=== PATIENT | male | born 1960 | race Caucasian/White ===

== ENCOUNTER 2020-07-20 13:56 | Emergency (ER) | payer OTHER, SELFPAY ==
--- NOTE | 2020-07-20 14:09 | PC.NURSE ---
PT PRESENTS TO THE ED WITH HIS MOTHER WHO IS ALSO HERE FOR CP. HE HAS REQUESTED TO HELP HER SETTLE INTO HER ROOM, PRIOR TO BEING TRIAGED HIMSELF. HE HAS BEEN EDUCATED ON THE CARE PLAN FOR A CC OF CHEST PAIN. HE HAS BEEN ASSIGNED A ROOM IN THE ED BUT PREFERS TO BE WITH HIS MOTHER AND DEFER HIS ASSESSMENT.
--- NOTE | 2020-07-20 14:21 | ED.CHESTPAIN ---
HPI - Chest Pain General Chief Complaint: Chest Pain Stated Complaint: Chest pain Time Seen by Provider: 07/20/20 14:16 Source: patient Mode of arrival: ambulatory Limitations: no limitations History of Present Illness HPI narrative: 59 y/o male with history of Related Data Allergies Allergy/AdvReac Type Severity Reaction Status Date / Time No Known Allergies Allergy Unverified 02/01/20 19:08 [No Known Allergies*]
== END 2020-07-21 23:55 | disposition left against medical advice (07) ==
PROVIDERS: Emergency Provider Emergency Medicine; PCP Internal Medicine
DX: R07.9 Chest pain, unspecified (principal)
CPT/HCPCS: 99281

== ENCOUNTER 2020-08-11 17:25 | Emergency (ER) | payer OTHER, SELFPAY ==
--- NOTE | ~2020-08-11 | XR_ITS ---
EXAMINATION: XR TIBIA AND FIBULA, RIGHT CLINICAL INFORMATION: Right leg wound. Question osteomyelitis COMPARISON: None TECHNIQUE: AP and lateral views of the right tibia and fibula were obtained. FINDINGS: No fracture or dislocation seen. There are vascular calcifications consistent with diabetes. Pretibial soft tissue calcifications are seen, nonspecific. No radiopaque foreign body or soft tissue gas. No cortical destruction or periostitis. XR/XR tibia fibula RT 2V IMPRESSION: No cortical destruction or periostitis to suggest osteomyelitis. There are nonspecific pretibial soft tissue calcifications.
[2020-08-11 17:52] VITALS: BP 165/74; PULSE 58; RESP 18; TEMP 36.9; O2SAT 97; BMI 40.3
--- NOTE | 2020-08-11 20:02 | ED.GENADULT ---
HPI - General Adult General Chief complaint: Wound/Laceration Stated complaint: diabetic wound - leg Time Seen by Provider: 08/11/20 19:45 Source: patient Mode of arrival: ambulatory Limitations: no limitations History of Present Illness HPI narrative: Patient presents to ED for right leg wound that is not erythematous. Patient unaware how long he has had this wound. Patient denies any recent trauma, swelling of the leg, fever, chills, or calf pain. Related Data Previous Rx's Medication Instructions Recorded cephalexin 500 mg PO QID #28 cap 08/11/20 doxycycline hyclate 100 mg PO BID #14 cap 08/11/20 Allergies Allergy/AdvReac Type Severity Reaction Status Date / Time No Known Allergies Allergy Unverified 02/01/20 19:08 [No Known Allergies*] Review of Systems Review of Systems: Yes all other systems are reviewed and are negative Constitutional: Constitutional: Reports as per HPI and Reports no additional constitutional complaints Eyes: Eyes: Reports as per HPI and Reports no additional eye complaints ENT: Reports system reviewed and no additional complaints, except as documented and Reports as per HPI Cardiovascular: Cardiovascular: Reports as per HPI and Reports no additional cardiovascular complaints Respiratory: Respiratory: Reports as per HPI and Reports no additional respiratory complaints Gastrointestinal: Gastrointestinal: Reports as per HPI and Reports no additional gastrointestinal complaints Genitourinary: Genitourinary: Reports no additional male genitourinary complaints and Reports as per HPI Musculoskeletal: Musculoskeletal: Reports no additional musculoskeletal complaints and Reports as per HPI Comments: Right leg wound Neurologic: Reports system reviewed and no additional complaints, except as documented and Reports as per HPI [facility] Past Medical History Medical History (Updated 08/12/20 @ 00:01 by Moe Armstrong) Arthritis Diabetes HTN (hypertension) Sleep apnea Surgical History (Updated 08/11/20 @ 17:55 by Lavonne Castellanos) Gastric bypass status for obesity H/O rotator cuff surgery Social History Social History Advance Directives: No Advance Directives Information Provided: Yes Physical Exam Vital Signs: Vital Signs: Last Vital Signs Temp 98.5 F 08/11/20 17:52 Pulse 58 08/11/20 17:52 Resp 18 08/11/20 17:52 BP 165/74 H 08/11/20 17:52 Pulse Ox 97 08/11/20 17:52 Body Mass Index 40.3 Const: General: cooperative, healthy appearing, comfortable, no acute distress, well developed, alert, awake and Physically active Orientation/consciousness: patient oriented x3 HENMT: Head: Yes normal to inspection, Yes No palpable skull fracture present, Yes normocephalic and Yes atraumatic Eyes: General: appearance normal, both eyes and all related structures Neck: Neck: Yes normal visual inspection, Yes full ROM, Yes no lymphadenopathy, Yes no meningeal signs, Yes trachea midline, Yes supple and No tender Chest: Chest palpation & inspection: normal inspection of the chest and normal palpation of entire chest wall Resp: Effort & Inspection: normal respiratory effort and able to speak in complete sentences Auscultation: clear to auscultation bilaterally Cardio: Jugular venous distension: no JVD Heart sounds: S1 normal heart sound present and S2 normal heart sound present GI: Inspection: Yes normal to inspection and No abdominal wall ecchymosis Palpation (GI): Soft to palpation, not firm, nontender, no guarding and not rigid : General: No CVA tenderness and Yes no CVA tenderness Back/Spine/Pelvis: Back: no CVA tenderness, No CVA tenderness and No back tenderness Skin: General skin exam: no rashes or lesions noted and elasticity normal Neuro: General: patient oriented x3, no meningeal signs and CN's II-XI intact bilaterally Cranial nerves: Yes CN's II-XII intact bilaterally Extrem: Other: Right lower extremityz; anterior tibial positive for area of erythema and wound is warm, negative for any drainage. Negative for any swelling of leg or calf tenderness. Feet negative for any ulcers/wounds or swelling. Palpable pedal pulses. Left lower extremity normal and vascular/motor/neuro exam intact General: Yes normal to inspection and Yes full ROM Psych: Appearance: grossly normal, well kempt and not disheveled Course Course Course Narrative: Mild cellulitis. Will do x-ray to rule osteomyelitis Reevaluation(s) Reevaluation #1: Patient does not want to have any lab work or x-ray of right lower extremity. Patient has to leave. Patient will be discharged AMA with antibiotics and told to return to the ED immediately. Patient explained if osteomyelitis is can lead to difficulty of life, disability, or sepsis. Patient did not want any labs either. Patient still wanted to sign out against medical advice once he was explained of those things.. Medical Decision Making MDM Narrative Medical decision making narrative: Right leg cellulitis infected wound Discharge Plan Discharge Clinical Impression: Cellulitis, Wound infection Patient Disposition: Left Against Medical Advice Instructions: Wound Infection (ED), Cellulitis (ED) Additional Instructions: Return to the ED immediately for swelling, worsening redness, calf pain, fever, chills, weakness, or any other concerning symptoms Prescriptions: New cephalexin 500 mg capsule 500 mg PO QID Qty: 28 RF: 0 doxycycline hyclate 100 mg capsule 100 mg PO BID Qty: 14 RF: 0 Referrals: Jason Albert MD [Primary Care Provider] - 2 days (Right cellulitis/infected wound) Stand Alone Forms: Against Medical Advice Interventions: ED Discharge Assessment Last Done: 08/11/20 20:48 Discharge Date/Time: 08/11/20 20:50 Print Language: Citizen Of [place]
== END 2020-08-11 20:50 | disposition left against medical advice (07) ==
PROVIDERS: Emergency Provider Emergency Medicine Emergency Medical Services; PCP Internal Medicine
DX: L08.9 Local infection of the skin and subcutaneous tissue, unspecified (principal); L03.115 Cellulitis of right lower limb; E11.69 Type 2 diabetes mellitus with other specified complication; I10 Essential (primary) hypertension
CPT/HCPCS: 73590; 99283

== ENCOUNTER 2020-12-15 00:52 | Emergency (ER) | payer OTHER, SELFPAY ==
--- NOTE | ~2020-12-15 | XR_ITS ---
EXAMINATION: XR CHEST CLINICAL INFORMATION: Chest pain COMPARISON: None TECHNIQUE: Frontal view of the chest was obtained. FINDINGS: Normal symmetric lung volumes. No parenchymal consolidation. No pleural effusion. No pneumothorax. Cardiomediastinal silhouette and pulmonary vascularity are within normal limits. No acute osseous abnormalities. XR/XR chest 1V IMPRESSION: Unremarkable examination.
[2020-12-15 00:59] VITALS: BP 148/70; PULSE 59; RESP 16; TEMP 36.8; O2SAT 96; BMI 40.0
--- NOTE | 2020-12-15 01:03 | ECG_ITS ---
Test Reason : CHEST PAIN Blood Pressure : / mmHG Vent. Rate : 054 BPM Atrial Rate : 054 BPM P-R Int : 160 ms QRS Dur : 110 ms QT Int : 426 ms P-R-T Axes : 019 -10 029 degrees QTc Int : 403 ms Sinus bradycardia Otherwise normal ECG No previous ECGs available Referred By: Generic ED Physician Electronically Signed By:NEVA GARCIA
[2020-12-15 01:20] VITALS: BP 139/63; PULSE 53; RESP 15; TEMP 36.8; O2SAT 96
[2020-12-15 01:28] LABS: Basophils Percent Auto 0.3 % (0-2); Eosinophils Absolute Auto 0.1 X10*3/uL (0.0-0.4); Eosinophils Percent Auto 1.8 % (0-4); Hematocrit 40.8 % (42-52); Hemoglobin 14.1 g/dl (14.0-18.0); Imm Gran Abs Auto 0.02 X10*3/uL (0.00-0.03); Imm Gran Pct Auto 0.3 % (0.0-0.4); Lymphocytes Percent Auto 41.9 % (20-40); MANUAL DIFF FLAG NO; Mean Corpuscular HGB Conc 34.6 g/dl (31.0-36.0); Mean Corpuscular Hemoglobin 31.7 pg (27.0-33.0); Mean Corpuscular Volume 91.7 fL (80-98); Mean Platelet Volume 10.5 fL (9.4-12.4); Monocytes Absolute Auto 0.5 X10*3/uL (0.1-1.2); Monocytes Percent Auto 7.1 % (2-11); Neutrophils Absolute Auto 3.4 X10*3/uL (2.0-8.3); Neutrophils Percent Auto 48.6 % (45-73); Platelet Count 182 X10*3/uL (160-400); Red Blood Count 4.45 X10*6/uL (4.60-5.80); Red Cell Distribution Width 12.4 % (11.0-16.0)
--- NOTE | 2020-12-15 01:32 | PC.NURSE ---
IV established, labs obtained. Pt reports being pain free at this time. VSS. Awaiting primary MD servin.
[2020-12-15 01:49] LABS: Anion Gap 12 (12-20); Blood Urea Nitrogen 10 mg/dL (9-16); Calcium 9.1 mg/dL (8.4-10.2); Carbon Dioxide 29 mmol/L (22-29); Chloride 106 mmol/L (96-108); Creatinine Clr Calc Pharmacy 117.1; Estimated Glomerular Filt Rate > 60; Glucose Random 118 mg/dL (60-115); Potassium 3.7 mmol/L (3.3-5.1); Sodium 143 mmol/L (135-145)
[2020-12-15 01:51] LABS: Troponin-I High Sensitivity 3.5 ng/L (<3.5-35.0)
--- NOTE | 2020-12-15 02:40 | PC.NURSE ---
at bedside for primary eval. Pt remains pain free at this time.
--- NOTE | 2020-12-15 02:41 | ED.CHESTPAIN ---
HPI - Chest Pain General Chief Complaint: Chest Pain Stated Complaint: chest pain Time Seen by Provider: 12/15/20 02:29 Source: patient Mode of arrival: ambulatory Limitations: no limitations History of Present Illness HPI narrative: Patient comes emergency room complaining of intermittent chest pain for 2 weeks. Patient states that today he had chest pressure at 11:00, results by 12, (15 hours ago). By the time the patient came to the emergency room, all his symptoms had resolved. At this time, patient has no chest pain, no shortness of breath, no radiation. Earlier today, patient states that the discomfort was radiating towards the left arm. Patient states it is not related to exertion Related Data Previous Rx's Medication Instructions Recorded cephalexin 500 mg capsule 500 mg PO QID #28 cap 08/11/20 doxycycline hyclate 100 mg capsule 100 mg PO BID #14 cap 08/11/20 Allergies Allergy/AdvReac Type Severity Reaction Status Date / Time No Known Allergies Allergy Verified 12/15/20 00:58 [No Known Allergies*] Review of Systems Review of Systems: Constitutional : No Weight loss, No Fever, No Chills, No Night Sweats, No Fatigue, No Malaise ENT/Mouth : No Hearing loss, No Ear Pain, No Nasal Congestion, No Sinus Pain, No Hoarseness, No sore throat, No Rhinorrhea, No Swallowing Difficulty Eyes: No Eye Pain, No Swelling, No Redness, No Foreign Body, No Discharge, No Vision Changes Cardiovascular : Chest pressure which self-resolved 15 hours ago, No SOB, No Dyspnea on Exertion, No Orthopnea, No Edema, No Palpitations Respiratory : No Cough, No Sputum, No Wheezing, No Smoke Exposure, No Dyspnea Gastrointestinal : No Nausea, No Vomiting, No Diarrhea, No Constipation, No abdominal Pain, No Hematochezia, No Melena Genitourinary : no irregular bleeding, No Dysuria, No Urinary Frequency, No Hematuria, No Urinary Incontinence, No Urgency, No Flank Pain, No Urinary Flow Changes, No Hesitancy Musculoskeletal : No joint pain, No Myalgias, No Joint Swelling Skin : No Skin Lesions, No rash Neuro : No Weakness, No Numbness, No Paresthesias, No Loss of Consciousness, No Dizziness, No Headache Psych : No Anxiety/Panic, No Depression, No SI/HI/AH/VH, No Social Issues, Heme/Lymph: No Bruising, No Bleeding,No Lymphadenopathy Endocrine : No Polyuria, No Polydipsia, No Temperature Intolerance [facility] Past Medical History Medical History Arthritis Diabetes HTN (hypertension) Sleep apnea Surgical History Gastric bypass status for obesity H/O rotator cuff surgery Social History Social History Advance Directives: No Advance Directives Information Provided: No Physical Exam Vital Signs: Vital Signs: Last Vital Signs Temp 98.3 F 12/15/20 01:20 Pulse 53 12/15/20 01:20 Resp 15 12/15/20 01:20 BP 139/63 12/15/20 01:20 Pulse Ox 96 12/15/20 01:20 Body Mass Index 40.0 Const: Other: Appearance: Alert. Oriented X3. No acute distress. Eyes: Pupils equal, round and reactive to light. ENT: Pharynx normal. Neck: Normal inspection. Neck supple. No lymph nodes noted. No crepitus CVS: Normal heart rate and rhythm. Pulses normal. Normal S1 and S2 Respiratory: No respiratory distress. Breath sounds normal. No Wheezing. No rales Abdomen: Soft and nontender. No rigidity. No distention. good BS x4 Skin: Skin warm and dry. Normal skin color. Normal skin turgor. Extremities: No lower extremity edema. No Lacerations. No Rash Neuro: Oriented X 3. No motor deficit. No sensory deficit. Moving all extermities. No slurred speech. Course Course Course Narrative: Patient EKG and troponin within normal limits, chest x-ray negative. Patient has been asymptomatic over 15 hours. I discussed with the patient that he will likely benefit from a stress test. Patient will discuss this with his primary care physician. MDM - Chest Pain Lab Data Result diagrams: 12/15/20 01:19 12/15/20 01:19 Labs: Lab Results 12/15/20 12/15/20 12/15/20 Range/Units 01:19 01:19 01:19 WBC 7.0 (4.8-10.8) X10*3/uL RBC 4.45 L (4.60-5.80) X10*6/uL Hgb 14.1 (14.0-18.0) g/dl Hct 40.8 L (42-52) % MCV 91.7 (80-98) fL MCH 31.7 (27.0-33.0) pg MCHC 34.6 (31.0-36.0) g/dl RDW 12.4 (11.0-16.0) % Plt Count 182 (160-400) X10*3/uL MPV 10.5 (9.4-12.4) fL Immature Gran % (Auto) 0.3 (0.0-0.4) % Neut % (Auto) 48.6 (45-73) % Lymph % (Auto) 41.9 H (20-40) % [place] % (Auto) 7.1 (2-11) % Eos % (Auto) 1.8 (0-4) % Baso % (Auto) 0.3 (0-2) % Lymph # (Auto) 3.0 (1.2-4.9) X10*3/uL [place] # (Auto) 0.5 (0.1-1.2) X10*3/uL Eos # (Auto) 0.1 (0.0-0.4) X10*3/uL Baso # (Auto) 0.0 (0.0-0.2) X10*3/uL Abs Immat Gran (auto) 0.02 (0.00-0.03) X10*3/uL Absolute Neuts (auto) 3.4 (2.0-8.3) X10*3/uL Absolute Nucleated RBC 0.000 (0.0-0.012) X10*3/uL Nucleated RBC % (auto) 0.0 (0.0-0.2) /100WBC Sodium 143 (135-145) mmol/L Potassium 3.7 (3.3-5.1) mmol/L Chloride 106 (96-108) mmol/L Carbon Dioxide 29 (22-29) mmol/L Anion Gap 12 (12-20) BUN 10 (9-16) mg/dL Creatinine 0.79 (0.5-1.4) mg/dL Estim Creat Clear Calc 117.1 Estimated GFR > 60 Random Glucose 118 H (60-115) mg/dL Calcium 9.1 (8.4-10.2) mg/dL Troponin I High Sens 3.5 (<3.5-35.0) ng/L Imaging Data Chest x-ray: Radiologist's impression: Normal symmetric lung volumes. No parenchymal consolidation. No pleural effusion. No pneumothorax.? Cardiomediastinal silhouette and pulmonary vascularity are within normal limits. No acute osseous abnormalities. XR/XR chest 1V IMPRESSION: Unremarkable examination. ? ECG Data ECG #1: Attestation: I personally reviewed and interpreted this ECG as follows: (Sinus bradycardia, heart rate 54, no ST segment depression or elevation, no T-wave inversion, QTC 403) Discharge Plan Discharge Clinical Impression: Atypical chest pain Patient Disposition: Home, Self-Care Instructions: Chest Pain (ED) Additional Instructions: Please follow-up with your primary care physician tomorrow. If you have any worsening or new symptoms, please return to the emergency room or call 911 Prescriptions: No Action cephalexin 500 mg capsule 500 mg PO QID Qty: 28 RF: 0 doxycycline hyclate 100 mg capsule 100 mg PO BID Qty: 14 RF: 0
[2020-12-15 02:59] VITALS: BP 124/67; PULSE 58; RESP 14; O2SAT 97
[2020-12-15 04:41] LABS: Glucose, Whole Blood 104 mg/dL (60-115)
== END 2020-12-15 03:03 | disposition home or self-care (01) ==
PROVIDERS: Emergency Provider Emergency Medicine; PCP Internal Medicine
DX: R07.9 Chest pain, unspecified (principal); Z79.899 Other long term (current) drug therapy; Z98.84 Bariatric surgery status
CPT/HCPCS: 36415; 71045; 80048; 82947; 84484; 85025; 93005; 99283; 99284

== ENCOUNTER 2021-03-02 14:28 | Emergency (ER) | payer OTHER, SELFPAY ==
[2021-03-02 14:35] VITALS: BP 155/84; PULSE 64; RESP 18; TEMP 36.7; O2SAT 99; BMI 40.8
--- NOTE | 2021-03-02 15:03 | ED.WOUNDLAC ---
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 Patient denies cough fever chest pain nausea vomiting diarrhea or fever. Related Data Previous Rx's Medication Instructions Recorded cephalexin 500 mg capsule 500 mg PO QID #28 cap 08/11/20 doxycycline hyclate 100 mg capsule 100 mg PO BID #14 cap 08/11/20 doxycycline hyclate 100 mg capsule 100 mg PO BID 10 Days #20 cap 03/02/21 Allergies Allergy/AdvReac Type Severity Reaction Status Date / Time No Known Allergies Allergy Verified 12/15/20 00:58 [No Known Allergies*] Review of Systems Review of Systems: Review of systems: General: Patient denies any fever chills recent illness or falls Musculoskeletal: Denies back pain or body aches or other injuries HEENT: denies headache, runny nose, ear pain Respiratory: denies shortness of breath, cough Cardiovascular: no chest pain or palpitations : denies dysuria, frequency Abdomen: no nausea vomiting denies abdominal pain Extremities: Left leg pain swelling and redness Skin: no diaphoresis Yes all other systems are reviewed and are negative PMFSH Past Medical History Medical History Arthritis Diabetes HTN (hypertension) Sleep apnea Surgical History Gastric bypass status for obesity H/O rotator cuff surgery Social History Social History Advance Directives: No Advance Directives Information Provided: No Physical Exam Vital Signs: Vital Signs: Last Vital Signs Temp 98.1 F 03/02/21 14:35 Pulse 64 03/02/21 14:35 Resp 18 03/02/21 14:35 BP 155/84 H 03/02/21 14:35 Pulse Ox 99 03/02/21 14:35 Body Mass Index 40.8 General: Well-appearing well-nourished in no signs of distress HEENT: Normocephalic atraumatic Neck: No signs of JVD, no masses no tenderness or lymphadenopathy Cardiovascular: Regular rate and rhythm Respiratory: Clear to auscultation bilaterally Abdomen: Soft nontender no masses Extremities: Normal pedal pulses no signs of edema Skin: Left leg approximately 3 L right now redness with narrowing the center nondraining is tender to palpation erythematous mildly indurated otherwise dry Dry and warm Back: No tenderness full ROM MDM - Wound/Laceration MDM Narrative Medical decision making narrative: Concern for cellulitis the left leg I will start the patient on doxycycline and sent home on doxycycline. Discharge Plan Discharge Clinical Impression: Cellulitis of left leg Patient Disposition: Home, Self-Care Instructions: Cellulitis (ED) Additional Instructions: Please watch for worsening infection if you have worsening pain can tolerate antibiotics or have any other concerns please do not hesitate to come back to emergency department. Prescriptions: New doxycycline hyclate 100 mg capsule 100 mg PO BID 10 Days Qty: 20 RF: 0 No Action cephalexin 500 mg capsule 500 mg PO QID Qty: 28 RF: 0 doxycycline hyclate 100 mg capsule 100 mg PO BID Qty: 14 RF: 0
== END 2021-03-02 15:20 | disposition home or self-care (01) ==
PROVIDERS: Emergency Provider Student in an Organized Health Care Education/Training Program; PCP Internal Medicine
DX: L03.116 Cellulitis of left lower limb (principal); E11.9 Type 2 diabetes mellitus without complications; I10 Essential (primary) hypertension
CPT/HCPCS: 99283

== ENCOUNTER 2021-04-30 14:33 | Outpatient (REF) | payer OTHER, SELFPAY ==
--- NOTE | ~2021-04-30 | XR_ITS ---
EXAMINATION: XR FOOT, RIGHT CLINICAL INFORMATION: Pain right foot. COMPARISON: None TECHNIQUE: AP, lateral, and oblique views of the right foot. FINDINGS: There is no visible fracture, dislocation or subluxation. No bony erosive changes. There is mild soft tissue swelling along the fifth MTP joint likely cellulitis. No periosteal elevation. The ankle mortise and subtalar joints are normal. Minimal dorsal intertarsal spurring is seen. Incidentally noted is a radiopaque pin or soft tissue density within the plantar surface XR/XR foot RT min 3V IMPRESSION: Tortuous radiopaque metal pin along the mid plantar foot. Correlate clinically. Mild soft tissue swelling fifth MTP joint likely cellulitis. No underlying bony erosive changes or periosteal thickening to suggest osteomyelitis. Mild hallux valgus deformity first MTP joint.
== END 2021-04-30 14:34 | disposition home or self-care (01) ==
LOC: HO.XRAY 14:33
PROVIDERS: Absent Provider Internal Medicine; PCP Internal Medicine; Visit Provider Student in an Organized Health Care Education/Training Program
DX: M79.671 Pain in right foot (principal)
CPT/HCPCS: 73630

== ENCOUNTER 2021-12-13 09:26 | Emergency (ER) | payer OTHER, SELFPAY ==
--- NOTE | ~2021-12-13 | XR_ITS ---
EXAMINATION: XR FOOT, RIGHT CLINICAL INFORMATION: Open wound, diabetic. COMPARISON: None TECHNIQUE: AP, lateral, and oblique views of the right foot. FINDINGS: There is hallux valgus deformity 1st MTP joint. No visible acute fracture or dislocation seen. The ankle mortise and subtalar joints are normal. There is a small calcaneal heel enthesophyte. There is mild distal dorsal foot soft tissue swelling. No bony erosive changes. XR/XR foot RT 2V IMPRESSION: Mild soft tissue swelling distal dorsal foot. Mild distal dorsal foot soft tissue swelling. No gas or soft tissue swelling seen along the plantar aspect. No acute fracture.
[2021-12-13 09:33] VITALS: BP 151/74; PULSE 79; RESP 18; TEMP 36.6; O2SAT 96; BMI 40.6
[2021-12-13 09:56] LABS: MANUAL DIFF FLAG NO
[2021-12-13 09:58] LABS: Basophils Percent Auto 0.2 % (0-2); Eosinophils Absolute Auto 0.1 X10*3/uL (0.0-0.4); Eosinophils Percent Auto 1.7 % (0-4); Hematocrit 40.1 % (42.0-52.0); Hemoglobin 13.7 g/dl (14.0-18.0); Imm Gran Abs Auto 0.02 X10*3/uL (0.00-0.03); Imm Gran Pct Auto 0.3 % (0.0-0.4); Lymphocytes Absolute Auto 1.5 X10*3/uL (1.2-4.9); Mean Corpuscular HGB Conc 34.2 g/dl (31.0-36.0); Mean Corpuscular Hemoglobin 31.1 pg (27.0-33.0); Mean Corpuscular Volume 90.9 fL (80.0-98.0); Mean Platelet Volume 10.5 fL (9.4-12.4); Monocytes Absolute Auto 0.5 X10*3/uL (0.1-1.2); Monocytes Percent Auto 6.9 % (2-11); Neutrophils Absolute Auto 4.4 x10*3/uL (2.0-8.3); Neutrophils Percent Auto 67.9 % (45-73); Platelet Count 211 X10*3/uL (160-400); Red Blood Count 4.41 X10*6/uL (4.60-5.80); White Blood Count 6.5 X10*3/uL (4.8-10.8)
[2021-12-13 10:07] LABS: Lactic Acid 1.5 mmol/L (0.5-2.0)
[2021-12-13 10:32] LABS: Anion Gap 14 (12-20); Blood Urea Nitrogen 12 mg/dL (9-16); Carbon Dioxide 26 mmol/L (22-29); Chloride 106 mmol/L (96-108); Creatinine Clr Calc Pharmacy 121.2; Estimated Glomerular Filt Rate > 60; Glucose Random 202 mg/dL (60-115); Potassium 3.6 mmol/L (3.3-5.1); Sodium 142 mmol/L (135-145)
--- NOTE | 2021-12-13 12:08 | ED_ITS ---
HPI - General Adult General Chief complaint: Wound/Laceration Stated complaint: wound/Lac on R foot/swollen Time Seen by Provider: 12/13/21 12:06 Source: patient Mode of arrival: ambulatory Limitations: no limitations History of Present Illness HPI narrative: Patient is a 61 year old male with a history of diabetes presenting to the emergency department today with a wound to the bottom of his right foot and right foot swelling. Patient states that over the last 2 weeks he has had swelling to his right foot and believes he has a wound to the bottom of his right foot. Patient states that he has previously followed with the wound center here. Patient denies any dizziness, lightheadedness, abdominal pain, nausea, vomiting, fever, chills, blurry vision, double vision, loss of vision, chest pain, difficulty breathing, shortness of breath, back pain, night sweats, pain with urination, increased urinary frequency, increased urinary urgency, blood in his urine or stool, syncope or a near syncopal episode, recent trauma or falls, bowel incontinence, bladder incontinence, bowel retention, bladder retention, or any other complaints at this time. Onset (ago): week(s) (2) Location: right and lower extremity (bottom of foot) Radiation: non-radiation Severity: mild Severity scale (1-10): 2 Quality: dull Pain Consistency: constant Relieving factors: none Exacerbating factors: none Associated symptoms: denies other symptoms Treatments prior to arrival: none Related Data Previous Rx's Medication Instructions Recorded cephalexin 500 mg capsule 500 mg PO QID #28 caps 08/11/20 doxycycline hyclate 100 mg capsule 100 mg PO BID #14 caps 08/11/20 doxycycline hyclate 100 mg capsule 100 mg PO BID 10 days #20 caps 03/02/21 cephalexin 500 mg capsule 500 mg PO Q6H 7 days #28 caps 12/13/21 Allergies Allergy/AdvReac Type Severity Reaction Status Date / Time No Known Allergies Allergy Verified 12/15/20 00:58 [No Known Allergies*] Review of Systems Constitutional: Constitutional: Reports no additional constitutional compla ints, Denies chills, Denies fever(s) and Denies night sweats Eyes: Eyes: Reports no additional eye complaints, Denies blurry vision, Denies change in vision, Denies diplopia, Denies eye discharge, Denies loss of vision and Denies eye pain ENT: Denies dizziness Cardiovascular: Cardiovascular: Reports no additional cardiovascular complaints, Denies chest pain, Denies lightheadedness, Denies Loss of Consciousness and Denies dyspnea Respiratory: Respiratory: Reports no additional respiratory complaints and Denies dyspnea Gastrointestinal: Gastrointestinal: Reports no additional gastrointestinal complaints, Denies abdominal pain, Denies melena, Denies hematochezia, Denies change in bowel habits and Denies change in stool character Genitourinary: Genitourinary: Reports no additional male genitourinary complaints, Denies hematuria, Denies oliguria, Denies difficulty urinating, Denies dysuria, Denies urinary frequency, Denies urinary hesitancy, Denies urinary incontinence and Denies urinary urgency Musculoskeletal: Musculoskeletal: Reports no additional musculoskeletal complaints, Denies numbness and Denies tingling Comments: right foot swelling and pain Neurologic: Denies dizziness, Denies loss of vision, Denies numbness and Denies tingling Psychiatric: Psychiatric: Reports no additional psychiatric complaints Endocrine: Endocrine: Reports no additional endocrine complaints Hematologic/Lymphatic: Hematologic/Lymphatic: Reports no additional hematologic/lymphatic complaints Allergic/Immunologic: Allergic/Immunologic: Reports no additional allergic/immunologic complaints PMFSH Past Medical History Attestation statement: The following information was validated with the patient. Source: old records reviewed Medical History Arthritis Diabetes HTN (hypertension) Sleep apnea Surgical History Gastric bypass status for obesity H/O rotator cuff surgery Social History Social History Patient Tobacco Use Status: Never used Tobacco Use of substances other than those prescribed or required for medical reasons: No Advance Directives: No Advance Directives Information Provided: No Physical Exam ED Vital Signs: Vital Signs - 24 hr 12/13/21 09:33 12/13/21 12:52 Temperature 98 F 97.8 F Pulse Rate 79 50 Respiratory Rate 18 16 Blood Pressure 151/74 H 122/68 Pulse Oximetry 96 96 Oxygen Delivery Method Room Air Room Air BMI result Body Mass Index 40.6 Const General: cooperative, no acute distress, alert and awake Nutritional Appearance: well nourished Orientation/consciousness: patient oriented x3 Limitations: no limitations HENMT Head: Yes normal to inspection and Yes atraumatic Ears: hearing grossly normal bilaterally and external ears normal General nose exam: Normal external nose present, no nasal discharge noted and no epistaxis Face and sinus: Yes normal facial exam, No abrasion and No laceration Mouth: Normal oral and palatal mucosa present, no drooling and no muffled voice Eyes General: appearance normal, both eyes and all related structures Periorbital: periorbital findings normal Eyelids: Yes eyelids normal Conjunctivae: conjunctivae normal Pupils: Equal, round and reactive pupils present EOM: EOMs intact bilaterally Neck Neck: Yes normal visual inspection, Yes full ROM and Yes no lymphadenopathy Chest Chest palpation & inspection: normal inspection of the chest Resp Effort & Inspection: normal respiratory effort and able to speak in complete sentences Auscultation: clear to auscultation bilaterally Cardio Rate: regular rate Rhythm: regular rhythm GI Inspection: Yes normal to inspection Neuro General: patient oriented x3 and moves all extremities Cranial nerves: Yes Equal, round and reactive pupils present Cognition (Neuro): normal cognition Motor exam (neuro): 5/5 motor strength present throughout Sensory Exam: Normal double simultaneous stimulation for sensation Coordination: [id number] test normal Extrem Other: minimal swelling to the right foot, small break in callus of heel General: Yes full ROM and Yes capillary refill normal Psych Appearance: grossly normal Mental Status: mental status grossly normal Affect: normal affect Attitude: cooperative Thought process: Normal thought process present Thought content: Normal thought content present Insight: Good insight present (Psych) Medical Decision Making MDM Narrative Medical decision making narrative: Patient is a 61 year old male presenting to the emergency department today with right foot pain and swelling. Patient's physical exam showed very minimal swelling to the right foot and a small knick in the callous of the heel of the right foot. Patient's blood work was unremarkable. Patient's right foot x-ray showed no acute process. I explained my physical exam findings as well as all test results to the patient. I answered all questions asked by the patient. Due to the patient's minimal swelling, small break in callus, and his history of diabetes, I am going to cover him for cellulitis. I stressed the importance of t he patient taking his medication as prescribed. I stressed the importance of the patient following up with his primary care provider and wound care. I stressed the importance of the patient returning to the emergency department immediately if his symptoms were to worsen or if he were to develop any dizziness, shortness of breath, difficulty breathing, chest pain, blurry vision, loss of vision, [place], vomiting, abdominal pain, fever, chills, back pain, or any other complaints. Patient verbalized agreement and understanding with this treatment plan and discharge. Differential Diagnosis Differential Diagnosis: Cellulitis Medical Records Medical records reviewed: Yes I reviewed the patient's medical records. Lab Data Lab results reviewed: Yes I reviewed the patient's lab results. Result diagrams: 12/13/21 09:50 12/13/21 09:59 Labs: Lab Results 12/13/21 12/13/21 12/13/21 Range/Units 09:50 09:50 09:59 WBC 6.5 (4.8-10.8) X10*3/uL RBC 4.41 L (4.60-5.80) X10*6/uL Hgb 13.7 L (14.0-18.0) g/dl Hct 40.1 L (42.0-52.0) % MCV 90.9 (80.0-98.0) fL MCH 31.1 (27.0-33.0) pg MCHC 34.2 (31.0-36.0) g/dl RDW 12.0 (11.0-16.0) % Plt Count 211 (160-400) X10*3/uL MPV 10.5 (9.4-12.4) fL Immature Gran % (Auto) 0.3 (0.0-0.4) % Neut % (Auto) 67.9 (45-73) % Lymph % (Auto) 23.0 (20-40) % [place] % (Auto) 6.9 (2-11) % Eos % (Auto) 1.7 (0-4) % Baso % (Auto) 0.2 (0-2) % Lymph # (Auto) 1.5 (1.2-4.9) X10*3/uL [place] # (Auto) 0.5 (0.1-1.2) X10*3/uL Eos # (Auto) 0.1 (0.0-0.4) X10*3/uL Baso # (Auto) 0.0 (0.0-0.2) X10*3/uL Abs Immat Gran (auto) 0.02 (0.00-0.03) X10*3/uL Absolute Neuts (auto) 4.4 (2.0-8.3) x10*3/uL Absolute Nucleated RBC 0.000 (0.0-0.012) X10*3/uL Nucleated RBC % (auto) 0.0 (0.0-0.2) /100WBC Sodium 142 (135-145) mmol/L Potassium 3.6 (3.3-5.1) mmol/L Chloride 106 (96-108) mmol/L Carbon Dioxide 26 (22-29) mmol/L Anion Gap 14 (12-20) BUN 12 (9-16) mg/dL Creatinine 0.76 (0.5-1.4) mg/dL Estim Creat Clear Calc 121.2 Estimated GFR > 60 Random Glucose 202 H D (60-115) mg/dL Lactic Acid 1.5 (0.5-2.0) mmol/L Calcium 9.0 (8.4-10.2) mg/dL Imaging Data Right foot x-ray: Attestation: I personally reviewed and interpreted this imaging study as follows: My impression: No acute nelson process. Radiologist's impression: EXAMINATION: XR FOOT, RIGHT CLINICAL INFORMATION: Open wound, diabetic.? COMPARISON: None? TECHNIQUE: AP, lateral, and oblique views of the right foot. FINDINGS: There is hallux valgus deformity 1st MTP joint. No visible acute fracture or dislocation seen. The ankle mortise and subtalar joints are normal. There is a small calcaneal heel enthesophyte. There is mild distal dorsal foot soft tissue swelling. No bony erosive changes. XR/XR foot RT 2V IMPRESSION: Mild soft tissue swelling distal dorsal foot. Mild distal dorsal foot soft tissue swelling. No gas or soft tissue swelling seen along the plantar aspect. No acute fracture. Dictated By: Miah Rivera MD Signed By: Electronically signed by Miah Rivera MD 12/13/21 2532 Discharge Plan Discharge Clinical Impression: Cellulitis Patient Disposition: Home, Self-Care Instructions: Cellulitis (ED) Additional Instructions: Follow up with your primary care provider. Return to the emergency department immediately if your symptoms worsen or if you develop any dizziness, shortness of breath, difficulty breathing, chest pain, blurry vision, loss of vision, nausea, vomiting, abdominal pain, fever, chills, back pain, or any other complaints. Prescriptions: New cephalexin 500 mg capsule 500 mg PO Q6H 7 Days Qty: 28 0RF No Action cephalexin 500 mg capsule 500 mg PO QID Qty: 28 0RF doxycycline hyclate 100 mg capsule 100 mg PO BID Qty: 14 0RF doxycycline hyclate 100 mg capsule 100 mg PO BID 10 Days Qty: 20 0RF [place] [facility] [place] [facility] [place] (Call to establish and follow up with a primary care provider. If you already have a primary care provider, please follow up with them. ) [facility] [place] [facility] Group] (Call to establish and follow up with a primary care provider. If you already have a primary care provider, please follow up with them. ) [facility] [place] [facility] Group] (Call to establish and follow up with a primary care provider. If you already have a primary care provider, please follow up with them. ) [facility] [place] [facility] [place] Group] Interventions: ED Discharge Assessment Last Done: 12/13/21 15:23 Discharge Date/Time: 12/13/21 15:24 Print Language: Maori
[2021-12-13 12:52] VITALS: BP 122/68; PULSE 50; RESP 16; TEMP 36.6; O2SAT 96
== END 2021-12-13 15:24 | disposition home or self-care (01) ==
PROVIDERS: Emergency Provider Student in an Organized Health Care Education/Training Program
DX: L03.115 Cellulitis of right lower limb (principal); M79.671 Pain in right foot; E11.9 Type 2 diabetes mellitus without complications; I10 Essential (primary) hypertension
CPT/HCPCS: 36415; 73620; 80048; 83605; 85025; 87040; 99283; 99284

== ENCOUNTER 2021-12-17 04:35 | Inpatient (IN) | payer OTHER, SELFPAY ==
[2021-12-17] VITALS (7 sets, daily range): BP systolic 128–160; BP diastolic 59–78; PULSE 55–75; RESP 14–18; TEMP 36.3–37.2; O2SAT 93–96; BMI 36.3
--- NOTE | ~2021-12-17 | US_ITS ---
EXAMINATION: COLOR-FLOW DUPLEX IMAGING OF THE BILATERAL LOWER EXTREMITY ARTERIAL SYSTEM. VELOCITY MEASUREMENTS THROUGHOUT THE FEMORAL ARTERIES Interventional Radiologist: Rohit Allen M.D., F.S.I.R., F.A.C.R. CLINICAL INFORMATION: There is a 61-year-old male with bilateral peripheral arterial disease. Nonhealing ulcers. RIGHT FEMORAL RUNOFF VELOCITIES: The right common femoral artery measures 124 cm/s and triphasic. The right profunda femoral artery is 79 cm/s and is biphasic. Right proximal superficial femoral artery measures 99 cm/s and triphasic. Mid superficial femoral artery is 181 cm/s and triphasic. Distal right superficial femoral artery measures 120 cm/s and is triphasic. Right popliteal velocity measures 154 cm/s and is abnormal. The posterior tibial artery velocity is occluded. The peroneal artery is occluded. LEFT FEMORAL RUNOFF VELOCITIES: The left common femoral artery measures 98 cm/s and triphasic. The left profunda femoral artery is 85 cm/s and is biphasic. Left proximal superficial femoral artery measures 136 cm/s and triphasic. Mid superficial femoral artery is 83 cm/s and triphasic. Distal left superficial femoral artery measures 182 cm/s and is triphasic. Left popliteal velocity measures 99 cm/s and is triphasic. The posterior tibial artery velocity measures 66 cm/s and was biphasic. The mid and distal posterior tibial artery appears to be occluded. US/US arterial duplex LE BI IMPRESSION: 1. Normal bilateral inflow with scattered atherosclerotic disease. 2. However, there is bilateral tibial vessel occlusions and severe atherosclerotic disease.
--- NOTE | ~2021-12-17 | MR_ITS ---
EXAMINATION: MRI OF THE RIGHT FOOT WITHOUT AND WITH CONTRAST CLINICAL INFORMATION: Evaluate for osteomyelitis. COMPARISON: X-rays of the right foot most recent 12/17/2021. TECHNIQUE: MRI of the right forefoot was performed before and after contrast. Contrast dose 10 mL of Gadavist given intravenously. FINDINGS: SECOND DIGIT: In the distal phalanx there is diffuse increased T2 signal with concomitant decreased T1 signal. There is surrounding abnormal decreased T1 increased T2 signal with partial enhancement compatible with a combination of edema and cellulitis. There also may be a small ulceration measuring 6 mm transverse and 4 mm craniocaudal. The proximal and middle phalange appear intact. No effusion of the DIP joint. Additional soft tissue abnormality circumferentially about the more proximal phalanges compatible with extension of the cellulitis more proximal to the distal phalanx. ADDITIONAL FINDINGS: There is osteoarthritis of the 1st metatarsophalangeal joint with subchondral cystic change and some reactive edema along the base of the proximal phalanx. There is a mild effusion. Additional degenerative changes of the hallux sesamoid joints with subchondral cystic change and edema. Overall [id number] osteoarthritis. Osteoarthritis of the 2nd through 4th tarsometatarsal joints manifested by subchondral cystic change. Generalized abnormal signal in the subcutaneous soft tissues dorsally without enhancement compatible with generalized edema. Fatty infiltration of the muscles of the foot compatible with edema overall suggestive of denervation myositis. MR/MR foot RT wo/w con IMPRESSION: Osteomyelitis of the distal phalanx of the 2nd digit with surrounding cellulitis. Osteoarthritis involving multiple joints in the forefoot, distal and midfoot region. Generalized edema in the subcutaneous soft tissues throughout the foot. 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
--- NOTE | ~2021-12-17 | US_ITS ---
EXAMINATION: COLOR-FLOW DUPLEX IMAGING OF THE BILATERAL LOWER EXTREMITY ARTERIAL SYSTEM. VELOCITY MEASUREMENTS THROUGHOUT THE FEMORAL ARTERIES Interventional Radiologist: Rohit Allen M.D., F.S.I.R., F.A.C.R. CLINICAL INFORMATION: There is a 61-year-old male with bilateral peripheral arterial disease. Nonhealing ulcers. RIGHT FEMORAL RUNOFF VELOCITIES: The right common femoral artery measures 124 cm/s and triphasic. The right profunda femoral artery is 79 cm/s and is biphasic. Right proximal superficial femoral artery measures 99 cm/s and triphasic. Mid superficial femoral artery is 181 cm/s and triphasic. Distal right superficial femoral artery measures 120 cm/s and is triphasic. Right popliteal velocity measures 154 cm/s and is abnormal. The posterior tibial artery velocity is occluded. The peroneal artery is occluded. LEFT FEMORAL RUNOFF VELOCITIES: The left common femoral artery measures 98 cm/s and triphasic. The left profunda femoral artery is 85 cm/s and is biphasic. Left proximal superficial femoral artery measures 136 cm/s and triphasic. Mid superficial femoral artery is 83 cm/s and triphasic. Distal left superficial femoral artery measures 182 cm/s and is triphasic. Left popliteal velocity measures 99 cm/s and is triphasic. The posterior tibial artery velocity measures 66 cm/s and was biphasic. The mid and distal posterior tibial artery appears to be occluded. US/US JOSE complete IMPRESSION: 1. Normal bilateral inflow with scattered atherosclerotic disease. 2. However, there is bilateral tibial vessel occlusions and severe atherosclerotic disease.
--- NOTE | ~2021-12-17 | XR_ITS ---
EXAMINATION: XR FOOT, RIGHT CLINICAL INFORMATION: Second toe infection COMPARISON: 12/13/2021 and 04/30/2021 TECHNIQUE: AP, lateral, and oblique views of the right foot. FINDINGS: Progressive resorption of the second distal phalanx/phalangeal tuft medullary lucency within the second phalanx concerning for osteomyelitis. No additional areas of osteomyelitis. Degenerative changes of the first metatarsal joint. Hammertoe deformities. Mild hallux valgus. Diffuse soft tissue swelling. XR/XR foot RT 2V IMPRESSION: Findings suspicious for osteomyelitis involving the second distal phalanx/distal phalangeal tuft.
--- NOTE | 2021-12-17 05:12 | ED.WOUNDLAC ---
HPI - Wound/Laceration General Chief Complaint: Wound/Laceration Stated Complaint: Diabetic/Wound check Time Seen by Provider: 12/17/21 05:09 Source: patient Mode of arrival: ambulatory Limitations: no limitations History of Present Illness HPI narrative: 61-year-old male with history of diabetes presented today for wound check to the bottom of his right foot and right 2nd toe. Patient was seen in the emergency department 2 days ago for right foot cellulitis patient was started and discharged on Keflex, patient think that the swelling and the redness and a right foot and the 2nd toe is worsening. Patient declined any fever chills. Patient took the antibiotic as prescribed. Related Data Previous Rx's Medication Instructions Recorded cephalexin 500 mg capsule 500 mg PO QID #28 caps 08/11/20 doxycycline hyclate 100 mg capsule 100 mg PO BID #14 caps 08/11/20 doxycycline hyclate 100 mg capsule 100 mg PO BID 10 days #20 caps 03/02/21 cephalexin 500 mg capsule 500 mg PO Q6H 7 days #28 caps 12/13/21 Allergies Allergy/AdvReac Type Severity Reaction Status Date / Time No Known Allergies Allergy Verified 12/15/20 00:58 [No Known Allergies*] Review of Systems Review of Systems: All other systems are reviewed and are negative Constitutional: Reports as per HPI and Reports no additional constitutional complaints Eyes: Reports as per HPI and Reports no additional eye complaints Reports system reviewed and no additional complaints, except as documented Cardiovascular: Reports as per HPI and Reports no additional cardiovascular complaints Respiratory: Reports as per HPI and Reports no additional respiratory complaints Gastrointestinal: Reports as per HPI and Reports no additional gastrointestinal complaints Genitourinary: Reports no additional female genitourinary complaints Musculoskeletal: Reports no additional musculoskeletal complaints Skin/Breast: Reports system reviewed and no additional complaints, except as docu Psychiatric: Reports no additional psychiatric complaints Endocrine: Reports no additional endocrine complaints Hematologic/Lymphatic: Reports no additional hematologic/lymphatic complaints Allergic/Immunologic: Reports no additional allergic/immunologic complaints Reports system reviewed and no additional complaints, except as documented and Reports Abnormal speech present [facility] Past Medical History Medical History Arthritis Diabetes HTN (hypertension) Sleep apnea Surgical History Gastric bypass status for obesity H/O rotator cuff surgery Social History Social History Patient Tobacco Use Status: Never used Tobacco Advance Directives: No Physical Exam Vital Signs: Vital Signs: Last Vital Signs Temp 98.0 F 12/17/21 06:00 Pulse 65 12/17/21 06:00 Resp 16 12/17/21 06:00 BP 128/64 12/17/21 06:00 Pulse Ox 96 12/17/21 06:00 O2 Del Method 12/17/21 06:00 BMI result Body Mass Index 36.3 vital signs have been reviewed as appeared to be correct. Blood pressure normal. Heart rate normal. Respiration rate normal. Temperature normal. Oxygen saturation normal. Appearance: Alert. Oriented X3. No acute distress. Head: Normal external exam. Normocephalic. Atraumatic. No Jarquin signs noted. No raccoon eyes noted Eyes: PERRLA. EOMI. Conjunctiva and sclera normal. Eyelids normal. ENT: TM's Normal. Pharynx normal. Uvula midline. Moist mucous membranes. No trismus noted. No drooling noted. No muffled voice noted. Neck: Normal inspection. Neck supple. FROM. No adenopathy. Thyroid Normal. No meningeal signs. No neck mass noted. CVS: Normal heart rate and rhythm. Heart sound normal. No murmurs noted. Pulses normal throughout. Respiratory: No respiratory distress. Painless inspiration. Breath sounds normal. No wheezes/rales/rhonchi noted. Chest nontender. No accessory muscle usage noted or decreased air movement noted. Abdomen: Soft and nontender. Bowel sounds normal in all 4 quadrants. No distention noted. No organomegaly noted. No visible injury noted. Back: No CVA tenderness. Full range of motion noted. Skin: Skin warm and dry. Normal skin color. Normal skin turgor. No rashes/lesions/lacerations noted. Extremities: Right foot overall swollen, palpable PT /DP pulsation, redness and hotness at the base of the great and 2nd toe on the dorsum side, no fluctuation, no discharge. Neuro: Oriented X 3. Cranial nerve exam: II-XII are grossly intact No motor deficit. No sensory deficit. Reflexes normal. Course Course Course Narrative: 61-year-old male with history of diabetes was treated 2 days ago with Keflex for right foot cellulitis x-ray of the foot then did not raise the suspicion of osteomyelitis, patient had repeat x-ray of the right foot today which is suspicious for osteomyelitis involving the 2nd distal Phalanx, do not meet criteria for SIRS, or severe sepsis but patient will require admission for IV Zosyn and vancomycin. MDM - Wound/Laceration Lab Data Attestation: I reviewed the patient's lab results. Result diagrams: 12/17/21 05:33 12/17/21 05:33 Labs: Lab Results 12/17/21 12/17/21 12/17/21 Range/Units 05:32 05:32 05:33 WBC 5.9 (4.8-10.8) X10*3/uL RBC 3.92 L (4.60-5.80) X10*6/uL Hgb 12.2 L (14.0-18.0) g/dl Hct 35.5 L (42.0-52.0) % MCV 90.6 (80.0-98.0) fL MCH 31.1 (27.0-33.0) pg MCHC 34.4 (31.0-36.0) g/dl RDW 12.1 (11.0-16.0) % Plt Count 202 (160-400) X10*3/uL MPV 10.2 (9.4-12.4) fL Immature Gran % (Auto) 0.3 (0.0-0.4) % Neut % (Auto) 54.2 (45-73) % Lymph % (Auto) 34.0 (20-40) % [place] % (Auto) 8.5 (2-11) % Eos % (Auto) 2.7 (0-4) % Baso % (Auto) 0.3 (0-2) % Lymph # (Auto) 2.0 (1.2-4.9) X10*3/uL [place] # (Auto) 0.5 (0.1-1.2) X10*3/uL Eos # (Auto) 0.2 (0.0-0.4) X10*3/uL Baso # (Auto) 0.0 (0.0-0.2) X10*3/uL Abs Immat Gran (auto) 0.02 (0.00-0.03) X10*3/uL Absolute Neuts (auto) 3.2 (2.0-8.3) x10*3/uL Absolute Nucleated RBC 0.000 (0.0-0.012) X10*3/uL Nucleated RBC % (auto) 0.0 (0.0-0.2) /100WBC Sodium (135-145) mmol/L Potassium (3.3-5.1) mmol/L Chloride (96-108) mmol/L Carbon Dioxide (22-29) mmol/L Anion Gap (12-20) BUN (9-16) mg/dL Creatinine (0.5-1.4) mg/dL Estim Creat Clear Calc Estimated GFR Random Glucose (60-115) mg/dL Lactic Acid 0.8 (0.5-2.0) mmol/L Calcium (8.4-10.2) mg/dL Lipase (8-78) U/L Urine Color Urine Appearance Urine pH (5.0-8.0) Ur Specific [place] (1.005-1.025) Urine Protein (NEG-TRACE) MG/DL Urine Glucose (UA) (NEG) MG/DL Urine Ketones (NEG) MG/DL Urine Blood (NEG) Urine Nitrite (NEG) Ur Leukocyte Esterase (NEG) COVID-19 (SHIVANI) Negative (Negative) COVID-19 Clin Com See Note 12/17/21 12/17/21 Range/Units 05:33 05:55 WBC (4.8-10.8) X10*3/uL RBC (4.60-5.80) X10*6/uL Hgb (14.0-18.0) g/dl Hct (42.0-52.0) % MCV (80.0-98.0) fL MCH (27.0-33.0) pg MCHC (31.0-36.0) g/dl RDW (11.0-16.0) % Plt Count (160-400) X10*3/uL MPV (9.4-12.4) fL Immature Gran % (Auto) (0.0-0.4) % Neut % (Auto) (45-73) % Lymph % (Auto) (20-40) % [place] % (Auto) (2-11) % Eos % (Auto) (0-4) % Baso % (Auto) (0-2) % Lymph # (Auto) (1.2-4.9) X10*3/uL [place] # (Auto) (0.1-1.2) X10*3/uL Eos # (Auto) (0.0-0.4) X10*3/uL Baso # (Auto) (0.0-0.2) X10*3/uL Abs Immat Gran (auto) (0.00-0.03) X10*3/uL Absolute Neuts (auto) (2.0-8.3) x10*3/uL Absolute Nucleated RBC (0.0-0.012) X10*3/uL Nucleated RBC % (auto) (0.0-0.2) /100WBC Sodium 142 (135-145) mmol/L Potassium 3.5 (3.3-5.1) mmol/L Chloride 106 (96-108) mmol/L Carbon Dioxide 26 (22-29) mmol/L Anion Gap 14 (12-20) BUN 13 (9-16) mg/dL Creatinine 0.77 (0.5-1.4) mg/dL Estim Creat Clear Calc 112.7 Estimated GFR > 60 Random Glucose 110 D (60-115) mg/dL Lactic Acid (0.5-2.0) mmol/L Calcium 8.7 (8.4-10.2) mg/dL Lipase 10 (8-78) U/L Urine Color DK YELLOW Urine Appearance CLEAR Urine pH 6.0 (5.0-8.0) Ur Specific [place] >= 1.030 H (1.005-1.025) Urine Protein NEG (NEG-TRACE) MG/DL Urine Glucose (UA) NEG (NEG) MG/DL Urine Ketones 5 (NEG) MG/DL Urine Blood NEG (NEG) Urine Nitrite NEG (NEG) Ur Leukocyte Esterase NEG (NEG) COVID-19 (SHIVANI) (Negative) COVID-19 Clin Com Imaging Data right foot x-ray: Attestation: I personally reviewed and interpreted this imaging study as follows: Radiologist's impression: Findings suspicious for osteomyelitis involving the second distal phalanx/distal phalangeal tuft. Discharge Plan Discharge Clinical Impression: Cellulitis of foot, right, Osteomyelitis of second toe of right foot Patient Disposition: Admitted As Inpatient Prescriptions: No Action cephalexin 500 mg capsule 500 mg PO QID Qty: 28 0RF doxycycline hyclate 100 mg capsule 100 mg PO BID Qty: 14 0RF doxycycline hyclate 100 mg capsule 100 mg PO BID 10 Days Qty: 20 0RF cephalexin 500 mg capsule 500 mg PO Q6H 7 Days Qty: 28 0RF
[2021-12-17 05:40] LABS: Basophils Percent Auto 0.3 % (0-2); Eosinophils Absolute Auto 0.2 X10*3/uL (0.0-0.4); Eosinophils Percent Auto 2.7 % (0-4); Hematocrit 35.5 % (42.0-52.0); Hemoglobin 12.2 g/dl (14.0-18.0); Imm Gran Abs Auto 0.02 X10*3/uL (0.00-0.03); Imm Gran Pct Auto 0.3 % (0.0-0.4); MANUAL DIFF FLAG NO; Mean Corpuscular HGB Conc 34.4 g/dl (31.0-36.0); Mean Corpuscular Hemoglobin 31.1 pg (27.0-33.0); Mean Corpuscular Volume 90.6 fL (80.0-98.0); Mean Platelet Volume 10.2 fL (9.4-12.4); Monocytes Absolute Auto 0.5 X10*3/uL (0.1-1.2); Monocytes Percent Auto 8.5 % (2-11); Neutrophils Absolute Auto 3.2 x10*3/uL (2.0-8.3); Neutrophils Percent Auto 54.2 % (45-73); Platelet Count 202 X10*3/uL (160-400); Red Blood Count 3.92 X10*6/uL (4.60-5.80); Red Cell Distribution Width 12.1 % (11.0-16.0); White Blood Count 5.9 X10*3/uL (4.8-10.8)
[2021-12-17 05:49] LABS: Lactic Acid 0.8 mmol/L (0.5-2.0)
[2021-12-17 05:57] LABS: Anion Gap 14 (12-20); Blood Urea Nitrogen 13 mg/dL (9-16); Calcium 8.7 mg/dL (8.4-10.2); Carbon Dioxide 26 mmol/L (22-29); Chloride 106 mmol/L (96-108); Creatinine Clr Calc Pharmacy 112.7; Estimated Glomerular Filt Rate > 60; Glucose Random 110 mg/dL (60-115); Lipase 10 U/L (8-78); Potassium 3.5 mmol/L (3.3-5.1); Sodium 142 mmol/L (135-145)
[2021-12-17 05:57] LABS: COVID-19 Test Negative (Negative)
[2021-12-17 06:01] LABS: Appearance Urine CLEAR; Color Urine DK YELLOW; Glucose Urine UA NEG (NEG); Leukocyte Esterase Urine NEG (NEG); Nitrite Urine NEG (NEG); Specific Gravity - Urine >= 1.030 (1.005-1.025); Urine Blood NEG (NEG); Urine Ketones 5 MG/DL (NEG); Urine Protein NEG (NEG-TRACE)
[2021-12-17 08:14] LABS: Glucose, Whole Blood 110 mg/dL (60-115)
--- NOTE | 2021-12-17 08:53 | PM.IMHP ---
History of Present Illness Date of Service: 12/17/21 Attending physician on admission: Temo Lee Chief Complaint: diabetic food ulcer/osteomyelitis Patient with history of insulin dependent controlled type 2 diabetes, htn, hdl, rony, asthma, and severe obesity being admitted for right diabetic foot infection and probable osteomyelitis of the right 2nd toe. Noticed a wound of the distal right 2nd toe and right heel about 1 week ago with associated pain that had been worsening. Initially had blister of the 2nd toe but reports this ruptured witih bloody drainage. Pain worsened and [place] [facility] [place]. Xray at the time negative for osseous infection and was discharged with keflex which he had been taking. Swelling and pain worsened prompting him to return to ED last night. XRay of the right food showed possible osteomyelitis of the right 2nd toe. Today he reports ongoing pain and swelling of the right foot. He can ambulate but with a limp. Denies any fevers or rigors. Denies any history of prior diabetic foot infection. Does have peripheral neuropathy. Follows with both endocrinology (Dilia) and podiatry (Manjinder). Last A1c per patient was controlled in the 6's. Uses and dual insulin pump and glucose ranges 100-150. Denies hypoglycemic epidoes. Review of Systems Review of Systems: Yes all other systems are reviewed and are negative [facility] Medical History (Updated 12/17/21 @ 09:42 by SANA Baeza) Arthritis Asthma Diabetes HTN (hypertension) Hyperlipidemia Osteoarthritis Sleep apnea Surgical History Gastric bypass status for obesity H/O rotator cuff surgery Social History Patient Tobacco Use Status: Never used Tobacco Advance Directives: No Meds Allergies Allergy/AdvReac Type Severity Reaction Status Date / Time No Known Allergies Allergy Verified 12/15/20 00:58 [No Known Allergies*] Active Medications: Current Medications Vancomycin HCl () 2,000 mg in 520 mls @ 260 mls/hr IV ONCE ONE Stop: 12/17/21 09:59 Pharmacy Consult (Consult Rx Perform Med Rec) 1 each MISCELLANE ONCE PRN PRN Reason: Consult order Pharmacy Consult (Consult Rx Vancomycin Dosing) 1 each MISCELLANE DAILY PRN PRN Reason: Consult order Home Medications Medication Instructions Recorded Confirmed Last Taken Type acetaminophen 650 mg 1 tab PO Q8H PRN Pain (Scale Score 12/17/21 12/17/21 12/16/21 History tablet,extended release 1-3) albuterol sulfate 90 mcg/actuation 2 puff inhalation Q4H 12/17/21 12/17/21 12/16/21 History aerosol inhaler (Ventolin HFA) amlodipine 5 mg tablet 1 tab PO DAILY 12/17/21 12/17/21 12/16/21 History aspirin 81 mg tablet,delayed 1 tab PO DAILY 12/17/21 12/17/21 12/16/21 History release atorvastatin 40 mg tablet 40 mg PO BEDTIME 12/17/21 12/17/21 12/16/21 History calcium carbonate 500 mg-vitamin 1 tab PO Q2D 12/17/21 12/17/21 12/16/21 History D3 10 mcg (400 unit) tablet (Calcium 500 With D) celecoxib 200 mg capsule 1 cap PO BID 12/17/21 12/17/21 12/16/21 History cephalexin 500 mg capsule 1 cap PO Q6H 12/17/21 12/17/21 12/16/21 History cholecalciferol (vitamin D3) 25 1 tab PO DAILY 12/17/21 12/17/21 12/16/21 History mcg (1,000 unit) capsule (Vitamin D3) cyanocobalamin (vitamin B-12) 1 tab PO DAILY 12/17/21 12/17/21 12/16/21 History 1,000 mcg tablet,extended release docusate sodium 100 mg capsule 1 cap PO BID PRN constipation 12/17/21 12/17/21 Unknown History fluticasone propionate 50 1 spray intranasal DAILY PRN 12/17/21 12/17/21 Unknown History mcg/actuation nasal allergies spray,suspension furosemide 20 mg tablet 0.5 tab PO DAILY 12/17/21 12/17/21 12/16/21 History gabapentin 300 mg capsule 1 cap PO BEDTIME 12/17/21 12/17/21 12/16/21 History insulin aspart U-100 100 unit/mL See Rx Instructions .Route .COMPLEX 12/17/21 12/17/21 12/16/21 History subcutaneous solution (Novolog U-100 Insulin aspart) lisinopril 20 mg tablet 1 tab PO DAILY 12/17/21 12/17/21 12/16/21 History loratadine 10 mg tablet 1 tab PO DAILY PRN allergies 12/17/21 12/17/21 Unknown History uhpzezwouljj-doqlvxgm-nhtm 1 tab PO DAILY 12/17/21 12/17/21 12/16/21 History fumarate 7.5 mg-folic acid 400 mcg tablet omeprazole 20 mg capsule,delayed 1 cap PO DAILY@0630 12/17/21 12/17/21 12/16/21 History release simethicone 80 mg chewable tablet 1 tab PO Q8H PRN gas 12/17/21 12/17/21 Unknown History (Gas Relief (simethicone)) subcutaneous insulin pump 12/17/21 12/17/21 12/16/21 History umeclidinium 62.5 mcg/actuation 1 puff inhalation DAILY 12/17/21 12/17/21 12/16/21 History blister powder for inhalation (Incruse Ellipta) Physical Exam Vital Signs and Narrative: Vital Signs: Last Vital Signs Temp 98.0 F 12/17/21 06:00 Pulse 63 12/17/21 08:03 Resp 16 12/17/21 08:03 BP 134/71 12/17/21 08:03 Pulse Ox 95 12/17/21 08:03 O2 Del Method 12/17/21 08:03 BMI result Body Mass Index 36.3 Const: Other: Constitutional - Awake and Alert, No apparent distress Eyes - PERRLA, EOMI Cardiovascular - S1S2, RRR, No edema Respiratory - Normal lung expansion, Normal respiratory effort, No respiratory distress, CTA bilaterally Gastrointestinal - NT / ND; +BS; No rebound or guarding Extremities - no calf tenderness bilaterally, 1+ edema RLE Musculoskeletal - Normal inspection, normal ROM Skin - Warm/Dry. See photo Neurological - Alert & oriented x3, No focal deficit Psychological - Appropriate affect Results Labs CBC and Chem 7: 12/17/21 05:33 12/17/21 05:33 Labs: Laboratory Results - last 24 hr 12/17/21 12/17/21 12/17/21 05:32 05:32 05:33 MCV 90.6 MCH 31.1 MCHC 34.4 RDW 12.1 Plt Count 202 MPV 10.2 Immature Gran % (Auto) 0.3 Neut % (Auto) 54.2 Lymph % (Auto) 34.0 Story % (Auto) 8.5 Eos % (Auto) 2.7 Baso % (Auto) 0.3 Lymph # (Auto) 2.0 Story # (Auto) 0.5 Eos # (Auto) 0.2 Baso # (Auto) 0.0 Abs Immat Gran (auto) 0.02 Absolute Neuts (auto) 3.2 Absolute Nucleated RBC 0.000 Nucleated RBC % (auto) 0.0 Anion Gap Estim Creat Clear Calc Estimated GFR POC Glucose Random Glucose Lactic Acid 0.8 Calcium Lipase Urine Color Urine Appearance Urine pH Ur Specific Isabella Urine Protein Urine Glucose (UA) Urine Ketones Urine Blood Urine Nitrite Ur Leukocyte Esterase COVID-19 ([facility]IVANI) Negative COVID-19 Clin Com See Note 12/17/21 12/17/21 12/17/21 05:33 05:55 08:10 MCV MCH MCHC RDW Plt Count MPV Immature Gran % (Auto) Neut % (Auto) Lymph % (Auto) Story % (Auto) Eos % (Auto) Baso % (Auto) Lymph # (Auto) Story # (Auto) Eos # (Auto) Baso # (Auto) Abs Immat Gran (auto) Absolute Neuts (auto) Absolute Nucleated RBC Nucleated RBC % (auto) Anion Gap 14 Estim Creat Clear Calc 112.7 Estimated GFR > 60 POC Glucose 110 Random Glucose 110 D Lactic Acid Calcium 8.7 Lipase 10 Urine Color DK YELLOW Urine Appearance CLEAR Urine pH 6.0 Ur Specific Isabella >= 1.030 H Urine Protein NEG Urine Glucose (UA) NEG Urine Ketones 5 Urine Blood NEG Urine Nitrite NEG Ur Leukocyte Esterase NEG COVID-19 ([facility]IVANI) COVID-19 Clin Com Imaging Radiologist's Impressions: Impressions Foot X-Ray 12/17/21 05:43 IMPRESSION: Findings suspicious for osteomyelitis involving the second distal phalanx/distal phalangeal tuft. Assessment and Plan (1) Cellulitis of foot, right: Status: Acute (2) Osteomyelitis of second toe of right foot: Status: Acute (3) Type 2 diabetes, controlled, with peripheral neuropathy: Status: Acute Plan Patient is a 61 year old male controlled type 2 diabetes, htn, hyperlipidemia, rony, asthma, and severe obesity with diabetic foot infection and osteomyelitis admitted for IV antibiotics. 1. Right diabetic foot infection with cellulitis and probable acute osteomyelitis of the distal second toe -IV zosyn/vanco for infection. No sepsis suspected -MRI of right foot to confirm suspected osteomyelitis -Acetaminophen as needed for pain -May consider ID consult pending MRI results 2. Type 2 diabetes with peripheral neuropathy- controlled -Continue insulin via pump managed by patient per outside endocrinology -Diabetic diet -Continue gabapentin for neuropathy 3. HTN- stable -Continue amlodipine and lisinopril 4. HLD -Continue atorvastatin 5. Asthma- stable -Continue maintenance inhaler -Albuterol updraft if needed 6. Sleep apnea -CPAP at bedtime DVT prophylaxis- Lovenox Full code Patient requires inpatient stay expected to require at least two midnights for administration of IV antibiotics for suspected osteomyelitis with risk factors for severe disease including diabetes and obesity. Quality Stroke Does the patient have a stroke diagnosis?: No VTE Prior VTE?: No VTE Risk Level:: Medical - moderate - high VTE Device Contraindication: N/A - Device Ordered VTE Drug Contraindication: N/A - Med Ordered
--- NOTE | 2021-12-17 09:36 | PHA.MEDREC ---
Pharmacy Consult ? Medication Reconciliation Pharmacy has completed the medication reconciliation. Spoke with patient in the ED. Patient had a list of meds which matched claim history. Last took meds on 12/16/21
[2021-12-17 10:31] LABS: Erythrocyte Sedimentation Rate 38 MM/HR (0-15)
--- NOTE | 2021-12-17 11:09 | PM.EVENT ---
Event Note Date of Service: 12/17/21 Event Note: Attending Admission Note: Attending Attestation: I have personally seen and examined the patient independently (on the date of service as documented by NPP), reviewed the NPP history, exam and?MDM and agree with the assessment and plan as?written In brief, this is a 61-year-old diabetic who presents to the emergency room for the 2nd time in as many days with complaints of right lower extremity pain and ulceration. Patient was in the ED several days ago and was treated with oral antibiotics for presumed cellulitis. At that time an x-ray did not show any evidence of osteomyelitis. He now returns without any improvement. His x-ray this time shows possibility of osteomyelitis. Given his history of diabetes, he will require IV vancomycin and Zosyn.
--- NOTE | 2021-12-17 11:09 | PHA.PROG ---
Admission Date/Time: December 17, 2021 09:18 Indication: Diabetic Foot Ulcer / Possible Osteo Weight in k.058 kg Adjusted body weight in K.103 [place] body weight in K.8 Obesity Dosing Indication % IBW : 1.60% Serum Creatinine - Last 168 Hours 12/17/21 05:33 Creatinine 0.77 Estimated CrCl and GFR - Last 168 Hours 12/17/21 05:33 Estim Creat Clear Calc 112.7 Estimated GFR > 60 Vancomycin Loading Dose: 2000mg Current Vancomycin Dosing Regimen: 1000mg Q12 Vancomycin Monitoring using AUC goal of 400 - 600 range with trough as surrogate marker: 473 mg/L/hr Date and Time for next Vancomycin Level to be drawn: 12/19 @ 0700 Pharmacist Comments on Vancomycin Plan: Obese model used Patient was loaded appropriately. Given the diagnosis of possible osteo, plan is to target AUC on the higher side. Target AUC is between 400-600 mg/L/hr. 473 mg/L/hr with 1000mg Q12, 1250mg Q12 was an AUC 590. 1250mg was a little too high considering patient is obese and were not sure how levels will be and we do not have much information on kidney function. As of right now, renal function is good therefore Q12 was chosen over Q24h. Trough scheduled for 12/19 @ 0700. Vancomycin dosing will take advantage of [employer] as a clinical decision support tool that uses Bayesian modeling to calculate individual patient's pharmacokinetic parameters and forecast the patient's drug concentration time course with the target goal AUC 24 range of 400 - 600 mg/L/hr.
[2021-12-17] MEDS: amLODIPine Besylate 5 MG TABLET PO (11:34)
[2021-12-17] MEDS: Aspirin Enteric Coated 81 MG TABLET.DR PO (11:34)
[2021-12-17] MEDS: Enoxaparin Sodium 40 MG/0.4 ML SYRINGE SUBCUT (11:35)
--- NOTE | 2021-12-17 11:42 | PC.NURSE ---
MRI Screening form completed.
[2021-12-17] MEDS: Piperacillin Sodium/Tazobactam 3.375 GM in 0.9 % Sodium Chloride 50 ML IV ×3 (13:08→22:46)
[2021-12-17 13:36] LABS: C Reactive Protein 2.31 mg/dL (< or = 0.50)
[2021-12-17 17:23] LABS: Glucose, Whole Blood 121 mg/dL (60-115)
[2021-12-17] MEDS: 0.9 % Sodium Chloride Flush 3 ML SYRINGE IVFLUSH ×2 (18:17→20:16)
[2021-12-17 19:37] LABS: Glucose, Whole Blood 193 mg/dL (60-115)
[2021-12-17] MEDS: Celecoxib 200 MG CAPSULE PO (20:13)
[2021-12-17] MEDS: Atorvastatin Calcium 40 MG TABLET PO (20:13)
[2021-12-17] MEDS: Gabapentin 300 MG CAPSULE PO (20:13)
[2021-12-17] MEDS: Insulin Lispro 100 UNIT/ML 3 ML VIAL SUBCUT (20:13)
[2021-12-17] MEDS: vancomycin HCL 1,000 MG in 0.9 % Sodium Chloride 250 ML 270 MG IV (20:15)
[2021-12-17] MEDS: Acetaminophen 325 MG TABLET PO (21:00)
[2021-12-18 03:22] VITALS: BP 156/74; PULSE 60; RESP 17; TEMP 36.2; O2SAT 95
[2021-12-18] MEDS: Omeprazole 20 MG CAPSULE.DR PO (05:44)
[2021-12-18] MEDS: Piperacillin Sodium/Tazobactam 3.375 GM in 0.9 % Sodium Chloride 50 ML IV ×4 (05:44→22:32)
[2021-12-18 06:15] LABS: Creatinine Clr Calc Pharmacy 123.9; Estimated Glomerular Filt Rate > 60
[2021-12-18 07:12] LABS: Glucose, Whole Blood 108 mg/dL (60-115)
[2021-12-18 07:19] VITALS: BP 133/67; PULSE 62; RESP 18; TEMP 36.1; O2SAT 96
--- NOTE | 2021-12-18 08:04 | HE.PHANOTE ---
Vancomycin Dosing Addendum Patient renal function down at 0.70 from 0.77. Proper load given. Patient to continue at this dose, 1000mg Q12. Will reassess if needed once level on 12/19 @0700 is obtained. Predicted AUC 444 mg/L/hr.
[2021-12-18] MEDS: Enoxaparin Sodium 40 MG/0.4 ML SYRINGE SUBCUT (08:35)
[2021-12-18] MEDS: Aspirin Enteric Coated 81 MG TABLET.DR PO (08:35)
[2021-12-18] MEDS: 0.9 % Sodium Chloride Flush 3 ML SYRINGE IVFLUSH ×2 (08:35→17:04)
[2021-12-18] MEDS: Furosemide 20 MG TABLET 10 MG PO (08:36)
[2021-12-18] MEDS: Celecoxib 200 MG CAPSULE PO ×2 (08:36→21:28)
[2021-12-18] MEDS: lisinopriL 20 MG TABLET PO (08:36)
[2021-12-18] MEDS: vancomycin HCL 1,000 MG in 0.9 % Sodium Chloride 250 ML 270 MG IV ×2 (08:36→21:28)
[2021-12-18] MEDS: amLODIPine Besylate 5 MG TABLET PO (08:36)
--- NOTE | 2021-12-18 09:32 | P.PNIM_ITS ---
Subjective Subjective Date of Service: 12/18/21 <SANA Baeza - Last Filed: 12/18/21 12:57> 12/19/21 <Osmar Aponte MD - Last Filed: 12/19/21 11:39> Interval History: Patient with history of insulin dependent controlled type 2 diabetes, htn, hdl, rony, asthma, and severe obesity being admitted for right diabetic foot infection/cellulitis and osteomyelitis of the right 2nd toe. Tolerating vanco and zosyn well. Awaiting vascular surgery consult as well as arterial duplex/JOSE to determine if amputation is appropriate treatment. Patient is quite anxious about this possibility. He does deny any known history of peripheral vascular disease and diabetes has been well controlled. He otherwise has no complaints. WBC 5.9 yesterday. blood cultures neg x 2. He has remained afebrile. <SANA Baeza - Last Filed: 12/18/21 12:57> Physical Exam Vital Signs: Vital Signs: Last Vital Signs Temp 96.9 F 12/18/21 07:19 Pulse 62 12/18/21 07:19 Resp 18 12/18/21 07:19 BP 133/67 12/18/21 07:19 Pulse Ox 96 12/18/21 07:19 O2 Del Method 12/18/21 07:19 BMI result Body Mass Index 36.3 <SANA Baeza - Last Filed: 12/18/21 12:57> Constitutional - Awake and Alert, No apparent distress Cardiovascular - S1S2, RRR, 1+ edema RLE. 1+ left pedal pulse, unable to palpate right pedal pulse d/t anemia Respiratory - Normal lung expansion, Normal respiratory effort, No respiratory distress, CTA bilaterally Gastrointestinal - NT / ND; +BS; No rebound or guarding Extremities - Warm, no cyanosis. no calf tenderness bilaterally, Skin - Warm/Dry. Venous stasis dermatitis BLE Neurological - Alert & oriented x3, Decreased sensation of the plantar surface b/l Psychological - Appropriate affect <SANA Baeza - Last Filed: 12/18/21 12:57> Objective Data Active Medications Acetaminophen (Acetaminophen Supp 650 Mg Supp.Rect) 650 mg [place] Q6H PRN PRN Reason: Pain, Moderate (Pain Scale 4-6 Acetaminophen (Acetaminophen 325 Mg Tablet) 325 mg PO Q6H PRN PRN Reason: Pain, Mild (Pain Scale 1-3) Last Admin: 12/17/21 21:00 Dose: 325 mg Documented By: JANETH Amlodipine Besylate (Amlodipine Besylate 5 Mg Tablet) 5 mg PO DAILY [facility]; Protocol Last Admin: 12/18/21 08:36 Dose: 5 mg Documented By: UNIQUE Aspirin (Aspirin Enteric Coated 81 Mg Tablet.Dr) 81 mg PO DAILY [facility] Last Admin: 12/18/21 08:35 Dose: 81 mg Documented By: UNIQUE Atorvastatin Calcium (Atorvastatin Calcium 40 Mg Tablet) 40 mg PO BEDTIME [facility] Last Admin: 12/17/21 20:13 Dose: 40 mg Documented By: JANETH Celecoxib (Celecoxib 200 Mg Capsule) 200 mg PO BID [facility] Last Admin: 12/18/21 08:36 Dose: 200 mg Documented By: UNIQUE Docusate Sodium (Docusate Sodium 100 Mg Capsule) 100 mg PO BID PRN PRN Reason: constipation Enoxaparin Sodium (Enoxaparin Sodium 40 Mg/0.4 Ml Syringe) 40 mg SUBCUT Q24H [facility] Last Admin: 12/18/21 08:35 Dose: 40 mg Documented By: UNIQUE Furosemide (Furosemide 20 Mg Tablet) 10 mg PO DAILY [facility]; Protocol Last Admin: 12/18/21 08:36 Dose: 10 mg Documented By: UNIQUE Gabapentin (Gabapentin 300 Mg Capsule) 300 mg PO BEDTIME [facility] Last Admin: 12/17/21 20:13 Dose: 300 mg Documented By: JANETH Piperacillin Sod/Tazobactam (Sod 3.375 gm/ Sodium Chloride) 50 mls @ 100 mls/hr IV Q6H [facility] Last Infusion: 12/18/21 06:28 Dose: 0 mls/hr Documented By: JANETH Vancomycin HCl 1,000 mg/ (Sodium Chloride) 270 mls @ 270 mls/hr IV Q12H [facility] Last Admin: 12/18/21 08:36 Dose: 270 mls/hr Documented By: UNIQUE Insulin Human Lispro (Insulin Lispro 100 Unit/Ml 3 Ml Vial) 0 unit SUBCUT QIDACHS [facility]; Protocol Last Admin: 12/18/21 08:05 Dose: Not Given Documented By: NUIQUE Non-Admin Reason: No Insulin Coverage Lisinopril (Lisinopril 20 Mg Tablet) 20 mg PO DAILY [facility]; Protocol Last Admin: 12/18/21 08:36 Dose: 20 mg Documented By: UNIQUE Loratadine (Loratadine 10 Mg Tablet) 10 mg PO DAILY PRN PRN Reason: allergies Non-Formulary Medication (Umeclidinium [Incruse Ellipta]) 1 puff INHALE DAILY [facility] Omeprazole (Omeprazole 20 Mg Capsule.Dr) 20 mg PO DAILY@0630 [facility] Last Admin: 12/18/21 05:44 Dose: 20 mg Documented By: JANETH Pharmacy Consult (Consult Rx Perform Med Rec) 1 each MISCELLANE ONCE PRN PRN Reason: Consult order Pharmacy Consult (Consult Rx Vancomycin Dosing) 1 each MISCELLANE DAILY PRN PRN Reason: Consult order Simethicone (Simethicone 80 Mg Tab.Chew) 80 mg PO Q8H PRN PRN Reason: gas Sodium Chloride (0.9 % Sodium Chloride Flush 3 Ml Syringe) 3 ml IVFLUSH QSHIFT [facility] Last Admin: 12/18/21 08:35 Dose: 3 ml Documented By: UNIQUE <SANA Baeza - Last Filed: 12/18/21 12:57> Labs CBC & Chem 7: : 12/17/21 05:33 12/19/21 07:01 <SANA Baeza - Last Filed: 12/18/21 12:57> Labs: Laboratory Results - last 24 hr 12/17/21 12/17/21 12/17/21 05:33 05:33 17:18 ESR 38 H Estim Creat Clear Calc Estimated GFR POC Glucose 121 H C-Reactive Protein 2.31 H 12/17/21 12/18/21 12/18/21 19:32 05:15 07:09 ESR Estim Creat Clear Calc 123.9 Estimated GFR > 60 POC Glucose 193 H 108 C-Reactive Protein <SANA Baeza - Last Filed: 12/18/21 12:57> Imaging MRI right foot: Radiologist's impression: Impressions Foot MRI 12/17/21 12:55 IMPRESSION: Osteomyelitis of the distal phalanx of the 2nd digit with surrounding cellulitis. Osteoarthritis involving multiple joints in the forefoot, distal and midfoot region. Generalized edema in the subcutaneous soft tissues throughout the foot. 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 <SANA Baeza - Last Filed: 12/18/21 12:57> Microbiology Microbiology Results: Microbiology 12/17/21 06:11 Blood Culture - Preliminary Blood - Venous No growth after 24 hours. 12/17/21 05:32 Blood Culture - Preliminary Blood - Venous No growth after 24 hours. <SANA Baeza - Last Filed: 12/18/21 12:57> Assessment and Plan (1) Osteomyelitis of second toe of right foot: Status: Acute <SANA Baeza - Last Filed: 12/18/21 12:57> (2) Cellulitis of foot, right: Status: Acute <SANA Baeza - Last Filed: 12/18/21 12:57> (3) Type 2 diabetes, controlled, with peripheral neuropathy: Status: Acute <SANA Baeza - Last Filed: 12/18/21 12:57> (4) Diabetic foot infection: Status: Acute <SANA Baeza - Last Filed: 12/18/21 12:57> Assessment and Plan: Patient is a 61 year old male controlled type 2 diabetes, htn, hyperlipidemia, rony, asthma, and severe obesity with diabetic foot infection and osteomyelitis admitted for IV antibiotics. Patient has no complaints this morning. He is anxious about the osteomyelitis and consult with vascular surgery. 1. Right diabetic foot infection with cellulitis and acute osteomyelitis of the distal second toe without gangrene or necrosis -MRI confirmed osteomyelitis of distal 2nd right toe. -No known PVD. Awaiting arterial duplex and JOSE ordered by vascular as well as vascular surgery consult. Pending consult, patient may undergo amputation versus discharge with PICC line and outpatient antibiotics -Continue IV zosyn/vanco for infection. No sepsis suspected- blood cultures negative x2 -Continues with edema of the RLE likely secondary to infection as well as underlying PVD. Continue lasix -Acetaminophen as needed for pain 2. Type 2 diabetes with peripheral neuropathy- controlled -Continue SSI. Glucose levels stable. -Diabetic diet -Continue gabapentin for neuropathy 3. HTN- stable -Continue amlodipine and lisinopril 4. HLD -Continue atorvastatin 5. Asthma- stable -Continue maintenance inhaler -Albuterol updraft if needed 6. Sleep apnea -CPAP at bedtime DVT prophylaxis- continue lovenox Patient requires continued inpatient stay for administration of IV antibiotics and possible amputation for confirmed osteomyelitis with risk factors for severe disease including diabetes and obesity. <SANA Baeza - Last Filed: 12/18/21 12:57> Patient is a 61 year old male controlled type 2 diabetes, htn, hyperlipidemia, rony, asthma, and severe obesity with diabetic foot infection and osteomyelitis admitted for IV antibiotics. Patient has no complaints this morning. He is anxious about the osteomyelitis and consult with vascular surgery. 1. Right diabetic foot infection with cellulitis and acute osteomyelitis of the distal second toe without gangrene or necrosis -MRI confirmed osteomyelitis of distal 2nd right toe. -No known PVD. Awaiting arterial duplex and JOSE ordered by vascular as well as vascular surgery consult. Pending consult, patient may undergo amputation versus discharge with PICC line and outpatient antibiotics -Continue IV zosyn/vanco for infection. No sepsis suspected- blood cultures negative x2 -Continues with edema of the RLE likely secondary to infection as well as underlying PVD. Continue lasix -Acetaminophen as needed for pain -request PICC line 2. Type 2 diabetes with peripheral neuropathy- controlled -Continue SSI. Glucose levels stable. -Diabetic diet -Continue gabapentin for neuropathy 3. HTN- stable -Continue amlodipine and lisinopril 4. HLD -Continue atorvastatin 5. Asthma- stable -Continue maintenance inhaler -Albuterol updraft if needed 6. Sleep apnea -CPAP at bedtime DVT prophylaxis- continue lovenox Patient requires continued inpatient stay for administration of IV antibiotics and possible amputation for confirmed osteomyelitis with risk factors for severe disease including diabetes and obesity. <Osmar Aponte MD - Last Filed: 12/19/21 11:39> Quality Stroke Does the patient have a stroke diagnosis?: No <SANA Baeza - Last Filed: 12/18/21 12:57> VTE Prior VTE?: No <SANA Baeza - Last Filed: 12/18/21 12:57> VTE Risk Level:: Medical - moderate - high <SANA Baeza - Last Filed: 12/18/21 12:57> VTE Device Contraindication: N/A - Device Ordered <SANA Baeza - Last Filed: 12/18/21 12:57> VTE Drug Contraindication: N/A - Med Ordered <SANA Baeza - Last Filed: 12/18/21 12:57>
[2021-12-18 11:10] VITALS: BP 135/79; PULSE 59; RESP 15; TEMP 36.4; O2SAT 95
[2021-12-18 11:15] LABS: Glucose, Whole Blood 135 mg/dL (60-115)
--- NOTE | 2021-12-18 13:09 | PM.CNGS ---
History of Present Illness Consult details Consult date: 12/18/21 Reason for consult: wound care Narrative: Very pleasant 61-year-old gentleman presents for evaluation regarding nonhealing right 2nd toe. He had presented to the hospital with cellulitis of the foot which had extended up the foot and into the calf. He was subsequently admitted and treated with IV antibiotics. He reports that the cellulitis has significantly improved since admission. He has undergone MRI. He is awaiting noninvasive arterial testing. Of note he is a long-standing diabetic as well. He now presents to us for vascular evaluation. Review of Systems Review of Systems: Yes all other systems are reviewed and are negative Constitutional: Constitutional: Reports no additional constitutional complaints ENT: Reports Normal hearing present Cardiovascular: Cardiovascular: Denies chest pain, Denies chest pain at rest, Denies chest pain with activity and Denies pedal edema Respiratory: Respiratory: Denies cough Gastrointestinal: Gastrointestinal: Denies abdominal pain Musculoskeletal: Musculoskeletal: Denies abnormal gait, Denies muscle cramps and Denies radiating pain into limb Integumentary/Breasts: Skin/Breast: Denies skin ulcer and Denies wounds Neurologic: Reports Normal hearing present and Denies abnormal gait Psychiatric: Psychiatric: Reports no additional psychiatric complaints PMF Past Medical History Medical History (Updated 12/18/21 @ 13:13 by Blas Cardoza MD) Arthritis Asthma Diabetes HTN (hypertension) Hyperlipidemia Osteoarthritis Sleep apnea Surgical History Surgical History Gastric bypass status for obesity H/O rotator cuff surgery Social History Social History Household Members: Family Housing: Apartment Do you presently have visiting nurse or other home services: No Patient Tobacco Use Status: Never used Tobacco Meds Allergies Allergy/AdvReac Type Severity Reaction Status Date / Time No Known Allergies Allergy Verified 12/15/20 00:58 [No Known Allergies*] Active Medications: Current Medications Acetaminophen (Acetaminophen Supp 650 Mg Supp.Rect) 650 mg [place] Q6H PRN PRN Reason: Pain, Moderate (Pain Scale 4-6 Acetaminophen (Acetaminophen 325 Mg Tablet) 325 mg PO Q6H PRN PRN Reason: Pain, Mild (Pain Scale 1-3) Last Admin: 12/17/21 21:00 Dose: 325 mg Amlodipine Besylate (Amlodipine Besylate 5 Mg Tablet) 5 mg PO DAILY [facility]; Protocol Last Admin: 12/18/21 08:36 Dose: 5 mg Aspirin (Aspirin Enteric Coated 81 Mg Tablet.) 81 mg PO DAILY [facility] Last Admin: 12/18/21 08:35 Dose: 81 mg Atorvastatin Calcium (Atorvastatin Calcium 40 Mg Tablet) 40 mg PO BEDTIME [facility] Last Admin: 12/17/21 20:13 Dose: 40 mg Celecoxib (Celecoxib 200 Mg Capsule) 200 mg PO BID [facility] Last Admin: 12/18/21 08:36 Dose: 200 mg Docusate Sodium (Docusate Sodium 100 Mg Capsule) 100 mg PO BID PRN PRN Reason: constipation Enoxaparin Sodium (Enoxaparin Sodium 40 Mg/0.4 Ml Syringe) 40 mg SUBCUT Q24H [facility] Last Admin: 12/18/21 08:35 Dose: 40 mg Furosemide (Furosemide 20 Mg Tablet) 10 mg PO DAILY [facility]; Protocol Last Admin: 12/18/21 08:36 Dose: 10 mg Gabapentin (Gabapentin 300 Mg Capsule) 300 mg PO BEDTIME [facility] Last Admin: 12/17/21 20:13 Dose: 300 mg Piperacillin Sod/Tazobactam (Sod 3.375 gm/ Sodium Chloride) 50 mls @ 100 mls/hr IV Q6H [facility] Last Infusion: 12/18/21 11:35 Dose: Infused Vancomycin HCl 1,000 mg/ (Sodium Chloride) 270 mls @ 270 mls/hr IV Q12H [facility] Last Infusion: 12/18/21 09:42 Dose: Infused Insulin Human Lispro (Insulin Lispro 100 Unit/Ml 3 Ml Vial) 0 unit SUBCUT QIDACHS [facility]; Protocol Last Admin: 12/18/21 11:48 Dose: Not Given Lisinopril (Lisinopril 20 Mg Tablet) 20 mg PO DAILY [facility]; Protocol Last Admin: 12/18/21 08:36 Dose: 20 mg Loratadine (Loratadine 10 Mg Tablet) 10 mg PO DAILY PRN PRN Reason: allergies Non-Formulary Medication (Umeclidinium [Incruse Ellipta]) 1 puff INHALE DAILY [facility] Omeprazole (Omeprazole 20 Mg Capsule.) 20 mg PO DAILY@0630 [facility] Last Admin: 12/18/21 05:44 Dose: 20 mg Pharmacy Consult (Consult Rx Perform Med Rec) 1 each MISCELLANE ONCE PRN PRN Reason: Consult order Pharmacy Consult (Consult Rx Vancomycin Dosing) 1 each MISCELLANE DAILY PRN PRN Reason: Consult order Simethicone (Simethicone 80 Mg Tab.Chew) 80 mg PO Q8H PRN PRN Reason: gas Sodium Chloride (0.9 % Sodium Chloride Flush 3 Ml Syringe) 3 ml IVFLUSH QSHIFT [facility] Last Admin: 12/18/21 08:35 Dose: 3 ml Home Medications Medication Instructions Recorded Confirmed Last Taken Type acetaminophen 650 mg 1 tab PO Q8H PRN Pain (Scale Score 12/17/21 12/17/21 12/16/21 History tablet,extended release 1-3) albuterol sulfate 90 mcg/actuation 2 puff inhalation Q4H 12/17/21 12/17/21 12/16/21 History aerosol inhaler (Ventolin HFA) amlodipine 5 mg tablet 1 tab PO DAILY 12/17/21 12/17/21 12/16/21 History aspirin 81 mg tablet,delayed 1 tab PO DAILY 12/17/21 12/17/21 12/16/21 History release atorvastatin 40 mg tablet 40 mg PO BEDTIME 12/17/21 12/17/21 12/16/21 History calcium carbonate 500 mg-vitamin 1 tab PO Q2D 12/17/21 12/17/21 12/16/21 History D3 10 mcg (400 unit) tablet (Calcium 500 With D) celecoxib 200 mg capsule 1 cap PO BID 12/17/21 12/17/21 12/16/21 History cephalexin 500 mg capsule 1 cap PO Q6H 12/17/21 12/17/21 12/16/21 History cholecalciferol (vitamin D3) 25 1 tab PO DAILY 12/17/21 12/17/21 12/16/21 History mcg (1,000 unit) capsule (Vitamin D3) cyanocobalamin (vitamin B-12) 1 tab PO DAILY 12/17/21 12/17/21 12/16/21 History 1,000 mcg tablet,extended release docusate sodium 100 mg capsule 1 cap PO BID PRN constipation 12/17/21 12/17/21 Unknown History fluticasone propionate 50 1 spray intranasal DAILY PRN 12/17/21 12/17/21 Unknown History mcg/actuation nasal allergies spray,suspension furosemide 20 mg tablet 0.5 tab PO DAILY 12/17/21 12/17/21 12/16/21 History gabapentin 300 mg capsule 1 cap PO BEDTIME 12/17/21 12/17/21 12/16/21 History insulin aspart U-100 100 unit/mL See Rx Instructions .Route .COMPLEX 12/17/21 12/17/21 12/16/21 History subcutaneous solution (Novolog U-100 Insulin aspart) lisinopril 20 mg tablet 1 tab PO DAILY 12/17/21 12/17/21 12/16/21 History loratadine 10 mg tablet 1 tab PO DAILY PRN allergies 12/17/21 12/17/21 Unknown History [id number] 1 tab PO DAILY 12/17/21 12/17/21 12/16/21 History fumarate 7.5 mg-folic acid 400 mcg tablet omeprazole 20 mg capsule,delayed 1 cap PO DAILY@0630 12/17/21 12/17/21 12/16/21 History release simethicone 80 mg chewable tablet 1 tab PO Q8H PRN gas 12/17/21 12/17/21 Unknown History (Gas Relief (simethicone)) subcutaneous insulin pump 12/17/21 12/17/21 12/16/21 History umeclidinium 62.5 mcg/actuation 1 puff inhalation DAILY 12/17/21 12/17/21 12/16/21 History blister powder for inhalation (Incruse Ellipta) Physical Exam Vital Signs: Vital Signs: Last Vital Signs Temp 97.6 F 12/18/21 11:10 Pulse 59 12/18/21 11:10 Resp 15 12/18/21 11:10 BP 135/79 12/18/21 11:10 Pulse Ox 95 12/18/21 11:10 O2 Del Method 12/18/21 11:10 BMI result Body Mass Index 36.3 Const: General: cooperative, healthy appearing and comfortable Orientation/consciousness: oriented to person, oriented to place and oriented to time HEENT: Head: Yes normal to inspection Neck: Neck: Yes normal visual inspection Carotids: no bruits Chest: Chest palpation & inspection: normal inspection of the chest Resp: Effort & Inspection: normal respiratory effort and able to speak in complete sentences Auscultation: clear to auscultation bilaterally, no crackles, no rales, no rhonchi and no wheezes Cardio: Other: Right side DP and PT signals but +2 pitting edema was present unable to appreciate pulses through edema Rate: regular rate Rhythm: regular rhythm Heart sounds: S1 normal heart sound present and S2 normal heart sound present Bruits: no carotid bruits Peripheral pulses: Peripheral pulses 2+ throughout GI: Inspection: Yes normal to inspection Skin: Other: Right 2nd toe tip Wounds: wounds noted Hair: normal Neuro: General: oriented to person, oriented to place and oriented to time Cranial nerves: Yes CN's II-XII intact bilaterally and Yes Normal hearing present Cognition (Neuro): normal cognition Motor exam (neuro): 5/5 motor strength present throughout Extrem: Other: venous exam: No significant superficial varicosities or spider telangiectasias, minimal edema General: No clubbing, No cyanosis and No edema Psych: Appearance: grossly normal Mental Status: mental status grossly normal Speech and movement: Normal speech and movement present Results Labs Result diagrams: 12/17/21 05:33 12/18/21 05:15 Labs: Abnormal lab results 12/17/21 12/17/21 12/17/21 Range/Units 05:33 17:18 19:32 POC Glucose 121 H 193 H (60-115) mg/dL C-Reactive Protein 2.31 H (< or = 0.50) mg/dL 12/18/21 Range/Units 11:11 POC Glucose 135 H (60-115) mg/dL C-Reactive Protein (< or = 0.50) mg/dL BMP 12/18/21 05:15 Creatinine 0.70 Urine 12/17/21 Range/Units 05:55 Urine Color DK YELLOW Urine Appearance CLEAR Urine pH 6.0 (5.0-8.0) Ur Specific [place] >= 1.030 H (1.005-1.025) Urine Protein NEG (NEG-TRACE) MG/DL Urine Glucose (UA) NEG (NEG) MG/DL All other labs normal. Imaging Additional studies: MRI positive for osteomyelitis Assessment and Plan (1) PAD (peripheral artery disease): Status: Acute Plan in short patient has nonhealing right 2nd toe ulcer. He has undergone MRI which is positive for osteomyelitis and will probably need long-term IV antibiotics. In addition I was unable to appreciate palpable pulses on the right lower extremity. He does have a fair amount of edema on that leg as well. I have taken the liberty of ordering noninvasive arterial testing. We will follow-up after testing. Thank you for allowing us to assist in his care. If there are any questions or concerns please do not hesitate to contact us. Procedures Date of Service Date of Service: 12/18/21
[2021-12-18 15:23] VITALS: BP 110/61; PULSE 64; RESP 18; TEMP 36.6; O2SAT 97
[2021-12-18 15:54] LABS: Glucose, Whole Blood 150 mg/dL (60-115)
[2021-12-18 19:33] VITALS: BP 136/73; PULSE 59; RESP 18; TEMP 36.7; O2SAT 96
[2021-12-18 20:45] LABS: Glucose, Whole Blood 141 mg/dL (60-115)
[2021-12-18] MEDS: Acetaminophen 325 MG TABLET PO (21:28)
[2021-12-18] MEDS: Atorvastatin Calcium 40 MG TABLET PO (21:28)
[2021-12-18] MEDS: Gabapentin 300 MG CAPSULE PO (21:28)
[2021-12-18 23:20] VITALS: BP 125/66; PULSE 51; RESP 16; TEMP 36.5; O2SAT 95
[2021-12-19 00:13] VITALS: PULSE 48; RESP 12; O2SAT 94
[2021-12-19] MEDS: 0.9 % Sodium Chloride Flush 3 ML SYRINGE IVFLUSH ×3 (00:23→17:11)
[2021-12-19 03:18] VITALS: BP 152/74; PULSE 50; RESP 16; TEMP 36.2; O2SAT 97
[2021-12-19] MEDS: Piperacillin Sodium/Tazobactam 3.375 GM in 0.9 % Sodium Chloride 50 ML IV ×4 (05:20→22:43)
[2021-12-19] MEDS: Omeprazole 20 MG CAPSULE.DR PO (06:26)
[2021-12-19 07:18] LABS: Glucose, Whole Blood 109 mg/dL (60-115)
[2021-12-19 07:34] LABS: Vancomycin Trough 9.6 mcg/mL (10.0-20.0)
[2021-12-19 07:38] LABS: Creatinine Clr Calc Pharmacy 102.1; Estimated Glomerular Filt Rate > 60
[2021-12-19 08:00] VITALS: BP 131/71; PULSE 64; RESP 16; TEMP 36.1; O2SAT 94
--- NOTE | 2021-12-19 08:02 | HE.PHANOTE ---
vanco addendum Increasing dose to 1250mg Q12H with predicted AUC 476mg/L; next trought to be drawn 12/20/21 @0700
[2021-12-19] MEDS: Celecoxib 200 MG CAPSULE PO ×2 (08:22→19:45)
[2021-12-19] MEDS: Furosemide 20 MG TABLET 10 MG PO (08:22)
[2021-12-19] MEDS: Aspirin Enteric Coated 81 MG TABLET.DR PO (08:23)
[2021-12-19] MEDS: amLODIPine Besylate 5 MG TABLET PO (08:23)
[2021-12-19] MEDS: lisinopriL 20 MG TABLET PO (08:24)
[2021-12-19] MEDS: Enoxaparin Sodium 40 MG/0.4 ML SYRINGE SUBCUT (08:24)
[2021-12-19] MEDS: vancomycin HCL 1,250 MG in 0.9 % Sodium Chloride 250 ML 166.67 MG IV ×2 (09:03→19:46)
--- NOTE | 2021-12-19 09:27 | MHC.CM.PN ---
LATE ENTRY NOTE FOR 12/18/21: IMM 12/18/21, EMR REVIEWED, PT ADMITTED W/OSTEOMYELITIS AND DIABETIC FOOT INFECTION, CM MET W/PT WHO IS A&OX4, REPORTS HE LIVES W/HIS MOTHER, USES A CPAP, DIABETIC SUPPLIES AND HAS INSULIN PUMP, WALKER, HOME MOD'S IN BR AND HAS AN ELECTRIC SCOOTER, PT REPORTS HAVING 20 DAY AND 15 EVENING PLANT TECH HRS AND DOES NOT ANTIC NEEDING ANY ADDITIONAL SERVICES AT HOME, PT VERIFIES MODERNA X3, PCP NEETU LOPEZ AND HAS COMPLETED A HCP W/CM NAMING HIS SISTER LOREN LIN (SSO) [phone] HIS HCA W/NO ALTERNATE, PT PROVIDED W/EDUCATIONAL INFO, ORIGINAL AND 2 COPIES, COPY UPLOADED TO [employer] AND PLACED IN CHART. D/C PLAN: HOME W/RESUMP OF PLANT TECH HRS, FAMILY FOR TRANSPORT
--- NOTE | 2021-12-19 09:46 | HO.VASCPN ---
Subjective Subjective Date of Service: 12/19/21 Patient reports: no new complaints and feels better Interval history: very pleasant 61-year-old gentleman for follow-up regarding nonhealing right 2nd toe ulcer. His leg has done significantly better with IV antibiotics. Cellulitis nearly resolved. Toe ulcer has significantly improved as well. He reports that he is doing fairly well. He is comfortable with no significant pain of note he has had MRI and noninvasive arterial ultrasound. Physical Exam Vital Signs: Vital Signs: Last Vital Signs Temp 97.0 F 12/19/21 08:00 Pulse 64 12/19/21 08:00 Resp 16 12/19/21 08:00 BP 131/71 12/19/21 08:00 Pulse Ox 94 12/19/21 08:00 O2 Del Method 12/19/21 08:00 BMI result Body Mass Index 36.3 Const: General: cooperative, healthy appearing and no acute distress Orientation/consciousness: oriented to person, oriented to place and oriented to time HEENT: Head: Yes normal to inspection Neck: Carotids: no bruits Chest: Chest palpation & inspection: normal inspection of the chest Resp: Effort & Inspection: normal respiratory effort and able to speak in complete sentences Auscultation: clear to auscultation bilaterally Cardio: Rate: regular rate Heart sounds: S1 normal heart sound present and S2 normal heart sound present Peripheral pulses: dorsalis pedis present ( Bilateral DP signals) GI: Inspection: Yes normal to inspection Skin: Other: right 2nd toe ulcer at tip General skin exam: no rashes or lesions noted Wounds: no wounds Neuro: General: oriented to person, oriented to place, oriented to time and CN's II-XI intact bilaterally Extrem: General: Yes normal to inspection, Yes full ROM and Yes no clubbing, cyanosis or edema Psych: Appearance: grossly normal and well kempt Speech and movement: Normal speech and movement present Affect: normal affect Progress Note: A&P Assessment and plan (1) PAD (peripheral artery disease): Status: Acute Assessment and Plan: in short patient has a diabetic foot ulcer right 2nd toe that has underlying osteomyelitis. Patient will need long-term IV antibiotics. Would involve Infectious Disease. In addition there is underlying peripheral vascular disease. At the current time it is stable. Patient can follow up with me as an outpatient and we can set up and elective angiogram. Thank you for allowing us to assist in this patients care. If there are any questions or concerns please do not hesitate to contact us. please note I will be away and Dr. Landa will be covering for me Time Spent With Patient Time: Total time spent is greater than 50% in coordination of care (as documented) at patient's floor/unit and/or counseling patient: Procedures Date of Service Date of Service: 12/19/21 Quality Stroke Does the patient have a stroke diagnosis?: No VTE Prior VTE?: No VTE Risk Level:: Medical - moderate - high VTE Device Contraindication: N/A - Device Ordered VTE Drug Contraindication: N/A - Med Ordered
--- NOTE | 2021-12-19 10:21 | HO.PM.IMPN ---
Subjective Subjective Date of Service: 12/19/21 <SANA Baeza - Last Filed: 12/19/21 16:13> 12/20/21 <Osmar Aponte MD - Last Filed: 12/20/21 08:35> Interval History: Patient seen for follow-up for diabetic foot infection with cellulitis and osteomyelitis of the right 2nd great toe. Continues on IV vancomycin and Zosyn. Feels swelling and pain have greatly improved. Has been seen by Dr. Cardoza and vascular surgery. Had JOSE and arterial duplex performed in the right lower extremity which did not show any occlusion or evidence of significant arterial disease. Patient has been ambulating and has no complaints. Remains afebrile. <SANA Baeza - Last Filed: 12/19/21 16:13> Review of Systems Review of Systems: Yes all other systems are reviewed and are negative <SANA Baeza - Last Filed: 12/19/21 16:13> Physical Exam Vital Signs: Vital Signs: Last Vital Signs Temp 97.0 F 12/19/21 08:00 Pulse 64 12/19/21 08:00 Resp 16 12/19/21 08:00 BP 131/71 12/19/21 08:00 Pulse Ox 94 12/19/21 08:00 O2 Del Method 12/19/21 08:00 BMI result Body Mass Index 36.3 <SANA Baeza - Last Filed: 12/19/21 16:13> Constitutional - Awake and Alert, No apparent distress Cardiovascular - S1S2, RRR Respiratory - Normal lung expansion, Normal respiratory effort, No respiratory distress, CTA bilaterally Gastrointestinal - NT / ND; +BS; No rebound or guarding Extremities - no calf tenderness bilaterally. 1+ edema RLE. See photo Skin - Warm/Dry. Venous stasis dermatitis BLE Neurological - Alert & oriented x3, No focal deficit Psychological - Appropriate affect <SANA Baeza - Last Filed: 12/19/21 16:13> Objective Data Active Medications Acetaminophen (Acetaminophen Supp 650 Mg Supp.Rect) 650 mg AK Q6H PRN PRN Reason: Pain, Moderate (Pain Scale 4-6 Acetaminophen (Acetaminophen 325 Mg Tablet) 325 mg PO Q6H PRN PRN Reason: Pain, Mild (Pain Scale 1-3) Last Admin: 12/18/21 21:28 Dose: 325 mg Documented By: JANETH Amlodipine Besylate (Amlodipine Besylate 5 Mg Tablet) 5 mg PO DAILY [facility]; Protocol Last Admin: 12/19/21 08:23 Dose: 5 mg Documented By: SERGIO Aspirin (Aspirin Enteric Coated 81 Mg Tablet.) 81 mg PO DAILY [facility] Last Admin: 12/19/21 08:23 Dose: 81 mg Documented By: SERGIO Atorvastatin Calcium (Atorvastatin Calcium 40 Mg Tablet) 40 mg PO BEDTIME RASHEED Last Admin: 12/18/21 21:28 Dose: 40 mg Documented By: JANETH Celecoxib (Celecoxib 200 Mg Capsule) 200 mg PO BID [facility] Last Admin: 12/19/21 08:22 Dose: 200 mg Documented By: SERGIO Docusate Sodium (Docusate Sodium 100 Mg Capsule) 100 mg PO BID PRN PRN Reason: constipation Enoxaparin Sodium (Enoxaparin Sodium 40 Mg/0.4 Ml Syringe) 40 mg SUBCUT Q24H [facility] Last Admin: 12/19/21 08:24 Dose: 40 mg Documented By: SERGIO Furosemide (Furosemide 20 Mg Tablet) 10 mg PO DAILY [facility]; Protocol Last Admin: 12/19/21 08:22 Dose: 10 mg Documented By: SERGIO Gabapentin (Gabapentin 300 Mg Capsule) 300 mg PO BEDTIME RASHEED Last Admin: 12/18/21 21:28 Dose: 300 mg Documented By: JANETH Piperacillin Sod/Tazobactam (Sod 3.375 gm/ Sodium Chloride) 50 mls @ 100 mls/hr IV Q6H [facility] Last Infusion: 12/19/21 05:50 Dose: 0 mls/hr Documented By: REMEDIOS Vancomycin HCl 1,250 mg/ (Sodium Chloride) 250 mls @ 166.667 mls/hr IV Q12H RASHEED Last Admin: 12/19/21 09:03 Dose: 166.67 mls/hr Documented By: SERGIO Insulin Human Lispro (Insulin Lispro 100 Unit/Ml 3 Ml Vial) 0 unit SUBCUT QIDACHS [facility]; Protocol Last Admin: 12/19/21 08:03 Dose: Not Given Documented By: SERGIO Non-Admin Reason: No Access Lisinopril (Lisinopril 20 Mg Tablet) 20 mg PO DAILY [facility]; Protocol Last Admin: 12/19/21 08:24 Dose: 20 mg Documented By: SERGIO Loratadine (Loratadine 10 Mg Tablet) 10 mg PO DAILY PRN PRN Reason: allergies Non-Formulary Medication (Umeclidinium [Incruse Ellipta]) 1 puff INHALE DAILY [facility] Omeprazole (Omeprazole 20 Mg Capsule.Dr) 20 mg PO DAILY@0630 [facility] Last Admin: 12/19/21 06:26 Dose: 20 mg Documented By: ANDRES Pharmacy Consult (Consult Rx Perform Med Rec) 1 each MISCELLANE ONCE PRN PRN Reason: Consult order Pharmacy Consult (Consult Rx Vancomycin Dosing) 1 each MISCELLANE DAILY PRN PRN Reason: Consult order Simethicone (Simethicone 80 Mg Tab.Chew) 80 mg PO Q8H PRN PRN Reason: gas Sodium Chloride (0.9 % Sodium Chloride Flush 3 Ml Syringe) 3 ml IVFLUSH QSHIFT [facility] Last Admin: 12/19/21 09:04 Dose: 3 ml Documented By: SERGIO <SANA Baeza - Last Filed: 12/19/21 16:13> Labs CBC & Chem 7: : 12/17/21 05:33 12/20/21 05:53 <SANA Baeza - Last Filed: 12/19/21 16:13> Labs: Laboratory Results - last 24 hr 12/18/21 12/18/21 12/18/21 11:11 15:27 19:37 Estim Creat Clear Calc Estimated GFR POC Glucose 135 H 150 H 141 H Vancomycin Trough 12/19/21 12/19/21 12/19/21 07:01 07:01 07:14 Estim Creat Clear Calc 102.1 Estimated GFR > 60 POC Glucose 109 Vancomycin Trough 9.6 L <SANA Baeza - Last Filed: 12/19/21 16:13> Microbiology Microbiology Results: Microbiology 12/17/21 06:11 Blood Culture - Preliminary Blood - Venous No growth after 48 hours. 12/17/21 05:32 Blood Culture - Preliminary Blood - Venous No growth after 48 hours. <SANA Baeza - Last Filed: 12/19/21 16:13> Assessment and Plan (1) Cellulitis of foot, right: Status: Acute <SANA Baeza - Last Filed: 12/19/21 16:13> (2) Osteomyelitis of second toe of right foot: Status: Acute <SANA Baeza - Last Filed: 12/19/21 16:13> (3) Diabetic foot infection: Status: Acute <SANA Baeza - Last Filed: 12/19/21 16:13> (4) Type 2 diabetes, controlled, with peripheral neuropathy: Status: Acute <SANA Baeza - Last Filed: 12/19/21 16:13> Assessment and Plan: Patient is a 61 year old male controlled type 2 diabetes, htn, hyperlipidemia, rony, asthma, and severe obesity with diabetic foot infection and osteomyelitis admitted for IV antibiotics. Patient has no complaints this morning. Symptoms improving. Vascular studies negative and discussion had with Dr. Cardoza. Will likely proceed with IV abx outpatient pending ID consult. 1. Right diabetic foot infection with cellulitis and acute osteomyelitis of the distal second toe without gangrene or necrosis- improving -JOSE and arterial duplex negative for significant arterial disease. Discussed with Dr. Cardoza. Amputation on needed. Will follow up with vascular surgery in 2 weeks for possible angiogram. -Consult placed to ID for further treatment recommendations -Continue IV zosyn/vanco for infection. No sepsis suspected- blood cultures negative x2 -Continues with edema of the RLE likely secondary to infection as well as underlying venous disease. Continue lasix -Acetaminophen as needed for pain 2. Type 2 diabetes with peripheral neuropathy- controlled -Continue SSI. Glucose levels stable. -Diabetic diet -Continue gabapentin for neuropathy 3. HTN- stable -Continue amlodipine and lisinopril 4. HLD -Continue atorvastatin 5. Asthma- stable -Continue maintenance inhaler -Albuterol updraft if needed 6. Sleep apnea -CPAP at bedtime DVT prophylaxis- continue lovenox Patient requires continued inpatient stay for administration of IV antibiotics and possible amputation for confirmed osteomyelitis with risk factors for severe disease including diabetes and obesity. <SANA Baeza - Last Filed: 12/19/21 16:13> Quality Stroke Does the patient have a stroke diagnosis?: No <SANA Baeza Last Filed: 12/19/21 16:13> VTE Prior VTE?: No <SANA Baeza - Last Filed: 12/19/21 16:13> VTE Risk Level:: Medical - moderate - high <SANA Baeza - Last Filed: 12/19/21 16:13> VTE Device Contraindication: N/A - Device Ordered <SANA Baeza - Last Filed: 12/19/21 16:13> VTE Drug Contraindication: N/A - Med Ordered <SANA Baeza - Last Filed: 12/19/21 16:13>
[2021-12-19 11:02] VITALS: BP 132/78; PULSE 61; RESP 16; TEMP 36.3; O2SAT 94
[2021-12-19 11:08] LABS: Glucose, Whole Blood 188 mg/dL (60-115)
[2021-12-19] MEDS: Insulin Lispro 100 UNIT/ML 3 ML VIAL SUBCUT ×2 (12:07→21:05)
--- NOTE | 2021-12-19 14:09 | MHC.CM.PN ---
Per ROUNDS discussion, Patient is Not yet medically cleared for discharge r/t continued administration of IV antibiotics and pending ID consult. Discharge remains home but may need New VNA. CM will continue to follow for d/c needs.
--- NOTE | 2021-12-19 16:21 | P.PICC_ITS ---
PICC Line Insertion NPICC Diagnosis: Osteomylitis Indication: terminal manager antibiotics Pertinent Labs: reviewed Technique: Following informed consent including risks, benefits and alternatives and using sterile technique including cap and mask, sterile gown, glove and drape, the Right arm was prepped and draped in the usual sterile fashion of full barrier technique with CHG. Following completion of Miranda Protocol the skin and soft tissues were anesthetized with 1% Lidocaine plain. Using ultrasound guidance, Right Cephalic vein access was obtained. Over an 0.018 wire through peel-away sheath, a 4 chadian single lumen PASV PowerPICC Pro PICC line was positioned in a single attempt by this RN. Catheter length is 44 cm internal length, 0 cm external length, for a total trimmed length of 44 cm. The procedure was performed in S272. Tip verification was performed by Yasmin Stephens with [place] 3CG. Tip located in SVC. Ultrasound was used to document vein patency and for needle entry. A formal ultrasound picture and cardiac rhythm strip was recorded. Vascular Special Service Officer has released the line for use and it is currently dressed with a StatLock, Tegaderm, and CHG disc. Verification has been performed for blood return and line patency. Arm Circumference: 36 cm Equipment: PoerPICC Pro single lumen 4 chadian PASV PICC Catheter Type: 4 [place] Single lumen PASV PowerPICC Pro Lot #: [id number]
[2021-12-19 16:54] LABS: Glucose, Whole Blood 129 mg/dL (60-115)
[2021-12-19 19:21] VITALS: BP 129/58; PULSE 74; RESP 17; TEMP 36.3; O2SAT 95
[2021-12-19] MEDS: Atorvastatin Calcium 40 MG TABLET PO (19:45)
[2021-12-19] MEDS: Gabapentin 300 MG CAPSULE PO (19:45)
[2021-12-19 20:07] LABS: Glucose, Whole Blood 169 mg/dL (60-115)
--- NOTE | 2021-12-19 21:50 | W.PM.IDCN ---
History of Present Illness Data of Consult Service Date: 12/19/21 Requesting physician: Shaunna Lobo Primary Care Provider: Radha Weber MD [facility] Reason for consult: osteomyelitis right second DIP He presents with pain right foot with ulcer second toe DIP. He had symptoms for the last week. He has no fever or chills. Review of Systems Review of Systems: Yes all other systems are reviewed and are negative PMFSH Past Medical History Medical History Arthritis Asthma Diabetes HTN (hypertension) Hyperlipidemia Osteoarthritis Sleep apnea Family History Family history: reviewed and not pertinent Surgical History Surgical History Gastric bypass status for obesity H/O rotator cuff surgery Social History Social History Household Members: Family Housing: Apartment Do you presently have visiting nurse or other home services: No Patient Tobacco Use Status: Never used Tobacco service: No Current occupational status: disabled Meds Allergies Allergy/AdvReac Type Severity Reaction Status Date / Time No Known Allergies Allergy Verified 12/15/20 00:58 [No Known Allergies*] Active Medications: Current Medications Acetaminophen (Acetaminophen Supp 650 Mg Supp.Rect) 650 mg ID Q6H PRN PRN Reason: Pain, Moderate (Pain Scale 4-6 Acetaminophen (Acetaminophen 325 Mg Tablet) 325 mg PO Q6H PRN PRN Reason: Pain, Mild (Pain Scale 1-3) Last Admin: 12/18/21 21:28 Dose: 325 mg Amlodipine Besylate (Amlodipine Besylate 5 Mg Tablet) 5 mg PO DAILY [facility]; Protocol Last Admin: 12/19/21 08:23 Dose: 5 mg Aspirin (Aspirin Enteric Coated 81 Mg Tablet.Dr) 81 mg PO DAILY [facility] Last Admin: 12/19/21 08:23 Dose: 81 mg Atorvastatin Calcium (Atorvastatin Calcium 40 Mg Tablet) 40 mg PO BEDTIME [facility] Last Admin: 12/19/21 19:45 Dose: 40 mg Celecoxib (Celecoxib 200 Mg Capsule) 200 mg PO BID [facility] Last Admin: 12/19/21 19:45 Dose: 200 mg Docusate Sodium (Docusate Sodium 100 Mg Capsule) 100 mg PO BID PRN PRN Reason: constipation Enoxaparin Sodium (Enoxaparin Sodium 40 Mg/0.4 Ml Syringe) 40 mg SUBCUT Q24H [facility] Last Admin: 12/19/21 08:24 Dose: 40 mg Furosemide (Furosemide 20 Mg Tablet) 10 mg PO DAILY [facility]; Protocol Last Admin: 12/19/21 08:22 Dose: 10 mg Gabapentin (Gabapentin 300 Mg Capsule) 300 mg PO BEDTIME [facility] Last Admin: 12/19/21 19:45 Dose: 300 mg Piperacillin Sod/Tazobactam (Sod 3.375 gm/ Sodium Chloride) 50 mls @ 100 mls/hr IV Q6H [facility] Last Infusion: 12/19/21 18:46 Dose: Infused Vancomycin HCl 1,250 mg/ (Sodium Chloride) 250 mls @ 166.667 mls/hr IV Q12H [facility] Last Admin: 12/19/21 19:46 Dose: 166.67 mls/hr Insulin Human Lispro (Insulin Lispro 100 Unit/Ml 3 Ml Vial) 0 unit SUBCUT QIDACHS [facility]; Protocol Last Admin: 12/19/21 21:05 Dose: 2 unit Lisinopril (Lisinopril 20 Mg Tablet) 20 mg PO DAILY [facility]; Protocol Last Admin: 12/19/21 08:24 Dose: 20 mg Loratadine (Loratadine 10 Mg Tablet) 10 mg PO DAILY PRN PRN Reason: allergies Non-Formulary Medication (Umeclidinium [Incruse Ellipta]) 1 puff INHALE DAILY [facility] Omeprazole (Omeprazole 20 Mg Capsule.Dr) 20 mg PO DAILY@0630 [facility] Last Admin: 12/19/21 06:26 Dose: 20 mg Pharmacy Consult (Consult Rx Perform Med Rec) 1 each MISCELLANE ONCE PRN PRN Reason: Consult order Pharmacy Consult (Consult Rx Vancomycin Dosing) 1 each MISCELLANE DAILY PRN PRN Reason: Consult order Simethicone (Simethicone 80 Mg Tab.Chew) 80 mg PO Q8H PRN PRN Reason: gas Sodium Chloride (0.9 % Sodium Chloride Flush 3 Ml Syringe) 3 ml IVFLUSH QSHIFT [facility] Last Admin: 12/19/21 17:11 Dose: 3 ml Home Medications Medication Instructions Recorded Confirmed Last Taken Type acetaminophen 650 mg 1 tab PO Q8H PRN Pain (Scale Score 12/17/21 12/17/21 12/16/21 History tablet,extended release 1-3) albuterol sulfate 90 mcg/actuation 2 puff inhalation Q4H 12/17/21 12/17/21 12/16/21 History aerosol inhaler (Ventolin HFA) amlodipine 5 mg tablet 1 tab PO DAILY 12/17/21 12/17/21 12/16/21 History aspirin 81 mg tablet,delayed 1 tab PO DAILY 12/17/21 12/17/21 12/16/21 History release atorvastatin 40 mg tablet 40 mg PO BEDTIME 12/17/21 12/17/21 12/16/21 History calcium carbonate 500 mg-vitamin 1 tab PO Q2D 12/17/21 12/17/21 12/16/21 History D3 10 mcg (400 unit) tablet (Calcium 500 With D) celecoxib 200 mg capsule 1 cap PO BID 12/17/21 12/17/21 12/16/21 History cephalexin 500 mg capsule 1 cap PO Q6H 12/17/21 12/17/21 12/16/21 History cholecalciferol (vitamin D3) 25 1 tab PO DAILY 12/17/21 12/17/21 12/16/21 History mcg (1,000 unit) capsule (Vitamin D3) cyanocobalamin (vitamin B-12) 1 tab PO DAILY 12/17/21 12/17/21 12/16/21 History 1,000 mcg tablet,extended release docusate sodium 100 mg capsule 1 cap PO BID PRN constipation 12/17/21 12/17/21 Unknown History fluticasone propionate 50 1 spray intranasal DAILY PRN 12/17/21 12/17/21 Unknown History mcg/actuation nasal allergies spray,suspension furosemide 20 mg tablet 0.5 tab PO DAILY 12/17/21 12/17/21 12/16/21 History gabapentin 300 mg capsule 1 cap PO BEDTIME 12/17/21 12/17/21 12/16/21 History insulin aspart U-100 100 unit/mL See Rx Instructions .Route .COMPLEX 12/17/21 12/17/21 12/16/21 History subcutaneous solution (Novolog U-100 Insulin aspart) lisinopril 20 mg tablet 1 tab PO DAILY 12/17/21 12/17/21 12/16/21 History loratadine 10 mg tablet 1 tab PO DAILY PRN allergies 12/17/21 12/17/21 Unknown History [id number] 1 tab PO DAILY 12/17/21 12/17/21 12/16/21 History fumarate 7.5 mg-folic acid 400 mcg tablet omeprazole 20 mg capsule,delayed 1 cap PO DAILY@0630 12/17/21 12/17/21 12/16/21 History release simethicone 80 mg chewable tablet 1 tab PO Q8H PRN gas 12/17/21 12/17/21 Unknown History (Gas Relief (simethicone)) subcutaneous insulin pump 12/17/21 12/17/21 12/16/21 History umeclidinium 62.5 mcg/actuation 1 puff inhalation DAILY 12/17/21 12/17/21 12/16/21 History blister powder for inhalation (Incruse Ellipta) Physical Exam Vital Signs: Vital Signs: Last Vital Signs Temp 97.4 F 12/19/21 19:21 Pulse 74 12/19/21 19:21 Resp 17 12/19/21 19:21 BP 129/58 L 12/19/21 19:21 Pulse Ox 95 12/19/21 19:21 O2 Del Method 12/19/21 19:21 BMI result Body Mass Index 36.3 Results Labs CBC & Chem 7: 12/17/21 05:33 12/19/21 07:01 Labs: BMP 12/19/21 07:01 Creatinine 0.85 Microbiology Microbiology Results: Microbiology 12/17/21 06:11 Blood - Venous Blood Culture - Preliminary No growth after 48 hours. 12/17/21 05:32 Blood - Venous Blood Culture - Preliminary No growth after 48 hours. Assessment and Plan (1) Diabetic foot infection: Status: Acute He has possibel gram negative gram positive He has osteomyelitis and is getting vascular workup (2) Osteomyelitis of second toe of right foot: Status: Acute Plan Would give six weeks IV Ertapenem and po Doxycycline for two months Followup Wound and Vascular.
[2021-12-20] VITALS (8 sets, daily range): BP systolic 112–145; BP diastolic 60–76; PULSE 54–78; RESP 16–19; TEMP 35.8–37.1; O2SAT 91–98
[2021-12-20] MEDS: 0.9 % Sodium Chloride Flush 3 ML SYRINGE IVFLUSH ×3 (00:17→21:04)
[2021-12-20] MEDS: Omeprazole 20 MG CAPSULE.DR PO (05:06)
[2021-12-20] MEDS: Piperacillin Sodium/Tazobactam 3.375 GM in 0.9 % Sodium Chloride 50 ML IV (05:06)
[2021-12-20 06:51] LABS: Creatinine Clr Calc Pharmacy 111.2; Estimated Glomerular Filt Rate > 60
[2021-12-20 06:53] LABS: Vancomycin Trough 10.7 mcg/mL (10.0-20.0)
--- NOTE | 2021-12-20 07:05 | HE.PHANOTE ---
RE VANCO TROUGH WAS 10.7 BUT WE ARE TREATING BONE INFECTION. INCREASING DOSE TO 1000MG Q8H. NEXT TROUGH DUE 12/21 @0500. SUSPECTED AUC 547; TROUGH 13.1
[2021-12-20] MEDS: vancomycin HCL 1,000 MG in 0.9 % Sodium Chloride 250 ML 270 MG IV (07:42)
[2021-12-20 07:57] LABS: Glucose, Whole Blood 96 mg/dL (60-115)
--- NOTE | 2021-12-20 08:35 | P.PNIM_ITS ---
Subjective Subjective Date of Service: 12/20/21 Interval History: Patient seen for follow-up for diabetic foot infection with cellulitis and osteomyelitis of the right 2nd great toe. Continues on IV vancomycin and Zosyn. Feels swelling and pain have greatly improved. Has been seen by Dr. Cardoza and vascular surgery. Had JOSE and arterial duplex performed in the right lower extremity which did not show any occlusion or evidence of significant arterial disease. Patient has been ambulating and has no complaints. Remains afebrile. Constitutional Constitutional: Reports no additional constitutional complaints ENT Ears, Nose, Mouth, and Throat: Reports Normal hearing present Cardiovascular Cardiovascular: Denies chest pain, Denies chest pain at rest, Denies chest pain with activity and Denies pedal edema Respiratory Respiratory: Denies cough Gastrointestinal Gastrointestinal: Denies abdominal pain Musculoskeletal Musculoskeletal: Denies abnormal gait, Denies muscle cramps and Denies radiating pain into limb Integumentary/Breasts Skin/Breast: Denies skin ulcer and Denies wounds Neurologic Neurologic: Reports Normal hearing present and Denies abnormal gait Psychiatric Psychiatric: Reports no additional psychiatric complaints Physical Exam Vital Signs: Vital Signs: Last Vital Signs Temp 97.5 F 12/20/21 07:49 Pulse 55 12/20/21 07:49 Resp 18 12/20/21 08:07 BP 145/73 H 12/20/21 07:49 Pulse Ox 96 12/20/21 07:49 O2 Del Method 12/20/21 07:49 BMI result Body Mass Index 36.3 Const: Other: Constitutional - Awake and Alert, No apparent distress Eyes - PERRLA, EOMI Cardiovascular - S1S2, RRR, No edema Respiratory - Normal lung expansion, Normal respiratory effort, No respiratory distress, CTA bilaterally Gastrointestinal - NT / ND; +BS; No rebound or guarding Extremities - no calf tenderness bilaterally, 1+ edema RLE Musculoskeletal - Normal inspection, normal ROM Skin - Warm/Dry. See photo Neurological - Alert & oriented x3, No focal deficit Psychological - Appropriate affect General: cooperative, healthy appearing, comfortable and no acute distress Orientation/consciousness: oriented to person, oriented to place and oriented to time HEENT: Head: Yes normal to inspection Neck: Neck: Yes normal visual inspection Carotids: no bruits Chest: Chest palpation & inspection: normal inspection of the chest Resp: Effort & Inspection: normal respiratory effort and able to speak in complete sentences Auscultation: clear to auscultation bilaterally, no crackles, no rales, no rhonchi and no wheezes Cardio: Other: Right side DP and PT signals but +2 pitting edema was present unable to appreciate pulses through edema Rate: regular rate Rhythm: regular rhythm Heart sounds: S1 normal heart sound present and S2 normal heart sound present Bruits: no carotid bruits Peripheral pulses: Peripheral pulses 2+ throughout and dorsalis pedis present ( Bilateral DP signals) GI: Inspection: Yes normal to inspection Skin: Other: right 2nd toe ulcer at tip General skin exam: no rashes or lesions noted Wounds: no wounds and wounds noted Hair: normal Neuro: General: oriented to person, oriented to place, oriented to time and CN's II-XI intact bilaterally Cranial nerves: Yes CN's II-XII intact bilaterally and Yes Normal hearing present Cognition (Neuro): normal cognition Motor exam (neuro): 5/5 motor strength present throughout Extrem: Other: venous exam: No significant superficial varicosities or spider telangiectasias, minimal edema General: Yes normal to inspection, Yes full ROM, Yes no clubbing, cyanosis or edema, No clubbing, No cyanosis and No edema Psych: Appearance: grossly normal and well kempt Mental Status: mental status grossly normal Speech and movement: Normal speech and movement present Affect: normal affect Objective Data Active Medications Acetaminophen (Acetaminophen Supp 650 Mg Supp.Rect) 650 mg [place] Q6H PRN PRN Reason: Pain, Moderate (Pain Scale 4-6 Acetaminophen (Acetaminophen 325 Mg Tablet) 325 mg PO Q6H PRN PRN Reason: Pain, Mild (Pain Scale 1-3) Last Admin: 12/18/21 21:28 Dose: 325 mg Documented By: JANETH Amlodipine Besylate (Amlodipine Besylate 5 Mg Tablet) 5 mg PO DAILY [facility]; [facility] Last Admin: 12/19/21 08:23 Dose: 5 mg Documented By: SERGIO Aspirin (Aspirin Enteric Coated 81 Mg Tablet.) 81 mg PO DAILY [facility] Last Admin: 12/19/21 08:23 Dose: 81 mg Documented By: SERGIO Atorvastatin Calcium (Atorvastatin Calcium 40 Mg Tablet) 40 mg PO BEDTIME [facility] Last Admin: 12/19/21 19:45 Dose: 40 mg Documented By: MONA Celecoxib (Celecoxib 200 Mg Capsule) 200 mg PO BID [facility] Last Admin: 12/19/21 19:45 Dose: 200 mg Documented By: MONA Docusate Sodium (Docusate Sodium 100 Mg Capsule) 100 mg PO BID PRN PRN Reason: constipation Doxycycline Hyclate (Doxycycline Hyclate 100 Mg Tablet) 100 mg PO Q12H [facility] Enoxaparin Sodium (Enoxaparin Sodium 40 Mg/0.4 Ml Syringe) 40 mg SUBCUT Q24H [facility] Last Admin: 12/19/21 08:24 Dose: 40 mg Documented By: SERGIO Furosemide (Furosemide 20 Mg Tablet) 10 mg PO DAILY [facility]; Protocol Last Admin: 12/19/21 08:22 Dose: 10 mg Documented By: SERGIO Gabapentin (Gabapentin 300 Mg Capsule) 300 mg PO BEDTIME [facility] Last Admin: 12/19/21 19:45 Dose: 300 mg Documented By: MONA Meropenem 1 gm/ Sodium (Chloride) 100 mls @ 200 mls/hr IV Q8H [facility] Insulin Human Lispro (Insulin Lispro 100 Unit/Ml 3 Ml Vial) 0 unit SUBCUT QIDACHS [facility]; Protocol Last Admin: 12/20/21 07:49 Dose: Not Given Documented By: MONICA Non-Admin Reason: No Insulin Coverage Lisinopril (Lisinopril 20 Mg Tablet) 20 mg PO DAILY [facility]; Protocol Last Admin: 12/19/21 08:24 Dose: 20 mg Documented By: SERGIO Loratadine (Loratadine 10 Mg Tablet) 10 mg PO DAILY PRN PRN Reason: allergies Non-Formulary Medication (Umeclidinium [Incruse Ellipta]) 1 puff INHALE DAILY [facility] Omeprazole (Omeprazole 20 Mg Capsule.Dr) 20 mg PO DAILY@0630 [facility] Last Admin: 12/20/21 05:06 Dose: 20 mg Documented By: MONA Pharmacy Consult (Consult Rx Perform Med Rec) 1 each MISCELLANE ONCE PRN PRN Reason: Consult order Pharmacy Consult (Consult Rx Vancomycin Dosing) 1 each MISCELLANE DAILY PRN PRN Reason: Consult order Simethicone (Simethicone 80 Mg Tab.Chew) 80 mg PO Q8H PRN PRN Reason: gas Sodium Chloride (0.9 % Sodium Chloride Flush 3 Ml Syringe) 3 ml IVFLUSH QSHIFT [facility] Last Admin: 12/20/21 07:49 Dose: Not Given Documented By: MONICA Non-Admin Reason: IV Running Labs CBC & Chem 7: 12/17/21 05:33 12/20/21 05:53 Labs: Laboratory Results - last 24 hr 12/19/21 12/19/21 12/19/21 11:04 16:41 19:26 Estim Creat Clear Calc Estimated GFR POC Glucose 188 H 129 H 169 H Vancomycin Trough 12/20/21 12/20/21 12/20/21 05:53 05:53 07:48 Estim Creat Clear Calc 111.2 Estimated GFR > 60 POC Glucose 96 Vancomycin Trough 10.7 Microbiology Microbiology Results: Microbiology 12/17/21 06:11 Blood Culture - Preliminary Blood - Venous No growth after 48 hours. 12/17/21 05:32 Blood Culture - Preliminary Blood - Venous No growth after 48 hours. Assessment and Plan (1) Diabetic foot infection: Status: Acute (2) Osteomyelitis of second toe of right foot: Status: Acute Plan Patient is a 61 year old male controlled type 2 diabetes, htn, hyperlipidemia, rony, asthma, and severe obesity with diabetic foot infection and osteomyelitis admitted for IV antibiotics. Patient has no complaints this morning. Symptoms improving. Vascular studies negative and discussion had with Dr. Cardoza. Will likely proceed with IV abx outpatient pending ID consult. 1. Right diabetic foot infection with cellulitis and acute osteomyelitis of the distal second toe without gangrene or necrosis- improving -JOSE and arterial duplex negative for significant arterial disease. Discussed with Dr. Cardoza. Amputation not needed. Will follow up with vascular surgery in 2 weeks for possible angiogram. -ID recommend Ertapenen and oral Doxy -cultures are negative -Has PICC line as of 12/19 2. Type 2 diabetes with peripheral neuropathy- controlled -Continue SSI. Glucose levels stable. -Diabetic diet -Continue gabapentin for neuropathy 3. HTN- controlled -Continue amlodipine and lisinopril 4. HLD -Continue atorvastatin 5. Asthma- stable -Continue maintenance inhaler -Albuterol updraft if needed 6. Sleep apnea -CPAP at bedtime DVT prophylaxis- continue lovenox Patient requires continued inpatient stay for administration of IV antibiotics and possible amputation for confirmed osteomyelitis with risk factors for severe disease including diabetes and obesity. Quality Stroke Does the patient have a stroke diagnosis?: No VTE Prior VTE?: No VTE Risk Level:: Medical - moderate - high VTE Device Contraindication: N/A - Device Ordered VTE Drug Contraindication: N/A - Med Ordered
[2021-12-20] MEDS: Enoxaparin Sodium 40 MG/0.4 ML SYRINGE SUBCUT (09:22)
[2021-12-20] MEDS: Aspirin Enteric Coated 81 MG TABLET.DR PO (09:22)
[2021-12-20] MEDS: amLODIPine Besylate 5 MG TABLET PO (09:22)
[2021-12-20] MEDS: lisinopriL 20 MG TABLET PO (09:22)
[2021-12-20] MEDS: Celecoxib 200 MG CAPSULE PO ×2 (09:22→20:36)
[2021-12-20] MEDS: Furosemide 20 MG TABLET 10 MG PO (09:22)
[2021-12-20 11:29] LABS: Glucose, Whole Blood 188 mg/dL (60-115)
[2021-12-20] MEDS: Insulin Lispro 100 UNIT/ML 3 ML VIAL SUBCUT ×2 (11:59→21:03)
[2021-12-20 17:15] LABS: Glucose, Whole Blood 116 mg/dL (60-115)
[2021-12-20 20:36] LABS: Glucose, Whole Blood 177 mg/dL (60-115)
[2021-12-20] MEDS: Gabapentin 300 MG CAPSULE PO (20:36)
[2021-12-20] MEDS: Atorvastatin Calcium 40 MG TABLET PO (20:36)
[2021-12-21] VITALS (7 sets, daily range): BP systolic 115–144; BP diastolic 63–76; PULSE 57–84; RESP 16–18; TEMP 35.9–36.9; O2SAT 90–97
[2021-12-21 05:23] LABS: Creatinine Clr Calc Pharmacy 129.5; Estimated Glomerular Filt Rate > 60
[2021-12-21 05:28] LABS: Vancomycin Trough 4.3 mcg/mL (10.0-20.0)
[2021-12-21] MEDS: Omeprazole 20 MG CAPSULE.DR PO (05:33)
--- NOTE | 2021-12-21 07:24 | HO.PM.IMPN ---
Subjective Subjective Date of Service: 12/21/21 Interval History: Patient seen for follow-up for diabetic foot infection with cellulitis and osteomyelitis of the right 2nd great toe. Interval history: no new issues, pain control, awaiting infusion for IV Abx to be set up Review of Systems no fever, no pain in the foot Physical Exam Vital Signs: Vital Signs: Last Vital Signs Temp 97.9 F 12/21/21 03:56 Pulse 63 12/21/21 03:56 Resp 16 12/21/21 03:56 BP 123/76 12/21/21 03:56 Pulse Ox 96 12/21/21 03:56 O2 Del Method 12/20/21 23:15 BMI result Body Mass Index 36.3 Const: Other: Constitutional - Awake and Alert, No apparent distress Eyes - PERRLA, EOMI Cardiovascular - S1S2, RRR, No edema Respiratory - Normal lung expansion, Normal respiratory effort, No respiratory distress, CTA bilaterally Gastrointestinal - NT / ND; +BS; No rebound or guarding Extremities - no calf tenderness bilaterally, 1+ edema RLE Musculoskeletal - Normal inspection, normal ROM Skin - Warm/Dry. See photo Neurological - Alert & oriented x3, No focal deficit Psychological - Appropriate affect Objective Data Active Medications Acetaminophen (Acetaminophen Supp 650 Mg Supp.Rect) 650 mg [place] Q6H PRN PRN Reason: Pain, Moderate (Pain Scale 4-6 Acetaminophen (Acetaminophen 325 Mg Tablet) 325 mg PO Q6H PRN PRN Reason: Pain, Mild (Pain Scale 1-3) Last Admin: 12/18/21 21:28 Dose: 325 mg Documented By: JANETH Amlodipine Besylate (Amlodipine Besylate 5 Mg Tablet) 5 mg PO DAILY [facility]; Protocol Last Admin: 12/20/21 09:22 Dose: 5 mg Documented By: MONICA Aspirin (Aspirin Enteric Coated 81 Mg Tablet.) 81 mg PO DAILY [facility] Last Admin: 12/20/21 09:22 Dose: 81 mg Documented By: MONICA Atorvastatin Calcium (Atorvastatin Calcium 40 Mg Tablet) 40 mg PO BEDTIME [facility] Last Admin: 12/20/21 20:36 Dose: 40 mg Documented By: MONA Celecoxib (Celecoxib 200 Mg Capsule) 200 mg PO BID [facility] Last Admin: 12/20/21 20:36 Dose: 200 mg Documented By: MONA Docusate Sodium (Docusate Sodium 100 Mg Capsule) 100 mg PO BID PRN PRN Reason: constipation Doxycycline Hyclate (Doxycycline Hyclate 100 Mg Tablet) 100 mg PO Q12H [facility] Last Admin: 12/20/21 20:36 Dose: 100 mg Documented By: MONA Enoxaparin Sodium (Enoxaparin Sodium 40 Mg/0.4 Ml Syringe) 40 mg SUBCUT Q24H [facility] Last Admin: 12/20/21 09:22 Dose: 40 mg Documented By: MONICA Furosemide (Furosemide 20 Mg Tablet) 10 mg PO DAILY [facility]; Protocol Last Admin: 12/20/21 09:22 Dose: 10 mg Documented By: MONICA Gabapentin (Gabapentin 300 Mg Capsule) 300 mg PO BEDTIME [facility] Last Admin: 12/20/21 20:36 Dose: 300 mg Documented By: MONA Meropenem 1 gm/ Sodium (Chloride) 100 mls @ 200 mls/hr IV Q8H [facility] Last Infusion: 12/21/21 01:02 Dose: 0 mls/hr Documented By: MONA Insulin Human Lispro (Insulin Lispro 100 Unit/Ml 3 Ml Vial) 0 unit SUBCUT QIDACHS [facility]; Protocol Last Admin: 12/20/21 21:03 Dose: 2 unit Documented By: MONA Lisinopril (Lisinopril 20 Mg Tablet) 20 mg PO DAILY [facility]; Protocol Last Admin: 12/20/21 09:22 Dose: 20 mg Documented By: MONICA Loratadine (Loratadine 10 Mg Tablet) 10 mg PO DAILY PRN PRN Reason: allergies Omeprazole (Omeprazole 20 Mg Capsule.) 20 mg PO DAILY@0630 [facility] Last Admin: 12/21/21 05:33 Dose: 20 mg Documented By: MONA Pharmacy Consult (Consult Rx Perform Med Rec) 1 each MISCELLANE ONCE PRN PRN Reason: Consult order Pharmacy Consult (Consult Rx Vancomycin Dosing) 1 each MISCELLANE DAILY PRN PRN Reason: Consult order Simethicone (Simethicone 80 Mg Tab.Chew) 80 mg PO Q8H PRN PRN Reason: gas Sodium Chloride (0.9 % Sodium Chloride Flush 3 Ml Syringe) 3 ml IVFLUSH QSHIFT [facility] Last Admin: 12/20/21 21:04 Dose: 3 ml Documented By: CARLOSRINSav Tiotropium [place] (Tiotropium [place] 18 Mcg Cap.W.Dev) 1 puff INHALE RDAILY RASHEED Labs CBC & Chem 7: 12/17/21 05:33 12/21/21 04:53 Labs: Laboratory Results - last 24 hr 12/20/21 12/20/21 12/20/21 07:48 11:15 16:58 Estim Creat Clear Calc Estimated GFR POC Glucose 96 188 H 116 H Vancomycin Trough 12/20/21 12/21/21 12/21/21 20:29 04:53 04:53 Estim Creat Clear Calc 129.5 Estimated GFR > 60 POC Glucose 177 H Vancomycin Trough 4.3 L Assessment and Plan (1) Osteomyelitis of second toe of right foot: Status: Acute Plan 61 year old male controlled type 2 diabetes, htn, hyperlipidemia, rony, asthma, and severe obesity with diabetic foot infection and osteomyelitis admitted for IV antibiotics. Patient has no complaints this morning. Symptoms improving. Vascular studies negative and discussion had with Dr. Cardoza. Will likely proceed with IV abx outpatient pending ID consult. 1. Right diabetic foot infection with cellulitis and acute osteomyelitis of the distal second toe without gangrene or necrosis- improving -JOSE and arterial duplex negative for significant arterial disease. Discussed with Dr. Cardoza. Amputation not needed. Will follow up with vascular surgery in 2 weeks for possible angiogram. -ID recommend Ertapenen and oral Doxy--D2 -cultures are negative -Has PICC line as of 12/19 -IV home infusion not able to arrange over the weekend 2. Type 2 diabetes with peripheral neuropathy- controlled -Continue SSI. Glucose levels stable. -Diabetic diet -Continue gabapentin for neuropathy 3. HTN- controlled -Continue amlodipine and lisinopril 4. HLD -Continue atorvastatin 5. Asthma- stable -Continue maintenance inhaler -Albuterol updraft if needed 6. Sleep apnea -CPAP at bedtime DVT prophylaxis- continue lovenox Patient requires continued inpatient stay for administration of IV antibiotics, while awaiting home infusion to be set up Quality Stroke Does the patient have a stroke diagnosis?: No VTE Prior VTE?: No VTE Risk Level:: Medical - moderate - high VTE Device Contraindication: N/A - Device Ordered VTE Drug Contraindication: N/A - Med Ordered
[2021-12-21 07:53] LABS: Glucose, Whole Blood 93 mg/dL (60-115)
[2021-12-21] MEDS: Celecoxib 200 MG CAPSULE PO ×2 (08:50→20:56)
[2021-12-21] MEDS: lisinopriL 20 MG TABLET PO (08:50)
[2021-12-21] MEDS: Aspirin Enteric Coated 81 MG TABLET.DR PO (08:50)
[2021-12-21] MEDS: amLODIPine Besylate 5 MG TABLET PO (08:51)
[2021-12-21] MEDS: 0.9 % Sodium Chloride Flush 3 ML SYRINGE IVFLUSH ×2 (08:51→17:01)
[2021-12-21] MEDS: Enoxaparin Sodium 40 MG/0.4 ML SYRINGE SUBCUT (08:52)
[2021-12-21] MEDS: Furosemide 20 MG TABLET 10 MG PO (08:52)
[2021-12-21 12:11] LABS: Glucose, Whole Blood 164 mg/dL (60-115)
[2021-12-21] MEDS: Insulin Lispro 100 UNIT/ML 3 ML VIAL SUBCUT (12:21)
[2021-12-21 16:31] LABS: Glucose, Whole Blood 119 mg/dL (60-115)
[2021-12-21 20:18] LABS: Glucose, Whole Blood 144 mg/dL (60-115)
[2021-12-21] MEDS: Atorvastatin Calcium 40 MG TABLET PO (20:56)
[2021-12-21] MEDS: Acetaminophen 325 MG TABLET PO (20:56)
[2021-12-21] MEDS: Gabapentin 300 MG CAPSULE PO (20:56)
[2021-12-22] MEDS: 0.9 % Sodium Chloride Flush 3 ML SYRINGE IVFLUSH ×2 (01:28→09:06)
[2021-12-22 03:16] VITALS: BP 143/71; PULSE 52; RESP 16; TEMP 36; O2SAT 93
[2021-12-22] MEDS: Omeprazole 20 MG CAPSULE.DR PO (05:57)
[2021-12-22 06:17] LABS: Creatinine Clr Calc Pharmacy 129.5; Estimated Glomerular Filt Rate > 60
[2021-12-22 07:22] LABS: Glucose, Whole Blood 140 mg/dL (60-115)
[2021-12-22 07:31] VITALS: BP 132/69; PULSE 51; RESP 18; TEMP 35.9; O2SAT 96
[2021-12-22] MEDS: Celecoxib 200 MG CAPSULE PO (09:06)
[2021-12-22] MEDS: amLODIPine Besylate 5 MG TABLET PO (09:06)
[2021-12-22] MEDS: Enoxaparin Sodium 40 MG/0.4 ML SYRINGE SUBCUT (09:06)
[2021-12-22] MEDS: Furosemide 20 MG TABLET 10 MG PO (09:06)
[2021-12-22] MEDS: lisinopriL 20 MG TABLET PO (09:06)
[2021-12-22] MEDS: Aspirin Enteric Coated 81 MG TABLET.DR PO (09:07)
--- NOTE | 2021-12-22 09:08 | MHC.CM.PN ---
PER HOSPITALIST PT TO BE MEDICALLY CLEARED FOR D/C TODAY, PICC LINE IN PLACE AND PT WILL D/C ON 6WKS IV ERTAPENEM, HI TO BE IN LATER THIS MORNING FOR TEACH, CM HAS EXPANDED [facility] REFERAL AND AWAITING RESPONSES, PER [facility] NEEDED D/T DIABETIC ULCER.
[2021-12-22 11:10] LABS: Glucose, Whole Blood 121 mg/dL (60-115)
[2021-12-22 11:38] VITALS: BP 150/78; PULSE 63; RESP 17; TEMP 36.2; O2SAT 97
[2021-12-22] MEDS: Ertapenem Sodium 1 GM in 0.9 % Sodium Chloride 50 ML IV (12:02)
--- NOTE | 2021-12-22 14:15 | PM.DS ---
DS: Providers Provider Date of Service: 12/22/21 Date of admission: 12/17/21 09:18 Primary care physician: Radha Weber MD Consults: 12/17/21 16:14 Consult to Vascular Surgery Routine Consulting Provider: Blas Cardoza Reason for consultation: osteomyelitis right 2nd toe Has provider been notified: No 12/19/21 11:37 Consult to Infectious Diseases Routine Consulting Provider: Susan Figueroa Reason for consultation: osteomyelitis Has provider been notified: No DS: Diagnosis Discharge Diagnosis (1) Osteomyelitis of second toe of right foot: Status: Acute DS: Summary Hospital Course Hospital Course: Attending physician on admission: Temo Lee Chief Complaint: diabetic food ulcer/osteomyelitis Patient with history of insulin dependent controlled type 2 diabetes, htn, hdl, rony, asthma, and severe obesity being admitted for right diabetic foot infection and probable osteomyelitis of the right 2nd toe. Noticed a wound of the distal right 2nd toe and right heel about 1 week ago with associated pain that had been worsening. Initially had blister of the 2nd toe but reports this ruptured witih bloody drainage. Pain worsened and presented to [facility] [place] [facility]. Xray at the time negative for osseous infection and was discharged with keflex which he had been taking. Swelling and pain worsened prompting him to return to ED last night. XRay of the right food showed possible osteomyelitis of the right 2nd toe. Today he reports ongoing pain and swelling of the right foot. He can ambulate but with a limp. Denies any fevers or rigors. Denies any history of prior diabetic foot infection. Does have peripheral neuropathy. Follows with both endocrinology (Dilia) and podiatry (Manjinder). Last A1c per patient was controlled in the 6's. Uses and dual insulin pump and glucose ranges 100-150. Denies hypoglycemic epidoes. Hospital course: 1. Right diabetic foot infection with cellulitis and acute osteomyelitis of the distal second toe without gangrene or necrosis- noted on MRI. Initially was treated with IV Vanco and Zosyn and was evaluated by Dr. Cardoza from vascular surgery and had JOSE and arterial duplex done and were negative for significant arterial disease and thus amputation not needed. He will follow up with Dr. Cardoza in 2 weeks for angiogram. He was seen by Dr. Figueroa ID Doc and recommended Ertapenem IV and Doxy while in the hospital and discharge to change to oral Doxycyline for 2 mothns and Invanz for 6 weeks. He has a PICC by IR since 12/19 and arrangment has been made for home onfusion. For diabetes, HTN, HLD, mild intermittent asthma, Sleep apnea--continue prior meds and CPAP at home. Time Spent with Patient Time attestation: Total time spent providing and/or coordinating discharge services: Discharge coordination time: Greater than 30 minutes Quality: Safe Use of Opioids Does Pt have an Active Cancer Diagnosis on the Problem List?: No Quality: Stroke Does the patient have a stroke diagnosis?: No Physical Exam Vital Signs: Vital Signs: Last Vital Signs Temp 97.2 F 12/22/21 11:38 Pulse 63 12/22/21 11:38 Resp 17 12/22/21 11:38 BP 150/78 H 12/22/21 11:38 Pulse Ox 97 12/22/21 11:38 O2 Del Method 12/22/21 11:38 BMI result Body Mass Index 36.3 Const: Other: Constitutional - Awake and Alert, No apparent distress Eyes - PERRLA, EOMI Cardiovascular - S1S2, RRR, No edema Respiratory - Normal lung expansion, Normal respiratory effort, No respiratory distress, CTA bilaterally Gastrointestinal - NT / ND; +BS; No rebound or guarding Extremities - no calf tenderness bilaterally, 1+ edema RLE Musculoskeletal - Normal inspection, normal ROM Skin - Warm/Dry. See photo Neurological - Alert & oriented x3, No focal deficit Psychological - Appropriate affect DS: Data Data Completed and Pending Labs on day of discharge: Laboratory Results - last 24 hr 12/21/21 12/21/21 12/22/21 15:19 19:23 05:05 Creatinine 0.67 Estim Creat Clear Calc 129.5 Estimated GFR > 60 POC Glucose 119 H 144 H 12/22/21 12/22/21 07:15 11:00 Creatinine Estim Creat Clear Calc Estimated GFR POC Glucose 140 H 121 H Discharge Plan Discharge Anticipated Discharge Date/Time: 12/22/21 14:03 Patient Disposition: Home Health Service Discharge Diagnosis: Osteomylitis of the toe Referrals: [facility] [Other] - 1 Week (DELIVERY OF IV ANTIBIOTICS) [facility] [Outside] - 1 Day (Start of care will be Saturday 12/23, a nurse will contact you to arrange first visit. ) Beauzile,Thevenin C, MD [Primary Care Provider] - 1 Week Discharge Medications: New ertapenem [Invanz] 1 gram recon soln 1 g IV DAILY Qty: 41 0RF doxycycline hyclate 100 mg tablet 100 mg PO BID 60 Days Qty: 120 0RF Continued celecoxib 200 mg capsule 1 cap PO BID atorvastatin 40 mg Tablet 40 mg PO BEDTIME cyanocobalamin (vitamin B-12) 1,000 mcg tablet extended release 1 tab PO DAILY lisinopril 20 mg tablet 1 tab PO DAILY amlodipine 5 mg tablet 1 tab PO DAILY aspirin 81 mg tablet,delayed release (DR/EC) 1 tab PO DAILY acetaminophen 650 mg tablet extended release 1 tab PO Q8H PRN (Reason: Pain (Scale Score 1-3)) insulin aspart U-100 [Novolog U-100 Insulin aspart] 100 unit/mL solution See Rx Instructions .ROUTE .COMPLEX Rx Instructions: use with insulin pump- Minimed 630 G Guardian docusate sodium 100 mg capsule 1 cap PO BID PRN (Reason: constipation) gabapentin 300 mg capsule 1 cap PO BEDTIME omeprazole 20 mg capsule,delayed release(DR/EC) 1 cap PO DAILY@0630 furosemide 20 mg tablet 0.5 tab PO DAILY albuterol sulfate [Ventolin HFA] 90 mcg/actuation HFA aerosol inhaler 2 puff inhalation Q4H fluticasone propionate 50 mcg/actuation spray,suspension 1 spray intranasal DAILY PRN (Reason: allergies) loratadine 10 mg tablet 1 tab PO DAILY PRN (Reason: allergies) simethicone [Gas Relief (simethicone)] 80 mg tablet,chewable 1 tab PO Q8H PRN (Reason: gas) cholecalciferol (vitamin D3) [Vitamin D3] 25 mcg (1,000 unit) capsule 1 tab PO DAILY calcium carbonate-vitamin D3 [Calcium 500 With D] 500 mg-10 mcg (400 unit) tablet 1 tab PO Q2D Incruse Ellipta 62.5 mcg/actuation blister with device 1 puff inhalation DAILY [id number] fum-folic ac 7.5 mg iron-400 mcg tablet 1 tab PO DAILY (DME) subcutaneous insulin pump Rx Instructions: novolog insulin used with pump- Minimed 630G Guardian Start Discontinued cephalexin 500 mg capsule 1 cap PO Q6H Discharge Orders: Discharge Order (Routine); Ordered 12/22/21 Ordered By: Osmar Aponte Diet: Diabetic diet Activity on Discharge: As tolerated Stand Alone Forms: Patient Portal Discharge page Care Plan Goals: Full healing of osteomylitis of the foot Health Concerns: Osteomyltisi of the right second toe Plan of Treatment: Take Invanz 1 gram daily for 6 weeks take Doxycyline 100 mg twice daily for 2 months follow up with Dr. Figueroa Assessment: as above
--- NOTE | 2021-12-22 14:16 | P.CDIC_ITS ---
CDI Concurrent Query Documentation Clarification: PHYSICIAN'S DOCUMENTATION REQUEST Date of Query: 12/22/21 1417 Patient Name: Jose Foster Admit Date: 12/17/21 Dear Doctor, Please review the following and provide your response in the progress notes. Clinical Indicators: The diagnosis of asthma was documented in the record on 12/21/21. Additional clinical indicators from the record include: Risk Factors/Clinical Indicators/Treatments . Asthma- stable -Continue maintenance inhaler -Albuterol updraft if needed Based on the above, please clarify in the Progress Notes further specificity regarding the type and acuity of the asthma: Type: * Mild intermittent - less than 2x/week * Mild persistent - more than 2x/week but not daily * Moderate persistent - daily and may restrict physical activity * Severe persistent - throughout the day with frequent attacks, limiting activities * Exercise induced * Chronic obstructive asthma and indicate if with acute lower respiratory infection * Asthma with underlying COPD and indicate if with acute lower respiratory infection * Other ? please specify * Unable to determine Use of terms such as suspected, likely, concern for, or probable (associated with a specific diagnosis that is being evaluated, monitored, or treated as if it exists) are acceptable and can be coded in the inpatient setting, when documented at the time of discharge. Thank you, Cassandra Ignacio RN Extension: [phone] Please use your independent medical judgment in providing your response. THIS QUERY IS PART OF THE PERMANENT MEDICAL RECORD Provider Response: Other Other Diagnosis: see note
--- NOTE | 2021-12-22 14:29 | W.MHC.F2F ---
Service Date Service Date: 12/22/21 Encounter Date of encounter: 12/22/21 Reasons for Services Signs and symptoms assessed: osteomylitis and cellulitis of the right second toe Reason for fci: medication treatment and teach disease management Homebound: Leaving the home is medically contraindicated at this time without the asist of a device and/or another person due th the listed conditions above and below. Reason homebound: pain with ambulation Homebound supporting statement: Homebopund due to osteomylitis of the foot causing pain with ambulation and therefore needs the assistance of another person Certification: Based on the above findings, I certify that this patient is confined to the home and needs intermittent fci care, physical therapy and/or speech therapy, or continues to need occupational therapy. The patient is under my care, and I have initiated the establishment of the plan of care. The patient will be followed by a physician who will periodically review the plan of care.
[2021-12-22 16:00] VITALS: BP 137/74; PULSE 65; RESP 16; TEMP 36.1; O2SAT 95
== END 2021-12-22 16:46 | disposition home health service (06) | DRG 638 ==
LOC: HO.ED 06:32 → HO.EDOVER 09:33 → HO.S3 15:31
PROVIDERS: Family Medicine; Admitting Provider Physician Assistant; Emergency Provider Emergency Medicine; PCP Internal Medicine; Visit Provider Internal Medicine
DX: E11.69 Type 2 diabetes mellitus with other specified complication (principal); L03.115 Cellulitis of right lower limb; M86.171 Other acute osteomyelitis, right ankle and foot; E11.42 Type 2 diabetes mellitus with diabetic polyneuropathy; E66.01 Morbid (severe) obesity due to excess calories; E11.51 Type 2 diabetes mellitus with diabetic peripheral angiopathy without gangrene; Z68.36 Body mass index [BMI] 36.0-36.9, adult; L97.519 Non-pressure chronic ulcer of other part of right foot with unspecified severity; G47.30 Sleep apnea, unspecified; J45.20 Mild intermittent asthma, uncomplicated; E78.5 Hyperlipidemia, unspecified; E11.621 Type 2 diabetes mellitus with foot ulcer; E11.628 Type 2 diabetes mellitus with other skin complications; I10 Essential (primary) hypertension; Z20.822 Contact with and (suspected) exposure to COVID-19; Z96.41 Presence of insulin pump (external) (internal); Z98.84 Bariatric surgery status; Z79.4 Long term (current) use of insulin; Z79.51 Long term (current) use of inhaled steroids; Z79.82 Long term (current) use of aspirin; Z79.899 Other long term (current) drug therapy
CPT/HCPCS: 36415; 36573; 73620; 73720; 80048; 80202; 81003; 82565; 82947; 83605; 83690; 85025; 85652; 86140; 87040; 87635; 93923; 93925; 94660; 99285; A9585; C1751; J1335; J1650; J2185; J2543; J3370

== ENCOUNTER → 2021-12-26 10:27 | Outpatient (BNVA) | payer OTHER, SELFPAY | PROVIDERS: PCP Internal Medicine; Visit Provider Internal Medicine | DX: E11.628 Type 2 diabetes mellitus with other skin complications (principal); L08.9 Local infection of the skin and subcutaneous tissue, unspecified | CPT/HCPCS: 99212 ==

== ENCOUNTER 2021-12-30 10:01 | Outpatient (REF) | payer OTHER, SELFPAY ==
[2021-12-30 11:03] LABS: Alanine Aminotransferase 29 U/L (0-40); Alkaline Phosphatase 115 U/L (39-117); Aspartate Amino Transferase 22 U/L (5-37); Bilirubin Direct 0.2 mg/dL (0.0-0.5); Bilirubin Total 0.4 mg/dL (0.0-1.0); Blood Urea Nitrogen 17 mg/dL (9-16); Estimated Glomerular Filt Rate > 60; Total Protein 6.8 g/dL (6.5-8.0)
== END 2021-12-30 10:02 | disposition home or self-care (01) ==
LOC: HO.HVNA 10:01
PROVIDERS: Visit Provider Internal Medicine
DX: M86.171 Other acute osteomyelitis, right ankle and foot (principal)
CPT/HCPCS: 80076; 82565; 84520

== ENCOUNTER 2022-01-06 12:37 | Outpatient (REF) | payer OTHER, SELFPAY ==
[2022-01-06 13:30] LABS: Alanine Aminotransferase 22 U/L (0-40); Albumin Level 3.9 g/dL (3.5-5.0); Alkaline Phosphatase 119 U/L (39-117); Aspartate Amino Transferase 17 U/L (5-37); Bilirubin Direct 0.2 mg/dL (0.0-0.5); Bilirubin Total 0.5 mg/dL (0.0-1.0); Blood Urea Nitrogen 15 mg/dL (9-16); Estimated Glomerular Filt Rate > 60; Total Protein 6.5 g/dL (6.5-8.0)
== END 2022-01-06 12:38 | disposition home or self-care (01) ==
LOC: HO.HVNA 12:37
PROVIDERS: Visit Provider Internal Medicine
DX: M86.171 Other acute osteomyelitis, right ankle and foot (principal)
CPT/HCPCS: 36415; 80076; 82565; 84520

== ENCOUNTER → 2022-01-07 13:10 | Outpatient (BNVA) | payer OTHER, SELFPAY | PROVIDERS: PCP Internal Medicine; Visit Provider Internal Medicine | DX: E11.628 Type 2 diabetes mellitus with other skin complications (principal); L08.9 Local infection of the skin and subcutaneous tissue, unspecified | CPT/HCPCS: 99212 ==

== ENCOUNTER 2022-01-13 13:23 | Outpatient (REF) | payer OTHER, SELFPAY ==
[2022-01-13 14:21] LABS: Alanine Aminotransferase 21 U/L (0-40); Alkaline Phosphatase 115 U/L (39-117); Aspartate Amino Transferase 19 U/L (5-37); Bilirubin Direct 0.2 mg/dL (0.0-0.5); Bilirubin Total 0.4 mg/dL (0.0-1.0); Blood Urea Nitrogen 16 mg/dL (9-16); Estimated Glomerular Filt Rate > 60; Total Protein 6.8 g/dL (6.5-8.0)
== END 2022-01-13 13:24 | disposition home or self-care (01) ==
LOC: HO.HVNA 13:23
PROVIDERS: Visit Provider Internal Medicine
DX: M86.171 Other acute osteomyelitis, right ankle and foot (principal); I73.9 Peripheral vascular disease, unspecified
CPT/HCPCS: 36415; 80076; 82565; 84520; 99212

== ENCOUNTER 2022-01-20 11:24 | Outpatient (REF) | payer OTHER, SELFPAY ==
[2022-01-20 12:19] LABS: Alanine Aminotransferase 20 U/L (0-40); Albumin Level 3.8 g/dL (3.5-5.0); Alkaline Phosphatase 120 U/L (39-117); Aspartate Amino Transferase 18 U/L (5-37); Bilirubin Direct 0.2 mg/dL (0.0-0.5); Bilirubin Total 0.4 mg/dL (0.0-1.0); Blood Urea Nitrogen 17 mg/dL (9-16); Estimated Glomerular Filt Rate > 60; Total Protein 6.6 g/dL (6.5-8.0)
== END 2022-01-20 11:25 | disposition home or self-care (01) ==
LOC: HO.HVNA 11:24
PROVIDERS: Visit Provider Internal Medicine
DX: M86.171 Other acute osteomyelitis, right ankle and foot (principal)
CPT/HCPCS: 36415; 80076; 82565; 84520

== ENCOUNTER → 2022-01-21 06:10 | Day surgery (SDC) | payer OTHER, SELFPAY ==
[2022-01-21 06:17] VITALS: BMI 40.0
[2022-01-21 06:34] LABS: MANUAL DIFF FLAG NO
[2022-01-21 06:35] LABS: Glucose, Whole Blood 84 mg/dL (60-115)
[2022-01-21 06:40] LABS: Basophils Percent Auto 0.2 % (0-2); Eosinophils Absolute Auto 0.2 X10*3/uL (0.0-0.4); Eosinophils Percent Auto 3.7 % (0-4); Hematocrit 37.2 % (42.0-52.0); Hemoglobin 12.9 g/dl (14.0-18.0); Imm Gran Abs Auto 0.01 X10*3/uL (0.00-0.03); Imm Gran Pct Auto 0.2 % (0.0-0.4); Lymphocytes Absolute Auto 2.2 X10*3/uL (1.2-4.9); Lymphocytes Percent Auto 40.3 % (20-40); Mean Corpuscular HGB Conc 34.7 g/dl (31.0-36.0); Mean Corpuscular Hemoglobin 31.4 pg (27.0-33.0); Mean Corpuscular Volume 90.5 fL (80.0-98.0); Mean Platelet Volume 10.7 fL (9.4-12.4); Monocytes Absolute Auto 0.5 X10*3/uL (0.1-1.2); Monocytes Percent Auto 8.2 % (2-11); Neutrophils Absolute Auto 2.6 x10*3/uL (2.0-8.3); Neutrophils Percent Auto 47.4 % (45-73); Platelet Count 181 X10*3/uL (160-400); Red Blood Count 4.11 X10*6/uL (4.60-5.80); Red Cell Distribution Width 11.9 % (11.0-16.0); White Blood Count 5.5 X10*3/uL (4.8-10.8)
[2022-01-21 06:58] LABS: Blood Urea Nitrogen 15 mg/dL (9-16); Creatinine Clr Calc Pharmacy 123.4; Estimated Glomerular Filt Rate > 60
== END ==
PROVIDERS: PCP Internal Medicine; Visit Provider Surgery Vascular Surgery
DX: I73.9 Peripheral vascular disease, unspecified (principal); Z53.8 Procedure and treatment not carried out for other reasons; E11.628 Type 2 diabetes mellitus with other skin complications; M86.9 Osteomyelitis, unspecified; I10 Essential (primary) hypertension
CPT/HCPCS: 36415; 82565; 82947; 84520; 85025; J2250; J3010

== ENCOUNTER 2022-01-26 05:56 | Day surgery (SDC) | payer OTHER, SELFPAY ==
[2022-01-26] VITALS (7 sets, daily range): BP systolic 120–138; BP diastolic 68–76; PULSE 48–61; RESP 11–18; TEMP 36.2–36.7; O2SAT 95–99; BMI 40.0
[2022-01-26 06:40] LABS: Glucose, Whole Blood 120 mg/dL (60-115)
--- NOTE | 2022-01-26 09:24 | W.PM.OPN ---
Operative Note Operative Note Date of Service: 01/26/22 Narrative: Angiogram report from [facility] Preoperative diagnosis: Atherosclerosis of right lower extremity with nonhealing ulcer Postoperative diagnosis: Same Procedure: 1. Ultrasound-guided left common femoral access 2. Aortogram with right lower extremity runoff 3. Angioplasty of right anterior tibial artery Surgeon:Blas Cardoza M.D., FACS, RPVI [facility] Supervisor:None Anesthesia: Local with moderate conscious sedation. Total intraservice moderate sedation time was 70 minutes. I monitored the patient's level of consciousness and physiologic status continuously throughout the procedure. Specimens:none Drains:none Estimated blood loss: Less than 10 ml Implant: None Indications: Pleasant 61-year-old diabetic gentleman with nonhealing right great toe ulcer. On noninvasive testing he was discovered to have tibial disease. He now presents for endovascular intervention The patient has signed the informed consent after reviewing risks, complications, benefits, and alternatives previously discussed with the patient. The patient was given the opportunity to ask any additional questions or voice any concerns. All questions were answered to the patient's satisfaction. Procedure in detail: Patient was brought to the angiography suite prior to which a time-out was called for patient identification and site verification. Bilateral groins were prepped and draped in the standard surgical fashion. Under ultrasound guidance left common femoral was punctured with micro puncture needle and wire. Subsequently a precision 4 Bahraini sheath was then placed. Bentson wire was advanced to the level of the aorta. 4 [place]raini Flush catheter was brought up and parked at the level of the renal arteries. Aortogram was then undertaken. Catheter was brought down to the level of the iliac bifurcation. Iliacs were subsequently imaged. Catheter was then brought in up and over to the right side SFA. Runoff study was then undertaken. We then advanced an 035 glidewire Advantage. At this time we administered 8000 units of systemic heparin. Up and over 6 [place]raini sheath was then placed. We used a trail Blazer catheter to go down into the tibial vessels below-knee runoff was then undertaken. We were able to easily cannulate the origin of the anterior tibial artery. We exchanged out for an 014 Nitrex wire. We were able to traverse the lesion on the anterior tibial artery. We confirmed true lumen with trail Blazer catheter instilled with contrast. Once over the Nitrex wire we then plasty D anterior tibial artery with a regular 2.5 x 120 NanoCross balloon. This required multiple insufflations of this. Once this was accomplished we then plasty did with a 3.5 x 150 NanoCross balloon as well. This required 2 insufflations. Completion results demonstrated excellent flow through the anterior tibial artery. Catheter wire sheath was brought back to the ipsilateral side. StarClose closure device was then deployed. Adequate hemostasis was achieved. Patient brought to the recovery area with stable vitals. Interpretation of films: 1. Ultrasound demonstrates appropriate femoral puncture. Image of which was saved. 2. Aortogram demonstrates appropriate caliber aorta. Minimal disease. Appropriate take-off of the renals. 3. Iliac images demonstrate no significant disease but it high degree of tortuosity 4. Right Leg Common femoral artery: No significant disease Profundus Femoris: No significant disease Superficial femoral artery: Patent all the way through mild disease at the distal Hola's canal Popliteal artery (p1,p2,p3): Patent Anterior tibial artery: Patent with multiple stenotic areas towards the origin the anterior tibial Peroneal artery: Occludes at the origin reconstitutes via collaterals Posterior tibial artery: Occluded Dorsalis pedis/plantar arch: Incomplete Conclusion: 1. Successful plasty of right anterior tibial artery 2. Anticoagulation status: Aspirin and Plavix for 6 months This note is constructed using voice recognition software. While every effort has been made to ensure accuracy, yardmaster errors may have been included. Thank you for allowing me to participate in the care of your patient. Yours sincerely, Blas Cardoza MD, FACS, R.P.V.I.
[2022-01-26] MEDS: Clopidogrel Bisulfate 300 MG TABLET PO (09:46)
== END 2022-01-26 12:30 | disposition home or self-care (01) ==
PROVIDERS: PCP Internal Medicine; Visit Provider Surgery Vascular Surgery
DX: I70.235 Atherosclerosis of native arteries of right leg with ulceration of other part of foot (principal); E11.621 Type 2 diabetes mellitus with foot ulcer; L97.519 Non-pressure chronic ulcer of other part of right foot with unspecified severity; E11.42 Type 2 diabetes mellitus with diabetic polyneuropathy
CPT/HCPCS: 37228; 76937; 82947; 99152; 99153; C1725; C1760; C1769; C1887; J2250; J3010; Q9967

== ENCOUNTER 2022-01-26 12:42 | Emergency (ER) | payer OTHER, SELFPAY ==
--- NOTE | ~2022-01-26 | CT_ITS ---
EXAMINATION: CT ABDOMEN AND PELVIS WITHOUT CONTRAST CLINICAL INFORMATION: L leg pain, ?hematoma/ retroperitoneal bleed COMPARISON: None. TECHNIQUE: Multidetector volumetric imaging was performed from the lung bases through the pubic symphysis. Sagittal and coronal reformatted images were obtained on the technologist workstation. This CT examination was performed using dose optimization techniques as appropriate, variously including the following: *Automated exposure control *Adjustment of mA and/or kV according to patient size (this includes techniques or standardized protocols for targeted exams where dose is matched to indication/reason for exam; i.e. extremities or head) *Use of iterative reconstruction technique FINDINGS: The lack of intravenous contrast limits evaluation of the solid visceral organs including the liver, spleen, pancreas, and kidneys. LUNG BASES: The visualized lung bases are unremarkable. LIVER, GALLBLADDER, AND BILIARY TREE: Limited non-contrast evaluation is normal. A few scattered calcified granulomata are present. No gross focal hepatic lesion. Normal liver size and contour. No gross biliary ductal dilation. There are dependent gallstones in an otherwise normal gallbladder. PANCREAS: Limited non-contrast evaluation is normal. No jade-pancreatic fluid. SPLEEN: Limited non-contrast evaluation is normal. ADRENAL GLANDS: Normal; no adrenal mass. KIDNEYS AND URETERS: 4 mm nonobstructing calculus in the right mid kidney. There is contrast in both renal collecting systems and ureters. No hydronephrosis or hydroureter. GASTROINTESTINAL TRACT: Postoperative changes consistent with prior gastric bypass. No dilated small bowel seen. Stool throughout the colon. No evidence of colitis or diverticulitis. ABDOMINAL WALL: There is some gas within the right anterior upper abdominal wall image 26/113 suggesting a subcutaneous injection. There is fat within the inguinal canals bilaterally, left greater than right. There is fluid and fat stranding in the left inguinal region consistent with prior procedure. No discrete fluid collection seen to suggest abscess or hematoma. LYMPH NODES: No pathologically enlarged lymph nodes in the abdomen or pelvis. VASCULAR: Normal caliber abdominal aorta. No retroperitoneal hematoma. BLADDER: There is contrast presumably from earlier vascular procedure in the urinary bladder. PELVIC VISCERA: The enlarged prostate indents the bladder base. OSSEOUS STRUCTURES: Grade 1 anterolisthesis of L5 on S1. Multilevel degenerative changes. No acute or suspicious osseous abnormality. CT/CT abdomen pelvis wo IV con IMPRESSION: There is some fluid and fat stranding in the left inguinal region consistent with prior vascular access. No discrete fluid collection to suggest an abscess or hematoma. There is a punctate focus of gas within the subcutaneous fat of the right anterior upper abdomen presumably from earlier subcutaneous injection.
[2022-01-26 12:57] VITALS: BMI 40.0
[2022-01-26 14:00] VITALS: BP 124/66; PULSE 50; RESP 18; TEMP 36.9; O2SAT 98
--- NOTE | 2022-01-26 14:02 | ED_ITS ---
HPI - Extremity Problem General Chief complaint: Extremity Problem Stated complaint: L Knee Pain No Injury Time Seen by Provider: 01/26/22 13:38 Source: patient Mode of arrival: ambulatory Limitations: no limitations History of Present Illness HPI Narrative: Patient presents emergency department from PACU for evaluation of burning pain from left groin to medial knee. Awoke from his surgical procedure today with this pain. Denies pain similar to the prior to his procedure. States he has a history of chronic knee pain but this is different. Denies numbness or tingling to the extremity. He is able to bear weight, but it exacerbates his pain. Related Data Home Medications Medication Instructions Recorded Confirmed acetaminophen 650 mg 1 tab PO Q8H PRN Pain (Scale Score 12/17/21 12/17/21 tablet,extended release 1-3) albuterol sulfate 90 mcg/actuation 2 puff inhalation Q4H 12/17/21 12/17/21 aerosol inhaler (Ventolin HFA) amlodipine 5 mg tablet 1 tab PO DAILY 12/17/21 12/17/21 aspirin 81 mg tablet,delayed 1 tab PO DAILY 12/17/21 12/17/21 release atorvastatin 40 mg tablet 40 mg PO BEDTIME 12/17/21 12/17/21 calcium carbonate 500 mg-vitamin 1 tab PO Q2D 12/17/21 12/17/21 D3 10 mcg (400 unit) tablet (Calcium 500 With D) celecoxib 200 mg capsule 1 cap PO BID 12/17/21 12/17/21 cholecalciferol (vitamin D3) 25 1 tab PO DAILY 12/17/21 12/17/21 mcg (1,000 unit) capsule (Vitamin D3) cyanocobalamin (vitamin B-12) 1 tab PO DAILY 12/17/21 12/17/21 1,000 mcg tablet,extended release docusate sodium 100 mg capsule 1 cap PO BID PRN constipation 12/17/21 12/17/21 fluticasone propionate 50 1 spray intranasal DAILY PRN 12/17/21 12/17/21 mcg/actuation nasal allergies spray,suspension furosemide 20 mg tablet 0.5 tab PO DAILY 12/17/21 12/17/21 gabapentin 300 mg capsule 1 cap PO BEDTIME 12/17/21 12/17/21 insulin aspart U-100 100 unit/mL See Rx Instructions .Route .COMPLEX 12/17/21 12/17/21 subcutaneous solution (Novolog U-100 Insulin aspart) lisinopril 20 mg tablet 1 tab PO DAILY 12/17/21 12/17/21 loratadine 10 mg tablet 1 tab PO DAILY PRN allergies 12/17/21 12/17/21 yrckpsatnssu-dldqewku-xonh 1 tab PO DAILY 12/17/21 12/17/21 fumarate 7.5 mg-folic acid 400 mcg tablet omeprazole 20 mg capsule,delayed 1 cap PO DAILY@0630 12/17/21 12/17/21 release simethicone 80 mg chewable tablet 1 tab PO Q8H PRN gas 12/17/21 12/17/21 (Gas Relief (simethicone)) subcutaneous insulin pump 12/17/21 12/17/21 umeclidinium 62.5 mcg/actuation 1 puff inhalation DAILY 12/17/21 12/17/21 blister powder for inhalation (Incruse Ellipta) cephalexin 500 mg capsule 500 mg PO QID 01/13/22 Previous Rx's Medication Instructions Recorded doxycycline hyclate 100 mg tablet 100 mg PO BID 60 days #120 tabs 12/22/21 ertapenem 1 gram solution for 1 g IV DAILY #41 ea 01/07/22 injection (Invanz) clopidogrel 75 mg tablet (Plavix) 75 mg PO DAILY #90 tabs 01/26/22 Allergies Allergy/AdvReac Type Severity Reaction Status Date / Time No Known Allergies Allergy Verified 01/13/22 09:12 [No Known Allergies*] Review of Systems Review of Systems: Constitutional: No weight loss, fever, chills, weakness or fatigue. Skin: No rash or itching. Cardiovascular: No chest pain, chest pressure or chest discomfort. No palpitations Respiratory: No shortness of breath, cough or sputum production. Gastrointestinal: No anorexia, nausea, vomiting or diarrhea. No abdominal pain or blood in stool. Genitourinary: No burning micturition. No urinary frequency or incontinence. Musculoskeletal: Positive leg pain Psychiatric: No depression or anxiety. Yes all other systems are reviewed and are negative [facility] Past Medical History Medical History (Updated 01/26/22 @ 15:52 by Aletha Mckeon CNP) Arthritis Asthma Diabetes HTN (hypertension) Hyperlipidemia Osteoarthritis PAD (peripheral artery disease) Sleep apnea Type 2 diabetes, controlled, with peripheral neuropathy Surgical History Gastric bypass status for obesity H/O rotator cuff surgery Social History Social History Household Members: Family Housing: Apartment Do you presently have visiting nurse or other home services: No Patient Tobacco Use Status: Never used Tobacco Advance Directives: No Advance Directives Information Provided: No service: No Current occupational status: disabled Physical Exam Vital Signs: Vital Signs: Last Vital Signs Temp 98.4 F 01/26/22 14:00 Pulse 50 01/26/22 14:00 Resp 18 01/26/22 14:00 BP 124/66 01/26/22 14:00 Pulse Ox 98 01/26/22 14:00 O2 Del Method 01/26/22 14:00 BMI result Body Mass Index 40.0 Appearance: Alert.?Oriented to person, place and time. No acute distress.?Normal affect. Eyes: Pupils equal, round and reactive to light.? ENT: Pharynx normal.?? Neck: Normal inspection.? Neck supple.?? CVS: Heart sounds normal. Normal heart rate and rhythm.? Pulses normal.?? Respiratory: No respiratory distress.? Lung sounds clear to auscultation bilaterally?? Abdomen: Soft and non-tender. Normoactive bowel sounds. No pulsatile mass.?? Skin: Skin warm and dry.? Normal skin color.? Extremities: Nonpitting edema bilateral lower extremities. Positive Doppler signal DP/PT pulse to the left.? No calf ttp.?left groin access site no active bleeding, hematoma, mild localized bruising. Full AROM to left knee, no swelling, no effusion, no erythema, no warmth. Neuro: Moves all extremities spontaneously. Sensation intact bilaterally. No motor deficits Ambulates with normal steady gait. Course Course Course Narrative: Patient is a 61-year-old male with a past medical history of peripheral artery disease, asthma, hyperlipidemia, hypertension, and PHYLICIA. Prior to ED arrival patient underwent right anterior tibial artery edema lab secondary to right great toe nonhealing ulcer with ultrasound-guided left common femoral access. Surgery was successful without complication. Patient awoke from surgery reporting sudden onset of burning pain from the left groin to the left knee particularly medially. Was transferred from PACU, thought to be unrelated to procedure. Discussed this case with ED attending Dr. Byers, will obtain CT of the abdomen and pelvis to exclude hematoma/retroperitoneal bleeding as a cause for the pain. Did discuss with patient that pain may be secondary to nerve injury during procedure. Patient with a history of chronic left knee pain but this feels vastly different than what he is used do, is already receiving cortisone injections every 3 months. Reevaluation(s) Reevaluation #1: Discussed this case with vascular surgeon, Dr. Mcelroy was well, who advises no additional recommendations. CT of the abdomen and pelvis no discrete fluid collection, not consistent with a hematoma. At this time suspect pain to the related to the neuropathy, patient very prescribed gabapentin, advised that this may improve his symptoms. Advised outpatient follow-up with primary care provider within 3 days. Additionally advised to rest, apply topical ice/heat as tolerated. Reviewed worrisome signs and symptoms to return back to emergency department for a little questions were answered, the patient was discharged home in stable condition. Time: 16:14 MDM - Extremity (Nontraumatic) Medical Records Attestation: I reviewed the patient's medical records. Lab Data Attestation: I reviewed the patient's lab results. Labs: Lab Results 01/26/22 Range/Units 15:12 POC Glucose 68 (60-115) mg/dL Imaging Data CT scan - abdomen: Radiologist's impression: CT/CT abdomen pelvis wo IV con IMPRESSION: There is some fluid and fat stranding in the left inguinal region consistent with prior vascular access. No discrete fluid collection to suggest an abscess or hematoma. ? There is a punctate focus of gas within the subcutaneous fat of the right anterior upper abdomen presumably from earlier subcutaneous injection. ? Discharge Plan Discharge Clinical Impression: Acute knee pain Patient Disposition: Home, Self-Care Additional Instructions: As we discussed, your pain may be nerve related given your recent procedure. You may apply ice/heat as tolerated. Be sure to rest over the next couple of days. The gabapentin that you are prescribed may be helpful for this pain. Please contact your primary care provider and arrange for a follow-up visit within 3 days. Prescriptions: No Action celecoxib 200 mg capsule 1 cap PO BID atorvastatin 40 mg Tablet 40 mg PO BEDTIME cyanocobalamin (vitamin B-12) 1,000 mcg tablet extended release 1 tab PO DAILY lisinopril 20 mg tablet 1 tab PO DAILY amlodipine 5 mg tablet 1 tab PO DAILY aspirin 81 mg tablet,delayed release (DR/EC) 1 tab PO DAILY acetaminophen 650 mg tablet extended release 1 tab PO Q8H PRN (Reason: Pain (Scale Score 1-3)) insulin aspart U-100 [Novolog U-100 Insulin aspart] 100 unit/mL solution See Rx Instructions .ROUTE .COMPLEX Rx Instructions: use with insulin pump- Minimed 630 G Guardian docusate sodium 100 mg capsule 1 cap PO BID PRN (Reason: constipation) gabapentin 300 mg capsule 1 cap PO BEDTIME omeprazole 20 mg capsule,delayed release(DR/EC) 1 cap PO DAILY@0630 furosemide 20 mg tablet 0.5 tab PO DAILY albuterol sulfate [Ventolin HFA] 90 mcg/actuation HFA aerosol inhaler 2 puff inhalation Q4H fluticasone propionate 50 mcg/actuation spray,suspension 1 spray intranasal DAILY PRN (Reason: allergies) loratadine 10 mg tablet 1 tab PO DAILY PRN (Reason: allergies) simethicone [Gas Relief (simethicone)] 80 mg tablet,chewable 1 tab PO Q8H PRN (Reason: gas) cholecalciferol (vitamin D3) [Vitamin D3] 25 mcg (1,000 unit) capsule 1 tab PO DAILY calcium carbonate-vitamin D3 [Calcium 500 With D] 500 mg-10 mcg (400 unit) tablet 1 tab PO Q2D Incruse Ellipta 62.5 mcg/actuation blister with device 1 puff inhalation DAILY hequadpb-uhf-uqrd fum-folic ac 7.5 mg iron-400 mcg tablet 1 tab PO DAILY (DME) subcutaneous insulin pump Rx Instructions: novolog insulin used with pump- Minimed 630G Guardian Start doxycycline hyclate 100 mg tablet 100 mg PO BID 60 Days Qty: 120 0RF clopidogrel [Plavix] 75 mg tablet 75 mg PO DAILY Qty: 90 1RF ertapenem [Invanz] 1 gram recon soln 1 g IV DAILY Qty: 41 0RF cephalexin 500 mg capsule 500 mg PO QID
[2022-01-26 15:17] LABS: Glucose, Whole Blood 68 mg/dL (60-115)
[2022-01-26 16:25] LABS: Glucose, Whole Blood 126 mg/dL (60-115)
== END 2022-01-26 17:00 | disposition home or self-care (01) ==
PROVIDERS: Emergency Provider Emergency Medicine; PCP Internal Medicine
DX: M25.562 Pain in left knee (principal); Z98.890 Other specified postprocedural states; E11.9 Type 2 diabetes mellitus without complications; E78.5 Hyperlipidemia, unspecified; I10 Essential (primary) hypertension; Z79.4 Long term (current) use of insulin; Z79.899 Other long term (current) drug therapy; Z79.02 Long term (current) use of antithrombotics/antiplatelets; Z79.82 Long term (current) use of aspirin
CPT/HCPCS: 74176; 82947; 99283; 99284

== ENCOUNTER 2022-01-27 09:47 | Outpatient (REF) | payer OTHER, SELFPAY ==
[2022-01-27 11:40] LABS: Alanine Aminotransferase 24 U/L (0-40); Albumin Level 3.9 g/dL (3.5-5.0); Alkaline Phosphatase 122 U/L (39-117); Aspartate Amino Transferase 18 U/L (5-37); Bilirubin Direct 0.2 mg/dL (0.0-0.5); Bilirubin Total 0.5 mg/dL (0.0-1.0); Blood Urea Nitrogen 14 mg/dL (9-16); Estimated Glomerular Filt Rate > 60; Total Protein 6.6 g/dL (6.5-8.0)
== END 2022-01-27 09:48 | disposition home or self-care (01) ==
LOC: HO.HVNA 09:47
PROVIDERS: Visit Provider Internal Medicine
DX: M86.171 Other acute osteomyelitis, right ankle and foot (principal)
CPT/HCPCS: 36415; 80076; 82565; 84520

== ENCOUNTER 2022-02-03 12:17 | Outpatient (REF) | payer OTHER, SELFPAY ==
[2022-02-03 13:51] LABS: Alanine Aminotransferase 22 U/L (0-40); Albumin Level 3.9 g/dL (3.5-5.0); Alkaline Phosphatase 117 U/L (39-117); Aspartate Amino Transferase 17 U/L (5-37); Bilirubin Direct 0.2 mg/dL (0.0-0.5); Bilirubin Total 0.5 mg/dL (0.0-1.0); Blood Urea Nitrogen 13 mg/dL (9-16); Estimated Glomerular Filt Rate > 60; Total Protein 6.5 g/dL (6.5-8.0)
== END 2022-02-03 12:18 | disposition home or self-care (01) ==
LOC: HO.HVNA 12:17
PROVIDERS: Visit Provider Internal Medicine
DX: M86.171 Other acute osteomyelitis, right ankle and foot (principal)
CPT/HCPCS: 36415; 80076; 82565; 84520

== ENCOUNTER 2022-02-10 12:05 | Outpatient (REF) | payer OTHER, SELFPAY ==
[2022-02-10 12:49] LABS: Blood Urea Nitrogen 14 mg/dL (9-16); Estimated Glomerular Filt Rate > 60
== END 2022-02-10 12:06 | disposition home or self-care (01) ==
LOC: HO.HVNA 12:05
PROVIDERS: Visit Provider Internal Medicine
DX: M86.171 Other acute osteomyelitis, right ankle and foot (principal); I73.9 Peripheral vascular disease, unspecified
CPT/HCPCS: 36415; 82565; 84520; 99212

== ENCOUNTER 2022-05-06 12:18 | Outpatient (REF) | payer OTHER, SELFPAY ==
--- NOTE | ~2022-05-06 | US_ITS ---
EXAMINATION: Noninvasive assessment of the bilateral lower extremities with ARTERIAL DUPLEX and ANKLE BRACHIAL INDICES (ABIs). CLINICAL INFORMATION: Peripheral vascular disease TECHNIQUE: Duplex Doppler techniques with waveform analysis and measurement of velocities in the bilateral common femoral, profunda femoris, superficial femoral, popliteal and tibial arteries were performed. Additionally, ankle pulse volume recordings, ankle pressure measurements and ankle brachial indices were obtained of the lower extremity arterial system bilaterally. The study was performed only at rest. COMPARISON: 12/18/2021 FINDINGS: DIRECT DUPLEX DOPPLER FINDINGS: RIGHT LEG: Common femoral artery: 132 cm/s, phasicity: Triphasic Profunda femoris artery: 94.3 cm/s, phasicity: Triphasic Superficial femoral artery (proximal): 122 cm/s, phasicity: Triphasic Superficial femoral artery (mid): 106 cm/s, phasicity: Triphasic Superficial femoral artery (distal): 142 cm/s, phasicity: Triphasic Popliteal artery: 174 cm/s, phasicity: Triphasic Posterior tibial artery: 26.2 cm/s in the distal segment, phasicity: Monophasic. There is occlusion of the proximal and mid posterior tibial artery Peroneal artery: 31.9 cm/s, phasicity: Monophasic LEFT LEG: Common femoral artery: 65.2 cm/s, phasicity: Triphasic Profunda femoris artery: 79.4 cm/s, phasicity: Triphasic Superficial femoral artery (proximal): 93.8 cm/s, phasicity: Triphasic Superficial femoral artery (mid): 90.9 cm/s, phasicity: Triphasic Superficial femoral artery (distal): 225 cm/s, phasicity: Triphasic Popliteal artery: 179 cm/s, phasicity: Triphasic Posterior tibial artery: 22.6 cm/s in the distal segment, phasicity: Monophasic. The proximal segment is occluded Peroneal artery: 36.4 cm/s, phasicity: Monophasic ANKLE-BRACHIAL INDEX: Right: 1.2? Left: 1.6 ANKLE PRESSURES: Right: PT 111, DP 150 Left: PT?65, DP?200 ANKLE PVR WAVEFORMS: Right: Mildly dampened Left: Mildly dampened US/US arterial duplex LE BI IMPRESSION: Right leg: Scattered atherosclerotic plaque with mild stenoses in the distal superficial femoral artery and popliteal artery. There is chronic occlusion of the proximal mid to posterior tibial artery Left leg: Scattered atherosclerotic plaque with moderate stenoses in the distal superficial femoral artery and popliteal artery. There is chronic occlusion of the posterior tibial artery JOSE Reference: - >1.4 = calcified vessels - 0.9 - 1.4 = normal - no significant arterial disease - 0.7 - 0.89 = mild peripheral arterial disease - 0.51 - 0.69 = moderate peripheral arterial disease - ? 0.50 = severe peripheral arterial disease - < .30 = critical arterial disease
== END 2022-05-06 12:19 | disposition home or self-care (01) ==
LOC: HO.US 12:18
PROVIDERS: Visit Provider Surgery Vascular Surgery
DX: I73.9 Peripheral vascular disease, unspecified (principal)
CPT/HCPCS: 93923; 93925

== ENCOUNTER → 2022-05-12 13:09 | Outpatient (BNVA) | payer OTHER, SELFPAY | PROVIDERS: PCP Internal Medicine; Visit Provider Surgery Vascular Surgery | DX: I73.9 Peripheral vascular disease, unspecified (principal); L97.519 Non-pressure chronic ulcer of other part of right foot with unspecified severity | CPT/HCPCS: 99212 ==

== ENCOUNTER 2022-10-09 02:57 | Emergency (ER) | payer OTHER, SELFPAY ==
--- NOTE | ~2022-10-09 | XR_ITS ---
EXAMINATION: XR FOOT, RIGHT CLINICAL INFORMATION: Low suspicion osteomyelitis third toe. COMPARISON: 12/17/2021 (x-ray and MRI) TECHNIQUE: AP and lateral views of the right foot. FINDINGS: No fractures. Hammertoe deformities. Hallux valgus. Moderate first metatarsophalangeal joint arthrosis. Sclerotic, well marginated erosion along the plantar aspect of the second distal phalanx at the site of previously characterized osteomyelitis. No obvious erosions elsewhere, however radiographic assessment is confounded by flexion deformities. Diffuse soft tissue swelling about the foot. Vascular calcifications. XR/XR foot RT 2V IMPRESSION: * Sclerotic, well marginated erosion along the plantar aspect of the second distal phalanx at the site of previously characterized osteomyelitis. This appears chronic. * No obvious erosions elsewhere, however radiographic assessment is limited by flexion deformities. Please note that radiographic manifestations of osteomyelitis may not be evident until 10-14 days. Consider MRI if there is persistent clinical concern.
[2022-10-09 03:15] VITALS: BP 128/77; PULSE 75; RESP 16; TEMP 37.1; O2SAT 96; BMI 42.3
[2022-10-09 03:24] VITALS: BP 128/77; PULSE 74; RESP 16; TEMP 37.1; O2SAT 98
--- NOTE | 2022-10-09 03:24 | ED.EXTPRO ---
HPI - Extremity Problem General Chief complaint: Extremity Problem Stated complaint: Toe infected Time Seen by Provider: 10/09/22 03:18 Source: patient Mode of arrival: ambulatory Limitations: no limitations History of Present Illness HPI Narrative: Patient comes emergency room complaining of pain in his 3rd toe on the right foot. Patient is known to be diabetic. Patient states that in the past he has been diagnosed with osteomyelitis of the 2nd toe on the right foot. At this time, the 2nd toe is not bothering him. Patient denies fever chills, no drainage. Patient states that he is concerning about the pain and the redness in his toe Related Data Home Medications Medication Instructions Recorded Confirmed acetaminophen 650 mg 1 tab PO Q8H PRN Pain (Scale Score 12/17/21 12/17/21 tablet,extended release 1-3) albuterol sulfate 90 mcg/actuation 2 puff inhalation Q4H 12/17/21 12/17/21 aerosol inhaler (Ventolin HFA) amlodipine 5 mg tablet 1 tab PO DAILY 12/17/21 12/17/21 aspirin 81 mg tablet,delayed 1 tab PO DAILY 12/17/21 12/17/21 release atorvastatin 40 mg tablet 40 mg PO BEDTIME 12/17/21 12/17/21 calcium carbonate 500 mg-vitamin 1 tab PO Q2D 12/17/21 12/17/21 D3 10 mcg (400 unit) tablet (Calcium 500 With D) celecoxib 200 mg capsule 1 cap PO BID 12/17/21 12/17/21 cholecalciferol (vitamin D3) 25 1 tab PO DAILY 12/17/21 12/17/21 mcg (1,000 unit) capsule (Vitamin D3) cyanocobalamin (vitamin B-12) 1 tab PO DAILY 12/17/21 12/17/21 1,000 mcg tablet,extended release docusate sodium 100 mg capsule 1 cap PO BID PRN constipation 12/17/21 12/17/21 fluticasone propionate 50 1 spray intranasal DAILY PRN 12/17/21 12/17/21 mcg/actuation nasal allergies spray,suspension furosemide 20 mg tablet 0.5 tab PO DAILY 12/17/21 12/17/21 gabapentin 300 mg capsule 1 cap PO BEDTIME 12/17/21 12/17/21 insulin aspart U-100 100 unit/mL See Rx Instructions .Route .COMPLEX 12/17/21 12/17/21 subcutaneous solution (Novolog U-100 Insulin aspart) lisinopril 20 mg tablet 1 tab PO DAILY 12/17/21 12/17/21 loratadine 10 mg tablet 1 tab PO DAILY PRN allergies 12/17/21 12/17/21 [id number] 1 tab PO DAILY 12/17/21 12/17/21 fumarate 7.5 mg-folic acid 400 mcg tablet omeprazole 20 mg capsule,delayed 1 cap PO DAILY@0630 12/17/21 12/17/21 release simethicone 80 mg chewable tablet 1 tab PO Q8H PRN gas 12/17/21 12/17/21 (Gas Relief (simethicone)) subcutaneous insulin pump 12/17/21 12/17/21 umeclidinium 62.5 mcg/actuation 1 puff inhalation DAILY 12/17/21 12/17/21 blister powder for inhalation (Incruse Ellipta) cephalexin 500 mg capsule 500 mg PO QID 01/13/22 Previous Rx's Medication Instructions Recorded doxycycline hyclate 100 mg tablet 100 mg PO BID 60 days #120 tabs 12/22/21 ertapenem 1 gram solution for 1 g IV DAILY #41 ea 01/07/22 injection (Invanz) clopidogrel 75 mg tablet (Plavix) 75 mg PO DAILY #90 tabs 01/26/22 cephalexin 500 mg capsule 500 mg PO BID #20 caps 10/09/22 doxycycline hyclate 100 mg capsule 100 mg PO BID #20 caps 10/09/22 Allergies Allergy/AdvReac Type Severity Reaction Status Date / Time No Known Allergies Allergy Verified 05/12/22 13:14 [No Known Allergies*] Review of Systems Review of Systems: Constitutional : No Weight loss, No Fever, No Chills, No Night Sweats, No Fatigue, No Malaise ENT/Mouth : No Hearing loss, No Ear Pain, No Nasal Congestion, No Sinus Pain, No Hoarseness, No sore throat, No Rhinorrhea, No Swallowing Difficulty Eyes: No Eye Pain, No Swelling, No Redness, No Foreign Body, No Discharge, No Vision Changes Cardiovascular : No Chest Pain, No SOB, No Dyspnea on Exertion, No Orthopnea, No Edema, No Palpitations Respiratory : No Cough, No Sputum, No Wheezing, No Smoke Exposure, No Dyspnea Gastrointestinal : No Nausea, No Vomiting, No Diarrhea, No Constipation, No abdominal Pain, No Hematochezia, No Melena Genitourinary : no irregular bleeding, No Dysuria, No Urinary Frequency, No Hematuria, No Urinary Incontinence, No Urgency, No Flank Pain, No Urinary Flow Changes, No Hesitancy Musculoskeletal : No joint pain, No Myalgias, No Joint Swelling Skin : Infection of the 3rd toe of the right foot Neuro : No Weakness, No Numbness, No Paresthesias, No Loss of Consciousness, No Dizziness, No Headache Psych : No Anxiety/Panic, No Depression, No SI/HI/AH/VH, No Social Issues, Heme/Lymph: No Bruising, No Bleeding,No Lymphadenopathy Endocrine : No Polyuria, No Polydipsia, No Temperature Intolerance [facility] Past Medical History Medical History Arthritis Asthma Diabetes HTN (hypertension) Hyperlipidemia Osteoarthritis PAD (peripheral artery disease) Sleep apnea Type 2 diabetes, controlled, with peripheral neuropathy Surgical History Gastric bypass status for obesity H/O rotator cuff surgery Social History Social History Household Members: Family Housing: Apartment Do you presently have visiting nurse or other home services: No Patient Tobacco Use Status: Never used Tobacco Smoked in Last 30 Days: No Use of substances other than those prescribed or required for medical reasons: No Advance Directives: No Advance Directives Information Provided: Yes service: No Current occupational status: disabled Physical Exam Vital Signs: Vital Signs: Last Vital Signs Temp 98.8 F 10/09/22 03:24 Pulse 74 10/09/22 03:24 Resp 16 10/09/22 03:24 BP 128/77 10/09/22 03:24 Pulse Ox 98 10/09/22 03:24 O2 Del Method Room Air 10/09/22 03:24 BMI result Body Mass Index 42.3 Const: Other: Appearance: Alert. Oriented X3. No acute distress. Eyes: Pupils equal, round and reactive to light. ENT: Pharynx normal. Neck: Normal inspection. Neck supple. No lymph nodes noted. No crepitus CVS: Normal heart rate and rhythm. Pulses normal. Normal S1 and S2 Respiratory: No respiratory distress. Breath sounds normal. No Wheezing. No rales Abdomen: Soft and nontender. No rigidity. No distention. Skin: Skin warm and dry. Normal skin color. Normal skin turgor. Third toe looks erythematous, a bit swollen, pain to palpation. There is a closed ulcer at the tip of the toe on the plantar aspect Extremities: No lower extremity edema. No Lacerations. No Rash Neuro: Oriented X 3. No motor deficit. No sensory deficit. Moving all extremities. No slurred speech. CN 2 through 12 grossly intact Psych: calm, cooperative, normal affect Course Course Course Narrative: -patient's labs and x-rays pending -patient states that regardless of the results of the labs, he cannot be admitted. Patient states that he has his elderly mother at home who cannot care of herself, and he needs to return home tonight. Medical Decision Making Medical Decision Making [facility] Narrative: -patient's x-ray shows old changes, does not seem that patient has new osteomyelitis. At this time, I do not suspect the patient has osteomyelitis, -patient given 1 dose of Keflex and doxycycline in the ED, patient will continue p.o. treatment at home Lab Data [facility] Lab Attestation statement: I reviewed the patient's lab results. 10/09/22 04:13 10/09/22 04:12 Labs: Lab Results 10/09/22 10/09/22 10/09/22 Range/Units 04:12 04:12 04:13 WBC 7.8 (4.8-10.8) X10*3/uL RBC 4.03 L (4.60-5.80) X10*6/uL Hgb 12.9 L (14.0-18.0) g/dl Hct 37.7 L (42.0-52.0) % MCV 93.5 (80.0-98.0) fL MCH 32.0 (27.0-33.0) pg MCHC 34.2 (31.0-36.0) g/dl RDW 12.4 (11.0-16.0) % Plt Count 165 (160-400) X10*3/uL MPV 10.4 (9.4-12.4) fL Immature Gran % (Auto) 0.3 (0.0-0.4) % Neut % (Auto) 71.6 (45-73) % Lymph % (Auto) 20.1 (20-40) % [place] % (Auto) 7.2 (2-11) % Eos % (Auto) 0.5 (0-4) % Baso % (Auto) 0.3 (0-2) % Lymph # (Auto) 1.6 (1.2-4.9) X10*3/uL [place] # (Auto) 0.6 (0.1-1.2) X10*3/uL Eos # (Auto) 0.0 (0.0-0.4) X10*3/uL Baso # (Auto) 0.0 (0.0-0.2) X10*3/uL Abs Immat Gran (auto) 0.02 (0.00-0.03) X10*3/uL Absolute Neuts (auto) 5.6 (2.0-8.3) x10*3/uL Absolute Nucleated RBC 0.000 (0.0-0.012) X10*3/uL Nucleated RBC % (auto) 0.0 (0.0-0.2) /100WBC Sodium 144 (135-145) mmol/L Potassium 3.6 (3.3-5.1) mmol/L Chloride 108 (96-108) mmol/L Carbon Dioxide 27 (22-29) mmol/L Anion Gap 13 (12-20) BUN 12 (9-16) mg/dL Creatinine 0.75 (0.5-1.4) mg/dL Estim Creat Clear Calc 125.5 Estimated GFR > 60 Random Glucose 91 (60-115) mg/dL Lactic Acid 0.6 (0.5-2.0) mmol/L Calcium 8.9 (8.4-10.2) mg/dL C-Reactive Protein 4.37 H (< or = 0.50) mg/dL Radiology Impression Discussion of test interpretation with radiology: I have reviewed the radiologist's reading. Radiologist Impression: FINDINGS: No fractures. Hammertoe deformities. Hallux valgus. Moderate first metatarsophalangeal joint arthrosis. Sclerotic, well marginated erosion along the plantar aspect of the second distal phalanx at the site of previously characterized osteomyelitis. No obvious erosions elsewhere, however radiographic assessment is confounded by flexion deformities. Diffuse soft tissue swelling about the foot. Vascular calcifications.? XR/XR foot RT 2V IMPRESSION: *? Sclerotic, well marginated erosion along the plantar aspect of the second distal phalanx at the site of previously characterized osteomyelitis. This appears chronic. *? No obvious erosions elsewhere, however radiographic assessment is limited by flexion deformities.? Please note that radiographic manifestations of osteomyelitis may not be evident until 10-14 days. Consider MRI if there is persistent clinical concern. Discharge Plan Discharge Clinical Impression: Cellulitis of toe Patient Disposition: Home, Self-Care Instructions: Cellulitis (ED) Additional Instructions: Please follow-up with your primary care physician tomorrow. If you have any worsening or new symptoms, please return to the emergency room or call 911 Prescriptions: New cephalexin 500 mg capsule 500 mg PO BID Qty: 20 0RF doxycycline hyclate 100 mg capsule 100 mg PO BID Qty: 20 0RF No Action celecoxib 200 mg capsule 1 cap PO BID atorvastatin 40 mg Tablet 40 mg PO BEDTIME cyanocobalamin (vitamin B-12) 1,000 mcg tablet extended release 1 tab PO DAILY lisinopril 20 mg tablet 1 tab PO DAILY amlodipine 5 mg tablet 1 tab PO DAILY aspirin 81 mg tablet,delayed release (DR/EC) 1 tab PO DAILY acetaminophen 650 mg tablet extended release 1 tab PO Q8H PRN (Reason: Pain (Scale Score 1-3)) insulin aspart U-100 [Novolog U-100 Insulin aspart] 100 unit/mL solution See Rx Instructions .ROUTE .COMPLEX Rx Instructions: use with insulin pump- Minimed 630 G Guardian docusate sodium 100 mg capsule 1 cap PO BID PRN (Reason: constipation) gabapentin 300 mg capsule 1 cap PO BEDTIME omeprazole 20 mg capsule,delayed release(DR/EC) 1 cap PO DAILY@0630 furosemide 20 mg tablet 0.5 tab PO DAILY albuterol sulfate [Ventolin HFA] 90 mcg/actuation HFA aerosol inhaler 2 puff inhalation Q4H fluticasone propionate 50 mcg/actuation spray,suspension 1 spray intranasal DAILY PRN (Reason: allergies) loratadine 10 mg tablet 1 tab PO DAILY PRN (Reason: allergies) simethicone [Gas Relief (simethicone)] 80 mg tablet,chewable 1 tab PO Q8H PRN (Reason: gas) cholecalciferol (vitamin D3) [Vitamin D3] 25 mcg (1,000 unit) capsule 1 tab PO DAILY calcium carbonate-vitamin D3 [Calcium 500 With D] 500 mg-10 mcg (400 unit) tablet 1 tab PO Q2D Incruse Ellipta 62.5 mcg/actuation blister with device 1 puff inhalation DAILY [id number]-iwu-[id number] fum-folic ac 7.5 mg iron-400 mcg tablet 1 tab PO DAILY (DME) subcutaneous insulin pump Rx Instructions: novolog insulin used with pump- Minimed 630G Guardian Start doxycycline hyclate 100 mg tablet 100 mg PO BID 60 Days Qty: 120 0RF clopidogrel [Plavix] 75 mg tablet 75 mg PO DAILY Qty: 90 1RF ertapenem [Invanz] 1 gram recon soln 1 g IV DAILY Qty: 41 0RF cephalexin 500 mg capsule 500 mg PO QID Referrals: Izabella Lopez MD [Physician] - 10/13/22
--- NOTE | 2022-10-09 03:29 | PC.NURSE ---
Pt ca&ox3, no signs of distress. Pt denies chest pain and sob. Pt reports 8/10 right toe pain. Provider in to assess pt. Will continue to monitor.
--- NOTE | 2022-10-09 03:30 | PC.NURSE ---
CT in with pt.
--- NOTE | 2022-10-09 04:14 | PC.NURSE ---
Pt resting comfortably, no signs of distress. Unlabored breathing. Will continue to monitor.
[2022-10-09 04:20] LABS: Basophils Percent Auto 0.3 % (0-2); Eosinophils Percent Auto 0.5 % (0-4); Hematocrit 37.7 % (42.0-52.0); Hemoglobin 12.9 g/dl (14.0-18.0); Imm Gran Abs Auto 0.02 X10*3/uL (0.00-0.03); Imm Gran Pct Auto 0.3 % (0.0-0.4); Lymphocytes Absolute Auto 1.6 X10*3/uL (1.2-4.9); Lymphocytes Percent Auto 20.1 % (20-40); MANUAL DIFF FLAG NO; Mean Corpuscular HGB Conc 34.2 g/dl (31.0-36.0); Mean Corpuscular Volume 93.5 fL (80.0-98.0); Mean Platelet Volume 10.4 fL (9.4-12.4); Monocytes Absolute Auto 0.6 X10*3/uL (0.1-1.2); Monocytes Percent Auto 7.2 % (2-11); Neutrophils Absolute Auto 5.6 x10*3/uL (2.0-8.3); Neutrophils Percent Auto 71.6 % (45-73); Platelet Count 165 X10*3/uL (160-400); Red Blood Count 4.03 X10*6/uL (4.60-5.80); Red Cell Distribution Width 12.4 % (11.0-16.0); White Blood Count 7.8 X10*3/uL (4.8-10.8)
[2022-10-09 04:30] LABS: Lactic Acid 0.6 mmol/L (0.5-2.0)
[2022-10-09 04:33] LABS: Anion Gap 13 (12-20); Blood Urea Nitrogen 12 mg/dL (9-16); C Reactive Protein 4.37 mg/dL (< or = 0.50); Calcium 8.9 mg/dL (8.4-10.2); Carbon Dioxide 27 mmol/L (22-29); Chloride 108 mmol/L (96-108); Creatinine Clr Calc Pharmacy 125.5; Estimated Glomerular Filt Rate > 60; Glucose Random 91 mg/dL (60-115); Potassium 3.6 mmol/L (3.3-5.1); Sodium 144 mmol/L (135-145)
[2022-10-09 04:54] VITALS: BP 121/78; PULSE 58; RESP 16; TEMP 36.8; O2SAT 96
[2022-10-09 04:55] LABS: Erythrocyte Sedimentation Rate 18 MM/HR (0-15)
[2022-10-09] MEDS: Doxycycline Monohydrate 100 MG CAPSULE PO (04:56)
[2022-10-09] MEDS: cephALEXin 500 MG CAPSULE PO (04:56)
== END 2022-10-09 05:23 | disposition home or self-care (01) ==
PROVIDERS: Emergency Provider Emergency Medicine
DX: L03.031 Cellulitis of right toe (principal); M79.674 Pain in right toe(s); E11.9 Type 2 diabetes mellitus without complications; I10 Essential (primary) hypertension; E78.5 Hyperlipidemia, unspecified; Z79.82 Long term (current) use of aspirin; Z79.02 Long term (current) use of antithrombotics/antiplatelets; Z79.4 Long term (current) use of insulin; Z79.899 Other long term (current) drug therapy
CPT/HCPCS: 36415; 73620; 80048; 83605; 85025; 85652; 86140; 87040; 99283; 99284

== ENCOUNTER 2022-10-28 08:31 | Outpatient (REF) | payer OTHER, SELFPAY ==
--- NOTE | ~2022-10-28 | US_ITS ---
EXAMINATION: NONINVASIVE ASSESSMENT OF THE ARTERIES OF BOTH LOWER EXTREMITIES TO INCLUDE A PVR EXAM COMPLETE (3+ LEVELS), BILATERAL INCLUDING SEGMENTAL PRESSURES. ? Alfonso Kaplan MD CLINICAL INFORMATION: Peripheral vascular disease. COMPARISON: Lower extremity arterial exam 05/06/2022. ? TECHNIQUE: The ankle/brachial indices of the distal posterior tibial and the dorsalis pedis arteries were obtained of the lower extremity arterial system bilaterally; along with segmental pressures and pulse volume recordings at the ankle, calf and above the knee levels and duplex Doppler techniques of the common femoral, proximal femoral and proximal profunda arteries. The study was performed at rest. ? FINDINGS: Brachial pressure: 134 mmHg ?? RIGHT LEG 1. THE RIGHT ANKLE-BRACHIAL INDEX IS: 1.54 (higher of the DP/PT) >0.97-1.25 = normal - no significant arterial disease 0.75-0.96 = mild peripheral arterial disease 0.5-0.74 = moderate peripheral arterial disease <0.50 = severe peripheral arterial disease <0.30 = critical arterial disease 2. SEGMENTAL PRESSURES: Ankle: DP: 207 mmHg, PT: 101 mmHg 3. PVR WAVEFORMS: Ankle: Mildly dampened. 4. DIRECT DUPLEX: Scattered plaque is seen. The right common femoral artery measures 145 cm/s and triphasic. The right profunda femoral artery is 94 cm/s and is biphasic. Right proximal superficial femoral artery measures 92 cm/s and triphasic. Mid superficial femoral artery is 144 cm/s and triphasic. Distal right superficial femoral artery measures 129 cm/s and is triphasic. Right popliteal velocity measures 193 cm/s and is triphasic. The posterior tibial artery velocity is occluded in its midportion. The peroneal artery is occluded. LEFT LE. THE LEFT ANKLE-BRACHIAL INDEX IS: 1.60 (higher of the DP/PT) >0.97-1.25 = normal - no significant arterial disease 0.75-0.96 = mild peripheral arterial disease 0.5-0.74 = moderate peripheral arterial disease <0.50 = severe peripheral arterial disease <0.30 = critical arterial disease 2. SEGMENTAL PRESSURES: Ankle: DP: 215 mmHg, PT: 104 mmHg 3. PVR WAVEFORMS: Ankle: Mildly dampened. 4. DIRECT DUPLEX: Scattered plaque is seen. The left common femoral artery measures 105 cm/s and triphasic. The left profunda femoral artery is 85 cm/s and is triphasic. Left proximal superficial femoral artery measures 132 cm/s and triphasic. Mid superficial femoral artery is 95 cm/s and triphasic. Distal left superficial femoral artery measures 242 cm/s and is triphasic. Left popliteal velocity measures 97 cm/s and is triphasic. The posterior tibial artery velocity measures 79 cm/s and was biphasic proximally but the mid and distal posterior tibial artery appear to be occluded. US/US arterial duplex LE BI IMPRESSION: 1. Since the prior study there has been no significant interval change. 2. 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 Inflow is triphasic. 3. 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
== END 2022-10-28 08:32 | disposition home or self-care (01) ==
LOC: HO.US 08:31
PROVIDERS: Visit Provider Surgery Vascular Surgery
DX: I70.213 Atherosclerosis of native arteries of extremities with intermittent claudication, bilateral legs (principal)
CPT/HCPCS: 93923; 93925

== ENCOUNTER 2023-01-22 07:56 | Outpatient (RCR) | payer OTHER, SELFPAY | END 2023-01-22 16:00 | disposition home or self-care (01) | LOC: HO.WCC 07:56 | PROVIDERS: Visit Provider Physician Assistant | DX: Z09 Encounter for follow-up examination after completed treatment for conditions other than malignant neoplasm (principal); L84 Corns and callosities; E11.40 Type 2 diabetes mellitus with diabetic neuropathy, unspecified; I10 Essential (primary) hypertension; Z79.4 Long term (current) use of insulin; Z86.31 Personal history of diabetic foot ulcer; Z87.39 Personal history of other diseases of the musculoskeletal system and connective tissue | CPT/HCPCS: 11055; 99212 ==

== ENCOUNTER 2023-01-28 12:57 | Outpatient (AMB) | payer OTHER, SELFPAY ==
[2023-01-28 13:08] VITALS: BMI 42.3
--- NOTE | 2023-01-28 13:08 | A.OFFVIS_ITS ---
Intake Vital Signs 01/28/23 13:08 Height 5 ft 6 in Weight 262 lb BMI 42.3 Intake Visit Reasons: Follow up 10/28 Ultrasound Intake Note: 6 mo follow up Arterial US 10/28/22 w/ hx of Right Angio 01/26/22. Pt states he has been feeling much better since angiogram but still get Right LE cramping w/ ambulation, does not walk very much due to pain. States he mostly just walks aroud the house Accompanied by: Self / Same As Patient Allergies No Known Allergies [No Known Allergies*] Allergy (Verified 01/28/23 13:37) HPI Follow up 10/28 Ultrasound HPI Details Very pleasant 62-year-old gentleman presents for routine arterial surveillance follow-up. Had a previous right 2nd toe ulcer that had gone on to heal he has developed a right 3rd toe ulcer. He reports that [facility] It appears to be more podiatric in nature. He also has been following a rn orthopaedic. He now presents for routine surveillance follow-up with noninvasive arterial testing. [facility] Medical History PAD (peripheral artery disease) Asthma Osteoarthritis Hyperlipidemia Type 2 diabetes, controlled, with peripheral neuropathy Sleep apnea Arthritis HTN (hypertension) Diabetes Surgical History H/O rotator cuff surgery Gastric bypass status for obesity Social History Household Members: Family Housing: Apartment Do you presently have visiting nurse or other home services: No Patient Tobacco Use Status: Never used Tobacco service: No Current occupational status: disabled Review of Systems Const All systems reviewed & are unremarkable except as noted in HPI and below Reports no additional complaints ENT Reports Normal hearing present Card Denies chest pain, Denies chest pain at rest, Denies chest pain with activity and Denies pedal edema Resp Denies cough GI Denies abdominal pain Musc Denies abnormal gait, Denies muscle cramps and Denies radiating pain into limb Skin/Breast Denies skin ulcer and Denies wounds Neuro Reports Normal hearing present and Denies abnormal gait Psych Reports no additional complaints Physical Exam Vital Signs: BMI result Body Mass Index 42.3 Const General: cooperative, healthy appearing and comfortable Orientation/consciousness: oriented to person, oriented to place and oriented to time HEENT Head: Yes normal to inspection Neck Neck: Yes normal visual inspection Carotids: no bruits Chest Chest palpation & inspection: normal inspection of the chest Resp Effort & Inspection: normal respiratory effort and able to speak in complete sentences Auscultation: clear to auscultation bilaterally, no crackles, no rales, no rhonchi and no wheezes Cardio Other: Bilateral palpable DP pulses Rate: regular rate Rhythm: regular rhythm Heart sounds: S1 normal heart sound present and S2 normal heart sound present Bruits: no carotid bruits Peripheral pulses: Peripheral pulses 2+ throughout GI Inspection: Yes normal to inspection Skin Wounds: no wounds Hair: normal Neuro General: oriented to person, oriented to place and oriented to time Cranial nerves: Yes CN's II-XII intact bilaterally and Yes Normal hearing present Cognition (Neuro): normal cognition Motor exam (neuro): 5/5 motor strength present throughout Extrem Other: venous exam: No significant superficial varicosities or spider telangiectasias, minimal edema General: No clubbing, No cyanosis and No edema Psych Appearance: grossly normal Mental Status: mental status grossly normal Speech and movement: Normal speech and movement present Results Reviewed Results Reviewed: Noninvasive arterial testing dated 10/28/2022 demonstrates JOSE on the right of 1.54 and on the left of 1.6. This is artifactually elevated. On direct ultrasound some below-knee knee disease noted. Written report and images were reviewed. Assessment & Plan Assessment & Plan (1) PAD (peripheral artery disease): Comment: 01/26/2022 - angioplasty right anterior tibial artery Code(s): I73.9 - Peripheral vascular disease, unspecified Plan: In short patient has stable lower extremity. Even though he has a right-sided ulcer on the 3rd toe this appears to be more related to his hammertoe. In addition he does have palpable arterial pulses. I did review the pathophysiology of peripheral vascular disease with the patient. In addition we did discuss routine conservative measures including a healthy diet and the im portance of exercise and ambulation. We did discuss risk factor modification. The patient will continue to to follow-up with surveillance follow-up in approximately 1 year. Thank you for allowing us to participate in this patient's care. If there are any questions or concerns please do not hesitate to contact us. Orders: Orders US arterial duplex LE BI 364 Days I73.9 - Peripheral vascular disease, unspecified Coding Level of Care Code Est Pt Level 4 (94166) Diagnoses PAD (peripheral artery disease) I73.9
== END 2023-01-28 13:53 | disposition home or self-care (01) ==
PROVIDERS: Visit Provider Surgery Vascular Surgery
DX: I73.9 Peripheral vascular disease, unspecified (principal); Z98.62 Peripheral vascular angioplasty status
CPT/HCPCS: 99213

== ENCOUNTER → 2023-01-28 12:57 | Outpatient (BNVA) | payer OTHER, SELFPAY | PROVIDERS: Visit Provider Surgery Vascular Surgery | DX: I73.9 Peripheral vascular disease, unspecified (principal) | CPT/HCPCS: 99212 ==

== ENCOUNTER 2023-03-01 14:24 | Outpatient (RCR) | payer OTHER, SELFPAY ==
--- NOTE | ~2023-03-01 | XR_ITS ---
EXAMINATION: XR FOOT, RIGHT CLINICAL INFORMATION: Nonhealing wound COMPARISON: None available. TECHNIQUE: AP, lateral, and oblique views of the right foot. FINDINGS: There is mild hallux valgus deformity first MTP joint. No visible acute fracture, dislocation or subluxation seen. No bony erosive changes. Mild vascular calcifications are visualized in the foot. The soft tissues are normal. The ankle mortise and subtalar joints are normal. XR/XR foot RT min 3V IMPRESSION: Mild hallux valgus deformity first MTP joint.
== END 2023-04-05 15:00 | disposition home or self-care (01) ==
LOC: HO.WCC 14:24
PROVIDERS: Visit Provider Physician Assistant
DX: E11.621 Type 2 diabetes mellitus with foot ulcer (principal); L97.512 Non-pressure chronic ulcer of other part of right foot with fat layer exposed; L84 Corns and callosities; E11.40 Type 2 diabetes mellitus with diabetic neuropathy, unspecified; I10 Essential (primary) hypertension
CPT/HCPCS: 11042; 73630; 97597; 99212

== ENCOUNTER 2023-03-09 07:52 | Outpatient (AMB) | payer OTHER, SELFPAY ==
--- NOTE | 2023-03-09 07:56 | A.OFFVIS_ITS ---
Intake Vital Signs 03/09/23 08:01 Height 5 ft 6 in Weight 260 lb BMI 42.0 BP 126/72 Blood Pressure Location Lt brachial Position Sitting Pulse 71 Pulse Source Pulse Oximeter Pulse Oximetry (%) 95 Oxygen Delivery Method Room Air Intake Visit Reasons: ENP-PHYLICIA - conf through CW Intake Note: NPV for PHYLICIA, states cpap is broken. Planer Chain Offbearer Required: No Allergies No Known Allergies [No Known Allergies*] Allergy (Verified 03/09/23 07:56) HPI HPI Comments History of Present Illness Details 62 y/o male patient presents for new in- person visit to manage sleep apnea. Pt reports he was diagnosed with PHYLICIA in [id number] and has been using CPAP. He still use the original CPAP, and it is not working well, making loud noise and the power keep turning off. He also can't sleep well with the full face mask. He has not have supplies for a long time, his current home care company is [employer]. Sleep questionnaire: Have you ever been diagnosed with a sleep disorder? Yes, PHYLICIA Have you ever had a sleep study in the past? Yes. Have you ever been treated for a sleep disorder? Yes, CPAP. Do you take medications for a sleep disorder? Yes. Do you snore? Yes. Do you wake up gasping at night? Yes. Do you have episodes of apneas? Yes. If yes, are they witnessed? Yes. Do you have episodes of nocturnal chest pain or dyspnea? Yes. Do you have difficulty initiating sleep? Yes. Do you have difficulty maintaining sleep? No. Do you wake up tired? Yes. Do you have headaches upon awakening? Yes. Do you wake up with dry mouth or throat? Yes. Do you have GERD? No. Do you have nocturia? Yes. Do you have nocturnal leg cramps? Yes. Do you have symptoms of restless legs? Yes. Do you act out your dreams? No. Sleep hygiene questionnaire: What is your usual sleep routine? Usual bedtime is at 12 am; Usual wake up time is at 8-9 am. Do you take naps? Yes, sometimes. Is your sleep environment cool, dark, and quiet? Yes. Do you exercise? No. Do you take caffeine or other stimulants? Drink three cups of coffee a the day. Do you use electronics in bed? No. What is your work schedule? N/A. Hypersomnolence questionnaire: Do you have daytime tiredness or fatigue? Yes. Do you easily fall asleep when inactive? Yes. Have you ever had episodes of sudden weakness? No. Have you ever had episodes of sudden weakness associated with strong emotions? No. PFSH Medical History PAD (peripheral artery disease) Asthma Osteoarthritis Hyperlipidemia Type 2 diabetes, controlled, with peripheral neuropathy Sleep apnea Arthritis HTN (hypertension) Diabetes Surgical History H/O rotator cuff surgery Gastric bypass status for obesity Family History (Updated 03/09/23 @ 08:01 by Lori Pacheco CMA) Mother Diabetes Father Diabetes Social History (Updated 03/09/23 @ 08:01 by Lori Pacheco CMA) Household Members: Family Housing: Apartment Do you presently have visiting nurse or other home services: No Alcohol intake: never Patient Tobacco Use Status: Never used Tobacco service: No Current occupational status: disabled Review of Systems Const All systems reviewed & are unremarkable except as noted in HPI and below Physical Exam Vital Signs: Last Vital Signs Pulse 71 03/09/23 08:01 BP 126/72 03/09/23 08:01 Pulse Ox 95 03/09/23 08:01 Oxygen Delivery Method Room Air 03/09/23 08:01 BMI result Body Mass Index 42.0 Const General: cooperative Nutritional Appearance: obese Orientation/consciousness: patient oriented x3 Limitations: ambulation with cane Neck Neck: Yes full ROM and Yes supple Resp Effort & Inspection: normal respiratory effort and able to speak in complete sentences Neuro General: patient oriented x3 and moves all extremities Cranial nerves: Yes Bilaterally intact EOM present, Yes Normal facial strength present, Yes Midline tongue present, Yes Symmetric palate elevation present and Yes Ability to bilaterally elevate shoulders present Cognition (Neuro): normal cognition Gait exam (Neuro): Normal gait present Motor exam (neuro): 5/5 motor strength present throughout, Pronator motor function not present and no tremor noted Psych Appearance: grossly normal Mental Status: mental status grossly normal Speech and movement: Normal speech and movement present Affect: normal affect Attitude: cooperative Assessment & Plan Assessment & Plan (1) Sleep apnea: Code(s): G47.30 - Sleep apnea, unspecified Plan Pt is advised to undergo home sleep study to assess for sleep apnea. Will f/u with pt after study to discuss results and appropriate treatment options. Sleep hygiene eduction provided, limit caffeine intake in the evening. Wt reduction advised. Advised patient to do daily exercise, walking 30 min a day. Pt to call with any worsening concerns or questions. Orders: Orders RT home sleep study Today G47.30 - Sleep apnea, unspecified, I10 - Essential (primary) hypertension Coding Level of Care Code New Pt Level 3 (81897) Diagnoses Sleep apnea G47.30
[2023-03-09 08:01] VITALS: BP 126/72; PULSE 71; O2SAT 95; BMI 42.0
== END 2023-03-09 08:31 | disposition home or self-care (01) ==
PROVIDERS: Visit Provider Nurse Practitioner Family
DX: G47.30 Sleep apnea, unspecified (principal)
CPT/HCPCS: 99203

== ENCOUNTER → 2023-03-09 07:52 | Outpatient (BNVA) | payer OTHER, SELFPAY | PROVIDERS: Visit Provider Nurse Practitioner Family ==

== ENCOUNTER → 2023-06-08 12:02 | Outpatient (REF) | payer OTHER, SELFPAY | LOC: HO.SL 12:02 | PROVIDERS: Visit Provider Nurse Practitioner Family | DX: G47.30 Sleep apnea, unspecified (principal); I10 Essential (primary) hypertension; R06.83 Snoring; R40.0 Somnolence | CPT/HCPCS: 95806 ==

== ENCOUNTER → 2023-06-08 12:26 | Outpatient (BNV) | payer OTHER, SELFPAY | PROVIDERS: Visit Provider Psychiatry & Neurology Neurology | DX: G47.33 Obstructive sleep apnea (adult) (pediatric) (principal) | CPT/HCPCS: 95806 ==

== ENCOUNTER 2023-08-17 08:12 | Outpatient (AMB) | payer OTHER, SELFPAY ==
--- NOTE | 2023-08-17 08:16 | MHC.OFFVIS ---
Intake Vital Signs 08/17/23 08:17 Height 5 ft 6 in Weight 257 lb BMI 41.5 BP 128/88 Blood Pressure Location Rt brachial Position Sitting Pulse 78 Pulse Source Pulse Oximeter Pulse Oximetry (%) 98 Oxygen Delivery Method Room Air Intake Visit Reasons: 4M f/u - CONF w/[facility]...address Intake Note: Patient presents for 4 month follow up. Allergies No Known Allergies [No Known Allergies*] Allergy (Verified 08/17/23 08:18) HPI HPI Comments History of Present Illness Details 62 y/o male patient presents for follow up of sleep study. The home sleep study result was significant for a moderate degree of sleep apnea. The AHI was 18/hr and oxygen rubén was 84%. Pt started APAP at [id number]. The CPAP compliance and therapy response (05/15/23-08/12/23) reviewed. The usage days 14 days and the average usage hours 4 hrs. The max pressure was 11.9 and the residual AHI was 1.4/hr. Pt reprots he can sleep 7-8 with CPAP, rested, sleep well, wakes up refreshed and has energy during daytime. [facility] Medical History (Updated 08/23/23 @ 08:35 by Elsy Person CNP) PAD (peripheral artery disease) Asthma Osteoarthritis Hyperlipidemia Type 2 diabetes, controlled, with peripheral neuropathy Sleep apnea Arthritis HTN (hypertension) Diabetes Surgical History H/O rotator cuff surgery Gastric bypass status for obesity Family History Mother Diabetes Father Diabetes Social History Household Members: Family Housing: Apartment Do you presently have visiting nurse or other home services: No Alcohol intake: never Patient Tobacco Use Status: Never used Tobacco service: No Current occupational status: disabled Review of Systems Const All systems reviewed & are unremarkable except as noted in HPI and below Physical Exam Vital Signs: Last Vital Signs Pulse 78 08/17/23 08:17 BP 128/88 08/17/23 08:17 Pulse Ox 98 08/17/23 08:17 Oxygen Delivery Method Room Air 08/17/23 08:17 BMI result Body Mass Index 41.5 Const General: cooperative Nutritional Appearance: obese Orientation/consciousness: patient oriented x3 Limitations: ambulation with cane Neck Neck: Yes full ROM and Yes supple Resp Effort & Inspection: normal respiratory effort and able to speak in complete sentences Neuro General: patient oriented x3 and moves all extremities Cranial nerves: Yes Bilaterally intact EOM present, Yes Normal facial strength present, Yes Midline tongue present, Yes Symmetric palate elevation present and Yes Ability to bilaterally elevate shoulders present Cognition (Neuro): normal cognition Gait exam (Neuro): Normal gait present Motor exam (neuro): 5/5 motor strength present throughout, Pronator motor function not present and no tremor noted Psych Appearance: grossly normal Mental Status: mental status grossly normal Speech and movement: Normal speech and movement present Affect: normal affect Attitude: cooperative Assessment & Plan Assessment & Plan (1) Sleep apnea: Comment: PHYLICIA, moderate degree of sleep apnea. The AHI was 18/hr and oxygen rubén was 84%. Code(s): G47.30 - Sleep apnea, unspecified Plan Advised patient to continue to use APAP at [id number] as patient experiences good clinical effects, sleep quality and daytime tiredness has improved. Stressed compliance, use CPAP nightly and more than 4 hrs. Wt reduction advised. Coding Level of Care Code Est Pt Level 3 (61834) Diagnoses Sleep apnea G47.30
[2023-08-17 08:17] VITALS: BP 128/88; PULSE 78; O2SAT 98; BMI 41.5
== END 2023-08-17 08:26 | disposition home or self-care (01) ==
PROVIDERS: Visit Provider Nurse Practitioner Family
DX: G47.30 Sleep apnea, unspecified (principal)
CPT/HCPCS: 99213

== ENCOUNTER → 2023-08-17 08:12 | Outpatient (BNVA) | payer OTHER, SELFPAY | PROVIDERS: Visit Provider Nurse Practitioner Family | DX: G47.30 Sleep apnea, unspecified (principal) | CPT/HCPCS: 99212 ==

== ENCOUNTER 2023-11-26 17:40 | Emergency (ER) | payer OTHER, SELFPAY ==
[2023-11-26 17:46] VITALS: BP 158/70; PULSE 78; RESP 20; TEMP 36.8; O2SAT 97; BMI 39.5
--- NOTE | 2023-11-26 17:49 | ED_ITS ---
HPI - General Adult General Chief complaint: Extremity Injury, Lower Stated complaint: wound on R leg, doesnt know if its infected Time Seen by Provider: 11/26/23 17:49 Source: patient Mode of arrival: ambulatory Limitations: no limitations History of Present Illness HPI narrative: Patient is a 62-year-old male who presents emergency department for evaluation of a wound to his right lower leg. Reports he sustained this accidentally about 1 week ago when the corner of the car door struck against his leg. Patient reports that he is up-to-date with his tetanus vaccine within past 2 years. Expresses concern that the wound though it is now scabbed over is becoming red painful and swollen. Denies any fevers chills numbness or tingling to the lower extremity. Related Data Home Medications ?Medication ?Instructions ?Recorded ?Confirmed acetaminophen 650 mg 1 tab PO Q8H PRN Pain (Scale Score 12/17/21 12/17/21 tablet,extended release 1-3) albuterol sulfate 90 mcg/actuation 2 puff inhalation Q4H 12/17/21 12/17/21 aerosol inhaler (Ventolin HFA) amlodipine 5 mg tablet 1 tab PO DAILY 12/17/21 12/17/21 aspirin 81 mg tablet,delayed 1 tab PO DAILY 12/17/21 12/17/21 release atorvastatin 40 mg tablet 40 mg PO BEDTIME 12/17/21 12/17/21 calcium carbonate 500 mg-vitamin 1 tab PO Q2D 12/17/21 12/17/21 D3 10 mcg (400 unit) tablet (Calcium 500 With D) celecoxib 200 mg capsule 1 cap PO BID 12/17/21 12/17/21 cholecalciferol (vitamin D3) 25 1 tab PO DAILY 12/17/21 12/17/21 mcg (1,000 unit) capsule (Vitamin D3) cyanocobalamin (vitamin B-12) 1 tab PO DAILY 12/17/21 12/17/21 1,000 mcg tablet,extended release docusate sodium 100 mg capsule 1 cap PO BID PRN constipation 12/17/21 12/17/21 fluticasone propionate 50 1 spray intranasal DAILY PRN 12/17/21 12/17/21 mcg/actuation nasal allergies spray,suspension furosemide 20 mg tablet 0.5 tab PO DAILY 12/17/21 12/17/21 gabapentin 300 mg capsule 1 cap PO BEDTIME 12/17/21 12/17/21 insulin aspart U-100 100 unit/mL See Rx Instructions .Route .COMPLEX 12/17/21 12/17/21 subcutaneous solution (Novolog U-100 Insulin aspart) lisinopril 20 mg tablet 1 tab PO DAILY 12/17/21 12/17/21 loratadine 10 mg tablet 1 tab PO DAILY PRN allergies 12/17/21 12/17/21 zswkzxkncrlk-byduvyjj-hius 1 tab PO DAILY 12/17/21 12/17/21 fumarate 7.5 mg-folic acid 400 mcg tablet omeprazole 20 mg capsule,delayed 1 cap PO DAILY@0630 12/17/21 12/17/21 release simethicone 80 mg chewable tablet 1 tab PO Q8H PRN gas 12/17/21 12/17/21 (Gas Relief (simethicone)) subcutaneous insulin pump 12/17/21 12/17/21 umeclidinium 62.5 mcg/actuation 1 puff inhalation DAILY 12/17/21 12/17/21 blister powder for inhalation (Incruse Ellipta) Previous Rx's ?Medication ?Instructions ?Recorded clopidogrel 75 mg tablet (Plavix) 75 mg PO DAILY #90 tabs 01/26/22 cephalexin 500 mg capsule 500 mg PO BID #20 caps 10/09/22 doxycycline hyclate 100 mg capsule 100 mg PO BID #20 caps 10/09/22 cephalexin 500 mg capsule 500 mg PO BID #14 caps 11/26/23 doxycycline hyclate 100 mg capsule 100 mg PO BID #14 caps 11/26/23 Allergies Allergy/AdvReac Type Severity Reaction Status Date / Time No Known Allergies Allergy Verified 11/26/23 17:48 [No Known Allergies*] Review of Systems Review of Systems: Yes all other systems are reviewed and are negative PMFSH Past Medical History Attestation statement: The following information was validated with the patient. Source: old records reviewed Medical History PAD (peripheral artery disease) Asthma Osteoarthritis Hyperlipidemia Type 2 diabetes, controlled, with peripheral neuropathy Sleep apnea Arthritis HTN (hypertension) Diabetes Surgical History H/O rotator cuff surgery Gastric bypass status for obesity Family History Family History Mother Diabetes Father Diabetes Social History Social History Household Members: Family Housing: Apartment Do you presently have visiting nurse or other home services: No Alcohol intake: never Patient Tobacco Use Status: Never used Tobacco Advance Directives: No Advance Directives Information Provided: No Do you have a plan to hurt others: No Plan service: No Current occupational status: disabled Physical Exam ED Vital Signs: Vital Signs - 24 hr 11/26/23 17:46 11/26/23 18:01 Temperature 98.2 F 98.2 F Pulse Rate 78 78 Respiratory Rate 20 20 Blood Pressure 158/70 H 158/70 H Pulse Oximetry 97 97 Oxygen Delivery Method Room Air Room Air BMI result Body Mass Index 39.5 Appearance: Alert.?Oriented to person, place and time. No acute distress.?N ormal affect. Neck: Normal inspection.? Neck supple.?? CVS: Heart sounds normal. Normal heart rate and rhythm.? Pulses normal.?? Respiratory: No respiratory distress.? Lung sounds clear to auscultation bilaterally?? Abdomen: Soft and non-tender. Normoactive bowel sounds. Skin: Skin warm and dry.? Normal skin color.? 0.5cm scabbed wound to the right distal anterior tibia, with mild surrounding edema. Extremities: No lower extremity edema.? No calf ttp. 2+ DP/PT pulse bilaterally Neuro: Moves all extremities spontaneously. Sensation intact bilaterally. Ambulates with normal steady gait. Medical Decision Making Medical Decision Making MDM Narrative: Patient is a 62-year-old male with past medical history of hypertension, PID, diabetes who presents to the emergency department for evaluation for right lower extremity wound as per HPI. Small area of Cellulitis around the wound, no areas of bony tenderness, no calf tenderness. At this time have lower suspicion for osteomyelitis , not consistent is necrotizing infection. Will treat with a course of doxycycline and Keflex, marked with a skin marker, discussed strict return precautions and outpatient follow-up with primary care provider all questions answered. Differential Diagnosis Differential Diagnoses: The differential diagnosis associated with the presentation includes (See narrative above) External Record Review External record reviewed: Outpatient record Tests considered The following testing was considered but not selected: See narrative above, XR imaging deferred Prescription Management I considered prescription management with: Antibiotic Chronic Conditions Patient?s care impacted by: Diabetes Discharge Plan Discharge Clinical Impression: Cellulitis of right lower extremity Patient Disposition: Home, Self-Care Instructions: Cellulitis (ED) Additional Instructions: Complete the entire course of antibiotics as prescribed. On doxycycline, do not take pills immediately before going to bed and swallow pills with plenty of water. Avoid direct sunlight, iron, antacids, and Pepto Bismol. Call your provider if you develop new ringing in your ears, new problems hearing, dizziness, difficulty swallowing, rash, abdominal discomfort, nausea, or diarrhea.? Do not skipped any doses or stopped taking early even if you begin to notice improvement. Monitor the area of redness, if this begins to exceed passed the area marked then you should have this re-evaluated. If you have difficulty getting the wound to completely heal, please follow-up with your primary care provider, they may consider referring you to a wound clinic as needed. Prescriptions: New cephalexin 500 mg capsule 500 mg PO BID Qty: 14 0RF doxycycline hyclate 100 mg capsule 100 mg PO BID Qty: 14 0RF No Action celecoxib 200 mg capsule 1 cap PO BID atorvastatin 40 mg Tablet 40 mg PO BEDTIME cyanocobalamin (vitamin B-12) 1,000 mcg tablet extended release 1 tab PO DAILY lisinopril 20 mg tablet 1 tab PO DAILY amlodipine 5 mg tablet 1 tab PO DAILY aspirin 81 mg tablet,delayed release (DR/EC) 1 tab PO DAILY acetaminophen 650 mg tablet extended release 1 tab PO Q8H PRN (Reason: Pain (Scale Score 1-3)) insulin aspart U-100 [Novolog U-100 Insulin aspart] 100 unit/mL solution See Rx Instructions .ROUTE .COMPLEX Rx Instructions: use with insulin pump- Minimed 630 G Guardian docusate sodium 100 mg capsule 1 cap PO BID PRN (Reason: constipation) gabapentin 300 mg capsule 1 cap PO BEDTIME omeprazole 20 mg capsule,delayed release(DR/EC) 1 cap PO DAILY@0630 furosemide 20 mg tablet 0.5 tab PO DAILY albuterol sulfate [Ventolin HFA] 90 mcg/actuation HFA aerosol inhaler 2 puff inhalation Q4H fluticasone propionate 50 mcg/actuation spray,suspension 1 spray intranasal DAILY PRN (Reason: allergies) loratadine 10 mg tablet 1 tab PO DAILY PRN (Reason: allergies) simethicone [Gas Relief (simethicone)] 80 mg tablet,chewable 1 tab PO Q8H PRN (Reason: gas) cholecalciferol (vitamin D3) [Vitamin D3] 25 mcg (1,000 unit) capsule 1 tab PO DAILY calcium carbonate-vitamin D3 [Calcium 500 With D] 500 mg-10 mcg (400 unit) tablet 1 tab PO Q2D Incruse Ellipta 62.5 mcg/actuation blister with device 1 puff inhalation DAILY ppfeomhp-ryj-zhme fum-folic ac 7.5 mg iron-400 mcg tablet 1 tab PO DAILY (DME) subcutaneous insulin pump Rx Instructions: novolog insulin used with pump- Minimed 630G Guardian Start clopidogrel [Plavix] 75 mg tablet 75 mg PO DAILY Qty: 90 1RF cephalexin 500 mg capsule 500 mg PO BID Qty: 20 0RF doxycycline hyclate 100 mg capsule 100 mg PO BID Qty: 20 0RF Referrals: Physician,Unknown J [Primary Care Provider] - Interventions: ED Discharge Assessment Last Done: 11/26/23 18:01 Discharge Date/Time: 11/26/23 18:02 Print Language: Malagasy
[2023-11-26 18:01] VITALS: BP 158/70; PULSE 78; RESP 20; TEMP 36.8; O2SAT 97
== END 2023-11-26 18:02 | disposition home or self-care (01) ==
PROVIDERS: Emergency Provider Emergency Medicine Emergency Medical Services
DX: L03.115 Cellulitis of right lower limb (principal); E11.9 Type 2 diabetes mellitus without complications
CPT/HCPCS: 99282; 99283

== ENCOUNTER 2024-01-20 08:15 | Outpatient (REF) | payer OTHER, SELFPAY ==
--- NOTE | ~2024-01-20 | US_ITS ---
EXAMINATION: Noninvasive assessment of the bilateral lower extremities with ARTERIAL DUPLEX and ANKLE BRACHIAL INDICES (ABIs). CLINICAL INFORMATION: Peripheral vascular disease TECHNIQUE: Duplex Doppler techniques with waveform analysis and measurement of velocities in the bilateral common femoral, profunda femoris, superficial femoral, popliteal and tibial arteries were performed. Additionally, ankle pulse volume recordings, ankle pressure measurements and ankle brachial indices were obtained of the lower extremity arterial system bilaterally. The study was performed only at rest. COMPARISON: 10/28/2022 and 05/06/2022 FINDINGS: DIRECT DUPLEX DOPPLER FINDINGS: RIGHT LEG: Common femoral artery: 65.9 cm/s, phasicity: Triphasic Profunda femoris artery: 20.1 cm/s, phasicity: Biphasic Superficial femoral artery (proximal): 88.5 cm/s, phasicity: Triphasic Superficial femoral artery (mid): 142 cm/s, phasicity: Triphasic Superficial femoral artery (distal): 141 cm/s, phasicity: Triphasic Popliteal artery: 156 cm/s, phasicity: Triphasic. Scattered calcified plaque Posterior tibial artery: 81.1 cm/s, phasicity: Triphasic proximally. Mid and distal segments are occluded Peroneal artery: 85 cm/s, phasicity: Triphasic proximally. Mid and distal segments are occluded Anterior tibial artery: 194 cm/s, phasicity: Triphasic Dorsalis pedis artery: 97.9 cm/s, phasicity:Triphasic LEFT LEG: Common femoral artery: 84.6 cm/s, phasicity: Triphasic Profunda femoris artery: 25 cm/s, phasicity: Biphasic Superficial femoral artery (proximal): 85.7 cm/s, phasicity: Triphasic Superficial femoral artery (mid): 82.8 cm/s, phasicity: Triphasic Superficial femoral artery (distal): 54.4 cm/s, phasicity: Triphasic Popliteal artery: 89.3 cm/s, phasicity: Triphasic Posterior tibial artery: 35.9 cm/s, phasicity: Biphasic proximally. Mid and distal segments are occluded Peroneal artery: 60.5 cm/s, phasicity: Biphasic proximally. Mid and distal segments are occluded Anterior tibial artery: 59.6 cm/s, phasicity: Triphasic Dorsalis pedis artery: 48.4 cm/s, phasicity: Monophasic ANKLE-BRACHIAL INDEX: Right: 1.3, previously 1.2 Left: 1.07, previously 1.6 ANKLE PRESSURES: Right: PT nondetectable, DP 186 Left: PT nondetectable, DP 145 ANKLE PVR WAVEFORMS: Right: Normal Left: Normal US/US arterial duplex LE BI IMPRESSION: RIGHT LEG: Stable ankle-brachial index. Patent arterial flow in the femoral and popliteal arteries. There is occlusion of the mid and distal segments of the posterior tibial and peroneal arteries with patent flow of the anterior tibial artery. LEFT LEG: Stable ankle-brachial index. Patent arterial flow in the femoral and popliteal arteries. There is occlusion of the mid and distal segments of the posterior tibial and peroneal arteries with patent flow of the anterior tibial artery. - >1.4 = calcified vessels - 0.9 - 1.4 = normal - no significant arterial disease - 0.7 - 0.89 = mild peripheral arterial disease - 0.51 - 0.69 = moderate peripheral arterial disease - d 0.50 = severe peripheral arterial disease - < .30 = critical arterial disease Electronically signed by: Slava Mccoy MD 01/21/2024 01:48 PM EDT
== END 2024-01-20 08:16 | disposition home or self-care (01) ==
LOC: HO.US 08:15
PROVIDERS: Visit Provider Surgery Vascular Surgery
DX: I73.9 Peripheral vascular disease, unspecified (principal)
CPT/HCPCS: 93925

== ENCOUNTER 2024-02-01 15:05 | Outpatient (AMB) | payer OTHER, SELFPAY ==
[2024-02-01 15:07] VITALS: BMI 39.4
--- NOTE | 2024-02-01 15:07 | MHC.OFFVIS ---
Vital Signs 02/01/24 15:07 Height 5 ft 6 in Weight 244 lb BMI 39.4 Intake Visit Reasons: Follow up Art 01/20/24 Intake Note: 1 yr follow up Arterial US 01/20/24 w/ Hx of Right Angio 01/26/22. Pt states his leg is doing better and he is walking better. No complaints other than some burning over his VV on the Left LE Accompanied by: Self / Same As Patient Allergies No Known Allergies [No Known Allergies*] Allergy (Verified 02/01/24 15:12) HPI HPI Follow up Art 01/20/24: Details: Very pleasant 63-year-old gentleman presents for routine surveillance follow-up regarding peripheral vascular disease. He had actually had a right 2nd and 3rd toe ulcer which had gone on to heal. He actually is seeing a wallpaper remover steam tomorrow for routine nail maintenance. Ambulating well with no issues. He is being maintained on aspirin and a statin. He now presents for routine surveillance follow-up with noninvasive testing. FOR[facility]LY [facility] Medical History PAD (peripheral artery disease) Asthma Osteoarthritis Hyperlipidemia Type 2 diabetes, controlled, with peripheral neuropathy Sleep apnea Arthritis HTN (hypertension) Diabetes Surgical History H/O rotator cuff surgery Gastric bypass status for obesity Family History Mother Diabetes Father Diabetes Social History Household Members: Family Housing: Apartment Do you presently have visiting nurse or other home services: No Alcohol intake: never Patient Tobacco Use Status: Never used Tobacco service: No Current occupational status: disabled Review of Systems Const All systems reviewed & are unremarkable except as noted in HPI and below Reports no additional complaints ENT Reports Normal hearing present Card Denies chest pain, Denies chest pain at rest, Denies chest pain with activity and Denies pedal edema Resp Denies cough GI Denies abdominal pain Musc Denies abnormal gait, Denies muscle cramps and Denies radiating pain into limb Skin/Breast Denies skin ulcer and Denies wounds Neuro Reports Normal hearing present and Denies abnormal gait Psych Reports no additional complaints Physical Exam Vital Signs: BMI result Body Mass Index 39.4 Const General: cooperative, healthy appearing and comfortable Orientation/consciousness: oriented to person, oriented to place and oriented to time HEENT Head: Yes normal to inspection Neck Neck: Yes normal visual inspection Carotids: no bruits Chest Chest palpation & inspection: normal inspection of the chest Resp Effort & Inspection: normal respiratory effort and able to speak in complete sentences Auscultation: clear to auscultation bilaterally, no crackles, no rales, no rhonchi and no wheezes Cardio Rate: regular rate Rhythm: regular rhythm Heart sounds: S1 normal heart sound present and S2 normal heart sound present Bruits: no carotid bruits Peripheral pulses: Peripheral pulses 2+ throughout GI Inspection: Yes normal to inspection Skin Wounds: no wounds Hair: normal Neuro General: oriented to person, oriented to place and oriented to time Cranial nerves: Yes CN's II-XII intact bilaterally and Yes Normal hearing present Cognition (Neuro): normal cognition Motor exam (neuro): 5/5 motor strength present throughout Extrem Other: venous exam: No significant superficial varicosities or spider telangiectasias, minimal edema General: No clubbing, No cyanosis and No edema Psych Appearance: grossly normal Mental Status: mental status grossly normal Speech and movement: Normal speech and movement present Results Reviewed Results Reviewed: Noninvasive arterial testing dated 01/20/2024 demonstrates JOSE on the right of 1.3 and on the left of 1.07 Assessment & Plan Assessment & Plan (1) PAD (peripheral artery disease): Comment: 01/26/2022 - angioplasty right anterior tibial artery Code(s): I73.9 - Peripheral vascular disease, unspecified Category: Medical Plan: In short patient has stable claudication. I did review the pathophysiology of peripheral vascular disease with the patient. In addition we did discuss routine conservative measures including a healthy diet and the importance of exercise and ambulation. We did discuss risk factor modification. The patient will continue to to follow-up with surveillance follow-up in approximately 1 year. Thank you for allowing us to participate in this patient's care. If there are any questions or concerns please do not hesitate to contact us. Please note a longitudinal relationship has been created with the patient and we have been following and surveillance this chronic condition. Orders: Orders US arterial duplex LE BI 1 Year I73.9 - Peripheral vascular disease, unspecified Coding Level of Care Code Est Pt Level 4 (42048) Complex EM visit Add On G2731 Diagnoses PAD (peripheral artery disease) I73.9
== END 2024-02-01 15:20 | disposition home or self-care (01) ==
PROVIDERS: Visit Provider Surgery Vascular Surgery
DX: I73.9 Peripheral vascular disease, unspecified (principal)
CPT/HCPCS: 99214; G2211

== ENCOUNTER → 2024-02-01 15:05 | Outpatient (BNVA) | payer OTHER, SELFPAY | PROVIDERS: Visit Provider Surgery Vascular Surgery | DX: I73.9 Peripheral vascular disease, unspecified (principal) | CPT/HCPCS: 99212 ==

== ENCOUNTER 2024-04-04 01:02 | Emergency (ER) | payer OTHER, SELFPAY ==
--- NOTE | ~2024-04-04 | XR_ITS ---
EXAMINATION: XR FOOT, LEFT CLINICAL INFORMATION: pain g toe COMPARISON: Left foot radiographs 03/01/2023. TECHNIQUE: AP, lateral, and oblique views of the left foot. FINDINGS: Hallux valgus deformity is present. A cerclage wire is noted in association with the base of the first proximal phalanx. No soft tissue emphysematous changes identified. No erosive osseous lesions noted. Diffuse osteopenia. Soft tissue prominence adjacent to the medial aspect of the first metatarsal phalangeal joint. Scattered vascular calcifications. No fracture is identified. No Lisfranc malalignment visualized. A mild plantar calcaneal enthesophyte is present. XR/XR foot LT 2V IMPRESSION: *Hallux valgus deformity with soft tissue prominence along the medial aspect of the first metatarsophalangeal joint which may represent soft tissue inflammatory changes. No additional possible acute abnormalities identified. No soft tissue emphysematous changes. No evidence of osteomyelitis. *Cerclage wire within the base of the first proximal phalanx. Electronically signed by: Charles Zimmer MD 04/04/2024 05:21 AM [facility]
[2024-04-04 01:08] VITALS: BP 130/84; PULSE 90; RESP 18; TEMP 37.1; O2SAT 95; BMI 39.2
--- NOTE | 2024-04-04 03:04 | ED_ITS ---
HPI - Extremity Problem General Chief complaint: Extremity Problem Stated complaint: L foot infection Time Seen by Provider: 04/04/24 03:02 Source: patient Mode of arrival: ambulatory Limitations: no limitations History of Present Illness ED Provider: neal TOUSSAINT Narrative: Patient with callus on the left foot complaining of increased pain with surrounding redness since today no open wound no recent injury your history of got Related Data Home Medications ?Medication ?Instructions ?Recorded ?Confirmed acetaminophen 650 mg 1 tab PO Q8H PRN Pain (Scale Score 12/17/21 12/17/21 tablet,extended release 1-3) albuterol sulfate 90 mcg/actuation 2 puff inhalation Q4H 12/17/21 12/17/21 aerosol inhaler (Ventolin HFA) amlodipine 5 mg tablet 1 tab PO DAILY 12/17/21 12/17/21 aspirin 81 mg tablet,delayed 1 tab PO DAILY 12/17/21 12/17/21 release atorvastatin 40 mg tablet 40 mg PO BEDTIME 12/17/21 12/17/21 calcium carbonate 500 mg-vitamin 1 tab PO Q2D 12/17/21 12/17/21 D3 10 mcg (400 unit) tablet (Calcium 500 With D) celecoxib 200 mg capsule 1 cap PO BID 12/17/21 12/17/21 cholecalciferol (vitamin D3) 25 1 tab PO DAILY 12/17/21 12/17/21 mcg (1,000 unit) capsule (Vitamin D3) cyanocobalamin (vitamin B-12) 1 tab PO DAILY 12/17/21 12/17/21 1,000 mcg tablet,extended release docusate sodium 100 mg capsule 1 cap PO BID PRN constipation 12/17/21 12/17/21 fluticasone propionate 50 1 spray intranasal DAILY PRN 12/17/21 12/17/21 mcg/actuation nasal allergies spray,suspension furosemide 20 mg tablet 0.5 tab PO DAILY 12/17/21 12/17/21 gabapentin 300 mg capsule 1 cap PO BEDTIME 12/17/21 12/17/21 insulin aspart U-100 100 unit/mL See Rx Instructions .Route .COMPLEX 12/17/21 12/17/21 subcutaneous solution (Novolog U-100 Insulin aspart) lisinopril 20 mg tablet 1 tab PO DAILY 12/17/21 12/17/21 loratadine 10 mg tablet 1 tab PO DAILY PRN allergies 12/17/21 12/17/21 gviogcynhpop-giuutvzp-yhoa 1 tab PO DAILY 12/17/21 12/17/21 fumarate 7.5 mg-folic acid 400 mcg tablet omeprazole 20 mg capsule,delayed 1 cap PO DAILY@0630 12/17/21 12/17/21 release simethicone 80 mg chewable tablet 1 tab PO Q8H PRN gas 12/17/21 12/17/21 (Gas Relief (simethicone)) subcutaneous insulin pump 12/17/21 12/17/21 umeclidinium 62.5 mcg/actuation 1 puff inhalation DAILY 12/17/21 12/17/21 blister powder for inhalation (Incruse Ellipta) Previous Rx's ?Medication ?Instructions ?Recorded clopidogrel 75 mg tablet (Plavix) 75 mg PO DAILY #90 tabs 01/26/22 cephalexin 500 mg capsule 500 mg PO BID #20 caps 10/09/22 doxycycline hyclate 100 mg capsule 100 mg PO BID #20 caps 10/09/22 cephalexin 500 mg capsule 500 mg PO BID #14 caps 11/26/23 doxycycline hyclate 100 mg capsule 100 mg PO BID #14 caps 11/26/23 cephalexin 500 mg capsule 500 mg PO QID 10 days #40 caps 04/04/24 doxycycline hyclate 100 mg tablet 100 mg PO BID #20 tabs 04/04/24 Allergies Allergy/AdvReac Type Severity Reaction Status Date / Time No Known Allergies Allergy Verified 04/04/24 01:14 [No Known Allergies*] Review of Systems 2 Review of Systems: Yes all other systems are reviewed and are negative [facility] Past Medical History Medical History PAD (peripheral artery disease) Asthma Osteoarthritis Hyperlipidemia Type 2 diabetes, controlled, with peripheral neuropathy Sleep apnea Arthritis HTN (hypertension) Diabetes Surgical History H/O rotator cuff surgery Gastric bypass status for obesity Family History Family History Mother Diabetes Father Diabetes Social History Social History Household Members: Family Housing: Apartment Do you presently have visiting nurse or other home services: No Alcohol intake: never Patient Tobacco Use Status: Never used Tobacco Smoked in Last 30 Days: No Use of substances other than those prescribed or required for medical reasons: No Advance Directives: No Advance Directives Information Provided: No service: No Current occupational status: disabled Physical Exam 2 Vital Signs: Vital Signs: Last Vital Signs Temp 97.8 F 04/04/24 05:06 Pulse 82 04/04/24 05:06 Resp 17 04/04/24 05:06 BP 114/69 04/04/24 05:06 Pulse Ox 94 04/04/24 05:06 O2 Del Method Room Air 04/04/24 05:06 BMI result Body Mass Index 39.2 Appearance: Alert. Oriented X3. No acute distress. ENT: Pharynx normal. Oral Mucosa moist Neck: Normal inspection. Neck supple. CVS: Normal heart rate and rhythm. Pulses normal. Respiratory: No respiratory distress. Equal air entry bilateral, no wheezing/rales/rhonchi Abdomen: Soft and nontender. Bowel sounds are present, no mass palpable, no CVA tenderness Skin: Skin warm and dry. Normal skin color. Normal skin turgor. Extremities: No lower extremity edema. No calf tenderness tenderness left base of bleed toe with erythema slight swelling Neuro: Oriented X 3. No motor deficit. No sensory deficit.No cerebellar signs , cranial nerves II-XII intact Medications Administered Discontinued Medications Generic Name Dose Route Start Last Admin Trade Name Freq PRN Reason Stop Dose Admin Cephalexin HCl 500 mg 04/04/24 03:22 04/04/24 04:03 Cephalexin 500 Mg Capsule PO 04/04/24 03:23 500 mg ONCE ONE Administration Doxycycline Monohydrate 100 mg 04/04/24 04:42 04/04/24 05:03 Doxycycline Monohydrate 100 Mg Capsule PO 04/04/24 04:43 100 mg ONCE ONE Administration Medical Decision Making Medical Decision Making [facility] Narrative: Patient with cellulitis/gouty arthritis of left great toe x-ray negative for any bony erosion/osteomyelitis labs are stable will discharge patient home on cephalexin and doxycycline Differential Diagnosis Differential Diagnoses: The differential diagnosis associated with the presentation includes Lab Data [facility] Lab Attestation statement: I reviewed the patient's lab results. 04/04/24 03:23 04/04/24 03:23 Labs: Lab Results 04/04/24 Range/Units 03:23 WBC 6.9 (4.8-10.8) X10*3/uL RBC 4.26 L (4.60-5.80) X10*6/uL Hgb 13.4 L (14.0-18.0) g/dl Hct 36.9 L (42.0-52.0) % MCV 86.6 (80.0-98.0) fL MCH 31.5 (27.0-33.0) pg MCHC 36.3 H (31.0-36.0) g/dl RDW 11.9 (11.0-16.0) % Plt Count 165 (160-400) X10*3/uL MPV 10.7 (9.4-12.4) fL Immature Gran % (Auto) 0.3 (0.0-0.4) % Neut % (Auto) 63.5 (45-73) % Lymph % (Auto) 29.1 (20-40) % Crisp % (Auto) 5.2 (2-11) % Eos % (Auto) 1.6 (0-4) % Baso % (Auto) 0.3 (0-2) % Lymph # (Auto) 2.0 (1.2-4.9) X10*3/uL Crisp # (Auto) 0.4 (0.1-1.2) X10*3/uL Eos # (Auto) 0.1 (0.0-0.4) X10*3/uL Baso # (Auto) 0.0 (0.0-0.2) X10*3/uL Abs Immat Gran (auto) 0.02 (0.00-0.03) X10*3/uL Absolute Neuts (auto) 4.4 (2.0-8.3) x10*3/uL Absolute Nucleated RBC 0.000 (0.0-0.012) X10*3/uL Nucleated RBC % (auto) 0.0 (0.0-0.2) /100WBC Sodium 136 (135-145) mmol/L Potassium 3.6 (3.3-5.1) mmol/L Chloride 100 (96-108) mmol/L Carbon Dioxide 25 (22-29) mmol/L Anion Gap 15 (12-20) BUN 13 (9-16) mg/dL Creatinine 0.96 (0.5-1.4) mg/dL Estim Creat Clear Calc 91.7 Estimated GFR > 60 Random Glucose 344 H (60-115) mg/dL Lactic Acid 1.2 (0.5-2.0) mmol/L Uric Acid 3.0 L (3.4-7.0) mg/dL Calcium 9.3 (8.4-10.2) mg/dL Total Bilirubin 0.4 (0.0-1.0) mg/dL AST 16 (5-37) U/L ALT 16 (0-40) U/L Alkaline Phosphatase 146 H (39-117) U/L Total Protein 6.6 (6.5-8.0) g/dL Albumin 3.8 (3.5-5.0) g/dL Independent Interpretation I performed an independent interpretation of an: Plain X-Ray Radiology Impression Discussion of test interpretation with radiology: I have reviewed the radiologist's reading. Radiologist Impression: [place] [id number] XRay Report Signed Patient: Jose Foster MR#: [id number] : 1960 Acct:[id number] Age/Sex: 63 / M ADM Date: 04/04/24 Loc: .ED Attending Dr: Ordering Physician: Colton Lundberg MD Date of Service: 04/04/24 Procedure(s): XR foot LT 2V Accession Number(s): [id number] cc: Lewis CarterP; Colton Lundberg MD~ EXAMINATION: XR FOOT, LEFT CLINICAL INFORMATION: pain g toe COMPARISON: Left foot radiographs 03/01/2023. TECHNIQUE: AP, lateral, and oblique views of the left foot. FINDINGS: Hallux valgus deformity is present. A cerclage wire is noted in association with the base of the first proximal phalanx. No soft tissue emphysematous changes identified. No erosive osseous lesions noted. Diffuse osteopenia. Soft tissue prominence adjacent to the medial aspect of the first metatarsal phalangeal joint. Scattered vascular calcifications. No fracture is identified. No Lisfranc malalignment visualized. A mild plantar calcaneal enthesophyte is present. XR/XR foot LT 2V IMPRESSION: *Hallux valgus deformity with soft tissue prominence along the medial aspect of the first metatarsophalangeal joint which may represent soft tissue inflammatory changes. No additional possible acute abnormalities identified. No soft tissue emphysematous changes. No evidence of osteomyelitis. *Cerclage wire within the base of the first proximal phalanx. Electronically signed by: Charles Zimmer MD 04/04/2024 05:21 AM [facility] Discharge Plan Discharge Clinical Impression: Cellulitis Patient Disposition: Home, Self-Care Instructions: Cellulitis (ED) Additional Instructions: Take antibiotic as prescribed Report to ER/PCP redness gets worse or increased pain Prescriptions: New cephalexin 500 mg capsule 500 mg PO QID 10 Days Qty: 40 0RF doxycycline hyclate 100 mg tablet 100 mg PO BID Qty: 20 0RF No Action celecoxib 200 mg capsule 1 cap PO BID atorvastatin 40 mg Tablet 40 mg PO BEDTIME cyanocobalamin (vitamin B-12) 1,000 mcg tablet extended release 1 tab PO DAILY lisinopril 20 mg tablet 1 tab PO DAILY amlodipine 5 mg tablet 1 tab PO DAILY aspirin 81 mg tablet,delayed release (DR/EC) 1 tab PO DAILY acetaminophen 650 mg tablet extended release 1 tab PO Q8H PRN (Reason: Pain (Scale Score 1-3)) insulin aspart U-100 [Novolog U-100 Insulin aspart] 100 unit/mL solution See Rx Instructions .ROUTE .COMPLEX Rx Instructions: use with insulin pump- Minimed 630 G Guardian docusate sodium 100 mg capsule 1 cap PO BID PRN (Reason: constipation) gabapentin 300 mg capsule 1 cap PO BEDTIME omeprazole 20 mg capsule,delayed release(DR/EC) 1 cap PO DAILY@0630 furosemide 20 mg tablet 0.5 tab PO DAILY albuterol sulfate [Ventolin HFA] 90 mcg/actuation HFA aerosol inhaler 2 puff inhalation Q4H fluticasone propionate 50 mcg/actuation spray,suspension 1 spray intranasal DAILY PRN (Reason: allergies) loratadine 10 mg tablet 1 tab PO DAILY PRN (Reason: allergies) simethicone [Gas Relief (simethicone)] 80 mg tablet,chewable 1 tab PO Q8H PRN (Reason: gas) cholecalciferol (vitamin D3) [Vitamin D3] 25 mcg (1,000 unit) capsule 1 tab PO DAILY calcium carbonate-vitamin D3 [Calcium 500 With D] 500 mg-10 mcg (400 unit) tablet 1 tab PO Q2D Incruse Ellipta 62.5 mcg/actuation blister with device 1 puff inhalation DAILY hjiehxln-djh-jytx fum-folic ac 7.5 mg iron-400 mcg tablet 1 tab PO DAILY (DME) subcutaneous insulin pump Rx Instructions: novolog insulin used with pump- Minimed 630G Guardian Start clopidogrel [Plavix] 75 mg tablet 75 mg PO DAILY Qty: 90 1RF cephalexin 500 mg capsule 500 mg PO BID Qty: 20 0RF doxycycline hyclate 100 mg capsule 100 mg PO BID Qty: 20 0RF cephalexin 500 mg capsule 500 mg PO BID Qty: 14 0RF doxycycline hyclate 100 mg capsule 100 mg PO BID Qty: 14 0RF Interventions: ED Discharge Assessment Last Done: 04/04/24 05:06 Discharge Date/Time: 04/04/24 05:07 Print Language: Thai
[2024-04-04 03:29] LABS: Basophils Percent Auto 0.3 % (0-2); Eosinophils Absolute Auto 0.1 X10*3/uL (0.0-0.4); Eosinophils Percent Auto 1.6 % (0-4); Hematocrit 36.9 % (42.0-52.0); Hemoglobin 13.4 g/dl (14.0-18.0); Imm Gran Abs Auto 0.02 X10*3/uL (0.00-0.03); Imm Gran Pct Auto 0.3 % (0.0-0.4); Lymphocytes Percent Auto 29.1 % (20-40); MANUAL DIFF FLAG NO; Mean Corpuscular HGB Conc 36.3 g/dl (31.0-36.0); Mean Corpuscular Hemoglobin 31.5 pg (27.0-33.0); Mean Corpuscular Volume 86.6 fL (80.0-98.0); Mean Platelet Volume 10.7 fL (9.4-12.4); Monocytes Absolute Auto 0.4 X10*3/uL (0.1-1.2); Monocytes Percent Auto 5.2 % (2-11); Neutrophils Absolute Auto 4.4 x10*3/uL (2.0-8.3); Neutrophils Percent Auto 63.5 % (45-73); Platelet Count 165 X10*3/uL (160-400); Red Blood Count 4.26 X10*6/uL (4.60-5.80); Red Cell Distribution Width 11.9 % (11.0-16.0); White Blood Count 6.9 X10*3/uL (4.8-10.8)
[2024-04-04 03:44] LABS: Lactic Acid 1.2 mmol/L (0.5-2.0)
[2024-04-04 03:45] LABS: Alanine Aminotransferase 16 U/L (0-40); Albumin Level 3.8 g/dL (3.5-5.0); Alkaline Phosphatase 146 U/L (39-117); Anion Gap 15 (12-20); Aspartate Amino Transferase 16 U/L (5-37); Bilirubin Total 0.4 mg/dL (0.0-1.0); Blood Urea Nitrogen 13 mg/dL (9-16); Calcium 9.3 mg/dL (8.4-10.2); Carbon Dioxide 25 mmol/L (22-29); Chloride 100 mmol/L (96-108); Creatinine Clr Calc Pharmacy 91.7; Estimated Glomerular Filt Rate > 60; Glucose Random 344 mg/dL (60-115); Potassium 3.6 mmol/L (3.3-5.1); Sodium 136 mmol/L (135-145); Total Protein 6.6 g/dL (6.5-8.0)
[2024-04-04] MEDS: cephALEXin 500 MG CAPSULE PO (04:03)
--- NOTE | 2024-04-04 04:03 | PC.NURSE ---
pt ambulatory to bathroom with steady gait, reports 5/10 pain.
[2024-04-04] MEDS: Doxycycline Monohydrate 100 MG CAPSULE PO (05:03)
[2024-04-04 05:05] VITALS: BP 114/69; PULSE 82; RESP 17; TEMP 36.6; O2SAT 94
[2024-04-04 05:06] VITALS: BP 114/69; PULSE 82; RESP 17; TEMP 36.6; O2SAT 94
== END 2024-04-04 05:07 | disposition home or self-care (01) ==
PROVIDERS: Emergency Provider Internal Medicine; PCP Registered Nurse
DX: L03.116 Cellulitis of left lower limb (principal)
CPT/HCPCS: 36415; 73620; 80053; 83605; 84550; 85025; 99283; 99284

== ENCOUNTER 2024-06-27 14:30 | Outpatient (RCR) | payer OTHER, SELFPAY | END 2024-07-10 13:46 | disposition home or self-care (01) | LOC: HO.WCC 14:30 | PROVIDERS: Visit Provider Surgery | DX: E11.621 Type 2 diabetes mellitus with foot ulcer (principal); L97.522 Non-pressure chronic ulcer of other part of left foot with fat layer exposed; E11.40 Type 2 diabetes mellitus with diabetic neuropathy, unspecified; Z79.899 Other long term (current) drug therapy | CPT/HCPCS: 11042; 99212; 99213 ==

== ENCOUNTER 2024-07-05 14:51 | Inpatient (IN) | payer OTHER, SELFPAY ==
--- NOTE | ~2024-07-05 | MR_ITS ---
EXAMINATION: MR FOOT WITHOUT AND WITH CONTRAST, LEFT CLINICAL INFORMATION: Rule out osteomyelitis. Abnormal x-ray. COMPARISON: No prior MRI. X-ray dated 08/02/2024. TECHNIQUE: MRI of the left forefoot foot was performed before and after the intravenous administration of 10 mL Gadavist on a 1.5 Eliana Siemens high-field scanner. FINDINGS: Soft tissue ulceration with subcutaneous foci of gas and enhancement plantar aspect hallux subjacent to the distal first phalanx. Foci of gas extend into the medial web space between the first and second digits. No discrete formed abscess identified. No definitive bony signal changes or enhancement of the hallux or first MTP joint to suggest osteomyelitis. Mild increased T2 signal with a enhancement involving the plantar first metatarsal head, without T1 hypointensity, felt to represent reactive change. No additional signal alterations in the hallux, or sesamoids. A cerclage wire in the dorsomedial first phalanx of the hallux creates susceptibility artifact limiting visualization of immediately adjacent bone and soft tissue. Moderate hallux valgus present post bunionectomy changes. There is a tiny peripherally enhancing effusion with enhancing synovium at the first MTP joint. Enhancing synovium also surrounding the interphalangeal joint of the hallux. Septic arthropathy without definite bony involvement is a possibility. There is abnormal T1 hypointense, T2 hyperintense, and enhancing signal alterations in the proximal phalanx, fourth digit, without surrounding soft tissue changes. This likely represents a fracture of the distal metaphysis, proximal phalanx fourth digit. Subtle cortical buckling seen. No additional bone marrow signal alterations. There is diffuse subcutaneous edema dorsum of the forefoot. MR/MR foot LT wo/w con IMPRESSION: 1. There is no MR evidence of osteomyelitis. There is no discrete soft tissue drainable abscess. 2. There is an acute fracture of the proximal phalanx, distal metaphysis, fourth digit. Subtle cortical buckling noted with signal alterations and enhancement. 3. Soft tissue ulceration and gas involving the plantar and medial hallux soft tissues, with gas and enhancement extending into the medial web space. No formed abscess or drainable collection. 4. There is a tiny peripherally enhancing effusion with enhancing synovium at the first MTP joint. Enhancing synovium also surrounding the interphalangeal joint of the hallux. Septic arthropathy without definite bony involvement is a possibility. Electronically signed by: Jean Worley MD 07/06/2024 01:42 PM [facility]
--- NOTE | ~2024-07-05 | XR_ITS ---
EXAMINATION: XR FOOT, LEFT CLINICAL INFORMATION: ?osteo COMPARISON: 04/04/2024. TECHNIQUE: AP, lateral, and oblique views of the left foot. FINDINGS: Soft tissue swelling with subcutaneous gas seen involving the dorsal and plantar hallux. No focal osteopenia, permeative bony change, or erosive abnormality to suggest radiographic changes of osteomyelitis. There has been prior bunionectomy. A cerclage wire is noted in association with the base of the first proximal phalanx There is moderate hallux valgus. There is a pes planus normally. There is flattening of the talar dome, chronic. There is a small to moderate plantar calcaneal spur. There are diffuse vascular calcifications. XR/XR foot LT min 3V IMPRESSION: 1. Foci of soft tissue gas with soft tissue swelling surrounding the hallux. No radiographic evidence of osteomyelitis. 2. Prior bunionectomy with moderate hallux valgus. 3. Mild pes planus. Electronically signed by: Jean Worley MD 07/05/2024 04:16 PM JHO[facility] DOBSON
--- NOTE | ~2024-07-05 | US_ITS ---
EXAMINATION: US NONINVASIVE ASSESSMENT OF THE LEFT LOWER EXTREMITY WITH ARTERIAL DUPLEX AND ANKLE BRACHIAL INDICES (ABIS) CLINICAL INFORMATION: Nonhealing ulcer of left foot. COMPARISON: None available. TECHNIQUE: Duplex Doppler techniques with waveform analysis and measurement of velocities in the left common femoral, profunda femoris, superficial femoral, popliteal and calf arteries were performed. FINDINGS: NONINVASIVE ASSESSMENT OF THE ARTERIES OF LEFT LOWER EXTREMITY WITHOUT ABIs: Atheromatous Plaque: Moderate scattered plaque. There are occluded sections of the left mid and distal superficial femoral artery with collaterals present. Collaterals are also visualized involving the mid and distal left [employer]. LEFT FEMORAL RUNOFF VELOCITIES: The left common femoral artery measures 79.1 cm/s and triphasic. The left profunda femoral artery is 51.8 cm/s and is biphasic. The left proximal superficial femoral artery measures 90.5 cm/s and triphasic. The left mid superficial femoral artery is 86 cm/s and triphasic. There are short segment occlusions more distally with collaterals. The left distal right superficial femoral artery measures 120 cm/s and is monophasic. The left popliteal velocity measures 111 cm/s and is monophasic. The left posterior tibial artery velocity measures 37 cm/s and is monophasic. Mid and distal segments are occluded with collaterals. The left anterior tibial artery velocity measures 31.5 cm per sec, and is biphasic. The left peroneal artery velocity measures 28.4 cm/s, and is monophasic. The left dorsalis pedis artery was not visualized due to overlying bandages. There is a Vizcaino cyst with internal loose body measuring 2.5 x 0.3 x 1.7 cm. There are mildly prominent left groin lymph nodes, with large fatty maurizio, presumably reactive. US/US arterial duplex LE LT IMPRESSION: 1. There is occlusion of the distal segments of the left superficial femoral artery, as well as posterior tibial artery mid and distally, with collaterals present. 2. Patent arterial flow in the left common femoral artery, proximal and mid left superficial femoral artery, and left anterior tibial artery. Monophasic waveforms in the left peroneal artery. 3. The left dorsalis pedis artery could not be visualized due to overlying bandages. 4. Incidental note made of a Vizcaino's cyst measuring 2.5 x 0.6 x 1.7 cm, with calcified loose body internally. Electronically signed by: Jean Worley MD 07/06/2024 03:56 PM [facility] DOBS[facility]
[2024-07-05 15:13] VITALS: BP 135/65; PULSE 89; RESP 18; TEMP 36.7; O2SAT 96; BMI 38.7
--- NOTE | 2024-07-05 15:20 | ED.GENADULT ---
HPI - General Adult General Chief complaint: Wound/Laceration Stated complaint: Diabetic: L Foot Infection, Open Wound Time Seen by Provider: 07/05/24 20:30 Source: patient Mode of arrival: ambulatory Limitations: no limitations History of Present Illness ED Provider: Aletha Mckeon NP HPI narrative: Patient is a 63-year-old male with past medical history of PID, asthma, osteoarthritis, hyperlipidemia, diabetes, hypertension who presents emergency department for evaluation. He endorses having a wound to the plantar aspect of his left foot at the base of the great toe with onset 2 days ago. He admits to a history of a wound in similar location in March of 2024 states that he was treated with the antibiotics and followed at the wound center with complete resolution. He denies there being any presence of wound prior to 2 days ago. He admits that the area is quite painful. He has pain when walking, he has been using an orthopedic boot which was provided to him in the past with his wound. Related Data Home Medications ?Medication ?Instructions ?Recorded ?Confirmed acetaminophen 650 mg 1 tab PO Q8H PRN Pain (Scale Score 12/17/21 12/17/21 tablet,extended release 1-3) albuterol sulfate 90 mcg/actuation 2 puff inhalation Q4H 12/17/21 12/17/21 aerosol inhaler (Ventolin HFA) amlodipine 5 mg tablet 1 tab PO DAILY 12/17/21 12/17/21 aspirin 81 mg tablet,delayed 1 tab PO DAILY 12/17/21 12/17/21 release atorvastatin 40 mg tablet 40 mg PO BEDTIME 12/17/21 12/17/21 calcium 500 mg (as 1 tab PO Q2D 12/17/21 12/17/21 carbonate)-vitamin D3 10 mcg (400 unit) tablet (Calcium 500 With D) celecoxib 200 mg capsule 1 cap PO BID 12/17/21 12/17/21 cholecalciferol (vitamin D3) 25 1 tab PO DAILY 12/17/21 12/17/21 mcg (1,000 unit) capsule (Vitamin D3) cyanocobalamin (vitamin B-12) 1 tab PO DAILY 12/17/21 12/17/21 1,000 mcg tablet,extended release docusate sodium 100 mg capsule 1 cap PO BID PRN constipation 12/17/21 12/17/21 fluticasone propionate 50 1 spray intranasal DAILY PRN 12/17/21 12/17/21 mcg/actuation nasal allergies spray,suspension furosemide 20 mg tablet 0.5 tab PO DAILY 12/17/21 12/17/21 gabapentin 300 mg capsule 1 cap PO BEDTIME 12/17/21 12/17/21 insulin aspart U-100 100 unit/mL See Rx Instructions .Route .COMPLEX 12/17/21 12/17/21 subcutaneous solution (Novolog U-100 Insulin aspart) lisinopril 20 mg tablet 1 tab PO DAILY 12/17/21 12/17/21 loratadine 10 mg tablet 1 tab PO DAILY PRN allergies 12/17/21 12/17/21 dxgqxyevluxe-trniyynx-vdhr 1 tab PO DAILY 12/17/21 12/17/21 fumarate 7.5 mg-folic acid 400 mcg tablet omeprazole 20 mg capsule,delayed 1 cap PO DAILY@0630 12/17/21 12/17/21 release simethicone 80 mg chewable tablet 1 tab PO Q8H PRN gas 12/17/21 12/17/21 (Gas Relief (simethicone)) subcutaneous insulin pump 12/17/21 12/17/21 umeclidinium 62.5 mcg/actuation 1 puff inhalation DAILY 12/17/21 12/17/21 blister powder for inhalation (Incruse Ellipta) Previous Rx's ?Medication ?Instructions ?Recorded clopidogrel 75 mg tablet (Plavix) 75 mg PO DAILY #90 tabs 01/26/22 cephalexin 500 mg capsule 500 mg PO BID #20 caps 10/09/22 doxycycline hyclate 100 mg capsule 100 mg PO BID #20 caps 10/09/22 cephalexin 500 mg capsule 500 mg PO BID #14 caps 11/26/23 doxycycline hyclate 100 mg capsule 100 mg PO BID #14 caps 11/26/23 cephalexin 500 mg capsule 500 mg PO QID 10 days #40 caps 04/04/24 doxycycline hyclate 100 mg tablet 100 mg PO BID #20 tabs 04/04/24 Allergies Allergy/AdvReac Type Severity Reaction Status Date / Time No Known Allergies Allergy Verified 07/05/24 15:17 [No Known Allergies*] Review of Systems Review of Systems: Yes all other systems are reviewed and are negative PMFSH Past Medical History Attestation statement: The following information was validated with the patient. Source: old records reviewed Medical History PAD (peripheral artery disease) Asthma Osteoarthritis Hyperlipidemia Type 2 diabetes, controlled, with peripheral neuropathy Sleep apnea Arthritis HTN (hypertension) Diabetes Surgical History H/O rotator cuff surgery Gastric bypass status for obesity Family History Family History Mother Diabetes Father Diabetes Social History Social History Household Members: Family Housing: Apartment Do you presently have visiting nurse or other home services: No Alcohol intake: never Patient Tobacco Use Status: Never used Tobacco Advance Directives: No Advance Directives Information Provided: Yes Do you have a plan to hurt others: No Plan service: No Current occupational status: disabled Physical Exam ED Vital Signs: Vital Signs - 24 hr 07/05/24 15:13 Temperature 98.0 F Pulse Rate 89 Respiratory Rate 18 Blood Pressure 135/65 Pulse Oximetry 96 Oxygen Delivery Method Room Air BMI result Body Mass Index 38.7 Appearance: Alert.?Oriented to person, place and time. No acute distress.?Normal affect. Neck: Normal inspection.? Neck supple.?? CVS: Heart sounds normal. Normal heart rate and rhythm.? Pulses normal.?? Respiratory: No respiratory distress.? Lung sounds clear to auscultation bilaterally?? Abdomen: Soft and non-tender. Normoactive bowel sounds. Skin: Skin warm and dry.? Normal skin color.? Extremities: Plantar foot wound on the left foot at the base of the 1st MCP, diffuse fluctuance, erythema and warmth Neuro: Moves all extremities spontaneously. Sensation intact bilaterally. Ambulates with antalgic gait and use of an orthopedic boot Course Course Course Narrative: RME, this is a rapid medical exam performed by Negrito Calles please refer to primary provider for complete H&P- 63-year-old male with past medical history significant for peripheral artery disease, diabetes, asthma, hyperlipidemia, hypertension presents for evaluation a wound to his left foot. He does have a history of osteomyelitis. Plan for labs, blood cultures, x-ray of the left foot Medications Administered Generic Name Dose Route Start Last Admin Trade Name Jaylanq PRN Reason Stop Dose Admin Enoxaparin Sodium 40 mg 07/05/24 22:00 07/05/24 22:39 Enoxaparin Sodium 40 Mg/0.4 Ml Syringe SUBCUT 40 mg Q24H RASHEED Administration Piperacillin Sod/Tazobactam 100 mls @ 200 mls/hr 07/05/24 22:00 07/05/24 23:59 Sod 4.5 gm/ Sodium Chloride IV Infused Q6H RASHEED Infusion Sodium Chloride 3 ml 07/06/24 00:00 07/05/24 23:59 0.9 % Sodium Chloride Flush 3 Ml Syringe IVFLUSH 3 ml QSHIFT RASHEED Administration Discontinued Medications Generic Name Dose Route Start Last Admin Trade Name Freq PRN Reason Stop Dose Admin Cefepime HCl 2 gm in 50 mls @ 100 mls/hr 07/05/24 21:06 07/05/24 23:09 Maxipime IV 07/05/24 21:35 Infused ONCE ONE Infusion Vancomycin HCl 2,000 mg in 500 mls @ 250 mls/hr 07/05/24 21:06 07/05/24 23:58 Vancomycin/Ns IV 07/05/24 23:05 250 mls/hr ONCE ONE Administration Sodium Chloride 500 mls @ 999 mls/hr 07/05/24 21:15 07/05/24 23:09 Ns IV 07/05/24 21:45 Infused .Q31M RASHEED Infusion Medical Decision Making Medical Decision Making [facility] Narrative: Patient is a 63-year-old male with past medical history of PID, asthma, osteoarthritis, hyperlipidemia, diabetes, hypertension presents for evaluation of left plantar foot wound. Review of obtained prior to my assumption of care reveals leukocytosis of 14,100 with left shift, mild normocytic anemia not meeting transfusion criteria, no thrombocytopenia. No electrolyte derangement. No JOSHUA. Non-anion gap hyperglycemia; 213. Notably elevated inflammatory markers with ESR of 64 and CRP 18.16. XR of the foot shows foci of soft tissue gas and swelling surrounding the hallux but no evidence of osteomyelitis. Blood cultures have been obtained, no lactic acidosis, wound culture to be sent, will cover with cefepime and vancomycin, anticipating admission to medicine service for further evaluation Differential Diagnosis Differential Diagnoses: The differential diagnosis associated with the presentation includes (Cellulitis, diabetic foot wound, osteomyelitis) Admission/Observation Consideration of admission/observation: Escalation of care including admission/observation considered Lab Data MDM Lab Attestation statement: I reviewed the patient's lab results. (See narrative above) 07/05/24 15:28 07/05/24 15:28 Labs: Lab Results 07/05/24 Range/Units 15:28 WBC 14.1 H (4.8-10.8) X10*3/uL RBC 4.24 L (4.60-5.80) X10*6/uL Hgb 13.1 L (14.0-18.0) g/dl Hct 37.4 L (42.0-52.0) % MCV 88.2 (80.0-98.0) fL MCH 30.9 (27.0-33.0) pg MCHC 35.0 (31.0-36.0) g/dl RDW 12.9 (11.0-16.0) % Plt Count 214 D (160-400) X10*3/uL MPV 10.3 (9.4-12.4) fL Immature Gran % (Auto) 0.4 (0.0-0.4) % Neut % (Auto) 83.4 H (45-73) % Lymph % (Auto) 9.1 L (20-40) % Mccone % (Auto) 6.9 (2-11) % Eos % (Auto) 0.1 (0-4) % Baso % (Auto) 0.1 (0-2) % Lymph # (Auto) 1.3 (1.2-4.9) X10*3/uL Mccone # (Auto) 1.0 (0.1-1.2) X10*3/uL Eos # (Auto) 0.0 (0.0-0.4) X10*3/uL Baso # (Auto) 0.0 (0.0-0.2) X10*3/uL Abs Immat Gran (auto) 0.06 H (0.00-0.03) X10*3/uL Absolute Neuts (auto) 11.8 H (2.0-8.3) x10*3/uL Absolute Nucleated RBC 0.000 (0.0-0.012) X10*3/uL Nucleated RBC % (auto) 0.0 (0.0-0.2) /100WBC ESR 64 H (0-15) MM/HR Sodium 137 (135-145) mmol/L Potassium 3.9 (3.3-5.1) mmol/L Chloride 104 (96-108) mmol/L Carbon Dioxide 25 (22-29) mmol/L Anion Gap 12 (12-20) BUN 16 (9-16) mg/dL Creatinine 0.63 (0.5-1.4) mg/dL Estim Creat Clear Calc 138.9 Estimated GFR > 60 Random Glucose 213 H (60-115) mg/dL Lactic Acid 0.7 (0.5-2.0) mmol/L Calcium 9.1 (8.4-10.2) mg/dL Total Bilirubin 1.1 H (0.0-1.0) mg/dL AST 19 (5-37) U/L ALT 17 (0-40) U/L Alkaline Phosphatase 103 (39-117) U/L C-Reactive Protein 18.16 H (< or = 0.50) mg/dL Total Protein 7.9 (6.5-8.0) g/dL Albumin 4.0 (3.5-5.0) g/dL Lipase 14 (8-78) U/L Independent Interpretation I performed an independent interpretation of an: Plain X-Ray (See narrative above) Radiology Impression Discussion of test interpretation with radiology: I have reviewed the radiologist's reading. Radiologist Impression: XR/XR foot LT min 3V IMPRESSION: 1. Foci of soft tissue gas with soft tissue swelling surrounding the hallux. No radiographic evidence of osteomyelitis. 2. Prior bunionectomy with moderate hallux valgus. 3. Mild pes planus. External Record Review External record reviewed: Outpatient record Discharge Plan Discharge Clinical Impression: Diabetic infection of left foot, Cellulitis of foot, left Patient Disposition: Admitted As Inpatient
--- OUTSIDE RECORDS SUMMARY | 2024-07-05 15:30 | XMS_ITS | Encounter Summary ---
Author Organization [facility] Address [address] [place] [address] Care Team Providers Care Poultry Hanger Name Role Phone Lewis CarterP-Samira Primary Care Provider [phone] Encounter Details Date Type Department Care Team (Late Contact Info) Description 01/23/2015 Interim Notes [facility] [address] [place] [id number] Corina Arango NP [address] [place], [place] [id number] Social History Tobacco Use Types Packs/Day Years Used Date Smoking Tobacco: Former Cigarettes Q uit: 03/05/2012 Smokeless Tobacco: Never Alcohol Use Standard Drinks/Week Comments Yes 0 (1 standard drink = 0.6 oz pur e alcohol) pt drinks occassionally Sex and Gender Information Value Date Recorded Sex Assigned at Male 03/05/2017 1:12 PM PDT Legal Sex Male 6:28 AM PDT Gender Identity Male 03/05/2017 1:12 PM PDT Sexual Orientation Choose not to disclose 2016 1:12 PM PDT documented as of this encounter Plan of Treatment Upcoming Encounters Date Type Department Care Team (Late Contact Info) Description 07/12/2024 3:00 PM EST Office Visit [address] [phone] Lewis Carter FNP-C [facility] [place], [place] [id number] 08/08/2024 3:00 PM EDT Office Visit [address] [phone] Juwan العلي PharmD [address] [place] [address] documented as of this encounter Visit Diagnoses Not on filedocumented in this encounter Care Teams Poultry Hanger Relationship Specialty Start Date End Date Lewis Carter FNP-C [address] [place] [address] PCP - General Internal Medicine 04/30/23 documented as of this encounter
--- OUTSIDE RECORDS SUMMARY | 2024-07-05 15:30 | XMS_ITS | Encounter Summary ---
Author Organization [employer] Address [address] [place] [address] [address] [place] [address] Care Team Providers Care Kier Pleater Name Role Phone Radha Weber MD Primary Care Provider [phone] Reason for Visit * Reason Comments Med Refill Encounter Details Date Type Department Care Team (Late st Contact Info) Description 08/10/2022 Refill [facility] MED[facility] [address] [place], [place] [phone] Radha Weber MD [address] [place] [address] Social History Tobacco Use Types Packs/Day Years Used Date Smoking Tobacco: Never Assessed Sex and Gender Information Value Date Recorded Sex Assigned at Male 03/16/2022 10:24 AM EDT Legal Sex Male 10:24 AM EDT Gender Identity Male 03/16/2022 10:24 AM EDT Sexual Orientation Lesbian or [facility] 03/16/2022 10 :24 AM EDT documented as of this encounter Plan of Treatment Not on file documented as of this encounter Visit Diagnoses Not on filedocumented in this encounter Care Teams Kier Pleater Relationship Specialty Start Date End Date Radha Weber MD [address] [place] [address] PCP - General Internal Medicine 02/27/21 05/19/23 documented as of this encounter
--- OUTSIDE RECORDS SUMMARY | 2024-07-05 15:30 | XMS_ITS | Encounter Summary ---
Author Organization [employer] Address [address] [place] [address] [address] [place] [address] Care Team Providers Care Refrigeration Engineering Teacher Name Role Phone Unavailable Primary Care Provider Unavailabl e Reason for Visit * Reason Comments Med Refill Encounter Details Date Type Department Care Team ([facility] st Contact Info) Description 07/14/2023 Refill [facility] PEDS [address] [place] [address] Radha Weber MD [address] [place] [address] Social History Tobacco Use Types Packs/Day Years Used Date Smoking Tobacco: Never Smokeless Tobacco: Never Sex and Gender Information Value Date Recorded [...]
--- OUTSIDE RECORDS SUMMARY | 2024-07-05 15:30 | XMS_ITS | Encounter Summary ---
Author Organization [employer] Address [address] [place] [address] [address] [place] [address] Care Team Providers Care Filling Machine Operator Name Role Phone Unavailable Primary Care Provider Unavailabl e Reason for Visit * Reason Comments Med Refill Encounter Details Date Type Department Care Team (Late st Contact Info) Description 11/04/2023 Refill [facility] MEDICINE [address] [place] [address] Radha Weber MD [address] [place] [address] Vitamin deficiency; Osteoarthritis involving multiple joints on both sides of body Social History Tobacco Use Types Packs/Day Years [...] documented as of this encounter Visit Diagnoses Diagnosis Vitamin deficiency Unspecified vitamin deficiency Osteoarthritis involving multiple joints on both sides of body documented in this encounter
--- OUTSIDE RECORDS SUMMARY | 2024-07-05 15:30 | XMS_ITS | Encounter Summary ---
Author Organization [employer] Address [address] [place] [address] [address] [place] [address] Care Team Providers Care Correctional Treatment Specialist Name Role Phone Radha Weber MD Primary Care Provider [phone]- [phone] Reason for Visit * Reason Comments Med Refill Encounter Details Date Type Department Care Team ([facility] st Contact Info) Description 03/24/2023 Refill [facility] MED [facility] PEDS [address] [place] [address] Radha Weber MD [address] [place] [address] Social History Tobacco Use Types Packs/Day Years [...] on filedocumented in this encounter Care Teams Correctional Treatment Specialist Relationship Specialty Start Date End Date Radha Weber MD [address] [place] [address] PCP - General Internal Medicine 02/27/21 05/19/23 documented as of this encounter
--- OUTSIDE RECORDS SUMMARY | 2024-07-05 15:30 | XMS_ITS | Encounter Summary ---
Author Organization [employer] Address [address] [facility] [address] [place] [address] Care Team Providers Care Ventilating Engineer Name Role Phone Radha Weber MD Primary Care Provider [phone] Encounter Details Date Type Department Care Team (Late st Contact Info) Description 03/17/2023 Abstract [facility] MEDICINE [address] [place] [address] Radha Weber MD [address] [place] [address] Social History Tobacco Use Types Packs/Day Years [...] on file documented as of this encounter Procedures Procedure Name Priority Date/Time Associated Diagnosis Comments COLONOSCOPY Routine 12/31/2016 documented in this encounter Results * Colonoscopy (12/31/2016) Colonoscopy Normal Normal Narrative Radha Mejia - 12/31/2016 Recommended 10 year follow up us Historical Provider HEALTH MAINTENANCE Final Result documented in this encounter Visit Diagnoses Not on filedocumented in this encounter Care Teams Ventilating Engineer Relationship Specialty Start Date End Date Radha Weber MD [address] [place] [address] PCP - General Internal Medicine 02/27/21 05/19/23 documented as of this encounter
--- OUTSIDE RECORDS SUMMARY | 2024-07-05 15:30 | XMS_ITS | Encounter Summary ---
Author Organization [employer] Address [address] [place] [address] [address] [place] [address] Care Team Providers Care Supervisor Game Farm Name Role Phone Unavailable Primary Care Provider Unavailabl e Reason for Visit * Reason Comments Med Refill Encounter Details Date Type Department Care Team ([facility] st Contact Info) Description 06/13/2023 Refill [facility] CH[facility] MED & PEDS [address] [place] [address] Radha Weber MD [address] [place] [address] Social History Tobacco Use Types Packs/Day Years [...]
--- OUTSIDE RECORDS SUMMARY | 2024-07-05 15:30 | XMS_ITS | Encounter Summary ---
Author Organization [employer] Address [address] [place] [address] [address] [place] [address] Care Team Providers Care Hat Steamer Name Role Phone Unavailable Primary Care Provider Unavailabl e Reason for Visit * Reason Comments Med Refill Encounter Details Date Type Department Care Team ([facility] st Contact Info) Description 10/11/2023 Refill [facility] MED & PEDS [address] [place] [address] Radha Weber MD [address] [place] [address] Osteoarthritis involving multiple joints on both sides [...] as of this encounter Visit Diagnoses Diagnosis Osteoarthritis involving multiple joints on both sides of body documented in this encounter
--- OUTSIDE RECORDS SUMMARY | 2024-07-05 15:30 | XMS_ITS | Encounter Summary ---
Author Organization [employer] Address [address] [place] [address] [address] [place] [address] Care Team Providers Care Medical Consultant Name Role Phone Unavailable Primary Care Provider Unavailabl e Reason for Visit * Reason Comments Med Refill Encounter Details Date Type Department Care Team (Late st Contact Info) Description 08/23/2023 Refill [facility] MEDICINE [address] [place] [address] Radha Weber MD [address] [place] [address] Social History Tobacco Use Types Packs/Day Years [...]
--- OUTSIDE RECORDS SUMMARY | 2024-07-05 15:30 | XMS_ITS | Clinical Summary ---
Author Organization [facility] [employer] Address [address] [place] [address] [address] [place] [address] Care Team Providers Care Cage Maker Machine Name Role Phone Unavailable Primary Care Provider Unavailabl e Allergies No known active allergies Medications Calcium Carb-Cholecalcifer ol (Oyster Shell Calcium w/D) 500-5 MG-MCG tabletIndications: Primary osteoarthritis of other site TAKE 1 TABLET BY MOUTH EVERY 2 DAYS 180 tablet 2 3 Active Ventolin HFA 108 (90 Base) MCG/ACT inhaler INHALE 2 BY PUFFS ROUTE EVERY 4 HOURS 18 g 11 3 Active loratadine (Claritin) 10 MG tablet TAKE 1 TABLET BY MOUTH EVERY DAY NEEDED FOR ALLERGIES 90 tablet 3 3 Active Incruse Ellipta 62.5 MCG/ACT aerosol powder INHALE 1 PUFF BY INHALATION ROUTE EVERY DAY AT THE SAME TIME EACH DAY 30 each 11 3 Active [facility] Vitamin B12 1000 MCG tablet controlled-release Indications:Vitami n deficiency TAKE 1 TABLET BY MOUTH EVERY DAY 90 tablet 5 3 Active Cyanocobalamin (B-12) 1000 MCG tablet controlled-release Indications:Vitami n deficiency Take 1 tablet by mouth in the morning. 30 tablet 5 3 Active gabapentin (Neurontin) 400 MG capsule Take 1 capsule (400 mg) by mouth 3 times daily. 90 capsule 11 3 Active Blood Pressure kitIndications:Ess ential hypertension, benign To check the BP daily 1 kit 3 Active fluticasone (Flonase) 50 MCG/ACT nasal spray USE 1 SPRAY EACH NOSTRIL EVERY DAY NEEDED FOR ALLERGIES 48 mL 1 3 Active fluticasone (Flonase) 50 MCG/ACT nasal spray USE 1 SPRAY EACH NOSTRIL EVERY DAY NEEDED FOR ALLERGIES 3 Active acetaminophen (Tylenol 8 Hour) 650 MG ER tabletIndications: Osteoarthritis involving multiple joints on both sides of body TAKE 1 TABLET BY MOUTH EVERY 8 HOURS NEEDED 60 tablet 3 3 Active omeprazole (PriLOSEC) [address] capsule TAKE 1 CAPSULE BY MOUTH EVERY DAY BEFORE A MEAL 90 capsule 4 3 Active furosemide (Lasix) 20 MG tablet Take 0.5 tablets (10 mg) by mouth in the morning. 30 tablet 3 3 Active Alcohol Swabs (B-D SINGLE USE SWABS REGULAR) pads USE 1 PAD TO CLEAN SKIN DAILY 100 each 11 3 Active Active Problems Problem Noted Date Diagnosed Date Chronic back pain 01/28/2018 Osteoarthritis involving mul tiple joints on both sides of body 01/28/2018 Vitamin deficiency 01/28/2018 Obstructive sleep apnea syndrome 01/28/2018 Seasonal allergies 01/28/2018 Uncontrolled type 2 diabetes mellitus with hyper glycemia 01/28/2018 Hyperlipidemia 01/28/2018 Difficulty swallowing 03/11/2015 Overview (06/18/2022): CR UGI with Air done on 02/25/2015 at [facility]- Impression: Spontaneous severe GERD. Tiny hiatal hernia. Normal Esophageal motility. Migraine headache 10/16/2013 Overview (05/20/2022): topamax 200 1 po bid Rhinitis, chronic 10/16/2013 Carpal tunnel syndrome, bilateral 02/07/2013 Anxiety 01/08/2013 Mood disorder 01/08/2013 Hyperlipidemia with target LDL less than 100 07/2012 Overview (05/20/2022): No results found for: LDL Lab Results Component Value Date PROTEIN 7.1 01/18/2015 AST 20 01/18/2015 ALT 24 01/18/2015 ALKPHOS 133* 01/18/2015 BILI 0.2 01/18/2015 lipitor 40 no lipid in chart Insulin dependent type 2 diabetes mellitus, unco ntrolled 11/16/2012 Overview (05/20/2022): Lab Results Component Value Date HGBA1C 9.0* 10/25/2015 HGBA1C 8.1* 01/18/2015 HGBA1C 7.9* 09/06/2014 Mala aparicio- appt 01/[address] 11/16/2012 Essential hypertension, benign 11/11/2012 Overview (05/20/2022): Last 3 BP Readings: Date: BP: 12/20/2015 118/82 12/06/2015 126/60 11/22/2015 132/76 Lisinopril 20 Goal < or = to 130/80 mmHg GERD (gastroesophageal reflux disease) 3 Overview (05/20/2022): ugi 02/25/15 see difficulty swallowing below No on PPI Asthma, mild 11/11/2012 Overview (06/18/2022): Pro air and spiriva- former smoker Encounters Date Type Department Care Team Description 04/04/2024 Refill [facility] [address] [place] [address] Radha Weber MD from Last 3 Months Immunizations Name Administration Dates Next Due Influenza injectable quadrivalent preservative f ree 01/28/2023 Social History Tobacco Use Types Packs/Day Years Used Date Smoking Tobacco: Never Smokeless Tobacco: Never Tobacco Cessation:Counseling Given: No Sex and Gender Information Value Date Recorded Sex Assigned at Male 03/16/2022 10:24 AM EDT Legal Sex Male 10:24 AM EDT Gender Identity Male 03/16/2022 10:24 AM EDT Sexual Orientation Lesbian or [facility] 03/16/2022 10 :24 AM EDT Last Filed Vital Signs Vital Sign Reading Time Taken Comments Blood Pressure 131/80 05/20/2023 9:54 AM EST Pulse 58 05/20/2023 9:54 AM EST Temperature 36.3 ??C (97.3 ??F) 05/20/2023 9:54 AM ES T Respiratory Rate 19 05/20/2023 9:54 AM EST Oxygen Saturation 96% 05/20/2023 9:54 AM EST Inhaled Oxygen Concentration - - Weight 116 kg (256 lb) 05/20/2023 9:54 AM EST Height 166.5 cm (5' 5.55 ) 05/20/2023 9:54 AM ES T Body Mass Index 41.89 05/20/2023 9:54 AM EST Plan of Treatment Health Maintenance Due Date Last Done Comments CT Colonography 1960 Depression Screening 1960 FIT 1960 FOBT 1960 SDOH Screening 1960 Sigmoidoscopy 1960 Diabetes: Foot Exam 1970 Eye Exam 1970 Alcohol/Substance Use Screening 1972 Hepatitis C Screening 1978 RSV Patients and Patients Aged 60 years or older (1 - Risk 60-74 years 1-dose series) 2020 Diabetes: Urine Protein Screening 12/02/2021 12/02/2020 Lipid Panel 12/02/2021 12/02/2020 Diabetes: Hemoglobin A1C 05/19/2023 023, 11/16/2022, 12/02/2020 COVID-19 Vaccine ( season) 2024 04/30/2023, 05/06/2021, 08/14/2020, Additional history exists Tobacco Screening 02/17/2024 02/16/2023 FIT DNA/Cologuard 05/05/2026 05/05/2023 Colonoscopy 12/31/2026 12/31/2016 Colorectal Cancer Screening 12/31/2026 DTaP/Tdap/Td Vaccines (2 - Td or Tdap) 03/01/2027 03/01/2017 Zoster Vaccines Completed 06/22/2019, 02/21/2019 HIV Screening Completed 04/30/2023 Pneumococcal Vaccine: 50+ Years Completed 04/30/2023, 09/01/2018, 02/20/2016 Pneumococcal Vaccine: Pediatrics (0 to 5 Years) and At-Risk Patients (6 to 49) Years) Completed 04/30/2023, 09/01/2018, 02/20/2016 Influenza Vaccine Completed 02/15/2024, , 02/13/2022, Additional history exists HIB Vaccines Aged Out No longer eligi ble based on patient's age to complete this topic HPV Vaccines Aged Out No longer eligi ble based on patient's age to complete this topic Hepatitis A Vaccines Aged Out No long er eligible based on patient's age to complete this topic Hepatitis B Vaccines Aged Out No long er eligible based on patient's age to complete this topic IPV Vaccines Aged Out No longer eligi ble based on patient's age to complete this topic Meningococcal Vaccine Aged Out No ulises sulma eligible based on patient's age to complete this topic RSV under 20 months Aged Out No longe r eligible based on patient's age to complete this topic Rotavirus Vaccines Aged Out No longer eligible based on patient's age to complete this topic Procedures Procedure Name Priority Date/Time Associated Diagnosis Comments LAB COLOGUARD?? COLON CANCER SCREEN Routine 05/05/2023 3:30 PM EST Screening for colon cancer POCT GLYCATED HEMOGLOBIN, TOTAL Routine 02/16/2023 4:33 PM EDT Uncontrolled type 2 diabetes mellitus with hyperglycemia (CMS/HCC) ALBUMIN, RANDOM URINE W/CREATININE Routine 12/02/2020 3:53 PM EDT LIPID PANEL, STANDARD Routine 12/02/2020 3:53 PM EDT HM COLONOSCOPY Routine 12/31/2016 from Last 3 Months or Most Recently Relevant to Health Maintenance Results * Cologuard?? colon cancer screening (05/05/2023 3:30 PM EST) Cologuard Result Negative Negative 05/14/20 10:44 AM EST [facility] (CLIA #:[id number]) Comment: NEGATIVE TEST RESULT. A negative Cologuard result indicates a low likelihood that a colorectal cancer (CRC) or advanced adenoma (adenomatous polyps with more advanced pre-malignant features) ??is present. The chance that a person with a negative Cologuard test has a colorectal cancer is less than 1 in 1500 (negative predictive value >99.9%) or has an ??advanced adenoma is less than ??5.3% (negative predictive value 94.7%). These data are based on a prospective cross-sectional study of 10,000 individuals at average risk for colorectal cancer who were screened with both Cologuard and colonoscopy. (Lindsay Spence al, N Engl J Med 2014;370(14):1286- 1297) The normal value (reference range) for this assay is negative. COLOGUARD RE-SCREENING RECOMMENDATION: Periodic colorectal cancer screening is an important part of preventive healthcare for asymptomatic individuals at average risk for colorectal cancer. ??Following a negative Cologuard result, the [place] Cancer Society and U.S. Multi-Society Task Force screening guidelines recommend a Cologuard re-screening interval of 3 years. References: [place] [employer] Guideline for Colorectal Cancer Screening: https://www.cancer.org/cancer/wlhwu-pphsly-fyrdmc/fnbpthrqr-ozpqcdohp-fyzcksi/ac s-rec ommendations.html.; Myke DK, Kiley CR, Devin RachelK, Colorectal Cancer Screening: Recommendations for Physicians and Patients from the U.S. Multi-Society Task Force on Colorectal Cancer Screening , Am J Gastroenterology 2017; 112:1153-5100. TEST DESCRIPTION: Composite algorithmic analysis of stool DNA-biomarkers with hemoglobin immunoassay. ?? Quantitative values of individual biomarkers are not reportable and are not associated with individual biomarker result reference ranges. Cologuard is intended for colorectal cancer screening of adults of either sex, 45 years or older, who are at average-risk for colorectal cancer (CRC). Cologuard has been approved for use by the U.S. FDA. The performance of Cologuard was established in a cross sectional study of average-risk adults aged 50-84. Cologuard performance in patients ages 45 to 49 years was estimated by sub-group analysis of near-age groups. Colonoscopies performed for a positive result may find as the most clinically significant lesion: colorectal cancer [4.0%], advanced adenoma (including sessile serrated polyps greater than or equal to 1cm diameter) [20%] or non- advanced adenoma [31%]; or no colorectal neoplasia [45%]. These estimates are derived from a prospective cross-sectional screening study of 10,000 individuals at average risk for colorectal cancer who were screened with both Cologuard and colonoscopy. (Lindsay Spence al, N Engl J Med 2014;370(14):8470-5864.) Cologuard may produce a false negative or false positive result (no colorectal cancer or precancerous polyp present at colonoscopy follow up). A negative Cologuard test result does not guarantee the absence of CRC or advanced adenoma (pre-cancer). The current Cologuard screening interval is every 3 years. ([place] Cancer Society and U.S. Multi-Society Task Force). Cologuard performance data in a 10,000 patient pivotal study using colonoscopy as the reference method can be accessed at the following location: www.Plyfe/results. Additional description of the Cologuard test process, warnings and precautions can be found at www.cologuard.com. Stool specimen (specimen) 05/05/2023 3:30 PM EST 05/08/2023 12:38 PM EST Radha Weber MD LAB MOLECULAR DIAGNOSTICS O RDERABLES Final Result [facility] (CLIA #:[id number]) [address] [place] [address], * (ABNORMAL) POCT A1C (02/16/2023 4:33 PM EDT) Hemoglobin A1C 8.0(A) 4.0 - 6.0 % QC Media Lot # [id number] Lot# Expiration Date Blood 02/16/2023 4:33 PM EDT Radha Weber MD POINT OF CARE TEST ENTER/ED IT ORDERABLES Final Result * ALBUMIN, RANDOM URINE W/CREATININE (12/02/2020 3:53 PM EDT) Microalbumin Urine 1.7 See Note: mg/dL [facility] Comment: Reference Range: ?? Reference Range Not established Microalb/Creat Ratio 11 <30 mcg/mg creat [facility] Comment: ?? The ADA defines abnormalities in albumin excretion as follows: ?? Category ? Result (mcg/mg creatinine) ?? Normal ?<30 Microalbuminuria ? 30-299 ?? Clinical albuminuria ?? > OR = 300 ?? The ADA recommends that at least two of three specimens collected within a 3-6 month period be abnormal before considering a patient to be within a diagnostic category. Creatinine, Urine 157 20 - 320 mg/dL [facility] 12/02/2020 3:53 PM EDT Jason Zendejas MD LAB URINE ORDERABL ES Final Result [facility] [address] * (ABNORMAL) LIPID PANEL, STANDARD (12/02/2020 3:53 PM EDT) Pathologist [facility] Chol/HDLC Ratio 3.7 <5.0 (calc) [facility] Cholesterol, Total 176 <200 mg/dL [facility] HDL Cholesterol 48 > OR = 40 mg/dL [facility] LDL Cholesterol 105(H) mg/dL (calc) [facility] Comment: Reference range: <100 ?? Desirable range <100 mg/dL for primary prevention; ?? <70 mg/dL for patients with CHD or diabetic patients ?? with > or = 2 CHD risk factors. ?? LDL-C is now calculated using the Sebas ?? calculation, which is a validated novel method providing ?? better accuracy than the Friedewald equation in the ?? estimation of LDL-C. ?? Isael INMAN et al. ADOLPH. 2013;310(19): 5365-8586 ?? (http://education.Thinkful/faq/EWA330) Non-HDL Cholesterol 128 <130 mg/dL (calc) [facility] Comment: For patients with diabetes plus 1 major ASCVD risk ?? factor, treating to a non-HDL-C goal of <100 mg/dL ?? (LDL-C of <70 mg/dL) is considered a therapeutic ?? option. Triglycerides 136 <150 mg/dL [facility] 12/02/2020 3:53 PM EDT Jason Zendejas MD LAB BLOOD ORDERABL ES Final Result [facility] [address] [place] [address], * Colonoscopy (12/31/2016) Colonoscopy Normal Normal Narrative Radha Mejia - 12/31/2016 Recommended 10 year follow up Historical Provider HEALTH MAINTENANCE Final Result from Last 3 Months or Most Recently Relevant to Health Maintenance Insurance [facility]
--- OUTSIDE RECORDS SUMMARY | 2024-07-05 15:30 | XMS_ITS | Encounter Summary ---
Author Organization [employer] Address [address] [place] [address] [address] [place] [address] Care Team Providers Care Artificial Breeding Technician Name Role Phone Unavailable Primary Care Provider Unavailabl e Reason for Visit * Reason Comments Med Refill Encounter Details Date Type Department Care Team ([facility] st Contact Info) Description 06/08/2023 Refill [facility]S [address] [place] [address] Radha Weber MD [address] [place] [address] Social History Tobacco Use Types Packs/Day Years [...]
--- OUTSIDE RECORDS SUMMARY | 2024-07-05 15:30 | XMS_ITS | Encounter Summary ---
Author Organization [employer] Address [address] [place] [address] 7 [place] [address] Care Team Providers Care Casing Operator Name Role Phone Unavailable Primary Care Provider Unavailabl e Reason for Visit * Reason Comments Med Refill Encounter Details Date Type Department Care Team (Late st Contact Info) Description 07/10/2023 Refill [facility] [address] [place] [address] Radha Weber MD [address] [place] [address] Social History Tobacco Use Types Packs/Day Years [...]
--- OUTSIDE RECORDS SUMMARY | 2024-07-05 15:30 | XMS_ITS | Encounter Summary ---
Author Organization [employer] Address [address] [place] [address] [address] [place] [address] Care Team Providers Care Computer Systems Architect Name Role Phone Unavailable Primary Care Provider Unavailabl e Reason for Visit * Reason Comments Med Refill Encounter Details Date Type Department Care Team ([facility] st Contact Info) Description 10/14/2023 Refill [facility] PEDS [address] [place] [address] Radha Weber MD [address] [place] [address] Vitamin deficiency Social History Tobacco Use Types Packs/Day Years [...] Diagnoses Diagnosis Vitamin deficiency Unspecified vitamin deficiency documented in this encounter
--- OUTSIDE RECORDS SUMMARY | 2024-07-05 15:30 | XMS_ITS | Encounter Summary ---
Author Organization [facility] Address [address] [place] [address] Care Team Providers Care Orthotic And Prosthetic Technician Name Role Phone Lewis CarterP-Samira Primary Care Provider [phone] Encounter Details Date Type Department Care Team (Late Contact Info) Description 01/23/2015 Interim Notes [facility] [address] [place] [phone] Corina Arango NP [address] [place], [place] [id number] Social History Tobacco Use Types Packs/Day Years [...] Description 07/12/2024 3:00 PM EST Office Visit [address] [phone] Lewis Carter FNP-C [facility] [place], [place] [phone] 08/08/2024 3:00 PM EDT Office Visit [address] [phone] Juwan العلي PharmD [address] [place] [address] documented as of this encounter Visit Diagnoses Not on filedocumented in this encounter Care Teams Orthotic And Prosthetic Technician Relationship Specialty Start Date End Date Lewsi Carter FNP-C [address] [place] [address] PCP - General Internal Medicine 04/30/23 documented as of this encounter
--- OUTSIDE RECORDS SUMMARY | 2024-07-05 15:30 | XMS_ITS | Encounter Summary ---
Author Organization [facility] Address [address] [place] [address] Care Team Providers Care Salesperson Surgical Appliances Name Role Phone Lewis Carter PLASTICS AND COMPOSITES INSPECTOR-C Primary Care Provider [phone] Encounter Details Date Type Department Care Team ([facility] st Contact Info) Description 02/11/2024 Interim Notes [facility] [address] [place] [phone] Lewis Carter FNP-C [address] [place] [address] Social History Tobacco Use Types Packs/Day Years Used Date Smoking Tobacco: Never Smokeless Tobacco: Never Alcohol Use Standard Drinks/Week Comments Yes 0 (1 standard drink = 0.6 oz pur e alcohol) pt drinks occassionally Social Connections Answer Date Recorded Connectedness 0 01/27/2024 Financial Resource Strain Answer Date R ecorded Financial Resource Strain 0 2018 Stress Answer Date Recorded Stress 0 01/03/2019 Physical Activity Answer Date Recorded Physical Activity 0 01/03/2019 Food Insecurity Answer Date Recorded Food 0 02/10/2024 Transportation Needs Answer Date Record ed Transportation 0 01/03/2019 Housing Stability Answer Date Recorded Housing 0 01/03/2019 Safety and Environment Answer Date Adarsh rded Safety 0 01/03/2019 Utilities Answer Date Recorded Utilities 0 01/03/2019 Employment Answer Date Recorded Stress 0 01/27/2024 Sex and Gender Information Value Date Recorded Sex Assigned at Male 03/05/2017 1:12 PM PDT Legal Sex Male 6:28 AM PDT Gender Identity Male 03/05/2017 1:12 PM PDT Sexual Orientation Choose not to disclose 2016 1:12 PM PDT Occupation Industry Job Start Date Job End Date disabled Not on file Not on file Not on file documented as of this encounter Plan of Treatment Upcoming Encounters Date Type Department Care Team (Late st Contact Info) Description 07/12/2024 3:00 PM EST Office Visit [address] [phone] Lewis Carter FNP-C [address] [place] [address] 08/08/2024 3:00 PM EDT Office Visit [address] [phone] Juwan العلي, PharmD [address] [place] [address] documented as of this encounter Visit Diagnoses Not on filedocumented in this encounter Additional Health Concerns Assessment Noted Time PHQ-9 Depression Total Score: 18 023 10:09 AM PST documented as of this encounter Care Teams Salesperson Surgical Appliances Relationship Specialty Start Date End Date Lewis Carter FNP-C [address] [place] [address] PCP - General Internal Medicine 04/30/23 documented as of this encounter
--- OUTSIDE RECORDS SUMMARY | 2024-07-05 15:30 | XMS_ITS | Encounter Summary ---
Author Organization [facility] Address [address] [place] [address] Care Team Providers Care Diesel Technician Mechanic Name Role Phone Lewis Carter HIGH LEAD YARDER-C Primary Care Provider [phone] Reason for Visit * Reason Comments Diabetes Mellitus Encounter Details Date Type Department Care Team (Latest Contact Info) Description 06/22/2024 3:00 PM EST Telemedicine Visit [facility] [address] [place] [phone] Juwan العلي, PharmD [address] [place] [address] Type 2 diabetes mellitus with 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, with long-term current use of insulin ([facility]) (Primary Dx); Essential hypertension, benign; Class 2 severe obesity due to excess calories with serious comorbidity and body mass index (BMI) of 38.0 to 38.9 in adult ([facility]); Medication management Social History Tobacco Use Types Packs/Day Years [...] on file documented as of this encounter Progress Notes * Juwan العلي PharmD - 06/22/2024 3:00 PM EST Images from the original note were not included. The following visit was conducted via Telephone. I educated the patient on the terms of telehealth and the patient verbally consented to this telemedicine visit. The patient was identified using their Name, and [facility] ID. I identified myself as Juwan العلي PharmD from [facility]. It was conducted in a private space to protect HIPPA sensitive information. Precautions were taken to provide confidentiality and security and patient was made aware of privacy considerations. The patients location was obtained and is [facility] home The patient was notified that the services were beingprovided from [place], [place]. The patient was notified how they can see a clinician in-person in theevent of an emergency or if otherwise needed. Visit START TIME 2:46 PM EST END TIME 3:03 PM JHOANA Foster is a 63 year old, [place]raltarian-speaking male who presents today for a follow-up visit inDiabetes/HTN Clinic with Juwan العلي PharmD. Referred by ANIKET Felder. No interpreter translator needed for today's visit as patient speaks [place]. Accompanied by: None Subjective: Patient reports: Patient reports doing well, endorses proper use of medications, and denies any issues today. Patient bolusing once per day, states they are under a lot of stress helping their mother, has trouble with doing more bolueses. Patient has been setting reminders on Charla to keep up with medications. Denies changes to exercise and diet as they are busy taking care of their mother. Patient interested in following with hide inspector yanick got appt. Patient reports they are feeling under the weather for the last few days but is doing ok. Agreeable to come to come in to complete lab work. New concerns: None Tobacco Use: Never Smoker Tobacco Intervention:provided tobacco cessation counseling Alcohol Use: No alcohol use Additional OTC medications or supplements: None Specialists managing DM/HTN: None Diabetes Current Diabetes RX: Novolog with Omnipod pump Last foot exam: 04/30/23, follows with manager strategy & account. Last eye exam: 01/21/24 at [facility] stating mild nonprolifertaive diabetic retinopathy in the right eye. Exercise/Physical activity: minimal exercise: walking and active taking care of their mother. Diet: Patient denies eating rice and limits other carbs. Eats some meats, vegetables, and fruits. Patient has been trying to be more mindful of diet but requests further help with hide inspector. Stopped soda drinks occasional juice, and drinks a lot of water. CGM Metrics: SMBG (CGM: Omnipod 5 w/ Dexcom G6) Hypoglycemic events in the last 2 weeks: No, patient able to convey proper hypoglycemic treatment. HTN Current HTN RX: Amlodipine 5mg once daily Furosemide 20mg 1/2 tab once daily Lisinopril 20mg once daily Patient reports possession of blood pressure monitor at home, although denies current use due to forgetting BP Readings: BP during visit 154/81mmHg and 141/72mmHg. First reading elevated as patient states they had cuff on incorrectly. Objective: Allergies reviewed: No Known Allergies Smoking Status Never Last 3 BP Readings: Date: BP: 05/11/2024 134/74 04/27/2024 139/86 02/23/2024 150/82 Wt Readings from Last 3 Encounters: 05/11/24 240 lb 3.2 oz (109 kg) 04/27/24 237 lb (107.5 kg) 02/23/24 242 lb 8.1 oz (110 kg) Lab Results Component Value Date HGBA1C 11.6 (H) 02/15/2024 HGBA1C 11.3 (H) 09/28/2023 HGBA1C 7.8 (H) 04/30/2023 Lab Results Component Value Date GLUCOSE 190 (A) 05/11/2024 GLUCFAST 73 12/03/2020 EAG 146 08/01/2020 Lab Results Component Value Date MICRALBCREAT 9.0 02/14/2020 URALBCREAT 3 04/30/2023 No results found for: VITB12 , FOLATE Lab Results Component Value Date NA 136 04/27/2024 K 3.6 04/27/2024 BUN 13 04/27/2024 BUNCREAT 19 04/27/2024 CREATININE 0.68 (L) 04/27/2024 EGFR 104 04/27/2024 Estimated Creatinine Clearance: 129.6 mL/min (A) (by C-G formula based on SCr of 0.68 mg/dL (L)). Lab Results Component Value Date TSH 1.47 04/30/2023 Lab Results Component Value Date TRIGLYC 133 04/30/2023 CHOL 187 04/30/2023 HDL 54 04/30/2023 LDL 108 (H) 04/30/2023 CHOLHDL 3.5 04/30/2023 NONHDL 133 (H) 04/30/2023 The 10-year ASCVD risk score (Ronny BURNETT, et al., 2019) is: 22.6% Assessment: Diabetes: Poorly controlled and Need updated A1c, Slightly uncontrolled SMBG HTN: controlled ASCVD: Age 40-75 yo, DM, high ASCVD = high intensity statin recommended to reduce LDL by at least 50% (goal LDL <70 mg/dL) Plan: E11.9,Z79.4 Type 2 diabetes mellitus without complication, with long-term current use of insulin ([facility]) (primary encounter diagnosis) No changes to insulin pump today as BG drastically improving from last visit, patient to work on increasing to at least 2 boluses per day as well as continue to work on diet and excercise. Patient to complete lab work at their convenience and will assess for any needed medication adjustments. Discussed lifestyle modifications to help manage DM (Increase physical activity, weight loss, and healthy low carb diet) Discussed proper SMBG and goals and patient agreed to SMBG daily and bring readings to future appointments. PHARMACOTHERAPY for diabetes Novolog with Omnipod pump I10 Essential hypertension, benign Patient's BP at goal recommend to continue current therapy. PHARMACOTHERAPY for HTN Amlodipine 5mg once daily Furosemide 20mg 1/2 tab once daily Lisinopril 20mg once daily ASCVD: Per 2023 ADA guidelines for lipid management, continue high-intensity statin: Atorvastatin 40mg. E66.812,E66.01,Z68.38 Class 2 severe obesity due to excess calories with serious comorbidity and body mass index (BMI) of 38.0 to 38.9 in adult ([facility]) Lifestyle measures:BMI follow up plan: The patient was counseled regarding nutrition and physical activity. Counseled patient on importance of diet and lifestyle (weight loss, low-sodium (MACHADO) diet,decrease carbohydrates such as rice, bread, pasta and corn meal, and increase physical activity with at least 150 minutes of moderate physical activity per week). Z79.899 Medication management Medications reviewed and medlist updated. Referral: None [facility] Diabetes Clinic: 08/08/24 @3PM. Patient agrees with plan of care and verbalizes understanding. Questions were answered. Education: Labs due A1c and microalbumin - will review results and determine best therapy Medication Regimen: (indication, dosage, administration, storage, ADR, missing dose) BG testing and target Proper Injection Technique Healthy Eating Benefits and importance of physical activity Sign / Symptoms of Hyperglycemia / Hypoglycemia Hypoglycemia Treatment (Rule 15) Night Clerk Auditor Complications Uncontrolled Diabetes Juwan العلي PharmD, [facility] documented in this encounter Miscellaneous Notes * Patient Instructions - Juwan العلي PharmD - 06/22/2024 2:46 PM EST If you are not able to keep your appointment please call 24-48 hours before your appointment to cancel or reschedule. documented in this encounter Plan of Treatment Upcoming Encounters Date Type Department Care Team (Late st Contact Info) Description 07/12/2024 3:00 PM EST Office Visit [address] [phone] Lewis Carter FNP-C [address] [place] [id number] 08/08/2024 3:00 PM EDT Office Visit [address] [phone] Juwan العلي PharmD [address] [place] [id number] Scheduled Orders Name Type Priority Associated Diagnoses Orde r Schedule HEMOGLOBIN GLYCOSYLATED A1C Lab Routine Type 2 diabetes mellitus with 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, with long-term current use of insulin ([facility]) 1 Occurrences starting 06/22/2024 until 12/19/2024 MICROALBUMIN/CREATININE RATIO, URINE, RANDOM Lab Routine Type 2 diabetes mellitus with 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, with long-term current use of insulin ([facility]) 1 Occurrences starting 06/22/2024 until 12/19/2024 documented as of this encounter Visit Diagnoses Diagnosis Type 2 diabetes mellitus with 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, with long-term current use of insulin ([facility])- Primary Essential hypertension, benign Class 2 severe obesity due to excess calories with serious comorbidity and body mass index (BMI) of 38.0 to 38.9 in adult ([facility]) Medication management Encounter for long-term (current) use of other medications documented in this encounter Additional Health Concerns Assessment Noted Time PHQ-9 Depression Total Score: 18 023 10:09 AM PST documented as of this encounter Care Teams Diesel Technician Mechanic Relationship Specialty Start Date End Date Lewis Carter FNP-C [address] [place] [phone] PCP - General Internal Medicine 04/30/23 documented as of this encounter
--- OUTSIDE RECORDS SUMMARY | 2024-07-05 15:30 | XMS_ITS | Encounter Summary ---
Author Organization [employer] Address [address] [place] [address] [address] [place] [address] Care Team Providers Care [employer] Name Role Phone Unavailable Primary Care Provider Unavailabl e Reason for Visit * Reason Comments Med Refill Encounter Details Date Type Department Care Team ([facility] st Contact Info) Description 04/04/2024 Refill [facility] MED & PEDS [address] [place] [address] Radha Weber MD [address] [place] [address] Social History Tobacco Use Types Packs/Day Years [...]
--- OUTSIDE RECORDS SUMMARY | 2024-07-05 15:30 | XMS_ITS | Encounter Summary ---
Author Organization [employer] Address [address] [place] [address] [address] [place] [address] Care Team Providers Care Railroad Carman Name Role Phone Unavailable Primary Care Provider Unavailabl e Reason for Visit * Reason Comments Med Refill Encounter Details Date Type Department Care Team ([facility] st Contact Info) Description 09/26/2023 Refill [facility] MED & PEDS [address] [place] [address] Radha Weber MD [address] [place] [address] Vitamin deficiency Social History Tobacco Use Types [...]
--- OUTSIDE RECORDS SUMMARY | 2024-07-05 15:30 | XMS_ITS | Clinical Summary ---
Author Organization [address] [facility] Address [address] [place] [address] Phone Care Team Providers Care Engineering Technology Instructor Name Role Phone Physician, Pcp Unknown Primary Care Provider Bernie vailable Allergies No known active allergies Medications miconazole nitrate 2 % aerosol,spray Apply 1 applicator topically 1 (one) time each day. 3 Active ciclopirox (PENLAC) 8 % solution Apply daily to nails clean medication residue off of nail plate every 3 days with rubbing alcohol 2 Active ammonium lactate (LAC-HYDRIN) 12 % lotion Apply to soles of feet daily. At night wear socks to bed 2 Active amLODIPine-atorva statin (CADUET) 5-10 mg per tablet Take 1 tablet by mouth 1 (one) time each day. Active aspirin (Vazalore) 81 mg capsule Take by mouth. Activ e calcium carbonate-vitamin D3 500 mg-3.125 mcg (125 unit) tablet per tabelt Take 1 tablet by mouth 2 (two) times a day. Active cholecalciferol (VITAMIN D-3) 25 mcg (1,000 unit) capsule Take by mouth. Activ e docusate sodium (COLACE) 100 mg capsule Take 1 capsule (100 mg total) by mouth 2 (two) times a day. Active gabapentin (NEURONTIN) 300 mg capsule Take 1 capsule (300 mg total) by mouth 2 (two) times a day. Active simethicone (MYLICON) 80 mg chewable tablet Take 80 mg by mouth every 6 hours as needed. Active insulin aspart (NovoLOG FlexPen) 100 unit/mL injection pen CARTRIDGE Inject into the skin. Active lisinopriL (PRINIVIL,ZESTRIL ) 20 mg tablet Take 1 tablet (20 mg total) by mouth 1 (one) time each day. Active loratadine (CLARITIN) 10 mg tablet Take 1 tablet (10 mg total) by mouth 1 (one) time each day. Active nystatin (MYCOSTATIN) cream Apply topically 2 (two) times a day. Active omeprazole (PriLOSEC) [address] capsule Take 1 capsule (20 mg total) by mouth 1 (one) time each day. Active cyanocobalamin (VITAMIN B-12) 1,000 mcg tablet Take by mouth. Active multivit-min/iron /folic acid/K (ADULTS MULTIVITAMIN ORAL) Take by mouth. Activ e furosemide (LASIX) 20 mg tablet Take 1 tablet (20 mg total) by mouth 1 (one) time each day. Active acetaminophen (TYLENOL 8 HOUR) 650 mg 8 hr tablet Take 1 tablet (650 mg total) by mouth every 8 (eight) hours if needed. Active celecoxib (CeleBREX) 200 mg capsule Take 1 capsule (200 mg total) by mouth 1 (one) time each day. Active Encounters Date Type Department Care Team Description 05/03/2024 2:30 PM EST Office Visit Orthopedic Surgery - [address] [phone] Avtar Emanuel, DPM Ulcer of toe of left foot, limited to breakdown of skin (CMS/HCC) (Primary Dx); Dermatophytosis of nail; Pain in toe of right foot; Pain in toe of left foot; Type II diabetes mellitus with peripheral circulatory disorder (CMS/HCC); Diabetic mononeuropathy simplex (CMS/HCC); Arthritis of left ankle from Last 3 Months Social History Tobacco Use Types Packs/Day Years Used Date Smoking Tobacco: Never Smokeless Tobacco: Never Alcohol Use Standard Drinks/Week Comments Never 0 (1 standard drink = 0.6 oz pur e alcohol) Sex and Gender Information Value Date Recorded Sex Assigned at Not on file Legal Sex Male 5:44 AM EST Gender Identity Not on file Sexual Orientation Not on file Obstetrics History Last Filed Vital Signs Vital Sign Reading Time Taken Comments Blood Pressure - - Pulse - - Temperature - - Respiratory Rate - - Oxygen Saturation - - Inhaled Oxygen Concentration - - Weight 112 kg (248 lb) 05/03/2024 2:36 PM EST Height 167.6 cm (5' 5.98 ) 05/03/2024 2:36 PM ES T Body Mass Index 40.05 05/03/2024 2:36 PM EST Plan of Treatment Upcoming Encounters Date Type Department Care Team (Late st Contact Info) Description 08/01/2024 2:30 PM EDT Office Visit Orthopedic Surgery - [place] [address] [phone] Avtar Emanuel, DPM [address] [address] Health Maintenance Due Date Last Done Comments Diabetes: Annual Foot Exam 1970 Diabetes: Annual Retina Eye Exam 1970 RSV Immunization Patients 60+ Years Old (1 - Risk 60-74 years 1-dose series) 2020 HIV Screening 04/26/2022 Medicare Annual Wellness Visit 04/26/2022 Social Influencers of Health Screening 04/26/2022 COVID-19 Vaccine ( season) 2024 04/30/2023, 05/06/2021, 08/14/2020, Additional history exists Depression Screening 04/30/2024 04/30/2023 Diabetes: Annual Urine Albumin-Creatinine Ratio (uACR) 05/03/2024 04/30/2023, 01/29/2021, 02/14/2020, Additional history exists Diabetes: Blood Sugar Control Test (HGBA1C) 08/15/2024 02/15/2024, 02/16/2023 Diabetes: Annual GFR (Glomerular Filtration Rate) 04/27/2025 04/27/2024 Hypertension/CHF/CAD Annual BMP Blood Test 04/27/2025 04/27/2024 Colorectal Cancer Screening: FIT-DNA (Cologuard) 05/05/2026 05/05/2023 DTaP,Tdap,and Td Vaccines (2 - Td or Tdap) 03/01/2027 03/01/2017 Cholesterol Screening (Lipid Panel) 04/30/2028 04/30/2023, 04/30/2023, 01/29/2021, Additional history exists Zoster Vaccines Completed 06/22/2019, 02/21/2019 Hepatitis C Screening Completed 04/30/2023 Pneumococcal Vaccine: 50+ Years Completed 04/30/2023, 09/01/2018, 02/20/2016 Pneumococcal Vaccine: Pediatrics (0 to 5 Years) and At-Risk Patients (6 to 64 Years) Completed 04/30/2023, 09/01/2018, 02/20/2016 Influenza Vaccine [...] on patient's age to complete this topic MMR Vaccines Aged Out No longer eligi ble based on patient's age to complete this topic Meningococcal ACWY Vaccine Aged Out N o longer eligible based on patient's age to complete this topic Meningococcal B Vacine Aged Out No lo nger eligible based on patient's age to complete this topic RSV Immunization Patients Under 20 months Aged Out No longer eligible based on patient's age to complete this topic Varicella Vaccines Aged Out No longer eligible based on patient's age to complete this topic Insurance [id number] [place] [address] [facility] MEDIC[facility] Member Subscriber Plan / Payer (Ef fective 2014-Present) Name:Jose Foster Relation to Subscriber:Self Name:Jose Foster Payer ID:[id number] Group ID:[id number] Type:Not on file Address: [place] [address] [address] [id number] Care Teams Engineering Technology Instructor Relationship Specialty Start Date End Date Physician, Pcp Unknown PCP - General 04/20/24
--- OUTSIDE RECORDS SUMMARY | 2024-07-05 15:30 | XMS_ITS | Clinical Summary ---
Author Organization [facility] Address [address] [place] [address] Care Team Providers Care Magnetic Prospector Name Role Phone Lewis Carter CHILDREN'S CHOIR DIRECTOR-C Primary Care Provider [phone] Source Comments PLEASE NOTE, if this patient is a minor, it may be UNLAWFUL to discuss sensitive information that is contained in these records (such as FAMILY PLANNING, MENTAL HEALTH or SUBSTANCE ABUSE) with the minor patient's parent or other person without the patient's specific authorization.[facility] Allergies No known active allergies Medications aspirin [address] tablet Take 81 mg by mouth once daily 020 Active lljzlawd-ftq-us rrous fumarate 15 mg iron tab Take 1 Tablet by mouth once daily Per MOON JORDAN 021 Active lancets (MICROLET LANCET)Indicati ons:Insulin dependent type 2 diabetes mellitus, uncontrolled,In sulin pump in place TEST BLOOD SUGARS 7 TIMES DAILY ON INSULIN INFUSION PUMP AND SENSOR E11.65 MICROLET LANCETS 300 Each 11 021 Active CALCIUM 500 WITH D 500 mg(1,250mg) -400 unit tablet TAKE 1 TABLET BY MOUTH EVERY 2 DAYS Authorized by: MOON JORDAN 021 Active celecoxib (CELEBREX) 200 mg capsule 04/18/2021 CELECOXIB?CAP 200MG 60.00 Each 2 30 Unit Strength: 200 Authorized by: TAMIKA ESCALANTE 021 Active cyanocobalamin, vitamin B-12, 1,000 mcg TbER 02/27/2021 [facility] VIT B-12 TR 1,000 MCG TAB 90.00 Each 5 90 Authorized by: JAMIL LOPEZ 021 Active fluticasone propionate (FLONASE) 50 mcg/actuation nasal spray 03/18/2021 FLUTICASONE PROP 50 MCG SPRAY 48.00 g 11 90 Authorized by: JAMIL LOPEZ Active blood-glucose meter,continuou s (DEXCOM G6 CARPENTER REFRIGERATOR) miscIndications :Type 2 diabetes mellitus with hyperglycemia, with long-term current use of insulin ([facility]) 1 Each by miscellaneous route continuously 1 Each 023 Active blood sugar diagnostic (CONTOUR NEXT TEST STRIPS) stripsIndicatio ns:Type 2 diabetes mellitus with hyperglycemia, with long-term current use of insulin ([facility]) Check blood sugar 7 times daily on insulin infusion pump and sensor 300 Each 023 Active MISCELLANEOUS MEDICAL SUPPLY MISCIndications :Impairment of balance,History of falling by miscellaneous route daily. Dispense 1 electronic lift chair. Need lifetime. 1 Each 024 Active OMNIPOD 5 G6 PODS, GEN 5, crtgIndications :Type 2 diabetes mellitus with hyperglycemia, with long-term current use of insulin ([facility]) Inject 1 Each into the skin every 3 (three) days 15 Each 024 Active methocarbamoL (ROBAXIN) 500 mg tabletIndicatio ns:Rib pain on right side TAKE 1 TABLET BY MOUTH THREE TIMES A DAY NEEDED FOR PAIN 30 Tablet 1 024 Active MISCELLANEOUS MEDICAL SUPPLY MISCIndications :Type 2 diabetes mellitus with hyperglycemia, with long-term current use of insulin ([facility]),Impai rment of balance,History of falling by miscellaneous route daily Please dispense 1 cane for lifetime use for hx of type 2 diabetes and gait instability 1 Each 024 Active PETROLATUM ointmentIndicat ions:Type 2 diabetes mellitus with hyperglycemia, with long-term current use of insulin ([facility]),Dry skin APPLY TOPICALLY TWICE A DAY 454 g 2 024 Active blood-glucose sensor (DEXCOM G6 SENSOR) deviIndications :Type 2 diabetes mellitus with hyperglycemia, with long-term current use of insulin ([facility]) 1 Each by miscellaneous route every 10 (ten) days 9 Each 3 Active blood-glucose transmitter (DEXCOM G6 TRANSMITTER) deviIndications :Type 2 diabetes mellitus with hyperglycemia, with long-term current use of insulin ([facility]) 1 Each by miscellaneous route every 3 (three) months 1 Each 3 Active atropine 1 % ophthalmic solution Authorized by: STACY RODRIGUEZ Active moxifloxacin (VIGAMOX) 0.5 % ophthalmic solution Authorized by: STACY RODRIGUEZ Active prednisoLONE acetate (PRED-FORTE) 1 % ophthalmic suspension Authorized by: STACY RODRIGUEZ Active MISCELLANEOUS MEDICAL SUPPLY MISCIndications :Type 2 diabetes mellitus with hyperglycemia, with long-term current use of insulin ([facility]),Mixed urge and stress incontinence by miscellaneous route daily Please dispense 1 pair of diabetic shoes with customized foot inserts for lifetime use, hx of diabetic feet and Type II diabetes mellitus 2 Each 1 Active MISCELLANEOUS MEDICAL SUPPLY MISCIndications :Type 2 diabetes mellitus with hyperglycemia, with long-term current use of insulin ([facility]),Mixed urge and stress incontinence by miscellaneous route once daily as needed (mixed incontinence) L adult pull ups for hx of mixed incontinence, 8 per day for 30 days per month, use 99 years 240 Each 11 Active zinc oxide 40 % ointIndications :Type 2 diabetes mellitus with hyperglycemia, with long-term current use of insulin ([facility]),Mixed urge and stress incontinence Apply 1 Application topically once daily as needed (apply with each diaper change) 397 g 2 Active INCRUSE ELLIPTA 62.5 mcg/actuation dsdv Inhale 1 Puff into the lungs daily. 30 Each 2 Active albuterol HFA 90 mcg/actuation inhaler Inhale 2 Puffs into the lungs every 4 (four) hours as needed for shortness of breath 18 g 2 Active amLODIPine (NORVASC) 5 mg tablet Take 1 Tablet by mouth once daily 90 Tablet 1 Active loratadine (CLARITIN) 10 mg tablet Take 1 Tablet by mouth once daily as needed for allergies for up to 90 days 90 Tablet 1 024 Active furosemide (LASIX) 20 mg tablet Take 0.5 Tablets by mouth once daily 45 Tablet 1 024 Active atorvastatin (LIPITOR) 40 mg tablet Take 1 Tablet by mouth nightly at bedtime 90 Tablet 1 024 Active ALCOHOL PREP PADS Apply topically USE 1 PAD TO CLEAN SKIN DAILY 100 Each 2 024 Active MISCELLANEOUS MEDICAL SUPPLY MISCIndications :Type 2 diabetes mellitus without complication, without long-term current use of insulin ([facility]),Mixed urge and stress incontinence Please dispense ALOE wipes without alcohol, 8 wipes per day for lifetime use, for hx of type II diabetes and incontinence 200 Each 11 024 Active MISCELLANEOUS MEDICAL SUPPLY MISCIndications :Gout of left foot, unspecified cause, unspecified chronicity Knee scooter placed on [facility] 1 Each 024 Active omeprazole (PRILOSEC) [address] capsule TAKE 1 CAPSULE BY MOUTH EVERY DAY BEFORE A MEAL 90 Capsule 4 024 Active indomethacin (INDOCIN) 50 mg capsule TAKE 1 CAPSULE (50 MG TOTAL) BY MOUTH 2 (TWO) TIMES A DAY WITH MEALS FOR 15 DAYS Authorized by: SIERRA CAMACHO 024 Active OMNIPOD 5 G6-G7 PODS, GEN 5, crtg INJECT 1 EACH INTO THE SKIN EVERY 3 (THREE) DAYS Authorized by: CLAUDINE GRAVES 024 Active lisinopriL 20 mg tablet Take 1 Tablet by mouth once daily 90 Tablet 1 024 Active NOVOLOG U-100 INSULIN ASPART 100 unit/mL injectionIndica tions:Insulin pump in place USE IN CONTINUOUS INSULIN INFUSION PUMP UP TO 60 UNITS DAILY (DISCARD VIAL 28 DAYS AFTER FIRST USE) NEEDS APPT FOR FURTHER REFILLS 50 mL 3 025 Active acetaminophen (TYLENOL 8 HOUR) 650 mg CR tablet TAKE 1 TABLET BY MOUTH EVERY 8 HOURS NEEDED FOR PAIN 90 Tablet 1 025 Active ketorolac (ACULAR) 0.5 % ophthalmic solution See Admin Instructions PLEASE SEE ATTACHED FOR DETAILED DIRECTIONS Authorized by: MEL SCHROEDER 025 Active gabapentin (NEURONTIN) 400 mg capsule TAKE 1 CAPSULE BY MOUTH 3 TIMES DAILY. 90 Capsule 11 025 Active acetaminophen (TYLENOL 8 HOUR) 650 mg CR tablet TAKE 1 TABLET BY MOUTH EVERY 8 HOURS NEEDED FOR PAIN 90 Tablet 1 024 2024 Discontinued Active Problems Problem Noted Date Diagnosed Date Mixed urge and stress incontinence 03/29/2024 Class 2 severe obesity due t o excess calories with serious comorbidity and body mass index (BMI) of 38.0 to 38.9 in adult ([facility]) 02/15/2024 History of gastric bypass 04/30/2023 Chronic back pain 01/28/2018 Obstructive sleep apnea syndrome 01/28/2018 Osteoarthritis involving mul tiple joints on both sides of body 01/28/2018 Difficulty swallowing 03/11/2015 Overview (03/11/2015): CR UGI with Air done on 02/25/2015 at [facility]- Impression: Spontaneous severe GERD. Tiny hiatal hernia. Normal Esophageal motility. 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, with long-term current use of insulin ([facility]) 11/16/2012 Overview (04/30/2023): Lab Results Component Value Date HGBA1C 9.0* 10/25/2015 HGBA1C 8.1* 01/18/2015 HGBA1C 7.9* 09/06/2014 Mala aparicio- appt 01/02 Hyperlipidemia 11/16/2012 Overview (04/30/2023): No results found for: LDL Lab Results Component Value Date PROTEIN 7.1 01/18/2015 AST 20 01/18/2015 ALT 24 01/18/2015 ALKPHOS 133* 01/18/2015 BILI 0.2 01/18/2015 lipitor 40 no lipid in chart Insulin pump in place 11/16/2012 Essential hypertension, benign 11/11/2012 Overview (12/27/2015): Last 3 BP Readings: Date: BP: 12/20/2015 118/82 12/06/2015 126/60 11/22/2015 132/76 Lisinopril 20 Goal < or = to 130/80 mmHg Asthma 11/11/2012 Overview (04/30/2023): Pro air and spiriva- former smoker Gastroesophageal reflux disease 11/11/2012 Overview (04/30/2023): ugi 02/25/15 see difficulty swallowing below No on PPI H/O carpal tunnel repair 11/11/2012 S/P rotator cuff repair 11/11/2012 Resolved Problems Problem Noted Date Diagnosed Date Resolved Date Rhinitis, chronic 10/16/2013 04/30/2023 Encounters Date Type Department Care Team Description 06/22/2024 3:00 PM EST Telemedicine Visit [address] [phone] Juwan العلي, PharmD Type 2 diabetes mellitus with 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) (Primary Dx); Essential hypertension, benign; Class 2 severe obesity due to excess calories with serious comorbidity and body mass index (BMI) of 38.0 to 38.9 in adult ([facility]); Medication management 05/11/2024 3:20 PM EST Office Visit [address] [address] Juwan العلي, PharmD Controlled type 2 diabetes mellitus without complication, unspecified whether senior living insulin use ([facility]) (Primary Dx); Essential hypertension, benign; Class 2 severe obesity due to excess calories with serious comorbidity and body mass index (BMI) of 38.0 to 38.9 in adult ([facility]); Medication management 05/11/2024 Travel 04/27/2024 9:20 AM EST Office Visit [address] [phone] Child, SHARON Bee Foot ulceration, left, limited to breakdown of skin ([facility]) (Primary Dx) 04/27/2024 Interim Notes [facility] [address] [place] [address] Rosemarie Virk RN 04/27/2024 Travel from Last 3 Months Immunizations Name Administration Dates Next Due Flu, Multi Dose 0.5 ML 02/20/2016 Flu, Preservative Free 01/28/2023,2019,02/17/2019,09/01,02/16/2017,06/11/2015 Influenza (FLUBLOK),recombinant,injectable,prese rvative Free 02/15/2024 Moderna COVID-19 (Spikevax), Mrna, Lnp-s, Pf, 50 Mcg/0.5 Ml, 12yr+ 04/30/2023 Moderna COVID-19 Vaccine, re d cap blue label, 12+ Primary Series 05/06/2021,08/14/2020,07/17/2020 PNEUMOCOCCAL CONJUGATE PCV 2 0 (Prevnar) 04/30/2023 PNEUMOCOCCAL POLYSACCHARIDE PPV23 09/01/2018,10/2015 TDAP 03/01/2017 ZOSTER VACCINE, RECOMBINANT (SHINGRIX) 0,02/21/2019 Family History Medical History Relation Name Comments Diabetes Brother pills Diabetes Father insulin - coma- age 72 Arthritis Mother Diabetes Mother pills Heart Problems Mother cardiac cath Diabetes Sister 1 pills Diabetes Sister 2 insulin Diabetes Sister 3 pill Relation Name Status Comments Brother Alive Father Mother Alive Sister 1 Alive Sister 2 Alive Sister 3 Alive Sister 4 Alive Social History Tobacco Use Types Packs/Day Years [...] file Not on file Not on file Last Filed Vital Signs Vital Sign Reading Time Taken Comments Blood Pressure 134/74 05/11/2024 3:33 PM EST Pulse 54 05/11/2024 3:33 PM EST Temperature 36.7 ??C (98.1 ??F) 05/11/2024 3:33 PM ES T Respiratory Rate 16 05/11/2024 3:33 PM EST Oxygen Saturation 98% 05/11/2024 3:33 PM EST Inhaled Oxygen Concentration - - Weight 109 kg (240 lb 3.2 oz) 05/11/2024 3:33 PM EST Height 167.6 cm (5' 6 ) 04/27/2024 8:53 AM EST Body Mass Index 38.77 04/27/2024 8:53 AM EST Plan of Treatment Upcoming Encounters Date Type Department Care Team (Late st Contact Info) Description 07/12/2024 3:00 PM EST Office Visit [address] [phone] Lewis Carter FNP-C [address] [place] [address] 08/08/2024 3:00 PM EDT Office Visit [address] [phone] Antil, Juwan, PharmD [address] [place] [address] Health Maintenance Due Date Last Done Comments Dental Examination 1960 Hepatitis B Screening 1960 Imm-Hepatitis A (1 of 2 - Ri sk 2-dose series) 11/30/1979 CT Colonography 2005 Colonoscopy 2005 Flexible Sigmoidoscopy 2005 Imm-Hepatitis B (1 of 3 - Ri sk 3-dose series) 2020 [id number] ( season) 2024 04/30/2023, 05/06/2021, 08/14/2020, Additional history exists Diabetes Foot Exam 04/30/2024 04/30/2023, 04/30/2023 Diabetes Microalbumin (w/Creatinine) 04/30/2024 04/30/2023, 01/29/2021, 02/14/2020, Additional history exists HIV Screening 04/30/2024 04/30/2023 Lipid Screening 04/30/2024 04/30/2023, 01/15, 12/02/2020, Additional history exists Medicare Annual Wellness Visit 04/30/2024 04/30/2023 Syphilis Screening 04/30/2024 04/30/2023 FIT/gFOBT 05/05/2024 05/05/2023 Depression Annual Screen 05/17/2024 04/30/2023 Diabetes HbA1c 05/17/2024 02/15/2024, 09/14, 04/30/2023, Additional history exists Retinopathy Screening 01/20/2025 01/21/2024 , 12/08/2023, 12/08/2023 Tobacco Screening 02/14/2025 02/15/2024, 04/30/2023 Serum Creatinine 04/27/2025 04/27/2024, , 05/25/2022, Additional history exists Colorectal Cancer Screening 05/05/2026 Fecal DNA 05/05/2026 05/05/2023, 05/05/2023 Imm-DTaP/Tdap/Td (2 - Td or Tdap) 03/01/2027 017 Imm-Zoster, Recombinant Completed 06/22/2019, 02/21 Hepatitis C Screening Completed 04/30/2023 Imm-Pneumococcal Completed 04/30/2023, , 02/20/2016 Imm-Influenza Completed 02/15/2024, 01/15, 03/12/2020, Additional history exists Alcohol and Drug Screen Completed 06/22/19, 04/30/2023, 07/23/2020 Procedures Procedure Name Priority Date/Time Associated Diagnosis Comments REFERRAL SCANNED DOCUMENT 06/01/2024 3:00 AM EST OTHER ORDERS SCANNED DOCUMENT 05/12/2024 3:00 AM EST GLUCOSE, BLOOD BY GLUCOSE MONITORING DEVICE (CLIA WAIVED)POCT Routine 05/11/2024 3:40 PM EST Controlled type 2 diabetes mellitus without complication, unspecified whether senior living insulin use ([facility]) XR FOOT LEFT Urgent 04/27/2024 1:34 PM EST Foot ulceration, left, limited to breakdown of skin ([facility]) BLOOD COUNT COMPLETE AUTOMATED Routine 04/27/2024 9:12 AM EST Foot ulceration, left, limited to breakdown of skin ([facility]) COMPREHENSIVE METABOLIC PANEL Routine 04/27/2024 9:12 AM EST Foot ulceration, left, limited to breakdown of skin ([facility]) IMAGING SCANNED DOCUMENT 04/27/2024 3:00 AM EST OTHER ORDERS SCANNED DOCUMENT 04/11/2024 3:00 AM EST PROCEDURE SCANNED DOCUMENT 04/11/2024 3:00 AM EST HEMOGLOBIN GLYCOSYLATED A1C Routine 02/15/2024 4:16 PM EDT Type 2 diabetes mellitus with hyperglycemia, with long-term current use of insulin ([facility]) EYE EXAM 01/21/2024 3:00 AM EDT HIV 1/2 AG & AB W/RFLX (4TH GEN) Routine 04/30/2023 10:31 AM EST Routine general medical examination at a health care facility RPR (MONITOR) W/REFL TITER Routine 04/30/2023 10:31 AM EST Routine general medical examination at a health care facility HEPATITIS C AB W/RFLX HCV RNA, QT, RT PCR Routine 04/30/2023 10:31 AM EST Routine general medical examination at a health care facility LIPID PANEL Routine 04/30/2023 10:31 AM EST Routine general medical examination at a health care facility MICROALBUMIN/CREATININ E RATIO, URINE, RANDOM Routine 04/30/2023 10:31 AM EST Routine general medical examination at a health care facility from Last 3 Months or Most Recently Relevant to Health Maintenance Results * REFERRAL SCANNED DOCUMENT (06/01/2024 3:00 AM EST) 06/01/2024 3:00 AM EST [facility] CHILDREN'S CHOIR DIRECTOR-C SCAN REFERRAL Final Res ult * OTHER ORDERS SCANNED DOCUMENT (05/12/2024 3:00 AM EST) Only the most recent of2 resultswithin the time period is included. 05/12/2024 3:00 AM EST [facility] CHILDREN'S CHOIR DIRECTOR-C SCAN OTHER ORDERS Final R esult * (ABNORMAL) GLUCOSE, BLOOD BY GLUCOSE MONITORING DEVICE (CLIA WAIVED)POCT (05/11/2024 3:40 PM EST) GLUCOSE 190(A) 70 - 100 mg/dL [facility]- BACK OFFICE POCT Capillary Blood Blood / Unknown 3:40 PM EST Juwan العلي PharmD LAB - BLOOD DRAW Final Resu lt [facility] POCT * XR FOOT LEFT (04/27/2024 1:34 PM EST) 04/27/2024 1:34 PM EST Impressions [facility] - 04/27/2024 4:27 PM EST IMPRESSION: 1.No overt plain radiographic signs seen to suggest osteomyelitis. 2.First MTP joint degenerative arthritis with hallux valgus. 3.Calcaneal spurs. Pranay Maddox MD Signed by Pranay Maddox MD Read by: Pranay Maddox MD Reviewed and Electronically Signed by: Pranay Maddox MD [facility] - 04/27/2024 4:27 PM EST Original Report PROCEDURE: ??XR LEFT FOOT 3 or more views INDICATION: ??Ulceration of plantar aspect of the left foot in the region of the first metatarsal. TECHNIQUE: ??Three views of the left foot. COMPARISON: ??None Available. FINDINGS: ?? There is narrowing of the first MTP joint with hallux valgus. ??There is valgus angulation of the second and third MTP joints. ??There are postsurgical changes at the base of the first proximal phalanx. ??There is evidence of a osteotomy at the head of the first metatarsal. There are no marginal erosions or periostitis. No periarticular calcifications are found. There is no chondrocalcinosis. ??There is no acute displaced fracture. There are calcaneal spurs at the insertion of the Achilles tendon and attachment of the plantar aponeurosis. There is diffuse soft tissue swelling. ??There is calcified peripheral vascular disease. Procedure Note Amelia, [facility] Provider - 04/27/2024 Original Report PROCEDURE: XR LEFT FOOT 3 or more views INDICATION: Ulceration of plantar aspect of the left foot in the region of the first metatarsal. TECHNIQUE: Three views of the left foot. COMPARISON: None Available. FINDINGS: There is narrowing of the first MTP joint with hallux valgus. There is valgus angulation of the second and third MTP joints. There are postsurgical changes at the base of the first proximal phalanx. There is evidence of a osteotomy at the head of the first metatarsal. There are no marginal erosions or periostitis. No periarticular calcifications are found. There is no chondrocalcinosis. There is no acute displaced fracture. There are calcaneal spurs at the insertion of the Achilles tendon and attachment of the plantar aponeurosis. There is diffuse soft tissue swelling. There is calcified peripheral vascular disease. IMPRESSION IMPRESSION: 1.No overt plain radiographic signs seen to suggest osteomyelitis. 2.First MTP joint degenerative arthritis with hallux valgus. 3.Calcaneal spurs. Pranay Maddox MD Signed by Pranay Maddox MD Read by: Pranay Maddox MD Reviewed and Electronically Signed by: Pranay Maddox MD Rohit Florez PA-C IMG XRAY Final Result [facility] Corporate Office [address], [address] [place] [address], [place] [phone] * BLOOD COUNT COMPLETE AUTOMATED (04/27/2024 9:12 AM EST) WHITE BLOOD CELL COUNT 7.3 3.8 - 10.8 Thousand/ uL [facility] RED BLOOD CELL COUNT 4.83 4.20 - 5.80 Million/u L [facility] HEMOGLOBIN 14.9 13.2 - 17.1 g/dL [facility] HEMATOCRIT 44.8 38.5 - 50.0 % [facility] MCV 92.8 80.0 - 100.0 fL [facility] MCH 30.8 27.0 - 33.0 pg [facility] MCHC 33.3 32.0 - 36.0 g/dL [facility] Comment: For adults, a slight decrease in the calculated MCHC value (in the range of 30 to 32 g/dL) is most likely not clinically significant; however, it should be interpreted with caution in correlation with other red cell parameters and the patient's clinical condition. RDW 12.1 11.0 - 15.0 % [facility] PLATELET COUNT 195 140 - 400 Thousand/ uL [facility] MPV 11.5 7.5 - 12.5 fL [facility] Blood Blood / Unknown 04/27/2024 9 :12 AM EST 04/27/2024 9:13 AM EST Narrative [facility] [facility] - 04/28/2024 5:59 AM EST FASTING:NO Rohit Child PA-C LAB - BLOOD DRAW Edited Resul t - Final Performing Organization Address City/[facility]/ZIP Co de Phone Number [facility] [address] [address], [place] [address] [address] * (ABNORMAL) COMPREHENSIVE METABOLIC PANEL (04/27/2024 9:12 AM EST) GLUCOSE 249(H) 65 - 139 mg/dL [facility] Comment: ?Non-fasting reference interval UREA NITROGEN (BUN) 13 7 - 25 mg/dL [facility] CREATININE (blood) 0.68(L) 0.70 - 1.35 mg/dL [facility] EGFR 104 > OR = 60 mL/min/1. 73m2 [facility] BUN/CREATININE RATIO 19 6 - 22 (calc) [facility] SODIUM 136 135 - 146 mmol/L [facility] POTASSIUM 3.6 3.5 - 5.3 mmol/L [facility] CHLORIDE 99 98 - 110 mmol/L [facility] CARBON DIOXIDE 29 20 - 32 mmol/L [facility] CALCIUM 9.1 8.6 - 10.3 mg/dL [facility] PROTEIN, TOTAL 7.0 6.1 - 8.1 g/dL [facility] ALBUMIN 4.2 3.6 - 5.1 g/dL [facility] GLOBULIN 2.8 1.9 - 3.7 g/dL (calc) [facility] ALBUMIN/GLOBULI N RATIO 1.5 1.0 - 2.5 (calc) [facility] BILIRUBIN, TOTAL 0.7 0.2 - 1.2 mg/dL [facility] ALKALINE PHOSPHATASE 129 35 - 144 U/L [facility] AST 11 10 - 35 U/L [facility] ALT 13 9 - 46 U/L [facility] Blood Blood / Unknown 04/27/2024 9 :12 AM EST 04/27/2024 9:13 AM EST Narrative [employer] [facility] - 04/28/2024 5:59 AM EST FASTING:NO Rohit HOOD-C LAB - BLOOD DRAW Final Result Performing Organization Address City/[facility]/ZIP Co de Phone Number [employer] [facility] [address] [address], [facility] [address] [place] [address] * IMAGING SCANNED DOCUMENT (04/27/2024 3:00 AM EST) 04/27/2024 3:00 AM EST Rohit Child PA-C SCAN IMAGING Final Result * PROCEDURE SCANNED DOCUMENT (04/11/2024 3:00 AM EST) 04/11/2024 3:00 AM EST Lewis Carter CHILDREN'S CHOIR DIRECTOR-C SCAN PROCEDURES Final Res ult * (ABNORMAL) HEMOGLOBIN GLYCOSYLATED A1C (02/15/2024 4:16 PM EDT) HEMOGLOBIN A1C 11.6(H) <5.7 % of total Hgb [facility] Comment: For someone without known diabetes, a hemoglobin A1c value of 6.5% or greater indicates that they may have diabetes and this should be confirmed with a follow-up test. For someone with known diabetes, a value <7% indicates that their diabetes is well controlled and a value greater than or equal to 7% indicates suboptimal control. A1c targets should be individualized based on duration of diabetes, age, comorbid conditions, and other considerations. Currently, no consensus exists regarding use of hemoglobin A1c for diagnosis of diabetes for children. ?? Blood Blood / Unknown 02/15/2024 4 :16 PM EDT 02/15/2024 4:16 PM EDT Narrative [facility] - 02/16/2024 6:01 AM EDT FASTING:NO Mathieu Malone PharmD LAB - BLOOD DRAW Final Re sult [facility] [address] [address], [facility] [address] [place] [address] * EYE EXAM (01/21/2024 3:00 AM EDT) 01/21/2024 3:0 0 AM EDT us Lewis Carter CHILDREN'S CHOIR DIRECTOR-C OTHER Edited Re sult - Final * HEPATITIS C AB W/RFLX HCV RNA, QT, RT PCR (04/30/2023 10:31 AM EST) HEPATITIS C ANTIBODY NON-REACT CARLITO NON-REACT CARLITO [facility] Comment: HCV antibody was non-reactive. There is no laboratory evidence of HCV infection. In most cases, no further action is required. However, if recent HCV exposure is suspected, a test for HCV RNA (test code 17446) is suggested. For additional information please refer to http://education.CustomMade/faq/TEH31y7 (This link is being provided for informational/ educational purposes only.) Blood Blood / Unknown 04/30/2023 1 0:31 AM EST 04/30/2023 10:31 AM EST us Lewis Carter [facility] - BLOOD DRAW Edited R esult - Final [facility] [address] [address], [place] [address] [address] * HIV 1/2 AG & AB W/RFLX (4TH GEN) (04/30/2023 10:31 AM EST) HIV AG/AB, 4TH GEN NON-REAC TIVE NON-REAC TIVE [employer] [facility] Comment: HIV-1 antigen and HIV-1/HIV-2 antibodies were not detected. There is no laboratory evidence of HIV infection. PLEASE NOTE: This information has been disclosed to you from records whose confidentiality may be protected by state law. ??If your state requires such protection, then the state law prohibits you from making any further disclosure of the information without the specific written consent of the person to whom it pertains, or as otherwise permitted by law. A general authorization for the release of medical or other information is NOT sufficient for this purpose. ?? For additional information please refer to http://education.CustomMade/faq/KZQ880 (This link is being provided for informational/ educational purposes only.) The performance of this assay has not been clinically validated in patients less than 2 years old. Blood Blood / Unknown 04/30/2023 1 0:31 AM EST 04/30/2023 10:31 AM EST [facility] - BLOOD DRAW Final Re sult Performing Organization Address [facility]/ZIP Co de Phone Number [facility] [address] [address], [place] [address] [address] * RPR (MONITOR) W/REFL TITER (04/30/2023 10:31 AM EST) RPR (MONITOR) W/REFL TITER NON-REACT CARLITO NON-REACT CARLITO [facility] Blood Blood / Unknown 04/30/2023 1 0:31 AM EST 04/30/2023 10:31 AM EST [employer] [facility] - BLOOD DRAW Final Re sult Performing Organization Address [facility] de Phone Number [facility] [address] [address], [place] [address] [address] * MICROALBUMIN/CREATININE RATIO, URINE, RANDOM (04/30/2023 10:31 AM EST) CREATININE, RANDOM URINE 140 20 - 320 mg/dL [facility] MICROALBUMIN 0.4 mg/dL [employer] [facility] Comment: Reference Range Not established MICROALBUMIN/CREA TININE RATIO, RANDOM URINE 3 <30 mcg/mg creat [facility] Comment: The ADA defines abnormalities in albumin excretion as follows: Albuminuria Category ?Result (mcg/mg creatinine) Normal to Mildly increased ?? <30 Moderately increased ? 30-299 Severely increased ? > OR = 300 The ADA recommends that at least two of three specimens collected within a 3-6 month period be abnormal before considering a patient to be within a diagnostic category. Urine Urine specimen / Unknown 04/30/2023 10:31 AM EST 04/30/2023 10:31 AM EST Lewis Carter [facility] - NO BLOOD DRAW Final Result [facility] [address] [place] [id number], [place] [address] [address] * (ABNORMAL) LIPID PANEL (04/30/2023 10:31 AM EST) CHOLESTEROL, TOTAL 187 <200 mg/dL [facility] HDL CHOLESTEROL 54 > OR = 40 mg/dL [facility] TRIGLYCERIDES 133 <150 mg/dL [facility] LDL-CHOLESTEROL 108(H) 99 mg/dL (calc) [facility] Comment: Reference range: <100 Desirable range <100 mg/dL for primary prevention; ?? <70 mg/dL for patients with CHD or diabetic patients with > or = 2 CHD risk factors. LDL-C is now calculated using the Isael-Blackman calculation, which is a validated novel method providing better accuracy than the Friedewald equation in the estimation of LDL-C. Isael SS et al. ADOLPH. 2013;310(19): 3491-0930 (http://education.[employer] Box/faq/STA725) CHOL/HDLC RATIO 3.5 <5.0 (calc) [facility] NON-HDL CHOLESTEROL 133(H) <130 mg/dL (calc) [facility] Comment: For patients with diabetes plus 1 major ASCVD risk factor, treating to a non-HDL-C goal of <100 mg/dL (LDL-C of <70 mg/dL) is considered a therapeutic option. Blood Blood / Unknown 04/30/2023 1 0:31 AM EST 04/30/2023 10:31 AM EST Lewis [facility] LAB - BLOOD DRAW Final Re sult [facility] [address] [address], [facility] [address] [place] [address] from Last 3 Months or Most Recently Relevant to Health Maintenance Insurance [facility] Member Subscriber Plan / Payer (Ef fective 2014-Present) Name:Jose Foster Relation to Subscriber:Self Name:Jose Foster Payer ID:[id number] Group ID:Not on file Type:Indemnity Address: [place] [address] [place] [address] Care Teams Magnetic Prospector Relationship Specialty Start Date End Date Lewis Carter FNP-C [address] [place] [address] PCP - General Internal Medicine 04/30/23
--- OUTSIDE RECORDS SUMMARY | 2024-07-05 15:30 | XMS_ITS | Encounter Summary ---
Author Organization [employer] Address [address] [place] [address] 7 [place] [address] Care Team Providers Care Corporate Strategist Name Role Phone Unavailable Primary Care Provider Unavailabl e Reason for Visit * Reason Comments Med Refill Encounter Details Date Type Department Care Team ([facility] st Contact Info) Description 07/30/2023 Refill [facility] MED & PEDS [address] [place] [address] Radha Weber MD [address] [place] [address] Osteoarthritis involving multiple joints on both sides [...]
--- OUTSIDE RECORDS SUMMARY | 2024-07-05 15:30 | XMS_ITS | Encounter Summary ---
Author Organization [employer] Address [address] [place] [address] 7 [place] [address] Care Team Providers Care Blood Coordinator Name Role Phone Radha Weber MD Primary Care Provider [phone]- [phone] Reason for Visit * Reason Comments Med Refill Encounter Details Date Type Department Care Team ([facility] st Contact Info) Description 06/17/2022 Refill [facility]S [address] [place] [address] Radha Weber MD [address] [place] [address] Primary osteoarthritis of other site (Primary Dx) Social History Tobacco Use Types Packs/Day Years [...] as of this encounter Visit Diagnoses Diagnosis Primary osteoarthritis of other site- Primary documented in this encounter Care Teams Blood Coordinator Relationship Specialty Start Date End Date Radha Weber MD [address] [place] [address] PCP - General Internal Medicine 02/27/21 05/19/23 documented as of this encounter
--- OUTSIDE RECORDS SUMMARY | 2024-07-05 15:30 | XMS_ITS | Encounter Summary ---
Author Organization [employer] Address [address] [place] [address] 7 [place] [address] Care Team Providers Care Check Weigher Name Role Phone Radha Weber MD Primary Care Provider [phone] Encounter Details Date Type Department Care Team ([facility] st Contact Info) Description 04/23/2023 Orders Only [facility] MED & PEDS [address] [place], [place] [phone] Radha Weber MD [address] [place] [address] Screening for colon cancer (Primary Dx) Social History Tobacco Use Types [...] 3:30 PM EST Screening for colon cancer documented in this encounter Results * Cologuard?? colon cancer screening (05/05/2023 3:30 PM EST) Cologuard Result Negative Negative 05/14/20 10:44 AM EST [facility] (CLIA #:[id number]) Comment: NEGATIVE TEST RESULT. A negative Cologuard [...] screened with both Cologuard and colonoscopy. (Lindsay Tenorio. et al, N Engl J Med 2014;370(14):1286- 1297) The normal value (reference range) for this assay is negative. COLOGUARD RE-SCREENING RECOMMENDATION: Periodic colorectal cancer screening is an important part of preventive healthcare for asymptomatic individuals at average risk for colorectal cancer. ??Following a negative Cologuard result, the [place] Cancer Society and U.S. Multi-Society Task Force screening guidelines recommend a Cologuard re-screening interval of 3 years. References: [place] [employer] Society Guideline for Colorectal Cancer Screening: https://www.cancer.org/cancer/nfitm-ikoumo-hrmfle/zrlkjkijs-vqgirnkgu-vgteddu/ac s-rec ommendations.html.; Myke BURNETT, Kiley WAITE, Devin RachelK, Colorectal Cancer Screening: Recommendations for Physicians and Patients from the U.S. Multi-Society Task Force on Colorectal Cancer Screening , Am J Gastroenterology 2017; 112:3630-5193. TEST DESCRIPTION: Composite algorithmic analysis of stool [...] screened with both Cologuard and colonoscopy. (Lindsay Lynch et al, N Engl J Med 2014;370(14):5779-6872.) Cologuard may produce a false negative or false positive result (no colorectal cancer or precancerous polyp present at colonoscopy follow up). A negative Cologuard test result does not guarantee the absence of CRC or advanced adenoma (pre-cancer). The current Cologuard screening interval is every 3 years. ([place] Cancer Society and U.S. Multi-Society Task Force). Cologuard performance data in a 10,000 patient pivotal study using colonoscopy as the reference method can be accessed at the following location: www.QVPN/results. Additional description of the Cologuard test process, warnings and precautions can be found at www.[facility] [facility] [employer].com. Stool specimen (specimen) 05/05/2023 3:30 PM EST 05/08/2023 12:38 PM EST us Radha Weber MD LAB MOLECULAR DIAGNOSTICS O RDERABLES Final Result [facility] (CLIA #:[id number]) [address] [place] [address], documented in this encounter Visit Diagnoses Diagnosis Screening for colon cancer- Primary Special screening for malignant neoplasms, colon documented in this encounter Care Teams Check Weigher Relationship Specialty Start Date End Date Radha Weber MD [address] [place] [address] PCP - General Internal Medicine 02/27/21 05/19/23 documented as of this encounter
--- OUTSIDE RECORDS SUMMARY | 2024-07-05 15:30 | XMS_ITS | Encounter Summary ---
Author Organization [employer] Address [address] [place] [address] 7 [place] [address] Care Team Providers Care Motor Home Electrical Foreman Name Role Phone Radha Weber MD Primary Care Provider [phone]- [phone] Encounter Details Date Type Department Care Team ([facility] st Contact Info) Description 01/26/2023 Orders Only [facility]C MED & PEDS [address] [place] [address] Antoinette Shrestha LPN Social History Tobacco Use Types Packs/Day Years [...] on filedocumented in this encounter Care Teams Motor Home Electrical Foreman Relationship Specialty Start Date End Date Radha Weber MD [address] [place] [address] PCP - General Internal Medicine 02/27/21 05/19/23 documented as of this encounter
--- OUTSIDE RECORDS SUMMARY | 2024-07-05 15:30 | XMS_ITS | Encounter Summary ---
Author Organization [employer] Address [address] [place] [address] 7 [place] [address] Care Team Providers Care Physical Anthropologist Name Role Phone Unavailable Primary Care Provider Unavailabl e Reason for Visit * Reason Comments Med Refill Encounter Details Date Type Department Care Team ([facility] st Contact Info) Description 09/01/2023 Refill [facility] MED & PEDS [address] [place] [address] Radha Weber MD [address] [place] [address] Primary osteoarthritis of other site Social History Tobacco Use Types Packs/Day Years [...] Visit Diagnoses Diagnosis Primary osteoarthritis of other site documented in this encounter
--- OUTSIDE RECORDS SUMMARY | 2024-07-05 15:30 | XMS_ITS | Encounter Summary ---
Author Organization [employer] Address [address] [place] [address] 7 [place] [address] Care Team Providers Care Heel Nail Rasper Name Role Phone Unavailable Primary Care Provider Unavailabl e Reason for Visit * Reason Comments Med Refill Encounter Details Date Type Department Care Team (Late st Contact Info) Description 01/07/[address] [facility] MEDICINE [address] [place] [address] Radha Weber MD [address] [place] [address] Social History Tobacco Use Types Packs/Day Years [...]
[2024-07-05 15:48] LABS: MANUAL DIFF FLAG NO
[2024-07-05 15:51] LABS: Basophils Percent Auto 0.1 % (0-2); Eosinophils Percent Auto 0.1 % (0-4); Hematocrit 37.4 % (42.0-52.0); Hemoglobin 13.1 g/dl (14.0-18.0); Imm Gran Abs Auto 0.06 X10*3/uL (0.00-0.03); Imm Gran Pct Auto 0.4 % (0.0-0.4); Lymphocytes Absolute Auto 1.3 X10*3/uL (1.2-4.9); Lymphocytes Percent Auto 9.1 % (20-40); Mean Corpuscular Hemoglobin 30.9 pg (27.0-33.0); Mean Corpuscular Volume 88.2 fL (80.0-98.0); Mean Platelet Volume 10.3 fL (9.4-12.4); Monocytes Percent Auto 6.9 % (2-11); Neutrophils Absolute Auto 11.8 x10*3/uL (2.0-8.3); Neutrophils Percent Auto 83.4 % (45-73); Platelet Count 214 X10*3/uL (160-400); Red Blood Count 4.24 X10*6/uL (4.60-5.80); Red Cell Distribution Width 12.9 % (11.0-16.0); White Blood Count 14.1 X10*3/uL (4.8-10.8)
[2024-07-05 16:02] LABS: Lactic Acid 0.7 mmol/L (0.5-2.0)
[2024-07-05 16:04] LABS: Alanine Aminotransferase 17 U/L (0-40); Alkaline Phosphatase 103 U/L (39-117); Anion Gap 12 (12-20); Aspartate Amino Transferase 19 U/L (5-37); Bilirubin Total 1.1 mg/dL (0.0-1.0); Blood Urea Nitrogen 16 mg/dL (9-16); C Reactive Protein 18.16 mg/dL (< or = 0.50); Calcium 9.1 mg/dL (8.4-10.2); Carbon Dioxide 25 mmol/L (22-29); Chloride 104 mmol/L (96-108); Creatinine Clr Calc Pharmacy 138.9; Estimated Glomerular Filt Rate > 60; Glucose Random 213 mg/dL (60-115); Lipase 14 U/L (8-78); Potassium 3.9 mmol/L (3.3-5.1); Sodium 137 mmol/L (135-145); Total Protein 7.9 g/dL (6.5-8.0)
[2024-07-05 16:29] LABS: Erythrocyte Sedimentation Rate 64 MM/HR (0-15)
--- NOTE | 2024-07-05 21:46 | P.HPHOSP_ITS ---
History of Present Illness Date of Service: 07/05/24 Chief Complaint: foot infection This is a 63-year-old male with pertinent history of insulin-dependent diabetes mellitus, PHYLICIA on CPAP, hypertension, mixed hyperlipidemia, peripheral arterial disease, history of osteomyelitis of right foot who presents to the emergency department for concerns of left foot infection. Patient states he 1st noticed his symptoms 2 days ago. His foot became warm, swollen, red and was associated with pain when walking. He has a wound at the base of his left foot which is with foul-smelling purulent drainage. He does have a history of right foot osteomyelitis and was admitted in 2021. No fever, chills, chest pain, palpitations, shortness of breath, abdominal pain, changes in urinary or bowel habits. In the emergency department, x-ray with soft tissue swelling. Patient was given empiric IV antibiotics in the ER Review of Systems 2 Constitutional: Constitutional: Reports no additional constitutional complaints Cardiovascular: Cardiovascular: Reports no additional cardiovascular complaints Respiratory: Respiratory: Reports no additional respiratory complaints Gastrointestinal: Gastrointestinal: Reports no additional gastrointestinal complaints Genitourinary: Genitourinary: Reports no additional male genitourinary complaints [facility] Medical History PAD (peripheral artery disease) Asthma Osteoarthritis Hyperlipidemia Type 2 diabetes, controlled, with peripheral neuropathy Sleep apnea Arthritis HTN (hypertension) Diabetes Family History Mother Diabetes Father Diabetes Surgical History H/O rotator cuff surgery Gastric bypass status for obesity Social History Household Members: Family Housing: Apartment Do you presently have visiting nurse or other home services: No Alcohol intake: never Patient Tobacco Use Status: Never used Tobacco Advance Directives: No Advance Directives Information Provided: Yes Do you have a plan to hurt others: No Plan service: No Current occupational status: disabled Meds Allergies Allergy/AdvReac Type Severity Reaction Status Date / Time No Known Allergies Allergy Verified 07/05/24 15:17 [No Known Allergies*] Active Medications: Current Medications Vancomycin HCl (Vancomycin/Ns) 2,000 mg in 500 mls @ 250 mls/hr IV ONCE ONE Stop: 07/05/24 23:05 Home Medications ?Medication ?Instructions ?Recorded ?Confirmed ?Last Taken ?Type acetaminophen 650 mg 1 tab PO Q8H PRN Pain (Scale Score 12/17/21 12/17/21 12/16/21 History tablet,extended release 1-3) albuterol sulfate 90 mcg/actuation 2 puff inhalation Q4H 12/17/21 12/17/21 12/16/21 History aerosol inhaler (Ventolin HFA) amlodipine 5 mg tablet 1 tab PO DAILY 12/17/21 12/17/21 12/16/21 History aspirin 81 mg tablet,delayed 1 tab PO DAILY 12/17/21 12/17/21 12/16/21 History release atorvastatin 40 mg tablet 40 mg PO BEDTIME 12/17/21 12/17/21 12/16/21 History calcium 500 mg (as 1 tab PO Q2D 12/17/21 12/17/21 12/16/21 History carbonate)-vitamin D3 10 mcg (400 unit) tablet (Calcium 500 With D) celecoxib 200 mg capsule 1 cap PO BID 12/17/21 12/17/21 12/16/21 History cholecalciferol (vitamin D3) 25 1 tab PO DAILY 12/17/21 12/17/21 12/16/21 History mcg (1,000 unit) capsule (Vitamin D3) cyanocobalamin (vitamin B-12) 1 tab PO DAILY 12/17/21 12/17/21 12/16/21 History 1,000 mcg tablet,extended release docusate sodium 100 mg capsule 1 cap PO BID PRN constipation 12/17/21 12/17/21 Unknown History fluticasone propionate 50 1 spray intranasal DAILY PRN 12/17/21 12/17/21 Unknown History mcg/actuation nasal allergies spray,suspension furosemide 20 mg tablet 0.5 tab PO DAILY 12/17/21 12/17/21 12/16/21 History gabapentin 300 mg capsule 1 cap PO BEDTIME 12/17/21 12/17/21 12/16/21 History insulin aspart U-100 100 unit/mL See Rx Instructions .Route .COMPLEX 12/17/21 12/17/21 12/16/21 History subcutaneous solution (Novolog U-100 Insulin aspart) lisinopril 20 mg tablet 1 tab PO DAILY 12/17/21 12/17/21 12/16/21 History loratadine 10 mg tablet 1 tab PO DAILY PRN allergies 12/17/21 12/17/21 Unknown History hzkmqfwwompa-ygbmhtke-pxff 1 tab PO DAILY 12/17/21 12/17/21 12/16/21 History fumarate 7.5 mg-folic acid 400 mcg tablet omeprazole 20 mg capsule,delayed 1 cap PO DAILY@0630 12/17/21 12/17/21 12/16/21 History release simethicone 80 mg chewable tablet 1 tab PO Q8H PRN gas 12/17/21 12/17/21 Unknown History (Gas Relief (simethicone)) subcutaneous insulin pump 12/17/21 12/17/21 12/16/21 History umeclidinium 62.5 mcg/actuation 1 puff inhalation DAILY 12/17/21 12/17/21 12/16/21 History blister powder for inhalation (Incruse Ellipta) Physical Exam 2 Vital Signs and Narrative: Vital Signs: Last Vital Signs Temp 98.0 F 07/05/24 15:13 Pulse 89 07/05/24 15:13 Resp 18 07/05/24 15:13 BP 135/65 07/05/24 15:13 Pulse Ox 96 07/05/24 15:13 O2 Del Method Room Air 07/05/24 15:13 BMI result Body Mass Index 38.7 Middle-aged male lying in bed in no distress Neck supple, no JVD Regular rate and rhythm, S1-S2 heard Regular breath sounds bilaterally, no wheezing or crackles appreciated Abdomen soft nontender, no guarding, no rigidity Patient is awake, alert and oriented to self, place, time and person ; no focal motor deficit Psych: Normal mood Left foot with warmth, erythema and wound present on the plantar surface with purulent drainage Skin: Other: Results Labs 07/05/24 15:28 07/05/24 15:28 Labs: Laboratory Results - last 24 hr 07/05/24 15:28 MCV 88.2 MCH 30.9 MCHC 35.0 RDW 12.9 Plt Count 214 D MPV 10.3 Immature Gran % (Auto) 0.4 Neut % (Auto) 83.4 H Lymph % (Auto) 9.1 L Terrell % (Auto) 6.9 Eos % (Auto) 0.1 Baso % (Auto) 0.1 Lymph # (Auto) 1.3 Terrell # (Auto) 1.0 Eos # (Auto) 0.0 Baso # (Auto) 0.0 Abs Immat Gran (auto) 0.06 H Absolute Neuts (auto) 11.8 H Absolute Nucleated RBC 0.000 Nucleated RBC % (auto) 0.0 ESR 64 H Anion Gap 12 Estim Creat Clear Calc 138.9 Estimated GFR > 60 Random Glucose 213 H Lactic Acid 0.7 Calcium 9.1 Total Bilirubin 1.1 H AST 19 ALT 17 Alkaline Phosphatase 103 C-Reactive Protein 18.16 H Total Protein 7.9 Albumin 4.0 Lipase 14 Imaging Radiologist's Impressions: Impressions Foot X-Ray 07/05/24 16:03 IMPRESSION: 1. Foci of soft tissue gas with soft tissue swelling surrounding the hallux. No radiographic evidence of osteomyelitis. 2. Prior bunionectomy with moderate hallux valgus. 3. Mild pes planus. Electronically signed by: Jean Worley MD 07/05/2024 04:16 PM [facility] Assessment and Plan (1) Diabetic infection of left foot: Status: Acute (2) Cellulitis of foot, left: Status: Acute Plan This is a 63-year-old male with pertinent history of insulin-dependent diabetes mellitus, PHYLICIA on CPAP, hypertension, mixed hyperlipidemia, peripheral arterial disease, history of osteomyelitis of right foot who presents to the emergency department for concerns of left foot infection. #. Left diabetic foot infection with purulent cellulitis: Will admit patient with IV vancomycin and Zosyn. No sepsis. X-ray without concerns for osteomyelitis. Obtaining MRI to delineate underlying anatomy. Wound care #. Insulin-dependent diabetes mellitus with hyperglycemia: Continue Accu-Cheks with sliding scale insulin before meals and at bedtime. #. Diabetic neuropathy: On gabapentin #. Hypertension: Continue home antihypertensives #. Mixed hyperlipidemia: On statin #. PHYLICIA: Continue CPAP at bedtime Med rec pending DVT prophylaxis: Lovenox Full code Admit as inpatient and will require two night minimum hospital stay for IV antibiotics (as above), which is not possible in a lesser acute setting. Quality Stroke Does the patient have a stroke diagnosis?: No VTE Prior VTE?: No VTE Risk Level:: Medical - moderate - high VTE Device Contraindication: Treatment Not Indicated VTE Drug Contraindication: N/A - Med Ordered
[2024-07-05] MEDS: 0.9 % Sodium Chloride 500 ML 999 ML IV (22:38)
[2024-07-05] MEDS: cefEPime HCl/D5W 2 GM/50 ML PIGGYBACK IV (22:39)
[2024-07-05] MEDS: Enoxaparin Sodium 40 MG/0.4 ML SYRINGE SUBCUT (22:39)
[2024-07-05 23:28] VITALS: BP 154/73; PULSE 73; RESP 20; TEMP 37.4; O2SAT 96
[2024-07-05] MEDS: Piperacillin Sodium/Tazobactam 4.5 GM in 0.9 % Sodium Chloride 100 ML IV (23:29)
--- NOTE | 2024-07-05 23:34 | PC.NURSE ---
20g IV access established in left AC by Tyesha Nguyen RN around 22:30 on 07/05/2024. This RN was attempting to locate the patient to obtain IV access, but patient was not in room (ED 6 [address]). The first time this RN attempted, the patient was taken to radiology for imaging. Then, while this RN was in another patient's room, I was unable to locate the patient in his bed to start IV access/treatment. This RN checked bathrooms and other common areas with no sightings of the patient. While this RN was in another room providing care, this RN witnessed the patient attempting to move an empty hospital bed himself stating if I can't get a nice bed in front of my Mom's room (ED 10), then I'm just going to do it myself . Patient insisted on moving the bed himself, but this RN discouraged it. Patient given hospital bed that was placed in front of ED 10. Provider (Sandip Mckeon NP) agreed to have the patient be near his Mom. Patient refusing to be in a regular room and continues to ambulate on his foot with an open wound to the sole of his left foot. Patient repeatedly encouraged to remain in the bed to receive treatment and promote healing. Provider requested dressing to be applied to left foot for protection. Medications infusing as ordered. Patient is being admitted, awaiting a bed assignment.
[2024-07-05] MEDS: vancomycin/NS 2,000 MG/500 ML PLAST..BAG 250 MG IV (23:58)
[2024-07-05] MEDS: 0.9 % Sodium Chloride Flush 3 ML SYRINGE IVFLUSH (23:59)
[2024-07-06] MEDS: Piperacillin Sodium/Tazobactam 4.5 GM in 0.9 % Sodium Chloride 100 ML IV ×4 (04:01→21:47)
[2024-07-06 05:05] LABS: MANUAL DIFF FLAG NO
[2024-07-06 05:06] LABS: Basophils Percent Auto 0.1 % (0-2); Eosinophils Absolute Auto 0.1 X10*3/uL (0.0-0.4); Eosinophils Percent Auto 0.7 % (0-4); Hematocrit 33.3 % (42.0-52.0); Hemoglobin 11.3 g/dl (14.0-18.0); Imm Gran Abs Auto 0.03 X10*3/uL (0.00-0.03); Imm Gran Pct Auto 0.3 % (0.0-0.4); Lymphocytes Absolute Auto 1.6 X10*3/uL (1.2-4.9); Lymphocytes Percent Auto 17.7 % (20-40); Mean Corpuscular HGB Conc 33.9 g/dl (31.0-36.0); Mean Corpuscular Hemoglobin 30.6 pg (27.0-33.0); Mean Corpuscular Volume 90.2 fL (80.0-98.0); Mean Platelet Volume 10.8 fL (9.4-12.4); Monocytes Absolute Auto 0.7 X10*3/uL (0.1-1.2); Monocytes Percent Auto 7.7 % (2-11); Neutrophils Absolute Auto 6.5 x10*3/uL (2.0-8.3); Neutrophils Percent Auto 73.5 % (45-73); Platelet Count 172 X10*3/uL (160-400); Red Blood Count 3.69 X10*6/uL (4.60-5.80); Red Cell Distribution Width 12.9 % (11.0-16.0); White Blood Count 8.9 X10*3/uL (4.8-10.8)
[2024-07-06 05:22] LABS: Anion Gap 11 (12-20); Blood Urea Nitrogen 15 mg/dL (9-16); Calcium 8.5 mg/dL (8.4-10.2); Carbon Dioxide 23 mmol/L (22-29); Chloride 107 mmol/L (96-108); Creatinine Clr Calc Pharmacy 126.8; Estimated Glomerular Filt Rate > 60; Glucose Random 280 mg/dL (60-115); Potassium 3.6 mmol/L (3.3-5.1); Sodium 137 mmol/L (135-145)
[2024-07-06] MEDS: Morphine Sulfate 4 MG/ML CARTRIDGE IVPUSH ×2 (06:09→20:30)
--- NOTE | 2024-07-06 10:13 | PHA.MEDREC ---
Pharmacy Consult ? Medication Reconciliation Pharmacy has completed the medication reconciliation. Spoke with pt at bedside to confirm medications. Pt was able to confirm medication while going through the list of medications. Pt states he is no longer on Plavix, Lasix, and smiethicone. Pt utilizes the The Omnipod 5 insulin pump and Dexcom G6 continuous glucose monitor, up to 60 units daily.
[2024-07-06] MEDS: 0.9 % Sodium Chloride Flush 3 ML SYRINGE IVFLUSH ×3 (10:54→20:30)
[2024-07-06 11:03] LABS: Glucose, Whole Blood 163 mg/dL (60-115)
[2024-07-06 11:08] VITALS: BP 127/73; PULSE 66; RESP 17; TEMP 36.7; O2SAT 94
--- NOTE | 2024-07-06 12:31 | PM.CNGS ---
History of Present Illness Consult details Consult date: 07/06/24 <Geeta Post PA-C - Last Filed: 07/06/24 14:00> Requesting physician: Cris Ellington <Geeta Post PA-C - Last Filed: 07/06/24 14:00> Narrative: Mr. Foster is a 63-year-old male with PMH of insulin-dependent diabetes mellitus, PHYLICIA on CPAP, hypertension, mixed hyperlipidemia, peripheral vascular disease who presented to the ED for concerns of left foot infection. He has a known left foot plantar ulcer that he developed in March. He has been followed by the wound care center. He was last seen a week ago. He reports he subsequently developed left foot pain with walking a few days prior to presentation followed by left foot swelling, warmth and redness. He has noticed some thin drainage from the area. Denies fever, chills, nausea, vomiting. Work up in the ED included, CBC, BMP, LFTs which was significant for a leukocytosis of 14.1, now normal. Elevated POCs. Left foot xray showed Foci of soft tissue gas with soft tissue swelling surrounding the hallux. MRI left foot pending. He was admitted to the hospitalist service for further treatment of the left foot cellulitis. He is on IV zosyn and vanco. He has history of nonhealing ulcer of right 2nd toe and treated for right foot osteomyelitis in 12/2021 and underwent angioplasty right anterior tibial artery 01/2022. He is being followed by Dr. Cardoza for his PVD. <Geeta Post PA-C - Last Filed: 07/06/24 14:00> Review of Systems Review of Systems: Yes all other systems are reviewed and are negative <Geeta Post PA-C - Last Filed: 07/06/24 14:00> [facility] Past Medical History Medical History: Medical History (Updated 07/06/24 @ 01:46 by Aletha Mckeon CNP) PAD (peripheral artery disease) Asthma Osteoarthritis Hyperlipidemia Type 2 diabetes, controlled, with peripheral neuropathy Sleep apnea Arthritis HTN (hypertension) Diabetes <SHARON Richmond Last Filed: 07/06/24 14:00> Family History Family History: Family History Mother Diabetes Father Diabetes <Geeta Post PA-C - Last Filed: 07/06/24 14:00> Surgical History Surgical History: Surgical History (Updated 07/06/24 @ 13:53 by Geeta Post PA-C) Status post left foot surgery H/O rotator cuff surgery Gastric bypass status for obesity <Geeta Post PA-C - Last Filed: 07/06/24 14:00> Social History Social History: Social History Household Members: Family Housing: Apartment Do you presently have visiting nurse or other home services: No Alcohol intake: never Patient Tobacco Use Status: Never used Tobacco Advance Directives: No Advance Directives Information Provided: Yes Do you have a plan to hurt others: No Plan service: No Current occupational status: disabled <Geeta Post PA-C - Last Filed: 07/06/24 14:00> Meds Allergies/Adverse reactions: Allergies Allergy/AdvReac Type Severity Reaction Status Date / Time No Known Allergies Allergy Verified 07/05/24 15:17 [No Known Allergies*] <Geeta Post PA-C - Last Filed: 07/06/24 14:00> Active Medications: Current Medications Acetaminophen (Acetaminophen 325 Mg Tablet) 650 mg PO Q6H PRN PRN Reason: Pain, Mild 1-3,fever,headache Albuterol Sulfate (Albuterol Sulfate 90 Mcg 8 Gm Inhaler) 2 puff INHALE Q4H PRN PRN Reason: sob Amlodipine Besylate (Amlodipine Besylate 5 Mg Tablet) 5 mg PO DAILY [facility]; Protocol Atorvastatin Calcium (Atorvastatin Calcium 40 Mg Tablet) 40 mg PO BEDTIME [facility] Calcium Carbonate (Calcium Carbonate 750 Mg Tab.Chew) 750 mg PO Q4H PRN PRN Reason: Heartburn Calcium Carbonate/Cholecalciferol (Calcium + Vitamin D 250 Mg Tablet) 250 mg PO Q48H [facility] Cyanocobalamin (Cyanocobalamin (Vitamin B-12) 1,000 Mcg Tablet) 1,000 mcg PO DAILY [facility] Dextrose (Dextrose 50 % 25 Gm/50 Ml Syringe) 25 gm IVPUSH Q15M PRN; Protocol PRN Reason: per Hypoglycemia Standing Ord. Docusate Sodium (Docusate Sodium 100 Mg Capsule) 100 mg PO BID PRN PRN Reason: constipation Enoxaparin Sodium (Enoxaparin Sodium 40 Mg/0.4 Ml Syringe) 40 mg SUBCUT Q24H [facility] Last Admin: 07/05/24 22:39 Dose: 40 mg Gabapentin (Gabapentin 400 Mg Capsule) 400 mg PO TID [facility] Glucose (Glucose Gel 15 Gm Gel..Gram.) 15 gm PO Q15M PRN; Protocol PRN Reason: per Hypoglycemia Standing Ord. Piperacillin Sod/Tazobactam (Sod 4.5 gm/ Sodium Chloride) 100 mls @ 200 mls/hr IV Q6H [facility] Last Admin: 07/06/24 10:55 Dose: 200 mls/hr Vancomycin HCl 1,250 mg/ (Sodium Chloride) 250 mls @ 166.667 mls/hr IV Q12H [facility] Lisinopril (Lisinopril 20 Mg Tablet) 20 mg PO DAILY [facility]; Protocol Magnesium Hydroxide (Milk Of Magnesia 30 Ml Oral.Susp) 30 ml PO DAILY PRN PRN Reason: Constipation Melatonin (Melatonin 3 Mg Tablet) 6 mg PO BEDTIME PRN PRN Reason: Insomnia Morphine Sulfate (Morphine Sulfate 4 Mg/Ml Cartridge) 4 mg IVPUSH Q4H PRN; Protocol PRN Reason: Pain, Severe (Pain Scale 7-10) Last Admin: 07/06/24 06:09 Dose: 4 mg Multivitamins/Vitamin C (Multivitamin Tablet) 1 tab PO DAILY [facility] Omeprazole (Omeprazole 20 Mg Capsule.Dr) 20 mg PO DAILY@0630 [facility] Ondansetron HCl (Ondansetron Hcl 4 Mg/2 Ml Vial) 4 mg IVPUSH Q8H PRN PRN Reason: Nausea and Vomiting Pharmacy Consult (Consult Rx Vancomycin Dosing) 1 each MISCELLANE DAILY PRN PRN Reason: Consult order Sodium Chloride (0.9 % Sodium Chloride Flush 3 Ml Syringe) 3 ml IVFLUSH QSHIFT [facility] Last Admin: 07/06/24 10:54 Dose: 3 ml Tiotropium [place] (Tiotropium [place] 2.5 Mcg 1 Puff/2.5 Mcg Mist.Inhal) 2 puff INHALE RDAILY [facility] Vitamin D (Cholecalciferol (Vitamin D3) 25 Mcg Tablet) 25 mcg PO DAILY [facility] <Geeta Post PA-C - Last Filed: 07/06/24 14:00> Home medications: Home Medications ?Medication ?Instructions ?Recorded ?Confirmed ?Last Taken ?Type acetaminophen 650 mg 1 tab PO Q8H PRN Pain (Scale Score 12/17/21 07/06/24 07/05/24 History tablet,extended release 1-3) albuterol sulfate 90 mcg/actuation 2 puff inhalation Q4H PRN sob 12/17/21 07/06/24 07/05/24 History aerosol inhaler (Ventolin HFA) amlodipine 5 mg tablet 1 tab PO DAILY 12/17/21 07/06/24 07/05/24 History aspirin 81 mg tablet,delayed 1 tab PO DAILY 12/17/21 07/06/24 07/05/24 History release atorvastatin 40 mg tablet 40 mg PO BEDTIME 12/17/21 07/06/24 07/05/24 History calcium 500 mg (as 1 tab PO Q48H 12/17/21 07/06/24 07/05/24 History carbonate)-vitamin D3 10 mcg (400 unit) tablet (Calcium 500 With D) celecoxib 200 mg capsule 1 cap PO BID 12/17/21 07/06/24 07/05/24 History cholecalciferol (vitamin D3) 25 1 tab PO DAILY 12/17/21 07/06/24 07/05/24 History mcg (1,000 unit) capsule (Vitamin D3) cyanocobalamin (vitamin B-12) 1 tab PO DAILY 12/17/21 07/06/24 07/05/24 History 1,000 mcg tablet,extended release docusate sodium 100 mg capsule 1 cap PO BID PRN constipation 12/17/21 07/06/24 07/05/24 History fluticasone propionate 50 1 spray intranasal DAILY PRN 12/17/21 07/06/24 07/05/24 History mcg/actuation nasal allergies spray,suspension insulin aspart U-100 100 unit/mL See Rx Instructions .Route .COMPLEX 12/17/21 07/06/24 07/05/24 History subcutaneous solution (Novolog U-100 Insulin aspart) lisinopril 20 mg tablet 1 tab PO DAILY 12/17/21 07/06/24 07/05/24 History loratadine 10 mg tablet 1 tab PO DAILY PRN allergies 12/17/21 07/06/24 07/05/24 History dithuregcscd-bwjypney-mfur 1 tab PO DAILY 12/17/21 07/06/24 07/05/24 History fumarate 7.5 mg-folic acid 400 mcg tablet omeprazole 20 mg capsule,delayed 1 cap PO DAILY@0630 12/17/21 07/06/24 07/05/24 History release subcutaneous insulin pump 12/17/21 12/17/21 07/05/24 History umeclidinium 62.5 mcg/actuation 1 puff inhalation DAILY 12/17/21 07/06/24 07/05/24 History blister powder for inhalation (Incruse Ellipta) gabapentin 400 mg capsule 400 mg PO TID 07/06/24 07/06/24 07/05/24 History <Geeta Post PA-C - Last Filed: 07/06/24 14:00> Physical Exam Vital Signs: Vital Signs: Last Vital Signs Temp 98.1 F 07/06/24 11:08 Pulse 66 07/06/24 11:08 Resp 17 07/06/24 11:08 BP 127/73 07/06/24 11:08 Pulse Ox 94 07/06/24 11:08 O2 Del Method Room Air 07/06/24 11:08 BMI result Body Mass Index 38.7 <SHARON Richmond Last Filed: 07/06/24 14:00> Const: General: comfortable, no acute distress and alert <SHARON Richmond Last Filed: 07/06/24 14:00> Orientation/consciousness: patient oriented x3 <SHARON Richmond Last Filed: 07/06/24 14:00> Resp: Effort & Inspection: normal respiratory effort <SHARON Richmond Last Filed: 07/06/24 14:00> Neuro: General: patient oriented x3 and moves all extremities <SHARON Richmond Last Filed: 07/06/24 14:00> Extrem: Other: left foot with hematoma of plantar aspect at base of big toe that tunnels down to small ulcer overlying first metatarsal with surrounding bogginess and edema, significant erythema of dorsal aspect no palpable left dorsalis pedis pulse but obtained with doppler by RN in the room <Geeta Psot PA-C - Last Filed: 07/06/24 14:00> Results Labs Result diagrams: 07/06/24 03:59 07/06/24 03:59 <Geeta Post PA-C - Last Filed: 07/06/24 14:00> Labs: Abnormal lab results 07/05/24 07/06/24 07/06/24 Range/Units 15:28 03:59 10:59 WBC 14.1 H (4.8-10.8) X10*3/uL RBC 4.24 L 3.69 L (4.60-5.80) X10*6/uL Hgb 13.1 L 11.3 L (14.0-18.0) g/dl Hct 37.4 L 33.3 L (42.0-52.0) % Neut % (Auto) 83.4 H 73.5 H (45-73) % Lymph % (Auto) 9.1 L 17.7 L (20-40) % Abs Immat Gran (auto) 0.06 H (0.00-0.03) X10*3/uL Absolute Neuts (auto) 11.8 H (2.0-8.3) x10*3/uL ESR 64 H (0-15) MM/HR Anion Gap 11 L (12-20) POC Glucose 163 H (60-115) mg/dL Random Glucose 213 H 280 H (60-115) mg/dL Total Bilirubin 1.1 H (0.0-1.0) mg/dL C-Reactive Protein 18.16 H (< or = 0.50) mg/dL Short CBC 07/05/24 07/06/24 Range/Units 15:28 03:59 WBC 14.1 H 8.9 (4.8-10.8) X10*3/uL Hgb 13.1 L 11.3 L (14.0-18.0) g/dl Hct 37.4 L 33.3 L (42.0-52.0) % Plt Count 214 D 172 (160-400) X10*3/uL BMP 07/05/24 07/06/24 15:28 03:59 Sodium 137 137 Potassium 3.9 3.6 Chloride 104 107 Carbon Dioxide 25 23 BUN 16 15 Creatinine 0.63 0.69 Calcium 9.1 8.5 D Liver Function 07/05/24 Range/Units 15:28 Total Bilirubin 1.1 H (0.0-1.0) mg/dL AST 19 (5-37) U/L ALT 17 (0-40) U/L Alkaline Phosphatase 103 (39-117) U/L Albumin 4.0 (3.5-5.0) g/dL All other labs normal. <Geeta Post PA-C - Last Filed: 07/06/24 14:00> Assessment and Plan (1) Cellulitis of foot, left: Status: Acute <Geeta Post PA-C - Last Filed: 07/06/24 14:00> (2) PAD (peripheral artery disease): Status: Acute <Geeta Post PA-C - Last Filed: 07/06/24 14:00> (3) Diabetic infection of left foot: Status: Acute <Geeta Post PA-C - Last Filed: 07/06/24 14:00> 63-year-old male with PMH of insulin-dependent diabetes mellitus, PHYLICIA on CPAP, hypertension, mixed hyperlipidemia, peripheral vascular disease admitted with left foot cellulitis with small open wound of plantar aspect extending to a hematoma distally at base of big toe. The wound is overall clean appearing and draining. No palpable fluctuance or collection to drain. Dry dressing with silver alginate packing and on open would followed by dry dressing and kerlix. Cont IV abx, f/u MRI results. Recommend vascular consult for evaluation. Cont elevation of left leg while at rest. <Geeta Post PA-C - Last Filed: 07/06/24 14:00> Procedures Date of Service Date of Service: 07/06/24 <Geeta Post PA-C - Last Filed: 07/06/24 14:00> 07/06/24 <Amilcar Lopez MD - Last Filed: 07/06/24 13:53>
[2024-07-06] MEDS: gadobutroL 10 ML VIAL IVPUSH (13:13)
--- NOTE | 2024-07-06 13:56 | HO.PM.IMPN ---
Subjective Subjective Date of Service: 07/06/24 Interval History: seen and examined this morning follow up for foot wound no fever chills, reporting pain, swelling in the left foot Review of Systems Review of Systems: Yes all other systems are reviewed and are negative Constitutional Constitutional: Denies chills and Denies fever(s) Cardiovascular Cardiovascular: Denies chest pain, Denies palpitations and Denies dyspnea Respiratory Respiratory: Denies cough and Denies dyspnea Endocrine Endocrine: Denies palpitations Physical Exam Vital Signs: Vital Signs: Last Vital Signs Temp 98.1 F 07/06/24 11:08 Pulse 66 07/06/24 11:08 Resp 17 07/06/24 11:08 BP 127/73 07/06/24 11:08 Pulse Ox 94 07/06/24 11:08 O2 Del Method Room Air 07/06/24 11:08 BMI result Body Mass Index 38.7 Const: General: cooperative, alert, awake and Physically active Nutritional Appearance: obese Orientation/consciousness: patient oriented x3 Resp: Effort & Inspection: normal respiratory effort, able to speak in complete sentences, no respiratory distress and no use of accessory muscles Cardio: Rate: regular rate GI: Inspection: No distended Palpation (GI): Soft to palpation Neuro: General: patient oriented x3, moves all extremities and CN's II-XI intact bilaterally Extrem: Other: left foot Objective Data Active Medications Acetaminophen (Acetaminophen 325 Mg Tablet) 650 mg PO Q6H PRN PRN Reason: Pain, Mild 1-3,fever,headache Albuterol Sulfate (Albuterol Sulfate 90 Mcg 8 Gm Inhaler) 2 puff INHALE Q4H PRN PRN Reason: sob Amlodipine Besylate (Amlodipine Besylate 5 Mg Tablet) 5 mg PO DAILY [facility]; Protocol Atorvastatin Calcium (Atorvastatin Calcium 40 Mg Tablet) 40 mg PO BEDTIME [facility] Calcium Carbonate (Calcium Carbonate 750 Mg Tab.Chew) 750 mg PO Q4H PRN PRN Reason: Heartburn Calcium Carbonate/Cholecalciferol (Calcium + Vitamin D 250 Mg Tablet) 250 mg PO Q48H [facility] Cyanocobalamin (Cyanocobalamin (Vitamin B-12) 1,000 Mcg Tablet) 1,000 mcg PO DAILY [facility] Dextrose (Dextrose 50 % 25 Gm/50 Ml Syringe) 25 gm IVPUSH Q15M PRN; Protocol PRN Reason: per Hypoglycemia Standing Ord. Docusate Sodium (Docusate Sodium 100 Mg Capsule) 100 mg PO BID PRN PRN Reason: constipation Enoxaparin Sodium (Enoxaparin Sodium 40 Mg/0.4 Ml Syringe) 40 mg SUBCUT Q24H [facility] Last Admin: 07/05/24 22:39 Dose: 40 mg Documented By: JULIA Gabapentin (Gabapentin 400 Mg Capsule) 400 mg PO TID [facility] Glucose (Glucose Gel 15 Gm Gel..Gram.) 15 gm PO Q15M PRN; Protocol PRN Reason: per Hypoglycemia Standing Ord. Piperacillin Sod/Tazobactam (Sod 4.5 gm/ Sodium Chloride) 100 mls @ 200 mls/hr IV Q6H [facility] Last Admin: 07/06/24 10:55 Dose: 200 mls/hr Documented By: PABLO Vancomycin HCl 1,250 mg/ (Sodium Chloride) 250 mls @ 166.667 mls/hr IV Q12H [facility] Insulin Human Lispro (Insulin Lispro 100 Unit/Ml 3 Ml Vial) 0 unit SUBCUT QIDACHS [facility]; Protocol Lisinopril (Lisinopril 20 Mg Tablet) 20 mg PO DAILY [facility]; Protocol Magnesium Hydroxide (Milk Of Magnesia 30 Ml Oral.Susp) 30 ml PO DAILY PRN PRN Reason: Constipation Melatonin (Melatonin 3 Mg Tablet) 6 mg PO BEDTIME PRN PRN Reason: Insomnia Morphine Sulfate (Morphine Sulfate 4 Mg/Ml Cartridge) 4 mg IVPUSH Q4H PRN; Protocol PRN Reason: Pain, Severe (Pain Scale 7-10) Last Admin: 07/06/24 06:09 Dose: 4 mg Documented By: NIA Multivitamins/Vitamin C (Multivitamin Tablet) 1 tab PO DAILY [facility] Omeprazole (Omeprazole 20 Mg Capsule.Dr) 20 mg PO DAILY@0630 [facility] Ondansetron HCl (Ondansetron Hcl 4 Mg/2 Ml Vial) 4 mg IVPUSH Q8H PRN PRN Reason: Nausea and Vomiting Pharmacy Consult (Consult Rx Vancomycin Dosing) 1 each MISCELLANE DAILY PRN PRN Reason: Consult order Sodium Chloride (0.9 % Sodium Chloride Flush 3 Ml Syringe) 3 ml IVFLUSH QSHIFT [facility] Last Admin: 07/06/24 10:54 Dose: 3 ml Documented By: PABLO Tiotropium [place] (Tiotropium [place] 2.5 Mcg 1 Puff/2.5 Mcg Mist.Inhal) 2 puff INHALE RDAILY [facility] Vitamin D (Cholecalciferol (Vitamin D3) 25 Mcg Tablet) 25 mcg PO DAILY [facility] Labs 07/06/24 03:59 07/06/24 03:59 Labs: Laboratory Results - last 24 hr 07/05/24 07/06/24 07/06/24 15:28 03:59 10:59 MCV 88.2 90.2 MCH 30.9 30.6 MCHC 35.0 33.9 RDW 12.9 12.9 Plt Count 214 D 172 MPV 10.3 10.8 Immature Gran % (Auto) 0.4 0.3 Neut % (Auto) 83.4 H 73.5 H Lymph % (Auto) 9.1 L 17.7 L [place] % (Auto) 6.9 7.7 Eos % (Auto) 0.1 0.7 Baso % (Auto) 0.1 0.1 Lymph # (Auto) 1.3 1.6 [place] # (Auto) 1.0 0.7 Eos # (Auto) 0.0 0.1 Baso # (Auto) 0.0 0.0 Abs Immat Gran (auto) 0.06 H 0.03 Absolute Neuts (auto) 11.8 H 6.5 Absolute Nucleated RBC 0.000 0.000 Nucleated RBC % (auto) 0.0 0.0 ESR 64 H Anion Gap 12 11 L Estim Creat Clear Calc 138.9 126.8 Estimated GFR > 60 > 60 POC Glucose 163 H Random Glucose 213 H 280 H Lactic Acid 0.7 Calcium 9.1 8.5 D Total Bilirubin 1.1 H AST 19 ALT 17 Alkaline Phosphatase 103 C-Reactive Protein 18.16 H Total Protein 7.9 Albumin 4.0 Lipase 14 Microbiology Microbiology Results: Microbiology 07/05/24 21:28 Gram Stain - Final Foot - Wound Routine Culture - Preliminary Culture in progress. Assessment and Plan (1) Cellulitis of foot, left: Status: Acute (2) Diabetic infection of left foot: Status: Acute Plan This is a 63-year-old male with pertinent history of insulin-dependent diabetes mellitus, PHYLICIA on CPAP, hypertension, mixed hyperlipidemia, peripheral arterial disease, history of osteomyelitis of right foot who presents to the emergency department for concerns of left foot infection. Left diabetic foot infection with purulent cellulitis: continue IV vancomycin and Zosyn. No sepsis. X-ray without concerns for osteomyelitis, MRI to delineate underlying anatomy seen by general surgery, rec vascular evaluation Insulin-dependent diabetes mellitus with hyperglycemia: has insulin pump, but did not bring cartridges. will turn off pump and cover with SSI follow POCs Diabetic neuropathy: Continue gabapentin Hypertension: Continue Norvasc, lisinopril Mixed hyperlipidemia: Continue statin PHYLICIA: Continue CPAP at bedtime PVD hold asa to assess need for surgery continue statin Morbid obesity BMI 38.8 Weight loss encouraged DVT prophylaxis: Lovenox Full code Requires ongoing inpatient stay for IV antibiotics and specialist evaluation and possible surgical intervention Quality Stroke Does the patient have a stroke diagnosis?: No VTE Prior VTE?: No VTE Risk Level:: Medical - moderate - high VTE Device Contraindication: Treatment Not Indicated VTE Drug Contraindication: N/A - Med Ordered
[2024-07-06 13:58] LABS: Glucose, Whole Blood 196 mg/dL (60-115)
[2024-07-06 13:58] LABS: Glucose, Whole Blood 179 mg/dL (60-115)
[2024-07-06] MEDS: vancomycin HCL 1,250 MG in 0.9 % Sodium Chloride 250 ML 166.67 MG IV (15:14)
[2024-07-06] MEDS: Gabapentin 400 MG CAPSULE PO ×2 (15:16→20:29)
[2024-07-06] MEDS: Calcium + Vitamin D 250 MG TABLET PO (15:16)
--- NOTE | 2024-07-06 15:22 | MHC.CM.PN ---
Addendum entered by Naomi House 07/06/24 16:01: Patient's preference for home care is [facility]. A referral has been sent to the agency. Original Note: IMM 07/06/24 DX L foot infection. A Surgical intervention scheduled tomorrow, 07/07/24. He lives with his Mother. CLINICAL PSYCHIATRIST 28 hrs [employer] DME: CPAP, Shower bench, grab bars, cane and walker. DP If he qualifies, he is interested in STR/BLS transport vs Home with services. He will arrange for his sister to provide transport home.
[2024-07-06 15:29] VITALS: BP 144/76; PULSE 73; RESP 18; TEMP 36.6; O2SAT 93
--- NOTE | 2024-07-06 15:35 | P.CONGS_ITS ---
<Statement entered by Blas Cardoza MD - 07/07/24 10:04> I have seen and evaluated the patient and agree with history, findings, assessment and plan documented by Brenna Bolden PA-c. History of Present Illness Consult details Consult date: 07/06/24 Narrative: We are consulted for Jose, a pleasant 63-year-old male patient for concerns of a left foot infection. He states he has been followed by the wound care clinic for this foot infection and it has been clearing up but states approximately 2-3 days ago the infection came back with increased pain and swelling. He denies any fevers or chills. He does continue on an aspirin and statin and was recently seen by this office in January after a duplex ultrasound which revealed a stable claudication. He is also status post right angiogram in 2021. He denies any injuries to the site. Review of Systems 2 Constitutional: Constitutional: Reports as per HPI and Denies weakness ENT: Reports Normal hearing present and Denies dizziness Cardiovascular: Cardiovascular: Reports as per HPI, Denies chest pain, Denies chest pain at rest, Denies chest pain with activity, Denies dyspnea and Denies dyspnea on exertion Respiratory: Respiratory: Reports as per HPI, Denies cough, Denies dyspnea and Denies dyspnea on exertion Gastrointestinal: Gastrointestinal: Reports as per HPI, Denies abdominal pain, Denies nausea and Denies vomiting Musculoskeletal: Musculoskeletal: Denies numbness Integumentary/Breasts: Skin/Breast: Reports as per HPI, Denies erythema and Denies wounds Neurologic: Reports Normal hearing present, Denies dizziness, Denies numbness, Denies Sensory deficit (Neuro) and Denies weakness Psychiatric: Psychiatric: Reports no additional psychiatric complaints Endocrine: Endocrine: Reports no additional endocrine complaints [facility] Past Medical History Medical History (Updated 07/06/24 @ 01:46 by Aletha Mckeon CNP) PAD (peripheral artery disease) Asthma Osteoarthritis Hyperlipidemia Type 2 diabetes, controlled, with peripheral neuropathy Sleep apnea Arthritis HTN (hypertension) Diabetes Family History Family History Mother Diabetes Father Diabetes Surgical History Surgical History (Updated 07/06/24 @ 13:53 by Geeta Post PA-C) Status post left foot surgery H/O rotator cuff surgery Gastric bypass status for obesity Social History Social History Household Members: Family Housing: Apartment Do you presently have visiting nurse or other home services: No Alcohol intake: never Patient Tobacco Use Status: Never used Tobacco Advance Directives: No Advance Directives Information Provided: Yes Do you have a plan to hurt others: No Plan service: No Current occupational status: disabled Meds Allergies Allergy/AdvReac Type Severity Reaction Status Date / Time No Known Allergies Allergy Verified 07/05/24 15:17 [No Known Allergies*] Active Medications: Current Medications Acetaminophen (Acetaminophen 325 Mg Tablet) 650 mg PO Q6H PRN PRN Reason: Pain, Mild 1-3,fever,headache Albuterol Sulfate (Albuterol Sulfate 90 Mcg 8 Gm Inhaler) 2 puff INHALE Q4H PRN PRN Reason: sob Amlodipine Besylate (Amlodipine Besylate 5 Mg Tablet) 5 mg PO DAILY [facility]; Protocol Atorvastatin Calcium (Atorvastatin Calcium 40 Mg Tablet) 40 mg PO BEDTIME RASHEED Calcium Carbonate (Calcium Carbonate 750 Mg Tab.Chew) 750 mg PO Q4H PRN PRN Reason: Heartburn Calcium Carbonate/Cholecalciferol (Calcium + Vitamin D 250 Mg Tablet) 250 mg PO Q48H [facility] Last Admin: 07/06/24 15:16 Dose: 250 mg Cyanocobalamin (Cyanocobalamin (Vitamin B-12) 1,000 Mcg Tablet) 1,000 mcg PO DAILY [facility] Dextrose (Dextrose 50 % 25 Gm/50 Ml Syringe) 25 gm IVPUSH Q15M PRN; Protocol PRN Reason: per Hypoglycemia Standing Ord. Docusate Sodium (Docusate Sodium 100 Mg Capsule) 100 mg PO BID PRN PRN Reason: constipation Enoxaparin Sodium (Enoxaparin Sodium 40 Mg/0.4 Ml Syringe) 40 mg SUBCUT Q24H [facility] Last Admin: 07/05/24 22:39 Dose: 40 mg Gabapentin (Gabapentin 400 Mg Capsule) 400 mg PO TID [facility] Last Admin: 07/06/24 15:16 Dose: 400 mg Glucose (Glucose Gel 15 Gm Gel..Gram.) 15 gm PO Q15M PRN; Protocol PRN Reason: per Hypoglycemia Standing Ord. Piperacillin Sod/Tazobactam (Sod 4.5 gm/ Sodium Chloride) 100 mls @ 200 mls/hr IV Q6H [facility] Last Infusion: 07/06/24 14:05 Dose: Infused Vancomycin HCl 1,250 mg/ (Sodium Chloride) 250 mls @ 166.667 mls/hr IV Q12H [facility] Last Admin: 07/06/24 15:14 Dose: 166.67 mls/hr Insulin Human Lispro (Insulin Lispro 100 Unit/Ml 3 Ml Vial) 0 unit SUBCUT QIDACHS [facility]; Protocol Lisinopril (Lisinopril 20 Mg Tablet) 20 mg PO DAILY [facility]; Protocol Magnesium Hydroxide (Milk Of Magnesia 30 Ml Oral.Susp) 30 ml PO DAILY PRN PRN Reason: Constipation Melatonin (Melatonin 3 Mg Tablet) 6 mg PO BEDTIME PRN PRN Reason: Insomnia Morphine Sulfate (Morphine Sulfate 4 Mg/Ml Cartridge) 4 mg IVPUSH Q4H PRN; Protocol PRN Reason: Pain, Severe (Pain Scale 7-10) Last Admin: 07/06/24 06:09 Dose: 4 mg Multivitamins/Vitamin C (Multivitamin Tablet) 1 tab PO DAILY [facility] Omeprazole (Omeprazole 20 Mg Capsule.Dr) 20 mg PO DAILY@0630 [facility] Ondansetron HCl (Ondansetron Hcl 4 Mg/2 Ml Vial) 4 mg IVPUSH Q8H PRN PRN Reason: Nausea and Vomiting Pharmacy Consult (Consult Rx Vancomycin Dosing) 1 each MISCELLANE DAILY PRN PRN Reason: Consult order Sodium Chloride (0.9 % Sodium Chloride Flush 3 Ml Syringe) 3 ml IVFLUSH QSHIFT [facility] Last Admin: 07/06/24 10:54 Dose: 3 ml Tiotropium [place] (Tiotropium [place] 2.5 Mcg 1 Puff/2.5 Mcg Mist.Inhal) 2 puff INHALE RDAILY [facility] Vitamin D (Cholecalciferol (Vitamin D3) 25 Mcg Tablet) 25 mcg PO DAILY [facility] Home Medications ?Medication ?Instructions ?Recorded ?Confirmed ?Last Taken ?Type acetaminophen 650 mg 1 tab PO Q8H PRN Pain (Scale Score 12/17/21 07/06/24 07/05/24 History tablet,extended release 1-3) albuterol sulfate 90 mcg/actuation 2 puff inhalation Q4H PRN sob 12/17/21 07/06/24 07/05/24 History aerosol inhaler (Ventolin HFA) amlodipine 5 mg tablet 1 tab PO DAILY 12/17/21 07/06/24 07/05/24 History aspirin 81 mg tablet,delayed 1 tab PO DAILY 12/17/21 07/06/24 07/05/24 History release atorvastatin 40 mg tablet 40 mg PO BEDTIME 12/17/21 07/06/24 07/05/24 History calcium 500 mg (as 1 tab PO Q48H 12/17/21 07/06/24 07/05/24 History carbonate)-vitamin D3 10 mcg (400 unit) tablet (Calcium 500 With D) celecoxib 200 mg capsule 1 cap PO BID 12/17/21 07/06/24 07/05/24 History cholecalciferol (vitamin D3) 25 1 tab PO DAILY 12/17/21 07/06/24 07/05/24 History mcg (1,000 unit) capsule (Vitamin D3) cyanocobalamin (vitamin B-12) 1 tab PO DAILY 12/17/21 07/06/24 07/05/24 History 1,000 mcg tablet,extended release docusate sodium 100 mg capsule 1 cap PO BID PRN constipation 12/17/21 07/06/24 07/05/24 History fluticasone propionate 50 1 spray intranasal DAILY PRN 12/17/21 07/06/24 07/05/24 History mcg/actuation nasal allergies spray,suspension insulin aspart U-100 100 unit/mL See Rx Instructions .Route .COMPLEX 12/17/21 07/06/24 07/05/24 History subcutaneous solution (Novolog U-100 Insulin aspart) lisinopril 20 mg tablet 1 tab PO DAILY 12/17/21 07/06/24 07/05/24 History loratadine 10 mg tablet 1 tab PO DAILY PRN allergies 12/17/21 07/06/24 07/05/24 History [id number]-[id number]-hmbi 1 tab PO DAILY 12/17/21 07/06/24 07/05/24 History fumarate 7.5 mg-folic acid 400 mcg tablet omeprazole 20 mg capsule,delayed 1 cap PO DAILY@0630 12/17/21 07/06/24 07/05/24 History release subcutaneous insulin pump 12/17/21 12/17/21 07/05/24 History umeclidinium 62.5 mcg/actuation 1 puff inhalation DAILY 12/17/21 07/06/24 07/05/24 History blister powder for inhalation (Incruse Ellipta) gabapentin 400 mg capsule 400 mg PO TID 07/06/24 07/06/24 07/05/24 History Physical Exam 2 Vital Signs: Vital Signs: Last Vital Signs Temp 97.9 F 07/06/24 15:29 Pulse 73 07/06/24 15:29 Resp 18 07/06/24 15:29 BP 144/76 H 07/06/24 15:29 Pulse Ox 93 07/06/24 15:29 O2 Del Method Room Air 07/06/24 15:29 BMI result Body Mass Index 38.7 Const: General: comfortable and no acute distress O rientation/consciousness: patient oriented x3 HEENT: Ears: hearing grossly normal bilaterally Resp: Effort & Inspection: normal respiratory effort and able to speak in complete sentences Auscultation: clear to auscultation bilaterally Cardio: Rate: regular rate Rhythm: regular rhythm Heart sounds: S1 normal heart sound present and S2 normal heart sound present Bruits: no abdominal aortic bruits, no carotid bruits, no femoral bruits and no renal bruits GI: Palpation (GI): No Abdominal aortic bruit present Neuro: General: patient oriented x3 Cranial nerves: Yes Normal hearing present Sensory Exam: No Sensory deficit (Neuro) Extrem: Other: Left foot: Pictures in the ER chart. Open area with pale wound bed in the ball of the foot at the base of the left great toe. Bruising/violaceous discoloration noted above the wound to the base of the great toe and in between the 1st, 2nd, and 3rd toes. Small amount of tunneling noted at the proximal area of the wounds, not deep, in the superficial tissues. Painful to palpation in the areas of the discoloration only. Unable to palpate pulses. Able to obtain Doppler DP and PT pulses. Results Labs 07/06/24 03:59 07/06/24 03:59 Labs: Abnormal lab results 07/05/24 07/06/24 07/06/24 Range/Units 15:28 03:59 10:59 WBC 14.1 H (4.8-10.8) X10*3/uL RBC 4.24 L 3.69 L (4.60-5.80) X10*6/uL Hgb 13.1 L 11.3 L (14.0-18.0) g/dl Hct 37.4 L 33.3 L (42.0-52.0) % Neut % (Auto) 83.4 H 73.5 H (45-73) % Lymph % (Auto) 9.1 L 17.7 L (20-40) % Abs Immat Gran (auto) 0.06 H (0.00-0.03) X10*3/uL Absolute Neuts (auto) 11.8 H (2.0-8.3) x10*3/uL ESR 64 H (0-15) MM/HR Anion Gap 11 L (12-20) POC Glucose 163 H (60-115) mg/dL Random Glucose 213 H 280 H (60-115) mg/dL Total Bilirubin 1.1 H (0.0-1.0) mg/dL C-Reactive Protein 18.16 H (< or = 0.50) mg/dL 07/06/24 07/06/24 Range/Units 13:35 13:55 WBC (4.8-10.8) X10*3/uL RBC (4.60-5.80) X10*6/uL Hgb (14.0-18.0) g/dl Hct (42.0-52.0) % Neut % (Auto) (45-73) % Lymph % (Auto) (20-40) % Abs Immat Gran (auto) (0.00-0.03) X10*3/uL Absolute Neuts (auto) (2.0-8.3) x10*3/uL ESR (0-15) MM/HR Anion Gap (12-20) POC Glucose 196 H 179 H (60-115) mg/dL Random Glucose (60-115) mg/dL Total Bilirubin (0.0-1.0) mg/dL C-Reactive Protein (< or = 0.50) mg/dL Short CBC 07/05/24 07/06/24 Range/Units 15:28 03:59 WBC 14.1 H 8.9 (4.8-10.8) X10*3/uL Hgb 13.1 L 11.3 L (14.0-18.0) g/dl Hct 37.4 L 33.3 L (42.0-52.0) % Plt Count 214 D 172 (160-400) X10*3/uL BMP 07/05/24 07/06/24 15:28 03:59 Sodium 137 137 Potassium 3.9 3.6 Chloride 104 107 Carbon Dioxide 25 23 BUN 16 15 Creatinine 0.63 0.69 Calcium 9.1 8.5 D Liver Function 07/05/24 Range/Units 15:28 Total Bilirubin 1.1 H (0.0-1.0) mg/dL AST 19 (5-37) U/L ALT 17 (0-40) U/L Alkaline Phosphatase 103 (39-117) U/L Albumin 4.0 (3.5-5.0) g/dL All other labs normal. Assessment and Plan (1) Diabetic infection of left foot: Status: Acute Plan Jose presents to the ER with concerns of a left foot infection. He has been followed by the [facility], which discharged him recently due to healing of that wound. He states approximately 2-3 days ago the wound opened up again and he began having increased pain. He denies any fevers or chills and there are no signs of infection. We have ordered an arterial duplex ultrasound; the last one that we have is from January. We will review the results of the ultrasound and determine what the next course of treatment will be. We would continue with dressing changes of dura fiber Ag, 4x4s, and Kerlix wrap, change daily. We will continue to monitor. Thank you for the consult. If there are any questions or concerns, please do not hesitate to reach out to us. Procedures Date of Service Date of Service: 07/06/24
[2024-07-06 16:04] LABS: Glucose, Whole Blood 283 mg/dL (60-115)
[2024-07-06] MEDS: Insulin Lispro 100 UNIT/ML 3 ML VIAL SUBCUT (17:38)
[2024-07-06 19:32] VITALS: BMI 38.7
[2024-07-06 20:10] LABS: Glucose, Whole Blood 150 mg/dL (60-115)
[2024-07-06] MEDS: Atorvastatin Calcium 40 MG TABLET PO (20:29)
[2024-07-06] MEDS: Enoxaparin Sodium 40 MG/0.4 ML SYRINGE SUBCUT (20:29)
[2024-07-06 20:30] VITALS: RESP 17
[2024-07-06 23:58] VITALS: BP 140/74; PULSE 62; RESP 16; TEMP 36.9; O2SAT 96
--- NOTE | 2024-07-07 00:11 | PC.NURSE ---
Patient uses CPAP @ home, when asked if he would like respiratory to come put him on our machine- patient declined
[2024-07-07] MEDS: vancomycin HCL 1,250 MG in 0.9 % Sodium Chloride 250 ML 166.67 MG IV ×3 (02:30→22:53)
[2024-07-07] MEDS: Piperacillin Sodium/Tazobactam 4.5 GM in 0.9 % Sodium Chloride 100 ML IV ×4 (04:09→22:16)
[2024-07-07 05:16] VITALS: RESP 18
[2024-07-07] MEDS: Morphine Sulfate 4 MG/ML CARTRIDGE IVPUSH ×2 (05:16→09:20)
[2024-07-07] MEDS: Omeprazole 20 MG CAPSULE.DR PO (05:17)
[2024-07-07 06:11] LABS: Anion Gap 11 (12-20); Blood Urea Nitrogen 13 mg/dL (9-16); Calcium 9.2 mg/dL (8.4-10.2); Carbon Dioxide 26 mmol/L (22-29); Chloride 105 mmol/L (96-108); Estimated Glomerular Filt Rate > 60; Glucose Random 230 mg/dL (60-115); Sodium 138 mmol/L (135-145)
[2024-07-07 07:54] VITALS: BP 130/70; PULSE 60; RESP 16; TEMP 36.1; O2SAT 93
[2024-07-07 08:11] LABS: Glucose, Whole Blood 186 mg/dL (60-115)
[2024-07-07] MEDS: Insulin Lispro 100 UNIT/ML 3 ML VIAL SUBCUT ×4 (09:12→21:18)
[2024-07-07] MEDS: 0.9 % Sodium Chloride Flush 3 ML SYRINGE IVFLUSH ×2 (09:13→22:22)
[2024-07-07] MEDS: Multivitamin TABLET 1 TAB PO (09:14)
[2024-07-07] MEDS: lisinopriL 20 MG TABLET PO (09:14)
[2024-07-07] MEDS: Cyanocobalamin (Vitamin B-12) 1,000 MCG TABLET 1000 MCG PO (09:14)
[2024-07-07] MEDS: amLODIPine Besylate 5 MG TABLET PO (09:14)
[2024-07-07] MEDS: Cholecalciferol (Vitamin D3) 25 MCG TABLET PO (09:14)
[2024-07-07] MEDS: Gabapentin 400 MG CAPSULE PO ×3 (09:14→21:18)
[2024-07-07 11:20] LABS: Glucose, Whole Blood 232 mg/dL (60-115)
--- NOTE | 2024-07-07 12:26 | MHC.CM.PN ---
PER MD ROUNDS PATIENT NOT MEDICALLY CLEARED FOR DC. CM WILL CONTINUE TO FOLLOW.
[2024-07-07] MEDS: oxyCODONE HCl Immed Release 5 MG TABLET PO (12:27)
--- NOTE | 2024-07-07 12:36 | HO.VASCPN ---
Subjective Subjective Date of Service: 07/07/24 Interval history: Very pleasant 63-year-old gentleman well known to us for peripheral vascular disease. In 02/03/2022 we had actually done a right lower extremity intervention for nonhealing ulcer in appears to have gone on to heal. Appears to be doing relatively well. Now presents to hospital for nonhealing left foot ulcer. He actually has this plantar ulcer which has been progressing. On admission was noted to have white count of 14.1 and he describes some pain and discomfort. He was subsequently admitted for evaluation. Physical Exam Vital Signs: Vital Signs: Last Vital Signs Temp 97.0 F 07/07/24 07:54 Pulse 60 07/07/24 07:54 Resp 16 07/07/24 07:54 BP 130/70 07/07/24 07:54 Pulse Ox 93 07/07/24 07:54 O2 Del Method Room Air 07/07/24 07:54 BMI result Body Mass Index 38.7 Const: General: cooperative, healthy appearing and comfortable Orientation/consciousness: oriented to person, oriented to place and oriented to time HEENT: Head: Yes normal to inspection Neck: Neck: Yes normal visual inspection Carotids: no bruits Chest: Chest palpation & inspection: normal inspection of the chest Resp: Effort & Inspection: normal respiratory effort and able to speak in complete sentences Auscultation: clear to auscultation bilaterally, no crackles, no rales, no rhonchi and no wheezes Cardio: Other: Bilateral DP signals Rate: regular rate Rhythm: regular rhythm Heart sounds: S1 normal heart sound present and S2 normal heart sound present Bruits: no carotid bruits Peripheral pulses: Peripheral pulses 2+ throughout GI: Inspection: Yes normal to inspection Skin: Other: Left plantar surface approximately 0.5 cm ulceration along with surrounding hematoma and erythema. Wounds: no wounds Hair: normal Neuro: General: oriented to person, oriented to place and oriented to time Cranial nerves: Yes CN's II-XII intact bilaterally and Yes Normal hearing present Cognition (Neuro): normal cognition Motor exam (neuro): 5/5 motor strength present throughout Extrem: Other: venous exam: No significant superficial varicosities or spider telangiectasias, minimal edema General: No clubbing, No cyanosis and No edema Psych: Appearance: grossly normal Mental Status: mental status grossly normal Speech and movement: Normal speech and movement present Progress Note: A&P Assessment and plan (1) PAD (peripheral artery disease): Status: Acute Plan Patient notes leg pain when walking distances. I have discussed the pathophysiology of peripheral vascular disease with the patient. I have also discussed risk factor modification. I have reviewed the patient's arterial testing which reveals left SFA and tibial disease. the patient would benefit from a left leg endovascular peripheral angiogram with possible angioplasty, stent, and/or atherectomy. This has been discussed in detail with the patient along with risks, benefits, and complications. This includes but is not limited to bleeding, infection, heart attack, need for emergent surgical repair, limb ischemia, blood vessel damage, bleeding, puncture, kidney injury, bruising, allergic reaction, and skin reaction. The patient demonstrates a clear understanding. We will schedule for Wednesday. Thank you for allowing us to assist in this patient's care. Time Spent With Patient Time: Total time managing care of this patient today ____ minutes. Procedures Date of Service Date of Service: 07/07/24 Quality Stroke Does the patient have a stroke diagnosis?: No VTE Prior VTE?: No VTE Risk Level:: Medical - moderate - high VTE Device Contraindication: Treatment Not Indicated VTE Drug Contraindication: N/A - Med Ordered
[2024-07-07 13:28] LABS: Blood Urea Nitrogen 13 mg/dL (9-16); Creatinine Clr Calc Pharmacy 116.6; Estimated Glomerular Filt Rate > 60
[2024-07-07 13:30] LABS: Vancomycin Random 7.8 mcg/mL (15-20)
--- NOTE | 2024-07-07 13:42 | HE.PHANOTE ---
RE: vanco level on 07/07 came back at 7.8 mg/L; increased dose to 1250mg Q8 with predicted trough of 14.5 mg/L, AUC of 497 mg/L. next level to be drawn 07/08 @1200
--- NOTE | 2024-07-07 14:56 | HO.PM.IMPN ---
Subjective Subjective Date of Service: 07/07/24 Interval History: seen and examined this morning follow up for left foot infection reporting left foot pain Review of Systems Review of Systems: Yes all other systems are reviewed and are negative Constitutional Constitutional: Denies chills and Denies fever(s) Cardiovascular Cardiovascular: Denies chest pain, Denies palpitations and Denies dyspnea Respiratory Respiratory: Denies cough and Denies dyspnea Gastrointestinal Gastrointestinal: Denies abdominal pain, Denies nausea and Denies vomiting Endocrine Endocrine: Denies palpitations Physical Exam Vital Signs: Vital Signs: Last Vital Signs Temp 97.0 F 07/07/24 07:54 Pulse 60 07/07/24 07:54 Resp 16 07/07/24 07:54 BP 130/70 07/07/24 07:54 Pulse Ox 93 07/07/24 07:54 O2 Del Method Room Air 07/07/24 07:54 BMI result Body Mass Index 38.7 Const: General: cooperative, alert, awake and Physically active Nutritional Appearance: obese Orientation/consciousness: patient oriented x3 Resp: Effort & Inspection: normal respiratory effort, able to speak in complete sentences, no respiratory distress and no use of accessory muscles Cardio: Rate: regular rate GI: Inspection: No distended Palpation (GI): Soft to palpation Neuro: General: patient oriented x3, moves all extremities and CN's II-XI intact bilaterally Objective Data Active Medications Acetaminophen (Acetaminophen 325 Mg Tablet) 650 mg PO Q6H PRN PRN Reason: Pain, Mild 1-3,fever,headache Albuterol Sulfate (Albuterol Sulfate 90 Mcg 8 Gm Inhaler) 2 puff INHALE Q4H PRN PRN Reason: sob Amlodipine Besylate (Amlodipine Besylate 5 Mg Tablet) 5 mg PO DAILY [facility]; Protocol Last Admin: 07/07/24 09:14 Dose: 5 mg Documented By: VALENTINA Atorvastatin Calcium (Atorvastatin Calcium 40 Mg Tablet) 40 mg PO BEDTIME [facility] Last Admin: 07/06/24 20:29 Dose: 40 mg Documented By: MONICA Calcium Carbonate (Calcium Carbonate 750 Mg Tab.Chew) 750 mg PO Q4H PRN PRN Reason: Heartburn Calcium Carbonate/Cholecalciferol (Calcium + Vitamin D 250 Mg Tablet) 250 mg PO Q48H [facility] Last Admin: 07/06/24 15:16 Dose: 250 mg Documented By: SHAMIKA Cyanocobalamin (Cyanocobalamin (Vitamin B-12) 1,000 Mcg Tablet) 1,000 mcg PO DAILY [facility] Last Admin: 07/07/24 09:14 Dose: 1,000 mcg Documented By: VALENTINA Dextrose (Dextrose 50 % 25 Gm/50 Ml Syringe) 25 gm IVPUSH Q15M PRN; Protocol PRN Reason: per Hypoglycemia Standing Ord. Docusate Sodium (Docusate Sodium 100 Mg Capsule) 100 mg PO BID PRN PRN Reason: constipation Enoxaparin Sodium (Enoxaparin Sodium 40 Mg/0.4 Ml Syringe) 40 mg SUBCUT Q24H [facility] Last Admin: 07/06/24 20:29 Dose: 40 mg Documented By: MONICA Gabapentin (Gabapentin 400 Mg Capsule) 400 mg PO TID [facility] Last Admin: 07/07/24 09:14 Dose: 400 mg Documented By: VALENTINA Glucose (Glucose Gel 15 Gm Gel..Gram.) 15 gm PO Q15M PRN; Protocol PRN Reason: per Hypoglycemia Standing Ord. Piperacillin Sod/Tazobactam (Sod 4.5 gm/ Sodium Chloride) 100 mls @ 200 mls/hr IV Q6H [facility] Last Infusion: 07/07/24 10:48 Dose: Infused Documented By: VALENTINA Sodium Chloride (Ns) 1,000 mls @ 100 mls/hr IVCONT .Q10H [facility] Vancomycin HCl 1,250 mg/ (Sodium Chloride) 250 mls @ 166.667 mls/hr IV Q8H [facility] Insulin Human Lispro (Insulin Lispro 100 Unit/Ml 3 Ml Vial) 0 unit SUBCUT QIDACHS [facility]; Protocol Last Admin: 07/07/24 12:23 Dose: 4 unit Documented By: VALENTINA Lisinopril (Lisinopril 20 Mg Tablet) 20 mg PO DAILY [facility]; Protocol Last Admin: 07/07/24 09:14 Dose: 20 mg Documented By: VALENTINA Magnesium Hydroxide (Milk Of Magnesia 30 Ml Oral.Susp) 30 ml PO DAILY PRN PRN Reason: Constipation Melatonin (Melatonin 3 Mg Tablet) 6 mg PO BEDTIME PRN PRN Reason: Insomnia Morphine Sulfate (Morphine Sulfate 4 Mg/Ml Cartridge) 4 mg IVPUSH Q4H PRN; Protocol PRN Reason: Pain, Severe (Pain Scale 7-10) Last Admin: 07/07/24 09:20 Dose: 4 mg Documented By: VALENTINA Multivitamins/Vitamin C (Multivitamin Tablet) 1 tab PO DAILY [facility] Last Admin: 07/07/24 09:14 Dose: 1 tab Documented By: VALENTINA Omeprazole (Omeprazole 20 Mg Capsule.Dr) 20 mg PO DAILY@0630 [facility] Last Admin: 07/07/24 05:17 Dose: 20 mg Documented By: MONICA Comments: per pt request to be given early Ondansetron HCl (Ondansetron Hcl 4 Mg/2 Ml Vial) 4 mg IVPUSH Q8H PRN PRN Reason: Nausea and Vomiting Oxycodone HCl (Oxycodone Hcl Immed Release 5 Mg Tablet) 5 mg PO Q6H PRN PRN Reason: Pain, Moderate(Pain Scale 4-6) Last Admin: 07/07/24 12:27 Dose: 5 mg Documented By: VALENTINA Pharmacy Consult (Consult Rx Vancomycin Dosing) 1 each MISCELLANE DAILY PRN PRN Reason: Consult order Sodium Chloride (0.9 % Sodium Chloride Flush 3 Ml Syringe) 3 ml IVFLUSH QSHIFT [facility] Last Admin: 07/07/24 09:13 Dose: 3 ml Documented By: VALENTINA Tiotropium [place] (Tiotropium [place] 2.5 Mcg 1 Puff/2.5 Mcg Mist.Inhal) 2 puff INHALE RDAILY [facility] Last Admin: 07/07/24 08:42 Dose: Not Given Documented By: MAYTE Non-Admin Reason: pharmacy called for med Vitamin D (Cholecalciferol (Vitamin D3) 25 Mcg Tablet) 25 mcg PO DAILY [facility] Last Admin: 07/07/24 09:14 Dose: 25 mcg Documented By: VALENTINA Labs 07/06/24 03:59 07/07/24 13:08 Labs: Laboratory Results - last 24 hr 07/06/24 07/06/24 07/07/24 15:54 20:00 05:18 Hold Purple Top SEE NOTE Anion Gap 11 L Estim Creat Clear Calc 125.0 Estimated GFR > 60 POC Glucose 283 H 150 H Random Glucose 230 H Calcium 9.2 D Random Vancomycin 07/07/24 07/07/24 07/07/24 08:00 11:13 13:08 Hold Purple Top Anion Gap Estim Creat Clear Calc 116.6 Estimated GFR > 60 POC Glucose 186 H 232 H Random Glucose Calcium Random Vancomycin 7.8 L Microbiology Microbiology Results: Microbiology 07/05/24 21:28 Gram Stain - Final Foot - Wound Routine Culture - Preliminary Staphylococcus aureus 07/05/24 15:28 Blood Culture - Preliminary Blood - Venous No growth after 24 hours. 07/05/24 15:28 Blood Culture - Preliminary Blood - Venous No growth after 24 hours. Assessment and Plan (1) Cellulitis of foot, left: Status: Acute (2) Diabetic infection of left foot: Status: Acute (3) PAD (peripheral artery disease): Status: Acute Plan This is a 63-year-old male with pertinent history of insulin-dependent diabetes mellitus, PHYLICIA on CPAP, hypertension, mixed hyperlipidemia, peripheral arterial disease, history of osteomyelitis of right foot who presents to the emergency department for concerns of left foot infection. Left foot infection with purulent cellulitis due to DM and PVD continue IV vancomycin and Zosyn. No sepsis. X-ray without concerns for osteomyelitis, MRI with no evidence of osteo showing fracture fourth toe and possibility of septic arthritis seen by general surgery, rec vascular evaluation seen by vascular, arterial US obtained showing left SFA and tibial dz, plan for angioplasty on Wednesday Insulin-dependent diabetes mellitus with hyperglycemia: has insulin pump, but did not bring cartridges. will turn off pump and cover with SSI follow POCs ADA diet Diabetic neuropathy: Continue gabapentin Hypertension: Continue Norvasc, lisinopril Mixed hyperlipidemia: Continue statin PHYLICIA: Continue CPAP at bedtime PVD hold asa to assess need for surgery continue statin Morbid obesity BMI 38.8 Weight loss encouraged DVT prophylaxis: Lovenox Full code Requires ongoing inpatient stay for IV antibiotics and specialist evaluation and possible surgical intervention Quality Stroke Does the patient have a stroke diagnosis?: No VTE Prior VTE?: No VTE Risk Level:: Medical - moderate - high VTE Device Contraindication: Treatment Not Indicated VTE Drug Contraindication: N/A - Med Ordered
[2024-07-07 15:01] VITALS: BP 99/61; PULSE 59; RESP 16; TEMP 36.2; O2SAT 94
[2024-07-07 15:08] VITALS: BP 130/77; PULSE 60; RESP 18; TEMP 36.5; O2SAT 93
[2024-07-07 16:09] LABS: Glucose, Whole Blood 176 mg/dL (60-115)
--- NOTE | 2024-07-07 16:21 | P.CDIM_ITS ---
PROVIDER RESPONSE TEXT: To clarify, the appropriate diagnosis supported by the clinical indicators: Yes, Cellulitis is related to / associated with / due to IDDM QUERY TEXT: PHYSICIAN'S DOCUMENTATION REQUEST Date of Query: 07/07/2024 10:42 AM EST Patient Name: Jose Foster Admit Date: 07/06/2024 Dear Selene HOOD, A review of the medical record indicates additional documentation may be needed. Please review below and update the documentation accordingly. Documentation includes the conditions of Cellulitis and IDDM. Clinical Indicators: left diabetic foot infection IV Vancomycin and IV Zosyn Please clarify the relationship between these conditions: Yes, Cellulitis is related to / associated with / due to IDDM No, Cellulitis is not related to / associated with / due to IDDM Other (explain) Clinically unable to determine (explain) Thank you, Cassandra Ignacio RN Use of terms such as suspected, likely, concern for, or probable (associated with a specific diagnosi s that is being evaluated, monitored, or treated as if it exists) are acceptable and can be coded in the inpatient se tting, when documented at the time of discharge. Please use your independent medical judgment in providing your response. THIS QUERY IS PART OF THE PERMANENT MEDICAL RECORD
[2024-07-07] MEDS: polyethylene glycoL 3350 17 GM POWD.PACK PO (16:58)
[2024-07-07 20:14] LABS: Glucose, Whole Blood 200 mg/dL (60-115)
[2024-07-07] MEDS: Docusate Sodium 100 MG CAPSULE PO (21:18)
[2024-07-07] MEDS: Atorvastatin Calcium 40 MG TABLET PO (21:18)
[2024-07-07] MEDS: Enoxaparin Sodium 40 MG/0.4 ML SYRINGE SUBCUT (21:19)
[2024-07-08 04:07] VITALS: BP 138/78; PULSE 59; RESP 18; TEMP 36.5; O2SAT 96
[2024-07-08] MEDS: Piperacillin Sodium/Tazobactam 4.5 GM in 0.9 % Sodium Chloride 100 ML IV ×4 (04:11→21:30)
[2024-07-08 04:20] VITALS: RESP 18
[2024-07-08] MEDS: Morphine Sulfate 4 MG/ML CARTRIDGE IVPUSH ×2 (04:20→10:29)
[2024-07-08] MEDS: Omeprazole 20 MG CAPSULE.DR PO (06:13)
[2024-07-08] MEDS: vancomycin HCL 1,250 MG in 0.9 % Sodium Chloride 250 ML 166.67 MG IV (06:14)
[2024-07-08 07:26] LABS: Glucose, Whole Blood 231 mg/dL (60-115)
[2024-07-08 07:35] VITALS: BP 114/53; PULSE 61; RESP 16; TEMP 36.2; O2SAT 95
[2024-07-08 07:42] LABS: Anion Gap 11 (12-20); Blood Urea Nitrogen 13 mg/dL (9-16); Calcium 8.8 mg/dL (8.4-10.2); Carbon Dioxide 26 mmol/L (22-29); Chloride 104 mmol/L (96-108); Creatinine Clr Calc Pharmacy 123.2; Estimated Glomerular Filt Rate > 60; Glucose Random 248 mg/dL (60-115); Potassium 3.7 mmol/L (3.3-5.1); Sodium 137 mmol/L (135-145)
[2024-07-08] MEDS: 0.9 % Sodium Chloride Flush 3 ML SYRINGE IVFLUSH ×3 (07:56→21:39)
[2024-07-08] MEDS: Insulin Lispro 100 UNIT/ML 3 ML VIAL SUBCUT ×4 (07:57→21:29)
[2024-07-08] MEDS: lisinopriL 20 MG TABLET PO (07:57)
[2024-07-08] MEDS: Multivitamin TABLET 1 TAB PO (07:57)
[2024-07-08] MEDS: polyethylene glycoL 3350 17 GM POWD.PACK PO (07:58)
[2024-07-08] MEDS: Docusate Sodium 100 MG CAPSULE PO ×2 (07:58→21:30)
[2024-07-08] MEDS: amLODIPine Besylate 5 MG TABLET PO (07:58)
[2024-07-08] MEDS: Gabapentin 400 MG CAPSULE PO ×3 (07:58→21:30)
[2024-07-08] MEDS: Cyanocobalamin (Vitamin B-12) 1,000 MCG TABLET 1000 MCG PO (07:58)
[2024-07-08] MEDS: Cholecalciferol (Vitamin D3) 25 MCG TABLET PO (07:58)
[2024-07-08] MEDS: oxyCODONE HCl Immed Release 5 MG TABLET PO (08:04)
[2024-07-08] MEDS: Calcium + Vitamin D 250 MG TABLET PO (10:25)
[2024-07-08 11:39] LABS: Glucose, Whole Blood 327 mg/dL (60-115)
--- NOTE | 2024-07-08 12:30 | P.PNIM_ITS ---
Subjective Subjective Date of Service: 07/08/24 Interval History: Seen and examined this morning Follow-up for left foot wound still reporting pain, pain meds not strong enough no fever, chills Review of Systems Review of Systems: Yes all other systems are reviewed and are negative Constitutional Constitutional: Denies chills and Denies fever(s) Cardiovascular Cardiovascular: Denies chest pain, Denies palpitations and Denies dyspnea Respiratory Respiratory: Denies cough and Denies dyspnea Gastrointestinal Gastrointestinal: Denies abdominal pain Endocrine Endocrine: Denies palpitations Physical Exam 2 Vital Signs: Vital Signs: Last Vital Signs Temp 97.1 F 07/08/24 07:35 Pulse 61 07/08/24 07:35 Resp 16 07/08/24 07:35 BP 114/53 L 07/08/24 07:35 Pulse Ox 95 07/08/24 07:35 O2 Del Method Room Air 07/08/24 07:35 BMI result Body Mass Index 38.7 Const: General: cooperative, comfortable, no acute distress, alert, awake and Physically active Nutritional Appearance: obese Orientation/consciousness: patient oriented x3 Resp: Effort & Inspection: normal respiratory effort, able to speak in complete sentences, no respiratory distress and no use of accessory muscles Cardio: Rate: regular rate GI: Inspection: No distended Palpation (GI): Soft to palpation Skin: Other: left foot wrapped in c/d/i dressing Neuro: General: patient oriented x3, moves all extremities and CN's II-XI intact bilaterally Objective Data Active Medications Acetaminophen (Acetaminophen 325 Mg Tablet) 650 mg PO Q6H PRN PRN Reason: Pain, Mild 1-3,fever,headache Albuterol Sulfate (Albuterol Sulfate 90 Mcg 8 Gm Inhaler) 2 puff INHALE Q4H PRN PRN Reason: sob Amlodipine Besylate (Amlodipine Besylate 5 Mg Tablet) 5 mg PO DAILY [facility]; Protocol Last Admin: 07/08/24 07:58 Dose: 5 mg Documented By: NATE Atorvastatin Calcium (Atorvastatin Calcium 40 Mg Tablet) 40 mg PO BEDTIME [facility] Last Admin: 07/07/24 21:18 Dose: 40 mg Documented By: REMEDIOS Calcium Carbonate (Calcium Carbonate 750 Mg Tab.Chew) 750 mg PO Q4H PRN PRN Reason: Heartburn Calcium Carbonate/Cholecalciferol (Calcium + Vitamin D 250 Mg Tablet) 250 mg PO Q48H [facility] Last Admin: 07/08/24 10:25 Dose: 250 mg Documented By: NATE Cyanocobalamin (Cyanocobalamin (Vitamin B-12) 1,000 Mcg Tablet) 1,000 mcg PO DAILY [facility] Last Admin: 07/08/24 07:58 Dose: 1,000 mcg Documented By: NATE Dextrose (Dextrose 50 % 25 Gm/50 Ml Syringe) 25 gm IVPUSH Q15M PRN; Protocol PRN Reason: per Hypoglycemia Standing Ord. Docusate Sodium (Docusate Sodium 100 Mg Capsule) 100 mg PO BID [facility] Last Admin: 07/08/24 07:58 Dose: 100 mg Documented By: NATE Enoxaparin Sodium (Enoxaparin Sodium 40 Mg/0.4 Ml Syringe) 40 mg SUBCUT Q24H [facility] Last Admin: 07/07/24 21:19 Dose: 40 mg Documented By: REMEDIOS Gabapentin (Gabapentin 400 Mg Capsule) 400 mg PO TID [facility] Last Admin: 07/08/24 07:58 Dose: 400 mg Documented By: NATE Glucose (Glucose Gel 15 Gm Gel..Gram.) 15 gm PO Q15M PRN; Protocol PRN Reason: per Hypoglycemia Standing Ord. Piperacillin Sod/Tazobactam (Sod 4.5 gm/ Sodium Chloride) 100 mls @ 200 mls/hr IV Q6H [facility] Last Infusion: 07/08/24 10:02 Dose: Infused Documented By: NATE Sodium Chloride (Ns) 1,000 mls @ 100 mls/hr IVCONT .Q10H [facility] Vancomycin HCl 1,250 mg/ (Sodium Chloride) 250 mls @ 166.667 mls/hr IV Q8H [facility] Last Infusion: 07/08/24 07:58 Dose: Infused Documented By: NATE Insulin Human Lispro (Insulin Lispro 100 Unit/Ml 3 Ml Vial) 0 unit SUBCUT QIDACHS [facility]; Protocol Last Admin: 07/08/24 12:21 Dose: 8 unit Documented By: NATE Lisinopril (Lisinopril 20 Mg Tablet) 20 mg PO DAILY [facility]; Protocol Last Admin: 07/08/24 07:57 Dose: 20 mg Documented By: NATE Magnesium Hydroxide (Milk Of Magnesia 30 Ml Oral.Susp) 30 ml PO DAILY PRN PRN Reason: Constipation Melatonin (Melatonin 3 Mg Tablet) 6 mg PO BEDTIME PRN PRN Reason: Insomnia Morphine Sulfate (Morphine Sulfate 4 Mg/Ml Cartridge) 4 mg IVPUSH Q4H PRN; Protocol PRN Reason: Pain, Severe (Pain Scale 7-10) Last Admin: 07/08/24 10:29 Dose: 4 mg Documented By: NATE Multivitamins/Vitamin C (Multivitamin Tablet) 1 tab PO DAILY [facility] Last Admin: 07/08/24 07:57 Dose: 1 tab Documented By: NATE Omeprazole (Omeprazole 20 Mg Capsule.) 20 mg PO DAILY@0630 [facility] Last Admin: 07/08/24 06:13 Dose: 20 mg Documented By: REMEDIOS Ondansetron HCl (Ondansetron Hcl 4 Mg/2 Ml Vial) 4 mg IVPUSH Q8H PRN PRN Reason: Nausea and Vomiting Oxycodone HCl (Oxycodone Hcl Immed Release 5 Mg Tablet) 10 mg PO Q6H PRN PRN Reason: Pain, Moderate(Pain Scale 4-6) Pharmacy Consult (Consult Rx Vancomycin Dosing) 1 each MISCELLANE DAILY PRN PRN Reason: Consult order Polyethylene Glycol (Polyethylene Glycol 3350 17 Gm Powd.Pack) 17 gm PO DAILY [facility] Last Admin: 07/08/24 07:58 Dose: 17 gm Documented By: NATE Sodium Chloride (0.9 % Sodium Chloride Flush 3 Ml Syringe) 3 ml IVFLUSH QSHIFT [facility] Last Admin: 07/08/24 07:56 Dose: 3 ml Documented By: NATE Tiotropium [place] (Tiotropium [place] 2.5 Mcg 1 Puff/2.5 Mcg Mist.Inhal) 2 puff INHALE RDAILY [facility] Last Admin: 07/08/24 07:41 Dose: Not Given Documented By: SUZIE Non-Admin Reason: med unavail pharm called Vitamin D (Cholecalciferol (Vitamin D3) 25 Mcg Tablet) 25 mcg PO DAILY [facility] Last Admin: 07/08/24 07:58 Dose: 25 mcg Documented By: NATE Labs 07/06/24 03:59 07/08/24 06:48 Labs: Laboratory Results - last 24 hr 07/07/24 07/07/24 07/07/24 13:08 16:00 20:06 Anion Gap Estim Creat Clear Calc 116.6 Estimated GFR > 60 POC Glucose 176 H 200 H Random Glucose Calcium Random Vancomycin 7.8 L 07/08/24 07/08/24 07/08/24 06:48 07:13 11:33 Anion Gap 11 L Estim Creat Clear Calc 123.2 Estimated GFR > 60 POC Glucose 231 H 327 H Random Glucose 248 H Calcium 8.8 Random Vancomycin Microbiology Microbiology Results: Microbiology 07/05/24 21:28 Gram Stain - Final Foot - Wound Routine Culture - Final Staphylococcus aureus 07/05/24 15:28 Blood Culture - Preliminary Blood - Venous No growth after 48 hours. 07/05/24 15:28 Blood Culture - Preliminary Blood - Venous No growth after 48 hours. Assessment and Plan (1) Diabetic infection of left foot: Status: Acute (2) Cellulitis of foot, left: Status: Acute (3) PAD (peripheral artery disease): Status: Acute Plan This is a 63-year-old male with pertinent history of insulin-dependent diabetes mellitus, PHYLICIA on CPAP, hypertension, mixed hyperlipidemia, peripheral arterial disease, history of osteomyelitis of right foot who presents to the emergency department for concerns of left foot infection. Left foot infection with purulent cellulitis due to DM and PVD continue IV vancomycin and Zosyn. No sepsis. X-ray without concerns for osteomyelitis, MRI with no evidence of osteo showing fracture fourth toe and possibility of septic arthritis seen by general surgery, rec vascular evaluation seen by vascular, arterial US obtained showing left SFA and tibial dz, plan for angioplasty on Wednesday continue local wound care: dura fiber Ag, 4x4s, and Kerlix wrap, change daily Insulin-dependent diabetes mellitus with hyperglycemia: has insulin pump, but did not bring cartridges. will turn off pump and cover with SSI follow POCs ADA diet Diabetic neuropathy: Continue gabapentin Hypertension: Continue Norvasc, lisinopril Mixed hyperlipidemia: Continue statin PHYLICIA: Continue CPAP at bedtime PVD hold asa to assess need for surgery continue statin Morbid obesity BMI 38.8 Weight loss encouraged DVT prophylaxis: Lovenox Full code Requires ongoing inpatient stay for IV antibiotics and specialist evaluation and possible surgical intervention Quality Stroke Does the patient have a stroke diagnosis?: No VTE Prior VTE?: No VTE Risk Level:: Medical - moderate - high VTE Device Contraindication: Treatment Not Indicated VTE Drug Contraindication: N/A - Med Ordered
[2024-07-08 12:31] LABS: Vancomycin Trough 17.7 mcg/mL (10.0-20.0)
--- NOTE | 2024-07-08 12:52 | HE.PHANOTE ---
RE: merlene Decreased dose to 1000mg Q8H to yield AUC of 406 mg/L, trough of 11.7mg/L. Next level to be drawn 07/09 @1200
[2024-07-08] MEDS: vancomycin HCL 1,000 MG in 0.9 % Sodium Chloride 250 ML 270 MG IV ×2 (13:22→22:10)
[2024-07-08 15:26] VITALS: BP 115/60; PULSE 69; RESP 18; TEMP 36.6; O2SAT 96
[2024-07-08] MEDS: oxyCODONE HCl Immed Release 5 MG TABLET 10 MG PO ×2 (15:53→21:46)
[2024-07-08 16:18] LABS: Glucose, Whole Blood 196 mg/dL (60-115)
[2024-07-08 20:03] LABS: Glucose, Whole Blood 360 mg/dL (60-115)
[2024-07-08] MEDS: Atorvastatin Calcium 40 MG TABLET PO (21:30)
[2024-07-08] MEDS: Enoxaparin Sodium 40 MG/0.4 ML SYRINGE SUBCUT (21:31)
[2024-07-08 23:50] VITALS: BP 143/71; PULSE 76; RESP 18; TEMP 36.4; O2SAT 97
[2024-07-09] MEDS: Piperacillin Sodium/Tazobactam 4.5 GM in 0.9 % Sodium Chloride 100 ML IV ×4 (04:18→21:55)
[2024-07-09] MEDS: oxyCODONE HCl Immed Release 5 MG TABLET 10 MG PO ×2 (04:21→21:42)
[2024-07-09] MEDS: Omeprazole 20 MG CAPSULE.DR PO (06:25)
[2024-07-09] MEDS: vancomycin HCL 1,000 MG in 0.9 % Sodium Chloride 250 ML 270 MG IV (06:25)
[2024-07-09 06:39] LABS: Creatinine Clr Calc Pharmacy 61.6; Estimated Glomerular Filt Rate 50
[2024-07-09 07:18] VITALS: BP 131/67; PULSE 57; RESP 16; TEMP 36.9; O2SAT 95
[2024-07-09 07:29] LABS: Glucose, Whole Blood 222 mg/dL (60-115)
[2024-07-09 07:37] LABS: Hematocrit 36.8 % (42.0-52.0); Hemoglobin 12.3 g/dl (14.0-18.0); Mean Corpuscular HGB Conc 33.4 g/dl (31.0-36.0); Mean Corpuscular Hemoglobin 30.4 pg (27.0-33.0); Mean Corpuscular Volume 90.9 fL (80.0-98.0); Mean Platelet Volume 10.8 fL (9.4-12.4); Platelet Count 203 X10*3/uL (160-400); Red Blood Count 4.05 X10*6/uL (4.60-5.80); Red Cell Distribution Width 12.9 % (11.0-16.0); White Blood Count 8.9 X10*3/uL (4.8-10.8)
[2024-07-09 07:46] LABS: Anion Gap 14 (12-20); Blood Urea Nitrogen 20 mg/dL (9-16); Calcium 8.7 mg/dL (8.4-10.2); Carbon Dioxide 26 mmol/L (22-29); Chloride 103 mmol/L (96-108); Glucose Random 221 mg/dL (60-115); Potassium 3.6 mmol/L (3.3-5.1); Sodium 139 mmol/L (135-145)
[2024-07-09] MEDS: Insulin Lispro 100 UNIT/ML 3 ML VIAL SUBCUT ×4 (08:13→21:38)
[2024-07-09] MEDS: 0.9 % Sodium Chloride Flush 3 ML SYRINGE IVFLUSH ×3 (08:14→21:45)
[2024-07-09] MEDS: amLODIPine Besylate 5 MG TABLET PO (08:15)
[2024-07-09] MEDS: polyethylene glycoL 3350 17 GM POWD.PACK PO (08:16)
[2024-07-09] MEDS: Cyanocobalamin (Vitamin B-12) 1,000 MCG TABLET 1000 MCG PO (08:16)
[2024-07-09] MEDS: Docusate Sodium 100 MG CAPSULE PO ×2 (08:16→21:38)
[2024-07-09] MEDS: Gabapentin 400 MG CAPSULE PO ×3 (08:16→21:38)
[2024-07-09] MEDS: Cholecalciferol (Vitamin D3) 25 MCG TABLET PO (08:16)
[2024-07-09] MEDS: Multivitamin TABLET 1 TAB PO (08:16)
--- NOTE | 2024-07-09 10:53 | HO.PM.IMPN ---
Subjective Subjective Date of Service: 07/09/24 Interval History: seen and examined this morning follow up for foot wound pain better controlled today kidney function elevated Review of Systems Review of Systems: Yes all other systems are reviewed and are negative Constitutional Constitutional: Denies chills and Denies fever(s) Cardiovascular Cardiovascular: Denies chest pain and Denies palpitations Endocrine Endocrine: Denies palpitations Physical Exam Vital Signs: Vital Signs: Last Vital Signs Temp 98.4 F 07/09/24 07:18 Pulse 57 07/09/24 07:18 Resp 16 07/09/24 07:18 BP 131/67 07/09/24 07:18 Pulse Ox 95 07/09/24 07:18 O2 Del Method Room Air 07/09/24 07:18 BMI result Body Mass Index 38.7 Const: General: cooperative, comfortable, no acute distress, alert, awake and Physically active Nutritional Appearance: obese Orientation/consciousness: patient oriented x3 Resp: Effort & Inspection: normal respiratory effort, able to speak in complete sentences, no respiratory distress and no use of accessory muscles Cardio: Rate: regular rate GI: Inspection: No distended Palpation (GI): Soft to palpation Skin: Other: left foot wound maceration and drainage between first and second toes Neuro: General: patient oriented x3, moves all extremities and CN's II-XI intact bilaterally Objective Data Active Medications Acetaminophen (Acetaminophen 325 Mg Tablet) 650 mg PO Q6H PRN PRN Reason: Pain, Mild 1-3,fever,headache Albuterol Sulfate (Albuterol Sulfate 90 Mcg 8 Gm Inhaler) 2 puff INHALE Q4H PRN PRN Reason: sob Amlodipine Besylate (Amlodipine Besylate 5 Mg Tablet) 5 mg PO DAILY [facility]; Protocol Last Admin: 07/09/24 08:15 Dose: 5 mg Documented By: NATE Atorvastatin Calcium (Atorvastatin Calcium 40 Mg Tablet) 40 mg PO BEDTIME RASHEED Last Admin: 07/08/24 21:30 Dose: 40 mg Documented By: REMEDIOS Calcium Carbonate (Calcium Carbonate 750 Mg Tab.Chew) 750 mg PO Q4H PRN PRN Reason: Heartburn Calcium Carbonate/Cholecalciferol (Calcium + Vitamin D 250 Mg Tablet) 250 mg PO Q48H [facility] Last Admin: 07/08/24 10:25 Dose: 250 mg Documented By: NATE Cyanocobalamin (Cyanocobalamin (Vitamin B-12) 1,000 Mcg Tablet) 1,000 mcg PO DAILY [facility] Last Admin: 07/09/24 08:16 Dose: 1,000 mcg Documented By: NATE Dextrose (Dextrose 50 % 25 Gm/50 Ml Syringe) 25 gm IVPUSH Q15M PRN; Protocol PRN Reason: per Hypoglycemia Standing Ord. Docusate Sodium (Docusate Sodium 100 Mg Capsule) 100 mg PO BID [facility] Last Admin: 07/09/24 08:16 Dose: 100 mg Documented By: NATE Enoxaparin Sodium (Enoxaparin Sodium 40 Mg/0.4 Ml Syringe) 40 mg SUBCUT Q24H [facility] Last Admin: 07/08/24 21:31 Dose: 40 mg Documented By: REMEDIOS Gabapentin (Gabapentin 400 Mg Capsule) 400 mg PO TID [facility] Last Admin: 07/09/24 08:16 Dose: 400 mg Documented By: NATE Glucose (Glucose Gel 15 Gm Gel..Gram.) 15 gm PO Q15M PRN; Protocol PRN Reason: per Hypoglycemia Standing Ord. Piperacillin Sod/Tazobactam (Sod 4.5 gm/ Sodium Chloride) 100 mls @ 200 mls/hr IV Q6H [facility] Last Infusion: 07/09/24 10:32 Dose: Infused Documented By: NATE Sodium Chloride (Ns) 1,000 mls @ 100 mls/hr IVCONT .Q10H RASHEED Vancomycin HCl 1,000 mg/ (Sodium Chloride) 270 mls @ 270 mls/hr IV Q8H [facility] Last Infusion: 07/09/24 08:16 Dose: Infused Documented By: NATE Lactated Ringer's (Lr) 1,000 mls @ 100 mls/hr IVCONT .Q10H [facility] Insulin Human Lispro (Insulin Lispro 100 Unit/Ml 3 Ml Vial) 0 unit SUBCUT QIDACHS [facility]; Protocol Last Admin: 07/09/24 08:13 Dose: 4 unit Documented By: NTAE Lisinopril (Lisinopril 20 Mg Tablet) 20 mg PO DAILY [facility]; Protocol Last Admin: 07/08/24 07:57 Dose: 20 mg Documented By: NATE Magnesium Hydroxide (Milk Of Magnesia 30 Ml Oral.Susp) 30 ml PO DAILY PRN PRN Reason: Constipation Melatonin (Melatonin 3 Mg Tablet) 6 mg PO BEDTIME PRN PRN Reason: Insomnia Morphine Sulfate (Morphine Sulfate 4 Mg/Ml Cartridge) 4 mg IVPUSH Q4H PRN; Protocol PRN Reason: Pain, Severe (Pain Scale 7-10) Last Admin: 07/08/24 10:29 Dose: 4 mg Documented By: NATE Multivitamins/Vitamin C (Multivitamin Tablet) 1 tab PO DAILY [facility] Last Admin: 07/09/24 08:16 Dose: 1 tab Documented By: NATE Omeprazole (Omeprazole 20 Mg Capsule.Dr) 20 mg PO DAILY@0630 [facility] Last Admin: 07/09/24 06:25 Dose: 20 mg Documented By: REMEDIOS Ondansetron HCl (Ondansetron Hcl 4 Mg/2 Ml Vial) 4 mg IVPUSH Q8H PRN PRN Reason: Nausea and Vomiting Oxycodone HCl (Oxycodone Hcl Immed Release 5 Mg Tablet) 10 mg PO Q6H PRN PRN Reason: Pain, Moderate(Pain Scale 4-6) Last Admin: 07/09/24 04:21 Dose: 10 mg Documented By: REMEDIOS Pharmacy Consult (Consult Rx Vancomycin Dosing) 1 each MISCELLANE DAILY PRN PRN Reason: Consult order Polyethylene Glycol (Polyethylene Glycol 3350 17 Gm Powd.Pack) 17 gm PO DAILY [facility] Last Admin: 07/09/24 08:16 Dose: 17 gm Documented By: NATE Sodium Chloride (0.9 % Sodium Chloride Flush 3 Ml Syringe) 3 ml IVFLUSH QSHIFT [facility] Last Admin: 07/09/24 08:14 Dose: 3 ml Documented By: NATE Tiotropium [place] (Tiotropium [place] 2.5 Mcg 1 Puff/2.5 Mcg Mist.Inhal) 2 puff INHALE RDAILY [facility] Last Admin: 07/08/24 07:41 Dose: Not Given Documented By: SUZIE Non-Admin Reason: med unavail pharm called Vitamin D (Cholecalciferol (Vitamin D3) 25 Mcg Tablet) 25 mcg PO DAILY [facility] Last Admin: 07/09/24 08:16 Dose: 25 mcg Documented By: NATE Labs 07/09/24 05:27 07/09/24 05:27 Labs: Laboratory Results - last 24 hr 07/08/24 07/08/24 07/08/24 11:33 11:58 16:10 MCV MCH MCHC RDW Plt Count MPV Absolute Nucleated RBC Nucleated RBC % (auto) Hold Purple Top Anion Gap Estim Creat Clear Calc Estimated GFR POC Glucose 327 H 196 H Random Glucose Calcium Vancomycin Trough 17.7 07/08/24 07/09/24 07/09/24 19:58 05:27 07:23 MCV 90.9 MCH 30.4 MCHC 33.4 RDW 12.9 Plt Count 203 MPV 10.8 Absolute Nucleated RBC 0.000 Nucleated RBC % (auto) 0.0 Hold Purple Top SEE NOTE Anion Gap 14 Estim Creat Clear Calc 61.6 Estimated GFR 50 POC Glucose 360 H* 222 H Random Glucose 221 H Calcium 8.7 Vancomycin Trough Microbiology Microbiology Results: Microbiology 07/05/24 21:28 Gram Stain - Final Foot - Wound Routine Culture - Final Staphylococcus aureus Assessment and Plan (1) JOSHUA (acute kidney injury): Status: Acute Plan This is a 63-year-old male with pertinent history of insulin-dependent diabetes mellitus, PHYLICIA on CPAP, hypertension, mixed hyperlipidemia, peripheral arterial disease, history of osteomyelitis of right foot who presents to the emergency department for concerns of left foot infection hospital course complicated by JOSHUA Left foot infection with purulent cellulitis due to DM and PVD Initially treated with IV vancomycin and Zosyn. No sepsis. X-ray without concerns for osteomyelitis, MRI with no evidence of osteo showing fracture fourth toe and possibility of septic arthritis seen by general surgery, rec vascular evaluation seen by vascular, arterial US obtained showing left SFA and tibial dz, plan for angioplasty on Wednesday continue local wound care: dura fiber Ag, 4x4s, and Kerlix wrap, change daily Wound culture growing MSSA, will stop vancomycin JOSHUA likely ATN due to vanco vanco stopped this am prior to trough collection, trough elevated Start IVF hold lisinopril follow renal function Planned procedure for tomorrow may need to be delayed depending on renal function. pt aware Insulin-dependent diabetes mellitus with hyperglycemia: has insulin pump, but did not bring cartridges. will turn off pump and cover with SSI follow POCs ADA diet Diabetic neuropathy: Continue gabapentin Hypertension: Continue Norvasc hold lisinopril or JOSHUA Mixed hyperlipidemia: Continue statin PHYLICIA: Continue CPAP at bedtime PVD hold asa to assess need for surgery continue statin Morbid obesity BMI 38.8 Weight loss encouraged DVT prophylaxis: Lovenox Full code Requires ongoing inpatient stay for IV antibiotics and specialist evaluation and possible surgical intervention, JOSHUA requiring IVF and close monitoring Quality Stroke Does the patient have a stroke diagnosis?: No VTE Prior VTE?: No VTE Risk Level:: Medical - moderate - high VTE Device Contraindication: Treatment Not Indicated VTE Drug Contraindication: N/A - Med Ordered
[2024-07-09 11:29] LABS: Glucose, Whole Blood 234 mg/dL (60-115)
[2024-07-09] MEDS: Lactated Ringers 1,000 ML 100 ML IVCONT ×2 (11:40→22:35)
[2024-07-09] MEDS: Morphine Sulfate 4 MG/ML CARTRIDGE IVPUSH (12:01)
[2024-07-09 15:37] VITALS: BP 154/70; PULSE 67; RESP 18; TEMP 36.1; O2SAT 95
[2024-07-09 16:18] LABS: Glucose, Whole Blood 262 mg/dL (60-115)
[2024-07-09 20:14] LABS: Glucose, Whole Blood 336 mg/dL (60-115)
[2024-07-09] MEDS: Atorvastatin Calcium 40 MG TABLET PO (21:38)
[2024-07-09] MEDS: Enoxaparin Sodium 40 MG/0.4 ML SYRINGE SUBCUT (21:40)
--- NOTE | 2024-07-09 22:49 | PC.RT ---
Patient continues to decline noc cpap unit
[2024-07-10 02:39] VITALS: BP 143/72; PULSE 71; RESP 17; TEMP 36.4; O2SAT 96
[2024-07-10] MEDS: Piperacillin Sodium/Tazobactam 4.5 GM in 0.9 % Sodium Chloride 100 ML IV ×4 (03:58→21:34)
[2024-07-10] MEDS: Omeprazole 20 MG CAPSULE.DR PO (05:23)
[2024-07-10] MEDS: Morphine Sulfate 4 MG/ML CARTRIDGE IVPUSH (05:28)
[2024-07-10] MEDS: oxyCODONE HCl Immed Release 5 MG TABLET 10 MG PO ×2 (07:06→16:24)
[2024-07-10] MEDS: Cholecalciferol (Vitamin D3) 25 MCG TABLET PO (07:06)
[2024-07-10 07:15] LABS: Anion Gap 13 (12-20); Blood Urea Nitrogen 22 mg/dL (9-16); Calcium 9.2 mg/dL (8.4-10.2); Carbon Dioxide 28 mmol/L (22-29); Chloride 105 mmol/L (96-108); Creatinine Clr Calc Pharmacy 45.8; Estimated Glomerular Filt Rate 36; Glucose Random 176 mg/dL (60-115); Sodium 142 mmol/L (135-145)
[2024-07-10 07:21] VITALS: BP 130/70; PULSE 68; RESP 16; TEMP 36.3; O2SAT 94
[2024-07-10] MEDS: Tiotropium Bromide 2.5 mcg 1 PUFF/2.5 MCG MIST.INHAL 2 PUFF INHALE (07:56)
[2024-07-10 07:58] VITALS: PULSE 75; RESP 18; O2SAT 96
[2024-07-10 08:00] LABS: Glucose, Whole Blood 176 mg/dL (60-115)
[2024-07-10] MEDS: Docusate Sodium 100 MG CAPSULE PO ×2 (08:07→21:26)
[2024-07-10] MEDS: Multivitamin TABLET 1 TAB PO (08:07)
[2024-07-10] MEDS: Insulin Lispro 100 UNIT/ML 3 ML VIAL SUBCUT ×4 (08:07→21:26)
[2024-07-10] MEDS: Cyanocobalamin (Vitamin B-12) 1,000 MCG TABLET 1000 MCG PO (08:07)
[2024-07-10] MEDS: amLODIPine Besylate 5 MG TABLET PO (08:07)
[2024-07-10] MEDS: Gabapentin 400 MG CAPSULE PO ×3 (08:07→21:26)
--- NOTE | 2024-07-10 09:18 | HO.PM.IMPN ---
Subjective Subjective Date of Service: 07/10/24 Interval History: seen and examined this morning follow up for foot wound pain better controlled today kidney function elevated Review of Systems Review of Systems: Yes all other systems are reviewed and are negative Constitutional Constitutional: Denies chills and Denies fever(s) Cardiovascular Cardiovascular: Denies chest pain and Denies palpitations Endocrine Endocrine: Denies palpitations Physical Exam Vital Signs: Vital Signs: Last Vital Signs Temp 97.3 F 07/10/24 07:21 Pulse 75 07/10/24 07:58 Resp 18 07/10/24 07:58 BP 130/70 07/10/24 07:21 Pulse Ox 94 07/10/24 07:21 O2 Del Method Room Air 07/10/24 07:21 O2 Flow Rate 93 07/09/24 15:37 BMI result Body Mass Index 38.7 Appearing in no acute distress lung sounds are clear to auscultation heart regular rate rhythm, clear S1, S2 positive bowel sounds, abdomen is soft, nontender neuro patient is alert x3, no focal deficits Objective Data Active Medications Acetaminophen (Acetaminophen 325 Mg Tablet) 650 mg PO Q6H PRN PRN Reason: Pain, Mild 1-3,fever,headache Albuterol Sulfate (Albuterol Sulfate 90 Mcg 8 Gm Inhaler) 2 puff INHALE Q4H PRN PRN Reason: sob Amlodipine Besylate (Amlodipine Besylate 5 Mg Tablet) 5 mg PO DAILY [facility]; Protocol Last Admin: 07/10/24 08:07 Dose: 5 mg Documented By: MITCHELL Atorvastatin Calcium (Atorvastatin Calcium 40 Mg Tablet) 40 mg PO BEDTIME [facility] Last Admin: 07/09/24 21:38 Dose: 40 mg Documented By: NOAH Calcium Carbonate (Calcium Carbonate 750 Mg Tab.Chew) 750 mg PO Q4H PRN PRN Reason: Heartburn Calcium Carbonate/Cholecalciferol (Calcium + Vitamin D 250 Mg Tablet) 250 mg PO Q48H [facility] Last Admin: 07/08/24 10:25 Dose: 250 mg Documented By: NATE Cyanocobalamin (Cyanocobalamin (Vitamin B-12) 1,000 Mcg Tablet) 1,000 mcg PO DAILY [facility] Last Admin: 07/10/24 08:07 Dose: 1,000 mcg Documented By: MITCHELL Dextrose (Dextrose 50 % 25 Gm/50 Ml Syringe) 25 gm IVPUSH Q15M PRN; Protocol PRN Reason: per Hypoglycemia Standing Ord. Docusate Sodium (Docusate Sodium 100 Mg Capsule) 100 mg PO BID [facility] Last Admin: 07/10/24 08:07 Dose: 100 mg Documented By: MITCHELL Enoxaparin Sodium (Enoxaparin Sodium 40 Mg/0.4 Ml Syringe) 40 mg SUBCUT Q24H [facility] Last Admin: 07/09/24 21:40 Dose: 40 mg Documented By: NOAH Gabapentin (Gabapentin 400 Mg Capsule) 400 mg PO TID [facility] Last Admin: 07/10/24 08:07 Dose: 400 mg Documented By: MITCHELL Glucose (Glucose Gel 15 Gm Gel..Gram.) 15 gm PO Q15M PRN; Protocol PRN Reason: per Hypoglycemia Standing Ord. Piperacillin Sod/Tazobactam (Sod 4.5 gm/ Sodium Chloride) 100 mls @ 200 mls/hr IV Q6H [facility] Last Infusion: 07/10/24 04:28 Dose: Infused Documented By: NOAH Sodium Chloride (Ns) 1,000 mls @ 100 mls/hr IVCONT .Q10H [facility] Lactated Ringer's (Lr) 1,000 mls @ 100 mls/hr IVCONT .Q10H [facility] Last Admin: 07/10/24 05:10 Dose: Not Given Documented By: NOAH Non-Admin Reason: IV Running Insulin Human Lispro (Insulin Lispro 100 Unit/Ml 3 Ml Vial) 0 unit SUBCUT QIDACHS [facility]; Protocol Last Admin: 07/10/24 08:07 Dose: 2 unit Documented By: MITCHELL Lisinopril (Lisinopril 20 Mg Tablet) 20 mg PO DAILY [facility]; Protocol Last Admin: 07/08/24 07:57 Dose: 20 mg Documented By: NATE Magnesium Hydroxide (Milk Of Magnesia 30 Ml Oral.Susp) 30 ml PO DAILY PRN PRN Reason: Constipation Melatonin (Melatonin 3 Mg Tablet) 6 mg PO BEDTIME PRN PRN Reason: Insomnia Morphine Sulfate (Morphine Sulfate 4 Mg/Ml Cartridge) 4 mg IVPUSH Q4H PRN; Protocol PRN Reason: Pain, Severe (Pain Scale 7-10) Last Admin: 07/10/24 05:28 Dose: 4 mg Documented By: NOAH Multivitamins/Vitamin C (Multivitamin Tablet) 1 tab PO DAILY [facility] Last Admin: 07/10/24 08:07 Dose: 1 tab Documented By: MITCHELL Omeprazole (Omeprazole 20 Mg Capsule.Dr) 20 mg PO DAILY@0630 [facility] Last Admin: 07/10/24 05:23 Dose: 20 mg Documented By: NOAH Ondansetron HCl (Ondansetron Hcl 4 Mg/2 Ml Vial) 4 mg IVPUSH Q8H PRN PRN Reason: Nausea and Vomiting Oxycodone HCl (Oxycodone Hcl Immed Release 5 Mg Tablet) 10 mg PO Q6H PRN PRN Reason: Pain, Moderate(Pain Scale 4-6) Last Admin: 07/10/24 07:06 Dose: 10 mg Documented By: ISA Polyethylene Glycol (Polyethylene Glycol 3350 17 Gm Powd.Pack) 17 gm PO DAILY [facility] Last Admin: 07/10/24 09:14 Dose: Not Given Documented By: MITCHELL Non-Admin Reason: Patient Refused Sodium Chloride (0.9 % Sodium Chloride Flush 3 Ml Syringe) 3 ml IVFLUSH QSHIFT [facility] Last Admin: 07/10/24 07:56 Dose: Not Given Documented By: MITCHELL Non-Admin Reason: IV Running Tiotropium [place] (Tiotropium [place] 2.5 Mcg 1 Puff/2.5 Mcg Mist.Inhal) 2 puff INHALE RDAILY [facility] Last Admin: 07/10/24 07:56 Dose: 2 puff Documented By: DAVONTE Vitamin D (Cholecalciferol (Vitamin D3) 25 Mcg Tablet) 25 mcg PO DAILY [facility] Last Admin: 07/10/24 07:06 Dose: 25 mcg Documented By: ISA Labs 07/09/24 05:27 07/10/24 05:33 Labs: Laboratory Results - last 24 hr 07/09/24 07/09/24 07/09/24 11:18 12:02 16:15 Hold Purple Top Anion Gap Estim Creat Clear Calc Estimated GFR POC Glucose 234 H 262 H Random Glucose Calcium Vancomycin Trough 26.0 H* 07/09/24 07/10/24 07/10/24 20:09 05:33 07:23 Hold Purple Top SEE NOTE Anion Gap 13 Estim Creat Clear Calc 45.8 Estimated GFR 36 POC Glucose 336 H 176 H Random Glucose 176 H Calcium 9.2 Vancomycin Trough Assessment and Plan (1) JOSHUA (acute kidney injury): Status: Acute Plan This is a 63-year-old male with pertinent history of insulin-dependent diabetes mellitus, PHYLICIA on CPAP, hypertension, mixed hyperlipidemia, peripheral arterial disease, history of osteomyelitis of right foot who presents to the emergency department for concerns of left foot infection hospital course complicated by JOSHUA Left foot infection with purulent cellulitis due to DM and PVD Initially treated with IV vancomycin and Zosyn. No sepsis. X-ray without concerns for osteomyelitis, MRI with no evidence of osteo showing fracture fourth toe and possibility of septic arthritis seen by general surgery, rec vascular evaluation seen by vascular, arterial US obtained showing left SFA and tibial dz, plan for angioplasty on Wednesday continue local wound care: dura fiber Ag, 4x4s, and Kerlix wrap, change daily Wound culture growing MSSA, stopped vancomycin JOSHUA likely ATN due to vanco vanco stopped this am prior to trough collection, trough elevated Start IVF hold lisinopril follow renal function Planned procedure for tomorrow delayed. pt aware Insulin-dependent diabetes mellitus with hyperglycemia: has insulin pump, but did not bring cartridges. will turn off pump and cover with SSI follow POCs ADA diet Diabetic neuropathy: Continue gabapentin Hypertension: Continue Norvasc hold lisinopril or JOSHUA Mixed hyperlipidemia: Continue statin PHYLICIA: Continue CPAP at bedtime PVD hold asa to assess need for surgery continue statin Morbid obesity BMI 38.8 Weight loss encouraged DVT prophylaxis: Lovenox Full code Requires ongoing inpatient stay for IV antibiotics and specialist evaluation and possible surgical intervention, JOSHUA requiring IVF and close monitoring Quality Stroke Does the patient have a stroke diagnosis?: No VTE Prior VTE?: No VTE Risk Level:: Medical - moderate - high VTE Device Contraindication: Treatment Not Indicated VTE Drug Contraindication: N/A - Med Ordered
[2024-07-10] MEDS: Calcium + Vitamin D 250 MG TABLET PO (10:39)
[2024-07-10] MEDS: Lactated Ringers 1,000 ML 100 ML IVCONT ×2 (10:39→22:27)
--- NOTE | 2024-07-10 11:19 | MHC.CM.PN ---
Per MD rounds patient is not medically cleared to discharge today. The Vascular procedure is on hold because JOSHUA continues. DP Home with services, Sister transport vs STR via BLS. Pending a PT evaluation. CM will follow.
[2024-07-10 11:24] LABS: Glucose, Whole Blood 288 mg/dL (60-115)
--- NOTE | 2024-07-10 13:32 | HO.VASCPN ---
Subjective Subjective Date of Service: 07/10/24 Interval history: Jose is doing well this morning. He states his foot is feeling much better and is less red. He is eating/sleeping/drinking well. He has no new concerns this morning. Physical Exam Vital Signs: Vital Signs: Last Vital Signs Temp 97.3 F 07/10/24 07:21 Pulse 75 07/10/24 07:58 Resp 18 07/10/24 07:58 BP 130/70 07/10/24 07:21 Pulse Ox 94 07/10/24 07:21 O2 Del Method Room Air 07/10/24 07:21 O2 Flow Rate 93 07/09/24 15:37 BMI result Body Mass Index 38.7 Const: General: comfortable and no acute distress Orientation/consciousness: patient oriented x3 HEENT: Ears: hearing grossly normal bilaterally Resp: Effort & Inspection: normal respiratory effort and able to speak in complete sentences Auscultation: clear to auscultation bilaterally Cardio: Rate: regular rate Rhythm: regular rhythm Heart sounds: S1 normal heart sound present and S2 normal heart sound present Bruits: no abdominal aortic bruits, no carotid bruits, no femoral bruits and no renal bruits GI: Palpation (GI): No Abdominal aortic bruit present Neuro: General: patient oriented x3 Cranial nerves: Yes CN's II-XII intact bilaterally Extrem: Other: Left foot dressing: not taken down this morning. Progress Note: A&P Assessment and plan (1) Cellulitis of foot, left: Status: Acute Assessment and Plan: Jose is doing well. We had to reschedule his angio today due to a bump in his BUN/Cr, likely due to IV Vanco and oral medications. He was started on IVF as well to improve his kidney function. We will continue to monitor his kidney function with hopes of getting him in for an angio possibly Wed. I had a lengthy discussion with him about this today. We will continue to monitor. If there are any questions or concerns, please do not hesitate to reach out to us. Time Spent With Patient Time: Total time managing care of this patient today ____ minutes. Procedures Date of Service Date of Service: 07/10/24 Quality Stroke Does the patient have a stroke diagnosis?: No VTE Prior VTE?: No VTE Risk Level:: Medical - moderate - high VTE Device Contraindication: Treatment Not Indicated VTE Drug Contraindication: N/A - Med Ordered
[2024-07-10 15:43] VITALS: BP 149/68; PULSE 56; RESP 17; TEMP 36.2; O2SAT 96
[2024-07-10 16:19] LABS: Glucose, Whole Blood 189 mg/dL (60-115)
[2024-07-10] MEDS: 0.9 % Sodium Chloride Flush 3 ML SYRINGE IVFLUSH ×2 (16:28→21:28)
[2024-07-10 20:51] LABS: Glucose, Whole Blood 158 mg/dL (60-115)
[2024-07-10] MEDS: Atorvastatin Calcium 40 MG TABLET PO (21:26)
[2024-07-10] MEDS: Enoxaparin Sodium 40 MG/0.4 ML SYRINGE SUBCUT (21:27)
[2024-07-10 23:54] VITALS: BP 148/70; PULSE 64; RESP 16; TEMP 36.9; O2SAT 95
[2024-07-11] MEDS: Piperacillin Sodium/Tazobactam 4.5 GM in 0.9 % Sodium Chloride 100 ML IV ×2 (04:58→10:24)
[2024-07-11] MEDS: Omeprazole 20 MG CAPSULE.DR PO (05:29)
[2024-07-11] MEDS: oxyCODONE HCl Immed Release 5 MG TABLET 10 MG PO ×2 (05:32→11:51)
[2024-07-11 06:46] LABS: Creatinine Clr Calc Pharmacy 45.5; Estimated Glomerular Filt Rate 36
[2024-07-11 07:29] VITALS: PULSE 66; RESP 16; TEMP 36.3; O2SAT 94
[2024-07-11 07:32] LABS: Glucose, Whole Blood 205 mg/dL (60-115)
[2024-07-11] MEDS: Insulin Lispro 100 UNIT/ML 3 ML VIAL SUBCUT ×2 (07:45→11:49)
[2024-07-11 07:46] VITALS: BP 157/78
[2024-07-11] MEDS: amLODIPine Besylate 5 MG TABLET PO (07:46)
[2024-07-11] MEDS: Docusate Sodium 100 MG CAPSULE PO (07:52)
[2024-07-11] MEDS: Cholecalciferol (Vitamin D3) 25 MCG TABLET PO (07:52)
[2024-07-11] MEDS: Multivitamin TABLET 1 TAB PO (07:52)
[2024-07-11] MEDS: Cyanocobalamin (Vitamin B-12) 1,000 MCG TABLET 1000 MCG PO (07:52)
[2024-07-11] MEDS: Gabapentin 400 MG CAPSULE PO (07:52)
[2024-07-11] MEDS: polyethylene glycoL 3350 17 GM POWD.PACK PO (07:53)
[2024-07-11] MEDS: 0.9 % Sodium Chloride Flush 3 ML SYRINGE IVFLUSH (07:53)
[2024-07-11] MEDS: Tiotropium Bromide 2.5 mcg 1 PUFF/2.5 MCG MIST.INHAL 2 PUFF INHALE (07:56)
[2024-07-11 07:58] VITALS: PULSE 68; RESP 18; O2SAT 95
--- NOTE | 2024-07-11 09:00 | P.DS_ITS ---
DS: Providers Provider Date of Service: 07/11/24 Date of admission: 07/05/24 21:45 Date of discharge: 07/11/24 Primary care physician: RIGOBERTO Felder Consults: 07/06/24 08:09 Consult to General Surgery Routine Consulting Provider: [facility] General Surgeons Reason for consultation: left foot infection with gas Has provider been notified: No 07/06/24 13:53 Consult to Vascular Surgery Routine Consulting Provider: [facility] Vascular Services Reason for consultation: left foot wound; h/o PVD Has provider been notified: No 07/07/24 10:08 Consult to Wound Care Routine Reason for consultation: wound care 07/09/24 10:45 Consult to Wound Care Routine Reason for consultation: left foot infection,please evaluate area between left great toe and 1-st DS: Diagnosis Discharge Diagnosis (1) Cellulitis of foot, left: Status: Acute DS: Summary Hospital Course Hospital Course: History and physical as per admitting provider. This is a 63-year-old male with pertinent history of insulin-dependent diabetes mellitus, PHYLICIA on CPAP, hypertension, mixed hyperlipidemia, peripheral arterial disease, history of osteomyelitis of right foot who presents to the emergency department for concerns of left foot infection. Patient states he 1st noticed his symptoms 2 days ago. His foot became warm, swollen, red and was associated with pain when walking. He has a wound at the base of his left foot which is with foul- smelling purulent drainage. He does have a history of right foot osteomyelitis and was admitted in 2021. No fever, chills, chest pain, palpitations, shortness of breath, abdominal pain, changes in urinary or bowel habits. In the emergency department, x-ray with soft tissue swelling. Patient was given empiric IV antibiotics in the ER Left foot infection with purulent cellulitis due to DM and PVD . Initially treated with IV vancomycin and Zosyn. No sepsis. X-ray without concerns for osteomyelitis, MRI with no evidence of osteo showing fracture fourth toe and possibility of septic arthritis, seen by general surgery, rec vascular evaluation . seen by vascular, arterial US obtained showing left SFA and tibial dz, plan for angioplasty outpatient due to JOSHUA. continue local wound care: dura fiber Ag, 4x4s, and Kerlix wrap, change daily. Wound culture growing MSSA, stopped vancomycin, continue levaquin to complete 10 days. JOSHUA. likely ATN due to vanco. vanco stopped this am prior to trough collection, trough elevated. Treated with IV fluids. continue to hold lisinopril. follow renal function in 3 days Insulin-dependent diabetes mellitus with hyperglycemia: continue home insulin pump Diabetic neuropathy: Continue gabapentin Hypertension: Continue Norvasc. Stop lisinopril due to JOSHUA Mixed hyperlipidemia: Continue statin PHYLICIA: Continue CPAP at bedtime PVD hold asa to assess need for surgery. continue statin Morbid obesity. BMI 38.8. Weight loss encouraged Time Attestation Discharge Coordination Time (in mins): 42 Quality: Safe Use of Opioids Does Pt have an Active Cancer Diagnosis on the Problem List?: No Quality: Stroke Does the patient have a stroke diagnosis?: No Physical Exam Vital Signs: Vital Signs: Last Vital Signs Temp 97.4 F 07/11/24 07:29 Pulse 68 07/11/24 07:58 Resp 18 07/11/24 07:58 BP 157/78 H 07/11/24 07:46 Pulse Ox 94 07/11/24 07:29 O2 Del Method Room Air 07/11/24 07:29 O2 Flow Rate 93 07/09/24 15:37 BMI result Body Mass Index 38.7 Appearing in no acute distress head is normocephalic atraumatic eyes pupils are PERRLA sclera is anicteric mouth throat mucous membranes are intact and moist neck is supple no lymphadenopathy, no JVD noted lung sounds are clear to auscultation heart regular rate rhythm, clear S1, S2 positive bowel sounds, abdomen is soft, nontender neuro patient is alert x3, no focal deficits Vascular wound DS: Data Data Completed and Pending Completed studies during hospitalization [Text1]: Procedures Insertion of Infusion Device into Superior Vena Cava, Percutaneous Approach (12/17/21) Ultrasonography of Superior Vena Cava, Guidance (12/17/21) Labs on day of discharge: Laboratory Results - last 24 hr 07/10/24 07/10/24 07/10/24 11:16 16:16 20:45 Hold Purple Top Creatinine Estim Creat Clear Calc Estimated GFR POC Glucose 288 H 189 H 158 H 07/11/24 07/11/24 06:14 07:27 Hold Purple Top SEE NOTE Creatinine 1.92 H Estim Creat Clear Calc 45.5 Estimated GFR 36 POC Glucose 205 H Discharge Plan Discharge Anticipated Discharge Date/Time: 07/11/24 08:58 Patient Disposition: Home Health Service Discharge Diagnosis: Purulent cellulitis to left foot JOSHUA Referrals: Wanda FRANKS [Outside] - 1 Week Lewis Carter FNP [Primary Care Provider] - 1 Week Discharge Medications: New levofloxacin 500 mg tablet 500 mg PO DAILY Qty: 3 0RF Continued celecoxib 200 mg capsule 1 cap PO BID atorvastatin 40 mg Tablet 40 mg PO BEDTIME cyanocobalamin (vitamin B-12) 1,000 mcg tablet extended release 1 tab PO DAILY amlodipine 5 mg tablet 1 tab PO DAILY aspirin 81 mg tablet,delayed release (DR/EC) 1 tab PO DAILY acetaminophen 650 mg tablet extended release 1 tab PO Q8H PRN (Reason: Pain (Scale Score 1-3)) insulin aspart U-100 [Novolog U-100 Insulin aspart] 100 unit/mL solution See Rx Instructions .ROUTE .COMPLEX Rx Instructions: use with insulin pump- The Omnipod 5 insulin pump and Dexcom G6 continuous glucose monitor, up to 60 units daily docusate sodium 100 mg capsule 1 cap PO BID PRN (Reason: constipation) omeprazole 20 mg capsule,delayed release(DR/EC) 1 cap PO DAILY@0630 albuterol sulfate [Ventolin HFA] 90 mcg/actuation HFA aerosol inhaler 2 puff inhalation Q4H PRN (Reason: sob) fluticasone propionate 50 mcg/actuation spray,suspension 1 spray intranasal DAILY PRN (Reason: allergies) loratadine 10 mg tablet 1 tab PO DAILY PRN (Reason: allergies) cholecalciferol (vitamin D3) [Vitamin D3] 25 mcg (1,000 unit) capsule 1 tab PO DAILY calcium carbonate-vitamin D3 [Calcium 500 With D] 500 mg-10 mcg (400 unit) tablet 1 tab PO Q48H Incruse Ellipta 62.5 mcg/actuation blister with device 1 puff inhalation DAILY frxqjiai-krv-yzcm fum-folic ac 7.5 mg iron-400 mcg tablet 1 tab PO DAILY (DME) subcutaneous insulin pump Rx Instructions: novolog insulin used with pump- Minimed 630G Guardian Start gabapentin 400 mg capsule 400 mg PO TID Discontinued lisinopril 20 mg tablet 1 tab PO DAILY Discharge Orders: Discharge Order (Routine); Ordered 07/11/24 Ordered By: Shannon Smyth Diet: Advance to usual diet Activity on Discharge: As tolerated Stand Alone Forms: Patient Portal Discharge page Print Language: [place] Citizen Other Ambulatory Orders: Basic Metabolic Panel (Routine) Timeframe: 3 Days Facility: [facility] - Location: Laboratory Ordered By: Shannon Smyth Care Plan Goals: Wound care: dura fiber Ag, 4x4s, and Kerlix wrap, change daily. Health Concerns: Purulent cellulitis to left foot JOSHUA Plan of Treatment: Follow-up with primary care provider as needed Take all medications as prescribed Assessment: See discharge summary
--- NOTE | 2024-07-11 09:30 | HO.VASCPN ---
Subjective Subjective Date of Service: 07/11/24 Interval history: Jose is doing well this morning. He states he is having some pain in his foot this morning, but it is manageable. He is eating/drinking/sleeping well. His Cr continues to be elevated, this morning at 1.92. Physical Exam Vital Signs: Vital Signs: Last Vital Signs Temp 97.4 F 07/11/24 07:29 Pulse 68 07/11/24 07:58 Resp 18 07/11/24 07:58 BP 157/78 H 07/11/24 07:46 Pulse Ox 94 07/11/24 07:29 O2 Del Method Room Air 07/11/24 07:29 O2 Flow Rate 93 07/09/24 15:37 BMI result Body Mass Index 38.7 Const: General: comfortable and no acute distress Orientation/consciousness: patient oriented x3 HEENT: Ears: hearing grossly normal bilaterally Resp: Effort & Inspection: normal respiratory effort and able to speak in complete sentences Auscultation: clear to auscultation bilaterally Cardio: Rate: regular rate Rhythm: regular rhythm Heart sounds: S1 normal heart sound present and S2 normal heart sound present Bruits: no abdominal aortic bruits, no carotid bruits, no femoral bruits and no renal bruits GI: Palpation (GI): No Abdominal aortic bruit present Neuro: General: patient oriented x3 Cranial nerves: Yes CN's II-XII intact bilaterally Extrem: Other: Left foot: dressing in place, not taken down this morning. Progress Note: A&P Assessment and plan (1) Diabetic infection of left foot: Status: Acute Assessment and Plan: Jose remains stable from a vascular standpoint. We will need to hold off on the Angio due to an increased Cr, today at 1.92, despite remaining off of Vanco and oral medications. I discussed with the hospitalist that if they are going to discharge him, we can follow up with him in the office next week and to have them obtain follow up BMP. We would continue with dressing changes three times a week. If there are any questions or concerns, please do not hesitate to reach out to us. Time Spent With Patient Time: Total time managing care of this patient today ____ minutes. Procedures Date of Service Date of Service: 07/11/24 Quality Stroke Does the patient have a stroke diagnosis?: No VTE Prior VTE?: No VTE Risk Level:: Medical - moderate - high VTE Device Contraindication: Treatment Not Indicated VTE Drug Contraindication: N/A - Med Ordered
--- NOTE | 2024-07-11 10:37 | P.F2F_ITS ---
Service Date Service Date: 07/11/24 Encounter Date of encounter: 07/11/24 Reasons for Services Signs and symptoms assessed: Cellulitis vascular wound Reason for senior living: CV/CP assess and/or care and wound care (dura fiber Ag, 4x4s, and Kerlix wrap, change daily. teach patient ) Homebound: Leaving the home is medically contraindicated at this time without the asist of a device and/or another person due th the listed conditions above and below. Reason homebound: weakness related to hospital stay Certification: Based on the above findings, I certify that this patient is confined to the home and needs intermittent senior living care, physical therapy and/or speech therapy, or continues to need occupational therapy. The patient is under my care, and I have initiated the establishment of the plan of care. The patient will be followed by a physician who will periodically review the plan of care. Time Spent With Patient Time: Total time managing care of this patient today ____ minutes.
[2024-07-11 11:36] LABS: Glucose, Whole Blood 195 mg/dL (60-115)
--- NOTE | 2024-07-11 11:53 | MHC.CM.PN ---
IMM 07/11/24 Patient is discharged to home with [facility] today. He will follow up with Vascular surgery. Patient continues with JOSHUA, surgery is on hold. 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
[2024-07-11 15:24] VITALS: BP 149/68; PULSE 58; RESP 16; TEMP 36.3; O2SAT 95
== END 2024-07-11 15:54 | disposition home health service (06) | DRG 300 ==
LOC: HO.ED 21:14 → HO.EDOVER 22:26 → HO.S3 07-06 07:43
PROVIDERS: Physician Assistant; Physician Assistant Medical; Surgery Vascular Surgery; Admitting Provider Student in an Organized Health Care Education/Training Program; Emergency Provider Emergency Medicine; PCP Registered Nurse; Visit Provider Nurse Practitioner Acute Care
DX: E11.51 Type 2 diabetes mellitus with diabetic peripheral angiopathy without gangrene (principal); L03.116 Cellulitis of left lower limb; L97.429 Non-pressure chronic ulcer of left heel and midfoot with unspecified severity; N17.9 Acute kidney failure, unspecified; E11.628 Type 2 diabetes mellitus with other skin complications; I70.244 Atherosclerosis of native arteries of left leg with ulceration of heel and midfoot; E11.40 Type 2 diabetes mellitus with diabetic neuropathy, unspecified; T36.8X5A Adverse effect of other systemic antibiotics, initial encounter; I10 Essential (primary) hypertension; E11.65 Type 2 diabetes mellitus with hyperglycemia; E66.01 Morbid (severe) obesity due to excess calories; B95.61 Methicillin susceptible Staphylococcus aureus infection as the cause of diseases classified elsewhere; Z68.38 Body mass index [BMI] 38.0-38.9, adult; E78.2 Mixed hyperlipidemia; G47.33 Obstructive sleep apnea (adult) (pediatric); Z98.84 Bariatric surgery status; Z79.4 Long term (current) use of insulin; Z79.82 Long term (current) use of aspirin; Z79.899 Other long term (current) drug therapy
CPT/HCPCS: 36415; 73630; 73720; 80048; 80053; 80202; 82565; 82947; 83605; 83690; 84520; 85025; 85027; 85652; 86140; 87040; 87070; 87077; 87186; 87205; 93926; 94640; 99285; A9585; J0692; J1650; J2270; J2543; J3370; J3371; J7120

== ENCOUNTER → 2024-07-05 15:21 | Outpatient (BNV) | payer OTHER, SELFPAY | PROVIDERS: PCP Registered Nurse; Visit Provider Radiology Diagnostic Radiology | DX: M20.12 Hallux valgus (acquired), left foot (principal); R22.42 Localized swelling, mass and lump, left lower limb | CPT/HCPCS: 73630 ==

== ENCOUNTER → 2024-07-05 15:26 | Outpatient (BNV) | payer OTHER, SELFPAY | PROVIDERS: Emergency Provider Emergency Medicine; PCP Registered Nurse; Visit Provider Student in an Organized Health Care Education/Training Program | DX: L03.116 Cellulitis of left lower limb (principal); E11.628 Type 2 diabetes mellitus with other skin complications; L08.9 Local infection of the skin and subcutaneous tissue, unspecified | CPT/HCPCS: 99232; 99233; 99239 ==

== ENCOUNTER 2024-07-05 21:45 | Outpatient (BNV) | payer OTHER, SELFPAY | END 2024-07-06 12:20 | PROVIDERS: Admitting Provider Student in an Organized Health Care Education/Training Program; Emergency Provider Emergency Medicine; PCP Registered Nurse; Visit Provider Radiology Diagnostic Radiology | DX: L97.529 Non-pressure chronic ulcer of other part of left foot with unspecified severity (principal) | CPT/HCPCS: 73720; 93926 ==

== ENCOUNTER → 2024-07-05 21:45 | Outpatient (BNV) | payer OTHER, SELFPAY | PROVIDERS: Admitting Provider Student in an Organized Health Care Education/Training Program; Emergency Provider Emergency Medicine; PCP Registered Nurse; Visit Provider Physician Assistant Surgical | DX: L03.116 Cellulitis of left lower limb (principal); I73.9 Peripheral vascular disease, unspecified; E11.628 Type 2 diabetes mellitus with other skin complications; L08.9 Local infection of the skin and subcutaneous tissue, unspecified | CPT/HCPCS: 99222 ==

== ENCOUNTER → 2024-07-05 21:45 | Outpatient (BNV) | payer OTHER, SELFPAY | PROVIDERS: Admitting Provider Student in an Organized Health Care Education/Training Program; Emergency Provider Emergency Medicine; PCP Registered Nurse; Visit Provider Physician Assistant Surgical | DX: E11.628 Type 2 diabetes mellitus with other skin complications (principal); L08.9 Local infection of the skin and subcutaneous tissue, unspecified | CPT/HCPCS: 99222; 99232 ==

== ENCOUNTER 2024-07-12 14:23 | Outpatient (REF) | payer OTHER, SELFPAY ==
[2024-07-12 15:07] LABS: Anion Gap 13 (12-20); Blood Urea Nitrogen 22 mg/dL (9-16); Calcium 8.8 mg/dL (8.4-10.2); Carbon Dioxide 27 mmol/L (22-29); Chloride 105 mmol/L (96-108); Estimated Glomerular Filt Rate 34; Glucose Random 150 mg/dL (60-115); Potassium 3.4 mmol/L (3.3-5.1); Sodium 142 mmol/L (135-145)
--- OUTSIDE RECORDS SUMMARY | 2024-07-12 17:58 | XMS_ITS | Encounter Summary ---
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 Name Role Phone Radha Weber MD Primary Care Provider [phone] Reason for Visit * Reason Comments Med Refill Encounter Details Date Type Department Care Team ([facility] st Contact Info) Description 06/17/2022 Refill C [facility] [address] [place] [address] Radha Weber MD [address] [place] [address] Primary osteoarthritis of other site (Primary Dx) [...] Primary documented in this encounter Care Teams Rotary Veneer 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
--- OUTSIDE RECORDS SUMMARY | 2024-07-12 17:58 | XMS_ITS | Encounter Summary ---
Author Organization [facility] Address [address] [place] [address] Care Team Providers Care Clam Picker Name Role Phone Emma Lewis LOOM OPERATOR APPRENTICE-C Primary Care Provider [phone] Reason for Visit * Reason Comments Diabetes Mellitus Encounter Details Date Type Department Care Team (Latest Contact Info) Description 06/22/2024 3:00 PM EST Telemedicine Visit [facility] [address] [place] [phone] Juwan العلي, PharmD [address] [place] [address] Type 2 diabetes mellitus with 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, with long-term current use of insulin ([facility]) (Primary Dx); Essential hypertension, benign; Class 2 severe obesity due to excess calories with serious comorbidity and body mass index (BMI) of 38.0 to 38.9 in adult ([facility]); Medication management Social History Tobacco Use Types [...] identified myself as Juwan العلي PharmD from [facility]. It was conducted in a private space to protect HIPPA sensitive information. Precautions were taken to provide confidentiality and security and patient was made aware of privacy considerations. The patients location was obtained and is [facility] home The patient was notified that the services were beingprovided from [place], [place]. The patient was notified how they can see a clinician in-person in theevent of an emergency or if otherwise needed. Visit START TIME 2:46 PM EST END TIME 3:03 PM JHOANA oFster is a 63 year old, Bahamian-speaking male who presents today for a follow-up visit in[facility]abetes[facility] Clinic with Juwan العلي PharmD. Referred by ANIKET Felder. No brand marketing manager needed for today's visit as patient speaks Bahamian. Accompanied by: None Subjective: Patient reports: Patient [...] their mother. Patient interested in following with architectural examiner yanick got appt. Patient reports they are [...] pump Last foot exam: 04/30/23, follows with wood and wood products factory worker. Last eye exam: 01/21/24 at [facility] stating mild nonprolifertaive diabetic retinopathy in the right eye. Exercise/Physical activity: minimal exercise: walking and active taking care of their mother. Diet: Patient denies eating rice and limits other carbs. Eats some meats, vegetables, and fruits. Patient has been trying to be more mindful of diet but requests further help with architectural examiner. Stopped soda drinks occasional juice, and drinks [...] complication, with long-term current use of insulin ([facility]) (primary encounter diagnosis) No changes to insulin [...] (BMI) of 38.0 to 38.9 in adult ([facility]) Lifestyle measures:BMI follow up plan: The patient [...] Hyperglycemia / Hypoglycemia Hypoglycemia Treatment (Rule 15) Prison Complications Uncontrolled Diabetes Juwan العلي PharmD, [facility] documented in this encounter Miscellaneous Notes * Patient Instructions - Juwan العلي PharmD - 06/22/2024 2:46 PM EST If you are not able to keep your appointment please call 24-48 hours before your appointment to cancel or reschedule. documented in this encounter Plan of Treatment Upcoming Encounters Date Type Department Care Team (Late st Contact Info) Description 08/08/2024 3:00 PM EDT Office Visit [facility] [address] [place] [phone] Juwan العلي PharmD [address] [place] [address] Scheduled Orders Name Type Priority Associated Diagnoses Orde r Schedule HEMOGLOBIN GLYCOSYLATED A1C Lab Routine Type 2 diabetes mellitus with 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, with long-term current use of insulin ([facility]) 1 Occurrences starting 06/22/2024 until 12/19/2024 MICROALBUMIN/CREATININE RATIO, URINE, RANDOM Lab Routine Type 2 diabetes mellitus with 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, with long-term current use of insulin ([facility]) 1 Occurrences starting 06/22/2024 until 12/19/2024 documented as of this encounter Visit Diagnoses Diagnosis Type 2 diabetes mellitus with 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, with long-term current use of insulin ([facility])- Primary Essential hypertension, benign Class 2 severe obesity due to excess calories with serious comorbidity and body mass index (BMI) of 38.0 to 38.9 in adult ([facility]) Medication management Encounter for long-term (current) use of other medications documented in this encounter Additional Health Concerns Assessment Noted Time PHQ-9 Depression Total Score: 18 023 10:09 AM PST documented as of this encounter Care Teams Clam Picker Relationship Specialty Start Date End Date Lewis Carter FNP-C [address] [place] [address] PCP - General Internal Medicine 04/30/23 documented as of this encounter
--- OUTSIDE RECORDS SUMMARY | 2024-07-12 17:58 | XMS_ITS | Encounter Summary ---
Author Organization [employer] Address [address] [place] [address] [address] [place] [address] Care Team Providers Care Ruling Machine Set Up Operator Name Role Phone Radha Weber MD Primary Care Provider [phone] Encounter Details Date Type Department Care Team ([facility] st Contact Info) Description 01/26/2023 Orders Only [facility] [address] [place] [address] Antoinette Shrestha LPN Social History Tobacco Use [...] on filedocumented in this encounter Care Teams Ruling Machine Set Up Operator Relationship Specialty Start Date End Date Radha Weber MD [address] [place] [address] PCP - General Internal Medicine 02/27/21 05/19/23 documented as of this encounter
--- OUTSIDE RECORDS SUMMARY | 2024-07-12 17:58 | XMS_ITS | Encounter Summary ---
Author Organization [facility] Address [address] [place] [address] Care Team Providers Care Pocket And Pulley Machine Operator Name Role Phone Lewis Carter MANAGER PULMONARY-C Primary Care Provider [phone] Encounter Details Date Type Department Care Team (Late st Contact Info) Description 02/11/2024 Interim Notes [facility] [address] [place] [phone] Lewis Carter FNP-C [address] [place] [address] Social History Tobacco Use Types Packs/Day Years [...] Description 08/08/2024 3:00 PM EDT Office Visit [facility] [address] [place] [phone] Juwan العلي PharmD [address] [place] [address] documented as of this encounter Visit Diagnoses Not on filedocumented in this encounter Additional Health Concerns Assessment Noted Time PHQ-9 Depression Total Score: 18 023 10:09 AM PST documented as of this encounter Care Teams Pocket And Pulley Machine Operator Relationship Specialty Start Date End Date Lewis Carter FNP-C [address] [place] [address] PCP - General Internal Medicine 04/30/23 documented as of this encounter
--- OUTSIDE RECORDS SUMMARY | 2024-07-12 17:58 | XMS_ITS | Encounter Summary ---
Author Organization [facility] Address [address] [place] [address] Care Team Providers Care Conventional Machinist Name Role Phone Lewis CarterP-C Primary Care Provider [phone] Encounter Details Date Type Department Care Team ([facility] Contact Info) Description 01/23/2015 Interim Notes [facility] [address] [place] [phone] Corina Arango, MCKENZIE [address] [place], [place] [phone] Social History Tobacco Use Types Packs/Day Years [...] Department Care Team (Late Contact Info) Description 08/08/2024 3:00 PM EDT Office Visit [facility] [address] [place] [phone] Juwan العلي, PharmD [address] [place] [address] documented as of this encounter Visit Diagnoses Not on filedocumented in this encounter Care Teams Conventional Machinist Relationship Specialty Start Date End Date Lewis Carter FNP-C [address] [place] [address] PCP - General Internal Medicine 04/30/23 documented as of this encounter
--- OUTSIDE RECORDS SUMMARY | 2024-07-12 17:58 | XMS_ITS | Encounter Summary ---
Author Organization [facility] Address [address] [place] [address] Care Team Providers Care Shipper Receiver Name Role Phone Lewis CarterP-C Primary Care Provider [phone] Encounter Details Date Type Department Care Team ([facility] Contact Info) Description 01/23/[address] [facility] [address] [place] [phone] Corina Arango, MCKENZIE [address] [place], [place] [phone] Social History Tobacco Use Types Packs/Day Years [...] Description 08/08/2024 3:00 PM EDT Office Visit [facility] [address] [place] [phone] Juwan العلي, PharmD [address] [place] [address] documented as of this encounter Visit Diagnoses Not on filedocumented in this encounter Care Teams Shipper Receiver Relationship Specialty Start Date End Date Lewis Carter FNP-C [address] [place] [address] PCP - General Internal Medicine 04/30/23 documented as of this encounter
--- OUTSIDE RECORDS SUMMARY | 2024-07-12 17:58 | XMS_ITS | Clinical Summary ---
Author Organization [facility] Address [address] [place] [address] Phone Care Team Providers Care Filtering Machine Tender Helper Name Role Phone Physician, Pcp Unknown Primary [...] PM EST Office Visit Orthopedic Surgery - [address] [phone] Avtar Emanuel, DPM Ulcer of [...] PM EDT Office Visit Orthopedic Surgery - [place] [address] [phone] Avtar Emanuel, DPM [address] [address] Health Maintenance Due Date Last Done Comments [...] to complete this topic Insurance [address] [place] [address] [facility] MEDICARE Member Subscriber Plan / Payer (Ef fective 2014-Present) Name:Joes Foster Relation to Subscriber:Self Name:Jose Foster Payer ID:[id number] Group ID:[id number] Type:Not on file Address: [place] [address] [place] [place] [address] Care Teams Filtering Machine Tender Helper Relationship Specialty Start Date End Date Physician, Pcp Unknown PCP - General 04/20/24
--- OUTSIDE RECORDS SUMMARY | 2024-07-12 17:58 | XMS_ITS | Clinical Summary ---
Author Organization [facility] Address [address] [place] [address] Care Team Providers Care Coconut Cooker Name Role Phone Lewis Carter TURBINE ASSEMBLER-C Primary Care Provider [phone] Source Comments PLEASE NOTE, if this patient [...] Take 81 mg by mouth once daily 08/04/19 20 Active ecnneybj-vth-idwbmd s fumarate 15 mg iron tab Take 1 Tablet by mouth once daily Per MOON JORDAN 06/07/19 21 Active lancets (MICROLET LANCET)Indications: Insulin dependent type 2 diabetes mellitus, uncontrolled,Insuli n pump in place TEST BLOOD SUGARS 7 TIMES DAILY ON INSULIN INFUSION PUMP AND SENSOR E11.65 MICROLET LANCETS 300 Each 11 01/22/20 21 Active CALCIUM 500 WITH D 500 mg(1,250mg) -400 unit tablet TAKE 1 TABLET BY MOUTH EVERY 2 DAYS Authorized by: MOON JORDAN 11/21/19 21 Active celecoxib (CELEBREX) 200 mg capsule 04/18/2021 CELECOXIB?CAP 200MG 60.00 Each 2 30 Unit Strength: 200 Authorized by: TAMIKA ESCALANTE 04/18/20 21 Active cyanocobalamin, vitamin B-12, 1,000 mcg TbER 02/27/2021 [facility] VIT B-12 TR 1,000 MCG TAB 90.00 Each 5 90 Authorized by: JAMIL LOPEZ 02/28/20 21 Active fluticasone propionate (FLONASE) 50 mcg/actuation nasal spray 03/18/2021 FLUTICASONE PROP 50 MCG SPRAY 48.00 g 11 90 Authorized by: JAMIL LOPEZ 03/18/20 21 Active blood-glucose meter,continuous (DEXCOM G6 POWER SUPERINTENDENT) miscIndications:Typ e 2 diabetes mellitus with hyperglycemia, with long-term current use of insulin ([facility]) 1 Each by miscellaneous route continuously 1 Each 2 02/09/20 23 Active blood sugar diagnostic (CONTOUR NEXT TEST STRIPS) stripsIndications:T ype 2 diabetes mellitus with hyperglycemia, with long-term current use of insulin ([facility]) Check blood sugar 7 times daily on insulin infusion pump and sensor 300 Each 10 04/13/20 23 Active MISCELLANEOUS MEDICAL SUPPLY MISCIndications:Imp airment of balance,History of falling by miscellaneous route daily. Dispense 1 electronic lift chair. Need lifetime. 1 Each 06/15/19 24 Active OMNIPOD 5 G6 PODS, GEN 5, crtgIndications:Typ e 2 diabetes mellitus with hyperglycemia, with long-term current use of insulin ([facility]) Inject 1 Each into the skin every 3 (three) days 15 Each 06/21/19 24 Active methocarbamoL (ROBAXIN) 500 mg tabletIndications:R ib pain on right side TAKE 1 TABLET BY MOUTH THREE TIMES A DAY NEEDED FOR PAIN 30 Tablet 1 12/10/19 24 Active MISCELLANEOUS MEDICAL SUPPLY MISCIndications:Typ e 2 diabetes mellitus with hyperglycemia, with long-term current use of insulin ([facility]),Impairmen t of balance,History of falling by miscellaneous route daily Please dispense 1 cane for lifetime use for hx of type 2 diabetes and gait instability 1 Each 1 12/30/19 24 Active PETROLATUM ointmentIndications :Type 2 diabetes mellitus with hyperglycemia, with long-term current use of insulin ([facility]),Dry skin APPLY TOPICALLY TWICE A DAY 454 g 2 12/31/19 24 Active blood-glucose sensor (DEXCOM G6 SENSOR) deviIndications:Typ e 2 diabetes mellitus with hyperglycemia, with long-term current use of insulin ([facility]) 1 Each by miscellaneous route every 10 (ten) days 9 Each 3 02/09/20 24 Active blood-glucose transmitter (DEXCOM G6 TRANSMITTER) deviIndications:Typ e 2 diabetes mellitus with hyperglycemia, with long-term current use of insulin (HCC-CMS) 1 Each by miscellaneous route every 3 (three) months 1 Each 3 02/09/20 Active atropine 1 % ophthalmic solution Authorized by: STACY RODRIGUEZ 02/14/20 Active moxifloxacin (VIGAMOX) 0.5 % ophthalmic solution Authorized by: STACY RODRIGUEZ 02/14/20 Active prednisoLONE acetate (PRED-FORTE) 1 % ophthalmic suspension Authorized by: STACY RODRIGUEZ 02/14/20 Active MISCELLANEOUS MEDICAL SUPPLY MISCIndications:Typ e 2 diabetes mellitus with hyperglycemia, with long-term current use of insulin (HCC-CMS),Mixed urge and stress incontinence by miscellaneous route daily Please dispense 1 pair of diabetic shoes with customized foot inserts for lifetime use, hx of diabetic feet and Type II diabetes mellitus 2 Each 1 02/25/20 Active MISCELLANEOUS MEDICAL SUPPLY MISCIndications:Typ e 2 diabetes mellitus with hyperglycemia, with long-term current use of insulin (HCC-CMS),Mixed urge and stress incontinence by miscellaneous route once daily as needed (mixed incontinence) L adult pull ups for hx of mixed incontinence, 8 per day for 30 days per month, use 99 years 240 Each 11 02/25/20 Active zinc oxide 40 % ointIndications:Typ e 2 diabetes mellitus with hyperglycemia, with long-term current use of insulin (HCC-CMS),Mixed urge and stress incontinence Apply 1 Application topically once daily as needed (apply with each diaper change) 397 g 2 02/25/20 24 Active INCRUSE ELLIPTA 62.5 mcg/actuation dsdv Inhale 1 Puff into the lungs daily. 30 Each 2 03/07/20 24 Active albuterol HFA 90 mcg/actuation inhaler Inhale 2 Puffs into the lungs every 4 (four) hours as needed for shortness of breath 18 g 2 03/07/20 24 Active amLODIPine (NORVASC) 5 mg tablet Take 1 Tablet by mouth once daily 90 Tablet 1 03/07/20 24 Active loratadine (CLARITIN) 10 mg tablet Take 1 Tablet by mouth once daily as needed for allergies for up to 90 days 90 Tablet 1 03/07/20 24 Active furosemide (LASIX) 20 mg tablet Take 0.5 Tablets by mouth once daily 45 Tablet 1 03/07/20 24 Active atorvastatin (LIPITOR) 40 mg tablet Take 1 Tablet by mouth nightly at bedtime 90 Tablet 1 03/07/20 24 Active ALCOHOL PREP PADS Apply topically USE 1 PAD TO CLEAN SKIN DAILY 100 Each 2 03/07/20 24 Active MISCELLANEOUS MEDICAL SUPPLY MISCIndications:Typ e 2 diabetes mellitus without complication, without long-term current use of insulin ([facility]),Mixed urge and stress incontinence Please dispense ALOE wipes without alcohol, 8 wipes per day for lifetime use, for hx of type II diabetes and incontinence 200 Each 11 03/29/20 24 Active MISCELLANEOUS MEDICAL SUPPLY MISCIndications:Gou t of left foot, unspecified cause, unspecified chronicity Knee scooter placed on [facility] 1 Each 04/12/20 24 Active omeprazole (PRILOSEC) [address] capsule TAKE 1 CAPSULE BY MOUTH EVERY DAY BEFORE A MEAL 90 Capsule 4 04/26/20 24 Active indomethacin (INDOCIN) 50 mg capsule TAKE 1 CAPSULE (50 MG TOTAL) BY MOUTH 2 (TWO) TIMES A DAY WITH MEALS FOR 15 DAYS Authorized by: SIERRA CAMACHO 05/03/20 24 Active OMNIPOD 5 G6-G7 PODS, GEN 5, crtg INJECT 1 EACH INTO THE SKIN EVERY 3 (THREE) DAYS Authorized by: CLAUDINE GRAVES E H 03/20/20 24 Active lisinopriL 20 mg tablet Take 1 Tablet by mouth once daily 90 Tablet 1 05/12/20 24 Active NOVOLOG U-100 INSULIN ASPART 100 unit/mL injectionIndication s:Insulin pump in place USE IN CONTINUOUS INSULIN INFUSION PUMP UP TO 60 UNITS DAILY (DISCARD VIAL 28 DAYS AFTER FIRST USE) NEEDS APPT FOR FURTHER REFILLS 50 mL 3 05/19/19 25 Active acetaminophen (TYLENOL 8 HOUR) 650 mg CR tablet TAKE 1 TABLET BY MOUTH EVERY 8 HOURS NEEDED FOR PAIN 90 Tablet 1 06/09/19 25 Active ketorolac (ACULAR) 0.5 % ophthalmic solution See Admin Instructions PLEASE SEE ATTACHED FOR DETAILED DIRECTIONS Authorized by: MEL SCHROEDER 05/26/19 25 Active gabapentin (NEURONTIN) 400 mg capsule TAKE 1 CAPSULE BY MOUTH 3 TIMES DAILY. 90 Capsule 11 06/29/19 25 Active MISCELLANEOUS MEDICAL SUPPLY MISCIndications:Sarah betic foot infection ([facility]),Type 2 diabetes mellitus with 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, with long-term current use of insulin ([facility]),Osteoarth ritis involving multiple joints on both sides of body,Gait instability by miscellaneous route daily Please dispense roller walker with a seat for lifetime use for hx of gait instability 1 Each 07/12/19 25 Active Active Problems Problem Noted Date Diagnosed Date Mixed urge and stress incontinence 03/29/2024 Class 2 severe obesity due t o excess calories with serious comorbidity and body mass index (BMI) of 38.0 to 38.9 in adult ([facility]) 02/15/2024 History of gastric bypass 04/30/2023 Chronic back pain 01/28/2018 Obstructive sleep apnea syndrome 01/28/2018 Osteoarthritis involving mul tiple joints on both sides of body 01/28/2018 Difficulty swallowing 03/11/2015 Overview (03/11/2015): CR UGI with Air done on 02/25/2015 at [facility]- Impression: Spontaneous severe GERD. Tiny hiatal hernia. Normal Esophageal motility. Migraine headache 10/16/2013 Overview (12/27/2015): topamax 200 1 po bid Carpal tunnel syndrome, bilateral 02/07/2013 Episodic mood disorder ([facility]) 01/08/2013 Anxiety 01/08/2013 Type 2 diabetes mellitus wit h 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, with long-term current use of insulin ([facility]) 11/16/2012 Overview (04/30/2023): Lab Results Component Value Date HGBA1C 9.0* 10/25/2015 HGBA1C 8.1* 01/18/2015 HGBA1C 7.9* 09/06/2014 Mala lylest 01/02 Hyperlipidemia 11/16/2012 Overview (04/30/2023): No results [...] Encounters Date Type Department Care Team Description 07/12/2024 Interim Notes [address] [phone] Yany Walker [place] 06/22/2024 3:00 PM EST Telemedicine Visit [address] [address] Juwan العلي, PharmD Type 2 diabetes mellitus with 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, with long-term current use of insulin ([facility]) (Primary Dx); Essential hypertension, benign; Class 2 severe obesity due to excess calories with serious comorbidity and body mass index (BMI) of 38.0 to 38.9 in adult ([facility]); Medication management 05/11/2024 3:20 PM EST Office Visit [address] [address] Juwan العلي, PharmD Controlled type 2 diabetes mellitus without complication, unspecified whether mcc insulin use ([facility]) (Primary Dx); Essential hypertension, benign; Class 2 severe obesity due to excess calories with serious comorbidity and body mass index (BMI) of 38.0 to 38.9 in adult ([facility]); Medication management 05/11/2024 Travel 04/27/2024 9:20 AM EST Office Visit [address] [address] Child, RohitSHARON Foot ulceration, left, limited to breakdown of skin ([facility]) (Primary Dx) 04/27/2024 Interim Notes [address] [address] Rosemarie Virk RN 04/27/2024 Travel from [...] Description 08/08/2024 3:00 PM EDT Office Visit [facility] [address] [place] [address] AntilJuwan, PharmD [address] [place] [address] Health Maintenance Due Date Last Done Comments Dental Examination 1960 Hepatitis B Screening 1960 Imm-Hepatitis A (1 of 2 - Ri sk 2-dose series) 11/30/1979 CT Colonography 2005 Colonoscopy 2005 Flexible Sigmoidoscopy 2005 Imm-Hepatitis B (1 of 3 - Ri sk 3-dose series) 2020 [id number] () 01/16/2024 04/30/2023, 05/06/2021, 08/14/2020, Additional history exists Diabetes [...] 2 diabetes mellitus without complication, unspecified whether mcc insulin use ([facility]) XR FOOT LEFT Urgent 04/27/2024 1:34 PM EST Foot ulceration, left, limited to breakdown of skin ([facility]) BLOOD COUNT COMPLETE AUTOMATED Routine 04/27/2024 9:12 AM EST Foot ulceration, left, limited to breakdown of skin ([facility]) COMPREHENSIVE METABOLIC PANEL Routine 04/27/2024 9:12 AM EST Foot ulceration, left, limited to breakdown of skin ([facility]) IMAGING SCANNED DOCUMENT 04/27/2024 3:00 AM EST OTHER ORDERS SCANNED DOCUMENT 04/11/2024 3:00 AM EST PROCEDURE SCANNED DOCUMENT 04/11/2024 3:00 AM EST HEMOGLOBIN GLYCOSYLATED A1C Routine 02/15/2024 4:16 PM EDT Type 2 diabetes mellitus with hyperglycemia, with long-term current use of insulin ([facility]) EYE EXAM 01/21/2024 3:00 AM [...] 3:00 AM EST) 06/01/2024 3:00 AM EST Brad Emma TURBINE ASSEMBLER-C SCAN REFERRAL Final Res ult * OTHER ORDERS SCANNED DOCUMENT (05/12/2024 3:00 AM EST) Only the most recent of2 resultswithin the time period is included. 05/12/2024 3:00 AM EST [employer] Emma TURBINE ASSEMBLER-C SCAN OTHER ORDERS Final R esult * (ABNORMAL) GLUCOSE, BLOOD BY GLUCOSE MONITORING DEVICE (CLIA WAIVED)POCT (05/11/2024 3:40 PM EST) GLUCOSE 190(A) 70 - 100 mg/dL [facility] BACK OFFICE POCT Capillary Blood Blood [...] and Electronically Signed by: Pranay Maddox MD [facility] - 04/27/2024 4:27 PM [...] is calcified peripheral vascular disease. Procedure Note Rigo Cisnerosnm Provider - 04/27/2024 Original Report PROCEDURE: XR [...] and Electronically Signed by: Pranay Maddox MD [facility] IMG XRAY Final Result [facility] Corporate Office [address], [address] [place] [address], * BLOOD COUNT COMPLETE AUTOMATED (04/27/2024 9:12 AM EST) WHITE BLOOD CELL COUNT 7.3 3.8 - 10.8 Thousand/ uL [facility] RED BLOOD CELL COUNT 4.83 4.20 - 5.80 Million/u L [facility] HEMOGLOBIN 14.9 13.2 - 17.1 g/dL [facility] HEMATOCRIT 44.8 38.5 - 50.0 % [facility] MCV 92.8 80.0 - 100.0 fL [facility] MCH 30.8 27.0 - 33.0 pg [facility] MCHC 33.3 32.0 - 36.0 g/dL [facility] Comment: For adults, a slight decrease in the calculated MCHC value (in the range of 30 to 32 g/dL) is most likely not clinically significant; however, it should be interpreted with caution in correlation with other red cell parameters and the patient's clinical condition. RDW 12.1 11.0 - 15.0 % [facility] PLATELET COUNT 195 140 - 400 Thousand/ uL [facility] MPV 11.5 7.5 - 12.5 fL [facility] Blood Blood / Unknown 04/27/2024 9 :12 AM EST 04/27/2024 9:13 AM EST Narr[employer] - 04/28/2024 5:59 AM EST FASTING:NO Rohit Florez PA-C LAB - BLOOD DRAW Edited Resul t - Final [facility] [address] [address], [place] [facility] [address] [place] [address] * (ABNORMAL) COMPREHENSIVE METABOLIC PANEL (04/27/2024 9:12 AM EST) GLUCOSE 249(H) 65 - 139 mg/dL [facility] Comment: ?Non-fasting reference interval UREA NITROGEN (BUN) 13 7 - 25 mg/dL [facility] CREATININE (blood) 0.68(L) 0.70 - 1.35 mg/dL [facility] EGFR 104 > OR = 60 mL/min/1. 73m2 [facility] BUN/CREATININE RATIO 19 6 - 22 (calc) [facility] SODIUM 136 135 - 146 mmol/L [facility] POTASSIUM 3.6 3.5 - 5.3 mmol/L [facility] CHLORIDE 99 98 - 110 mmol/L [facility] CARBON DIOXIDE 29 20 - 32 mmol/L [facility] CALCIUM 9.1 8.6 - 10.3 mg/dL [facility] PROTEIN, TOTAL 7.0 6.1 - 8.1 g/dL [facility] ALBUMIN 4.2 3.6 - 5.1 g/dL [facility] GLOBULIN 2.8 1.9 - 3.7 g/dL (calc) [facility] ALBUMIN/GLOBULI N RATIO 1.5 1.0 - 2.5 (calc) [facility] BILIRUBIN, TOTAL 0.7 0.2 - 1.2 mg/dL [facility] ALKALINE PHOSPHATASE 129 35 - 144 U/L [facility] AST 11 10 - 35 U/L [facility] ALT 13 9 - 46 U/L [facility] Blood Blood / Unknown 04/27/2024 9 :12 AM EST 04/27/2024 9:13 AM EST Narrative [facility] - 04/28/2024 5:59 AM EST FASTING:NO Rohit Florez PA-C LAB - BLOOD DRAW Final Result [facility] [address] [address], [place] [address] [address] * IMAGING SCANNED DOCUMENT (04/27/2024 3:00 AM EST) 04/27/2024 3:00 AM EST [facility] Child PA-C SCAN IMAGING Final Result * PROCEDURE SCANNED DOCUMENT (04/11/2024 3:00 AM EST) 04/11/2024 3:00 AM EST Lewis Carter TURBINE ASSEMBLER-C SCAN PROCEDURES Final Res ult * (ABNORMAL) HEMOGLOBIN GLYCOSYLATED A1C (02/15/2024 4:16 PM EDT) HEMOGLOBIN A1C 11.6(H) <5.7 % of total Hgb [facility] Comment: For someone without known diabetes, a [...] PM EDT 02/15/2024 4:16 PM EDT Narrative [employer] - 02/16/2024 6:01 AM EDT FASTING:NO Mathieu Malone PharmD LAB - BLOOD DRAW Final Re sult Performing Organization Address City/[facility]/ZIP Co de Phone Number [facility] [address] [address], [place] [address] [address] * EYE EXAM (01/21/2024 3:00 AM EDT) 01/21/2024 3:00 AM EDT us Lewis Carter TURBINE ASSEMBLER-C OTHER Edited Re sult - Final * HEPATITIS C AB W/RFLX HCV RNA, QT, RT PCR (04/30/2023 10:31 AM EST) HEPATITIS C ANTIBODY NON-REACT CARLITO NON-REACT CARLITO [facility] Comment: HCV antibody was non-reactive. There is no laboratory evidence of HCV infection. In most cases, no further action is required. However, if recent HCV exposure is suspected, a test for HCV RNA (test code 83822) is suggested. For additional information please refer to http://education.Tap.Me/faq/SOV82o9 (This link is being provided for informational/ educational purposes only.) Blood Blood / Unknown 04/30/2023 1 0:31 AM EST 04/30/2023 10:31 AM EST us Lewis Carter [facility]-C LAB - BLOOD DRAW Edited R esult - Final [facility] [address] [address], [place] [address] [address] * HIV 1/2 AG & AB W/RFLX (4TH GEN) (04/30/2023 10:31 AM EST) HIV AG/AB, 4TH GEN NON-REAC TIVE NON-REAC TIVE [employer] [facility] Comment: HIV-1 antigen and HIV-1/HIV-2 antibodies were [...] ?? For additional information please refer to http://education.Tap.Me/faq/SYX764 (This link is being provided for informational/ educational purposes only.) The performance of this assay has not been clinically validated in patients less than 2 years old. Blood Blood / Unknown 04/30/2023 1 0:31 AM EST 04/30/2023 10:31 AM EST [facility] TURBINE ASSEMBLER-C LAB - BLOOD DRAW Final Re sult Performing Organization Address [facility]/[place] Number [place] [address], [employer] [address] [address] * RPR (MONITOR) W/REFL TITER (04/30/2023 10:31 AM EST) RPR (MONITOR) W/REFL TITER NON-REACT CARLITO NON-REACT CARLITO [facility] Blood Blood / Unknown 04/30/2023 1 0:31 AM EST 04/30/2023 10:31 AM EST [employer] TURBINE ASSEMBLER-C LAB - BLOOD DRAW Final Re sult Performing Organization Address City/[facility] [place] [address], [employer] [address] [address] * MICROALBUMIN/CREATININE RATIO, URINE, RANDOM (04/30/2023 10:31 AM EST) CREATININE, RANDOM URINE 140 20 - 320 mg/dL [facility] MICROALBUMIN 0.4 mg/dL [facility] Comment: Reference Range Not established MICROALBUMIN/CREA TININE RATIO, RANDOM URINE 3 <30 mcg/mg creat [facility] Comment: The ADA defines abnormalities in albumin [...] EST 04/30/2023 10:31 AM EST Lewis Carter TURBINE ASSEMBLER-C LAB - NO BLOOD DRAW Final Result [employer] [address] [place] [address], [facility] [address] [place] [phone] * (ABNORMAL) LIPID PANEL (04/30/2023 10:31 AM EST) CHOLESTEROL, TOTAL 187 <200 mg/dL [facility] HDL CHOLESTEROL 54 > OR = 40 mg/dL [facility] TRIGLYCERIDES 133 <150 mg/dL [facility] LDL-CHOLESTEROL 108(H) 99 mg/dL (calc) [facility] Comment: Reference range: <100 Desirable range <100 mg/dL for primary prevention; ?? <70 mg/dL for patients with CHD or diabetic patients with > or = 2 CHD risk factors. LDL-C is now calculated using the Isael-Hiral calculation, which is a validated novel method providing better accuracy than the Friedewald equation in the estimation of LDL-C. Isael INMAN et al. ADOLPH. 2013;310(19): 8724-9388 (http://education.ConnectSoft/faq/KAH092) CHOL/HDLC RATIO 3.5 <5.0 (calc) [facility] NON-HDL CHOLESTEROL 133(H) <130 mg/dL (calc) [facility] Comment: For patients with diabetes plus 1 major ASCVD risk factor, treating to a non-HDL-C goal of <100 mg/dL (LDL-C of <70 mg/dL) is considered a therapeutic option. Blood Blood / Unknown 04/30/2023 1 0:31 AM EST 04/30/2023 10:31 AM EST Lewis MARCIAL LAB - BLOOD DRAW Final Re sult [facility] [address] [address], [facility] [address] [place] [address] from Last 3 Months or Most Recently Relevant to Health Maintenance Insurance [facility] Member Subscriber Plan / Payer (Ef fective 2014-Present) Name:Jose Foster Relation to Subscriber:Self Name:Jose Foster Payer ID:[id number] Group ID:Not on file Type:Indemnity Address: [place] [address] [place] [address] Care Teams Coconut Cooker Relationship Specialty Start Date End Date Lewis Carter FNP-C [address] [place] [address] PCP - General Internal Medicine 04/30/23
--- OUTSIDE RECORDS SUMMARY | 2024-07-12 17:58 | XMS_ITS | Encounter Summary ---
Author Organization [employer] Address [address] [place] [address] [address] [place] [address] Care Team Providers Care Customer Complaint Clerk Name Role Phone Radha Weber MD Primary Care Provider [phone]- [phone] Reason for Visit * Reason Comments Med Refill Encounter Details Date Type Department Care Team (Late st Contact Info) Description 08/10/2022 Refill [facility] [address] [place], [place] [phone] Radha Weber MD [address] [place] [address] Social History Tobacco Use Types Packs/Day Years [...] on filedocumented in this encounter Care Teams Customer Complaint Clerk Relationship Specialty Start Date End Date Radha Weber MD [address] [place] [address] PCP - General Internal Medicine 02/27/21 05/19/23 documented as of this encounter
--- OUTSIDE RECORDS SUMMARY | 2024-07-12 17:59 | XMS_ITS | Encounter Summary ---
Author Organization [employer] Address [address] [place] [address] [address] [place] [address] Care Team Providers Care Rn Bsn Name Role Phone Unavailable Primary Care Provider Unavailabl e Reason for Visit * Reason Comments Med Refill Encounter Details Date Type Department Care Team (Late st Contact Info) Description 11/04/2023 Refill [facility] MED[facility]INE [address] [place] [address] Radha Weber MD [address] [place] [address] Vitamin deficiency; Osteoarthritis involving multiple joints on [...]
--- OUTSIDE RECORDS SUMMARY | 2024-07-12 17:59 | XMS_ITS | Encounter Summary ---
Author Organization [facility] Address [address] [place] [address] Care Team Providers Care Quick Service Technician Name Role Phone Lweis Carter CONTROL INTEGRATION ENGINEER-C Primary Care Provider [phone] -[phone] Reason for Visit * Reason Comments Durable Medical Equipment Encounter Details Date Type Department Care Team (Late st Contact Info) Description 07/12/2024 Interim Notes [facility] Main [address] [place] [address] Aaron [place], [place] [address] [place] [address] Social History Tobacco Use Types Packs/Day Years [...] as of this encounter Progress Notes * Yany Walker [place] - 07/12/2024 9:17 AM EST Faxed over a script of alfredo hernandez with seat to [facility] at [phone]//confirmation received. documented in this encounter Plan of Treatment Upcoming Encounters Date Type Department Care Team (Late st Contact Info) Description 08/08/2024 3:00 PM EDT Office Visit [facility] Main [address] [place] [address] Juwan العلي PharmD [address] [place] [address] documented as of this encounter Visit Diagnoses Not on filedocumented in this encounter Additional Health Concerns Assessment Noted Time PHQ-9 Depression Total Score: 18 023 10:09 AM PST documented as of this encounter Care Teams Quick Service Technician Relationship Specialty Start Date End Date Lewis Carter FNP-C [facility] [place] [address] PCP - General Internal Medicine 04/30/23 documented as of this encounter
--- OUTSIDE RECORDS SUMMARY | 2024-07-12 17:59 | XMS_ITS | Encounter Summary ---
Author Organization [employer] Address [address] [place] [address] 7 [place] [address] Care Team Providers Care Bracer Name Role Phone Unavailable Primary Care Provider Unavailabl e Reason for Visit * Reason Comments Med Refill Encounter Details Date Type Department Care Team (Late st Contact Info) Description 08/23/2023 Refill [facility] MEDICINE [address] [place] [address] Radha Weber MD [address] [place] [address] Social History Tobacco Use Types Packs/Day Years [...]
--- OUTSIDE RECORDS SUMMARY | 2024-07-12 17:59 | XMS_ITS | Encounter Summary ---
Author Organization [employer] Address [address] [place] [address] 7 [place] [address] Care Team Providers Care Informatics Consultant Name Role Phone Unavailable Primary Care Provider Unavailabl e Reason for Visit * Reason Comments Med Refill Encounter Details Date Type Department Care Team ([facility] st Contact Info) Description 07/30/2023 Refill [facility] MED & PEDS [address] [place] [address] Radha Weber MD 505 [place] [address] Osteoarthritis involving multiple joints on both sides [...]
--- OUTSIDE RECORDS SUMMARY | 2024-07-12 17:59 | XMS_ITS | Encounter Summary ---
Author Organization [employer] Address [address] [place] [address] 7 [place] [address] Care Team Providers Care Log Marker Name Role Phone Unavailable Primary Care Provider Unavailabl e Reason for Visit * Reason Comments Med Refill Encounter Details Date Type Department Care Team ([facility] st Contact Info) Description 04/04/2024 Refill [facility] CHC MED & PEDS [address] [place] [address] Radha Weber MD [address] [place] [address] Social History Tobacco Use Types Packs/Day Years [...]
--- OUTSIDE RECORDS SUMMARY | 2024-07-12 17:59 | XMS_ITS | Encounter Summary ---
Author Organization [employer] Address [address] [place] [address] 7 [place] [address] Care Team Providers Care Integration Architect Name Role Phone Unavailable Primary Care Provider Unavailabl e Reason for Visit * Reason Comments Med Refill Encounter Details Date Type Department Care Team ([facility] st Contact Info) Description 07/14/2023 Refill [facility] CHC MED & PEDS [address] [place] [address] Radha Weber MD [address] [place] [address] Social History Tobacco Use Types Packs/Day Years [...]
--- OUTSIDE RECORDS SUMMARY | 2024-07-12 17:59 | XMS_ITS | Encounter Summary ---
Author Organization [employer] Address [address] [place] [address] 7 [place] [address] Care Team Providers Care Paint Roller Cover Machine Setter Name Role Phone Unavailable Primary Care Provider Unavailabl e Reason for Visit * Reason Comments Med Refill Encounter Details Date Type Department Care Team ([facility] st Contact Info) Description 10/14/2023 Refill [facility] CHC MED & PEDS [address] [place] [address] Radha Weber MD [address] [place] [address] Vitamin deficiency Social History Tobacco Use Types [...]
--- OUTSIDE RECORDS SUMMARY | 2024-07-12 17:59 | XMS_ITS | Encounter Summary ---
Author Organization [employer] Address [address] [place] [address] 7 [place] [address] Care Team Providers Care Farm Management Teacher Name Role Phone Unavailable Primary Care Provider Unavailabl e Reason for Visit * Reason Comments Med Refill Encounter Details Date Type Department Care Team ([facility] st Contact Info) Description 10/11/2023 Refill [facility] MED & PEDS [address] [place] [address] Radha Weber MD 505 [place] [address] Osteoarthritis involving multiple joints on both sides [...]
--- OUTSIDE RECORDS SUMMARY | 2024-07-12 17:59 | XMS_ITS | Encounter Summary ---
Author Organization [employer] Address [address] [place] [address] 7 [place] [address] Care Team Providers Care R And D Lab Technician Name Role Phone Radha Weber MD Primary Care Provider [phone]- [phone] Reason for Visit * Reason Comments Med Refill Encounter Details Date Type Department Care Team ([facility] st Contact Info) Description 03/24/2023 Refill [facility] CHC MED & PEDS [address] [place] [address] Radha Weber MD 505 [place] [address] Social History Tobacco Use Types Packs/Day Years [...] on filedocumented in this encounter Care Teams R And D Lab Technician Relationship Specialty Start Date End Date Radha Weber MD [address] [place] [address] PCP - General Internal Medicine 02/27/21 05/19/23 documented as of this encounter
--- OUTSIDE RECORDS SUMMARY | 2024-07-12 17:59 | XMS_ITS | Encounter Summary ---
Author Organization [employer] Address [address] [facility] 7 [place] [address] Care Team Providers Care Roster Clerk Name Role Phone Radha Weber MD Primary Care Provider [phone]- [phone] Encounter Details Date Type Department Care Team (Late st Contact Info) Description 03/17/2023 Abstract [facility] MEDICINE [address] [place] [address] Radha Weber MD 505 [place] [address] Social History Tobacco Use Types Packs/Day Years [...] on filedocumented in this encounter Care Teams Roster Clerk Relationship Specialty Start Date End Date Radha Weber MD [address] [place] [address] PCP - General Internal Medicine 02/27/21 05/19/23 documented as of this encounter
--- OUTSIDE RECORDS SUMMARY | 2024-07-12 17:59 | XMS_ITS | Encounter Summary ---
Author Organization [employer] Address [address] [place] [address] 7 [place] [address] Care Team Providers Care Keno Attendant Name Role Phone Unavailable Primary Care Provider Unavailabl e Reason for Visit * Reason Comments Med Refill Encounter Details Date Type Department Care Team (Late st Contact Info) Description 01/07/2024 Refill [facility] MEDICINE 230 [place] [address] Radha Weber MD 505 [place] [address] Social History Tobacco Use Types Packs/Day Years [...]
--- OUTSIDE RECORDS SUMMARY | 2024-07-12 17:59 | XMS_ITS | Encounter Summary ---
Author Organization [employer] Address [address] [place] [address] 7 [place] [address] Care Team Providers Care Prosthodontist Name Role Phone Unavailable Primary Care Provider Unavailabl e Reason for Visit * Reason Comments Med Refill Encounter Details Date Type Department Care Team ([facility] st Contact Info) Description 06/08/2023 Refill [facility] CHC MED & PEDS 505 [place] [address] Radha Weber MD 505 [place] [address] Social History Tobacco Use Types Packs/Day Years [...]
--- OUTSIDE RECORDS SUMMARY | 2024-07-12 17:59 | XMS_ITS | Encounter Summary ---
Author Organization [employer] Address [address] [place] [address] 7 [place] [address] Care Team Providers Care Instruments Sales Representative Name Role Phone Unavailable Primary Care Provider Unavailabl e Reason for Visit * Reason Comments Med Refill Encounter Details Date Type Department Care Team ([facility] st Contact Info) Description 06/13/2023 Refill [facility] CHC MED & PEDS 505 [place] [address] Radha Weber MD [address] [place] [address] Social History Tobacco Use Types Packs/Day Years [...]
--- OUTSIDE RECORDS SUMMARY | 2024-07-12 17:59 | XMS_ITS | Encounter Summary ---
Author Organization [employer] Address [address] [place] [address] 7 [place] [address] Care Team Providers Care Slots Manager Name Role Phone Unavailable Primary Care Provider Unavailabl e Reason for Visit * Reason Comments Med Refill Encounter Details Date Type Department Care Team (Late st Contact Info) Description 07/10/[address] [facility] MEDICINE [address] [place] [address] Radha Weber MD 505 [place] [address] Social History Tobacco Use Types Packs/Day Years [...]
--- OUTSIDE RECORDS SUMMARY | 2024-07-12 17:59 | XMS_ITS | Encounter Summary ---
Author Organization [employer] Address [address] [place] [address] 7 [place] [address] Care Team Providers Care Cosmetics Supervisor Name Role Phone Unavailable Primary Care Provider Unavailabl e Reason for Visit * Reason Comments Med Refill Encounter Details Date Type Department Care Team ([facility] st Contact Info) Description 09/26/2023 Refill [facility] CHC MED & PEDS [address] [place] [address] Radha Weber MD 505 [place] [address] Vitamin deficiency Social History Tobacco Use Types [...]
--- OUTSIDE RECORDS SUMMARY | 2024-07-12 17:59 | XMS_ITS | Encounter Summary ---
Author Organization [employer] Address [address] [place] [address] 7 [place] [address] Care Team Providers Care Internal Grinder Name Role Phone Unavailable Primary Care Provider Unavailabl e Reason for Visit * Reason Comments Med Refill Encounter Details Date Type Department Care Team ([facility] st Contact Info) Description 09/01/2023 Refill [facility] CHC MED & PEDS 505 [place] [address] Radha Weber MD 505 [place] [address] Primary osteoarthritis of other site Social History [...]
--- OUTSIDE RECORDS SUMMARY | 2024-07-12 17:59 | XMS_ITS | Clinical Summary ---
Author Organization [employer] Address [address] [place] [address] 7t [place] [address] Care Team Providers Care Signalman Name Role Phone Unavailable Primary Care Provider [...] UGI with Air done on 02/25/2015 at [facility]- Impression: Spontaneous severe GERD. Tiny hiatal hernia. [...] 8.1* 01/18/2015 HGBA1C 7.9* 09/06/2014 Mala aparicio- truptit 01/[address] 11/16/2012 Essential hypertension, benign 11/11/2012 Overview (05/20/2022): Last 3 BP Readings: Date: BP: 12/20/2015 118/82 12/06/2015 126/60 11/22/2015 132/76 Lisinopril 20 Goal < or = to 130/80 mmHg GERD (gastroesophageal reflux disease) 3 Overview (05/20/2022): ugi 02/25/15 see difficulty swallowing below No on PPI Asthma, mild 11/11/2012 Overview (06/18/2022): Pro air and spiriva- former smoker Immunizations Name Administration Dates Next Due Influenza [...] Result Negative Negative 05/14/20 10:44 AM EST [facility] (CLIA #:[id number]) Comment: NEGATIVE TEST RESULT. A negative Cologuard [...] cancer. ??Following a negative Cologuard result, the [place] Cancer Society and U.S. Multi-Society Task Force screening guidelines recommend a Cologuard re-screening interval of 3 years. References: [place] [employer] Guideline for Colorectal Cancer Screening: https://www.cancer.org/cancer/upmsf-lawrtn-xprmmo/esdvybrxp-qxjsmmbja-wxslzgt/ac s-rec ommendations.html.; Myke DK, Kiley WAITE, Devin RachelK, Colorectal Cancer Screening: Recommendations for Physicians and Patients from the U.S. Multi-Society Task Force on Colorectal Cancer Screening , Am J Gastroenterology 2017; 112:5365-0363. TEST DESCRIPTION: Composite algorithmic analysis of stool [...] (Lindsay Spence al, N Engl J Med 2014;370(14):9152-5709.) Cologuard may produce a false negative or false positive result (no colorectal cancer or precancerous polyp present at colonoscopy follow up). A negative Cologuard test result does not guarantee the absence of CRC or advanced adenoma (pre-cancer). The current Cologuard screening interval is every 3 years. ([place] Cancer Society and U.S. Multi-Society Task Force). Cologuard performance data in a 10,000 patient pivotal study using colonoscopy as the reference method can be accessed at the following location: www.Pharminox.re3D/results. Additional description of the Cologuard test process, warnings and precautions can be found at www.cologuard.re3D. Stool specimen (specimen) 05/05/2023 3:30 PM EST 05/08/2023 12:38 PM EST Radha Weber MD LAB MOLECULAR DIAGNOSTICS O RDERABLES Final Result [facility] (CLIA #:[id number]) [address] [place] [id number], * (ABNORMAL) POCT A1C (02/16/2023 4:33 PM EDT) Hemoglobin A1C 8.0(A) 4.0 - 6.0 % QC Media Lot # [id number] Lot# Expiration Date Blood 02/16/2023 4:33 PM EDT Radha Weber MD POINT OF CARE TEST ENTER/ED IT ORDERABLES Final Result * ALBUMIN, RANDOM URINE W/CREATININE (12/02/2020 3:53 PM EDT) Microalbumin Urine 1.7 See Note: mg/dL [facility] Comment: Reference Range: ?? Reference [...] [facility] 12/02/2020 3:53 PM EDT us Jason Zendejas MD LAB URINE ORDERABL ES Final Result [facility] [address] * (ABNORMAL) LIPID PANEL, STANDARD (12/02/2020 3:53 PM EDT) Chol/HDLC Ratio 3.7 <5.0 (calc) [facility] [...] ?? LDL-C is now calculated using the Isael-Blackman ?? calculation, which is a validated novel method providing ?? better accuracy than the Friedewald equation in the ?? estimation of LDL-C. ?? Isael INMAN et al. ADOLPH. 2013;310(19): 3592-7775 ?? (http://education.EGEN/faq/XUR798) Non-HDL Cholesterol 128 <130 mg/dL (calc) [facility] Comment: For patients with diabetes plus 1 major ASCVD risk ?? factor, treating to a non-HDL-C goal of <100 mg/dL ?? (LDL-C of <70 mg/dL) is considered a therapeutic ?? option. Triglycerides 136 <150 mg/dL [facility] 12/02/2020 3:53 PM EDT Jason Zendejas MD LAB BLOOD ORDERABL ES Final Result [facility] [address] [place] [address], * Hm Colonoscopy (12/31/2016) Colonoscopy Normal Normal Narrative Radha Mejia - 12/31/2016 Recommended 10 year follow up Historical Provider HEALTH MAINTENANCE Final Result from Last 3 Months or Most Recently Relevant to Health Maintenance Insurance [facility] Member Subscriber Plan / Payer (Ef fective 2020-Present) Name:Jose Foster Relation to Subscriber:Self Name:CristianJose hawkins Payer ID:Not on file Type:Not on file Address: [address] [facility]
--- OUTSIDE RECORDS SUMMARY | 2024-07-12 17:59 | XMS_ITS | Encounter Summary ---
Author Organization [employer] Address [address] [place] [address] 7 [place] [address] Care Team Providers Care Drafter Heating And Ventilating Name Role Phone Radha Weber MD Primary Care Provider +1- [phone] Encounter Details Date Type Department Care Team ([facility] st Contact Info) Description 04/23/2023 Orders Only [facility] CHC MED & PEDS [address] [place], [place] [id number] Radha Weber MD 505 [place] [address] Screening for colon cancer (Primary Dx) Social [...] Result Negative Negative 05/14/20 10:44 AM EST [facility] (CLIA #:[id number]) Comment: NEGATIVE TEST RESULT. A negative Cologuard [...] cancer. ??Following a negative Cologuard result, the [place] Cancer Society and U.S. Multi-Society Task Force screening guidelines recommend a Cologuard re-screening interval of 3 years. References: [place] [employer] Society Guideline for Colorectal Cancer Screening: https://www.cancer.org/cancer/zwgvu-kchrox-medprz/aficsencl-tpojirior-fokrslm/ac s-rec ommendations.html.; Myke BURNETT, Kiley WAITE, Devin RachelK, Colorectal Cancer Screening: Recommendations for Physicians and Patients from the U.S. Multi-Society Task Force on Colorectal Cancer Screening , Am J Gastroenterology 2017; 112:4928-9169. TEST DESCRIPTION: Composite algorithmic analysis of stool [...] Lynch et al, N Engl J Med 2014;370(14):1811-3826.) Cologuard may produce a false negative or false positive result (no colorectal cancer or precancerous polyp present at colonoscopy follow up). A negative Cologuard test result does not guarantee the absence of CRC or advanced adenoma (pre-cancer). The current Cologuard screening interval is every 3 years. ([place] Cancer Society and U.S. Multi-Society Task Force). Cologuard performance data in a 10,000 patient pivotal study using colonoscopy as the reference method can be accessed at the following location: www.SPOC Medical/results. Additional description of the Cologuard test process, warnings and precautions can be found at www.CollectaogNovusrd.com. Stool specimen (specimen) 05/05/2023 3:30 PM EST 05/08/2023 12:38 PM EST us Radha Weber MD LAB MOLECULAR DIAGNOSTICS O RDERABLES Final Result [facility] (CLIA #:[id number]) [address] [place] [address], documented in this encounter Visit Diagnoses Diagnosis Screening for colon cancer- Primary Special screening for malignant neoplasms, colon documented in this encounter Care Teams Drafter Heating And Ventilating Relationship Specialty Start Date End Date Radha Weber MD [address] [place] [address] PCP - General Internal Medicine 02/27/21 05/19/23 documented as of this encounter
== END 2024-07-12 14:24 | disposition home or self-care (01) ==
LOC: HO.HVNA 14:23
PROVIDERS: Visit Provider Registered Nurse
DX: L03.90 Cellulitis, unspecified (principal)
CPT/HCPCS: 36415; 80048

== ENCOUNTER 2024-07-19 15:28 | Outpatient (REF) | payer OTHER, SELFPAY ==
[2024-07-19 18:06] LABS: Anion Gap 9 (12-20); Blood Urea Nitrogen 15 mg/dL (9-16); Calcium 8.8 mg/dL (8.4-10.2); Carbon Dioxide 30 mmol/L (22-29); Chloride 106 mmol/L (96-108); Estimated Glomerular Filt Rate > 60; Glucose Random 161 mg/dL (60-115); Potassium 3.4 mmol/L (3.3-5.1); Sodium 142 mmol/L (135-145)
--- OUTSIDE RECORDS SUMMARY | 2024-07-19 18:43 | XMS_ITS | Encounter Summary ---
Author Organization [employer] Address [address] [place] [address] 7 [place] [address] Care Team Providers Care Print Shop Chief Clerk Name Role Phone Radha Weber MD Primary Care Provider [phone]- [phone] Reason for Visit * Reason Comments Med Refill Encounter Details Date Type Department Care Team ([facility] st Contact Info) Description 06/17/2022 Refill [facility] CHC MED & PEDS [address] [place] [address] Radha Weber MD 505 [place] [address] Primary osteoarthritis of other site (Primary Dx) [...] Primary documented in this encounter Care Teams Print Shop Chief Clerk Relationship Specialty Start Date End Date Radha Weber MD 505 [place] [address] PCP - General Internal Medicine 02/27/21 05/19/23 documented as of this encounter
--- OUTSIDE RECORDS SUMMARY | 2024-07-19 18:43 | XMS_ITS | Clinical Summary ---
Author Organization [email or web address] Address [address] [place] [address] 7t [place] [address] Care Team Providers Care Rug Dry Room Attendant Name Role Phone Unavailable Primary Care [...] UGI with Air done on 02/25/2015 at [facility]- Impression: Spontaneous severe GERD. Tiny hiatal hernia. [...] Vaccine: 50+ Years Completed 04/30/2023, 09/01/2018, 02/20/2016 Influenza Vaccine Completed [...] Result Negative Negative 05/14/20 10:44 AM EST [facility] (CLIA #:[id number]) Comment: NEGATIVE TEST RESULT. A negative Cologuard [...] cancer. ??Following a negative Cologuard result, the [place] Cancer Society and U.S. Multi-Society Task Force screening guidelines recommend a Cologuard re-screening interval of 3 years. References: [place] [employer] Guideline for Colorectal Cancer Screening: https://www.cancer.org/cancer/oiqiv-fpslzi-ixebms/kkkbpyuuc-rgyglnfhf-dtksvro/ac s-rec ommendations.html.; Myke DK, Kiley WAITE, Devin TALAVERA, Colorectal Cancer Screening: Recommendations for Physicians and Patients from the U.S. Multi-Society Task Force on Colorectal Cancer Screening , Am J Gastroenterology 2017; 112:9452-1208. TEST DESCRIPTION: Composite algorithmic analysis of stool [...] screened with both Cologuard and colonoscopy. (Lindsay Gonzalez, N Engl J Med 2014;370(14):0197-4072.) Cologuard may produce a false negative or false positive result (no colorectal cancer or precancerous polyp present at colonoscopy follow up). A negative Cologuard test result does not guarantee the absence of CRC or advanced adenoma (pre-cancer). The current Cologuard screening interval is every 3 years. ([place] Cancer Society and U.S. Multi-Society Task Force). Cologuard performance data in a 10,000 patient pivotal study using colonoscopy as the reference method can be accessed at the following location: www.Nano Think.Zazuba/results. Additional description of the Cologuard test process, warnings and precautions can be found at www.cologuard.com. Stool specimen (specimen) 05/05/2023 3:30 PM EST 05/08/2023 12:38 PM EST Radha Weber MD LAB MOLECULAR DIAGNOSTICS O RDERABLES Final Result [facility] (CLIA #:[id number]) [address] [place] [address], * (ABNORMAL) POCT A1C (02/16/2023 4:33 PM EDT) Hemoglobin A1C 8.0(A) 4.0 - 6.0 % QC Media Lot # [id number] Lot# Expiration Date Blood 02/16/2023 4:33 PM EDT Radha Weber MD POINT OF CARE TEST ENTER/ED IT ORDERABLES Final Result * ALBUMIN, RANDOM URINE W/CREATININE (12/02/2020 3:53 PM EDT) Microalbumin Urine 1.7 See Note: mg/dL [facility] Comment: Reference Range: ?? Reference [...] MD LAB URINE ORDERABL ES Final Result [facility] [address] * (ABNORMAL) LIPID PANEL, STANDARD (12/02/2020 [...] ?? Isael INMAN et al. ADOLPH. 2013;310(19): 4079-3126 ?? (http://education.Immunovaccine.Zazuba/faq/FXP870) Non-HDL Cholesterol 128 <130 mg/dL (calc) [facility] Comment: For patients with diabetes plus 1 major ASCVD risk ?? factor, treating to a non-HDL-C goal of <100 mg/dL ?? (LDL-C of <70 mg/dL) is considered a therapeutic ?? option. Triglycerides 136 <150 mg/dL [facility] 12/02/2020 3:53 PM EDT Jason Zendejas MD LAB BLOOD ORDERABL ES Final Result [facility] [address] * Colonoscopy (12/31/2016) Colonoscopy Normal Normal Narrative Radha Mejia - 12/31/2016 Recommended 10 year follow up Historical Provider HEALTH MAINTENANCE Final Result from Last 3 Months or Most Recently Relevant to Health Maintenance Insurance [facility] Member Subscriber Plan / Payer (Ef fective 2020-Present) Name:Jose Foster Relation to Subscriber:Self Name:Jose Foster Payer ID:Not on file Type:Not on file Address: [address] [place] [address]
--- OUTSIDE RECORDS SUMMARY | 2024-07-19 18:43 | XMS_ITS | Encounter Summary ---
Author Organization [employer] Address [address] [place] [address] 7 [place] [address] Care Team Providers Care Wood Milling Machine Operator Name Role Phone Radha Weber MD Primary Care Provider [phone]- [phone] Encounter Details Date Type Department Care Team ([facility] st Contact Info) Description 04/23/2023 Orders Only [facility] MED & PEDS [address] [place], [place] [phone] Radha Weber MD [address] [place] [address] Screening for colon cancer (Primary Dx) Social History Tobacco Use Types Packs/Day Years Used Date Smoking Tobacco: Never Smokeless Tobacco: Never Sex and Gender Information Value Date Recorded Sex Assigned at Male 03/16/2022 10:24 AM EDT Legal Sex Male 10:24 AM EDT Gender Identity Male 03/16/2022 10:24 AM EDT Sexual Orientation Lesbian or Kaisre 03/16/2022 10 :24 AM EDT documented as [...] Result Negative Negative 05/14/20 10:44 AM EST [facility] (CLIA #:[id number]) Comment: NEGATIVE TEST RESULT. A negative Cologuard [...] cancer. ??Following a negative Cologuard result, the [place] Cancer Society and U.S. Multi-Society Task Force screening guidelines recommend a Cologuard re-screening interval of 3 years. References: [place] Cancer Society Guideline for Colorectal Cancer Screening: https://www.cancer.org/cancer/oksyp-lsjbbk-ckfhkv/hhybxukku-uvqcrylaa-geffgue/ac s-rec ommendations.html.; Myke BURNETT, Kiley WAITE, Devin RachelK, Colorectal Cancer Screening: Recommendations for Physicians and Patients from the U.S. Multi-Society Task Force on Colorectal Cancer Screening , Am J Gastroenterology 2017; 112:9603-3442. TEST DESCRIPTION: Composite algorithmic analysis of stool [...] Lynch et al, N Engl J Med 2014;370(14):8306-3391.) Cologuard may produce a false negative or false positive result (no colorectal cancer or precancerous polyp present at colonoscopy follow up). A negative Cologuard test result does not guarantee the absence of CRC or advanced adenoma (pre-cancer). The current Cologuard screening interval is every 3 years. ([place] Cancer Society and U.S. Multi-Society Task Force). Cologuard performance data in a 10,000 patient pivotal study using colonoscopy as the reference method can be accessed at the following location: www.[employer]/results. Additional description of the Cologuard test process, warnings and precautions can be found at www.real trendsogBrainStorm Cell Therapeuticsrd.com. Stool specimen (specimen) 05/05/2023 3:30 PM EST 05/08/2023 12:38 PM EST us Radha Weber MD LAB MOLECULAR DIAGNOSTICS O RDERABLES Final Result [facility] (CLIA #:[id number]) [address] [place] [address], documented in this encounter Visit Diagnoses Diagnosis Screening for colon cancer- Primary Special screening for malignant neoplasms, colon documented in this encounter Care Teams Wood Milling Machine Operator Relationship Specialty Start Date End Date Radha Weber MD [address] [place] [address] PCP - General Internal Medicine 02/27/21 05/19/23 documented as of this encounter
--- OUTSIDE RECORDS SUMMARY | 2024-07-19 18:43 | XMS_ITS | Encounter Summary ---
Author Organization [employer] Address [address] [place] [address] 7 [place] [address] Care Team Providers Care Slurry Blender Name Role Phone Radha Weber MD Primary Care Provider +1- [phone] Reason for Visit * Reason Comments Med Refill Encounter Details Date Type Department Care Team (Late st Contact Info) Description 08/10/2022 Refill [facility] MEDICINE [address] [place], [place] [phone] Radha Weber MD [address] [place] [address] Social History Tobacco Use Types Packs/Day Years [...] on filedocumented in this encounter Care Teams Slurry Blender Relationship Specialty Start Date End Date Radha Weber MD [address] [place] [address] PCP - General Internal Medicine 02/27/21 05/19/23 documented as of this encounter
--- OUTSIDE RECORDS SUMMARY | 2024-07-19 18:43 | XMS_ITS | Encounter Summary ---
Author Organization [facility] Address [address] [place] [address] Care Team Providers Care Meat Hanger Name Role Phone Lewis CarterP- Primary Care Provider [phone] -[phone] Encounter Details Date Type Department Care Team ([facility] Contact Info) Description 01/23/2015 Interim Notes [facility] [address] [place] [phone] Corina Arango NP [address] [place], [place] [phone] Social History Tobacco Use Types Packs/Day Years [...] Department Care Team (Late Contact Info) Description 07/28/2024 2:00 PM EDT Office Visit [address] [phone] Lewis Carter FNP-C [address] [place] [address] 08/08/2024 3:00 PM EDT Office Visit [address] [phone] Juwan العلي PharmD [address] [place] [address] documented as of this encounter Visit Diagnoses Not on filedocumented in this encounter Care Teams Meat Hanger Relationship Specialty Start Date End Date Lewis Carter FNP-C [address] [place] [address] PCP - General Internal Medicine 04/30/23 documented as of this encounter
--- OUTSIDE RECORDS SUMMARY | 2024-07-19 18:43 | XMS_ITS | Encounter Summary ---
Author Organization [facility] Address [address] [place] [address] Care Team Providers Care Roastmaster Name Role Phone Lewis CarterP- Primary Care Provider +1 -[phone] Encounter Details Date Type Department Care Team ([facility] Contact Info) Description 01/23/2015 Interim Notes [facility] [address] [place] [phone] Corina Arango NP [address] [place], [place] [phone] Social History Tobacco Use Types Packs/Day Years [...] Description 07/28/2024 2:00 PM EDT Office Visit [address] [phone] Lewis Carter FNP-C [address] [place] [address] 08/08/2024 3:00 PM EDT Office Visit [address] [phone] Juwan العلي PharmD [address] [place] [address] documented as of this encounter Visit Diagnoses Not on filedocumented in this encounter Care Teams Roastmaster Relationship Specialty Start Date End Date Lewis Crater FNP-C [address] [place] [address] PCP - General Internal Medicine 04/30/23 documented as of this encounter
--- OUTSIDE RECORDS SUMMARY | 2024-07-19 18:43 | XMS_ITS | Encounter Summary ---
Author Organization [employer] Address [address] [facility] 7 [place] [address] Care Team Providers Care Fountain Dispenser Name Role Phone Radha Weber MD Primary Care Provider [phone]- [phone] Encounter Details Date Type Department Care Team (Late st Contact Info) Description 03/17/2023 Abstract [facility] MEDICINE [address] [place] [address] Radha Weber MD [address] [place] [address] Social History Tobacco Use Types Packs/Day Years [...] on filedocumented in this encounter Care Teams Fountain Dispenser Relationship Specialty Start Date End Date Radha Weber MD [address] [place] [address] PCP - General Internal Medicine 02/27/21 05/19/23 documented as of this encounter
--- OUTSIDE RECORDS SUMMARY | 2024-07-19 18:43 | XMS_ITS | Clinical Summary ---
Author Organization [address] [facility] Address [address] [place] [address] Phone Care Team Providers Care Senior Information Systems Architect Name Role Phone Physician, Pcp Unknown Primary [...] PM EST Office Visit Orthopedic Surgery - [address] [phone] Avtar Emanuel, DPM Ulcer of [...] PM EDT Office Visit Orthopedic Surgery - [place] [address] [phone] Avtar Emanuel, DPM [address] [address] Health Maintenance Due Date Last Done Comments [...] to complete this topic Insurance [address] [place] [address] [facility] MEDICARE Member Subscriber Plan / Payer (Ef fective 2014-Present) Name:Jose Foster Relation to Subscriber:Self Name:Jose Foster Payer ID:[id number] Group ID:[id number] Type:Not on file Address: [place] [address] [place] [place] [address] Care Teams Senior Information Systems Architect Relationship Specialty Start Date End Date Physician, Pcp Unknown PCP - General 04/20/24
--- OUTSIDE RECORDS SUMMARY | 2024-07-19 18:43 | XMS_ITS | Encounter Summary ---
Author Organization [employer] Address [address] [place] [address] 7 [place] [address] Care Team Providers Care Security Solutions Engineer Name Role Phone Radha Weber MD Primary Care Provider [phone]- [phone] Encounter Details Date Type Department Care Team ([facility] st Contact Info) Description 01/26/2023 Orders Only [facility] CH[facility] MED & PEDS [address] [place] [address] Antoinette Shrestha LPN Social History Tobacco Use [...] on filedocumented in this encounter Care Teams Security Solutions Engineer Relationship Specialty Start Date End Date Radha Weber MD [address] [place] [address] PCP - General Internal Medicine 02/27/21 05/19/23 documented as of this encounter
--- OUTSIDE RECORDS SUMMARY | 2024-07-19 18:43 | XMS_ITS | Encounter Summary ---
Author Organization [employer] Address [address] [place] [address] 7 [place] [address] Care Team Providers Care Merchandise Presentation Manager Name Role Phone Unavailable Primary Care Provider Unavailabl e Reason for Visit * Reason Comments Med Refill Encounter Details Date Type Department Care Team ([facility] st Contact Info) Description 06/08/2023 Refill [facility] CHC MED & PEDS [address] [place] [address] Radha Weber MD [address] [place] [address] Social History Tobacco Use Types Packs/Day Years [...]
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
--- OUTSIDE RECORDS SUMMARY | 2024-07-19 18:43 | XMS_ITS | Encounter Summary ---
Author Organization [facility] Address [address] [place] [address] Care Team Providers Care Furniture Mover Helper Name Role Phone Lewis Carter MASH TUB COOKER OPERATOR-C Primary Care Provider [phone] -[phone] Encounter Details Date Type Department Care Team (Late st Contact Info) Description 02/11/2024 Interim Notes [facility] [address] [place] [phone] Lewis Carter FNP-C [address] [place] [address] Social History Tobacco Use Types Packs/Day Years [...] Description 07/28/2024 2:00 PM EDT Office Visit [address] [phone] Lewis Carter FNP-C [address] [place] [address] 08/08/2024 3:00 PM EDT Office Visit [address] [phone] AntilJuwan, PharmD [address] [place] [address] documented as of this encounter Visit Diagnoses Not on filedocumented in this encounter Additional Health Concerns Assessment Noted Time PHQ-9 Depression Total Score: 18 023 10:09 AM PST documented as of this encounter Care Teams Furniture Mover Helper Relationship Specialty Start Date End Date Lewis Carter FNP-C [address] [place] [address] PCP - General Internal Medicine 04/30/23 documented as of this encounter
--- OUTSIDE RECORDS SUMMARY | 2024-07-19 18:43 | XMS_ITS | Encounter Summary ---
Author Organization [employer] Address [address] [place] [address] 7 [place] [address] Care Team Providers Care Marketing Clerk Name Role Phone Radha Weber MD Primary Care Provider +1- [phone] Reason for Visit * Reason Comments Med Refill Encounter Details Date Type Department Care Team ([facility] st Contact Info) Description 03/24/2023 Refill [facility] MED & PEDS [address] [place] [address] Radha Weber MD [address] [place] [address] Social History Tobacco Use Types Packs/Day Years [...] on filedocumented in this encounter Care Teams Marketing Clerk Relationship Specialty Start Date End Date Radha Weber MD [address] [place] [address] PCP - General Internal Medicine 02/27/21 05/19/23 documented as of this encounter
--- OUTSIDE RECORDS SUMMARY | 2024-07-19 18:43 | XMS_ITS | Clinical Summary ---
Author Organization [facility] Address [address] [place] [address] Care Team Providers Care Electrical Project Engineer Name Role Phone Lewis Carter BREAD SUPERVISOR-C Primary Care Provider [phone] Source Comments PLEASE NOTE, if this patient [...] Take 81 mg by mouth once daily Active vnpkdnvc-qjl-lkynx us fumarate 15 mg iron tab Take 1 Tablet by mouth once daily Per MOON JORDAN Active lancets (MICROLET LANCET)Indications :Insulin dependent type 2 diabetes mellitus, uncontrolled,Insul in pump in place TEST BLOOD SUGARS 7 TIMES DAILY ON INSULIN INFUSION PUMP AND SENSOR E11.65 MICROLET LANCETS 300 Each 11 Active CALCIUM 500 WITH D 500 mg(1,250mg) -400 unit tablet TAKE 1 TABLET BY MOUTH EVERY 2 DAYS Authorized by: MOON JORDAN Active celecoxib (CELEBREX) 200 mg capsule 04/18/2021 CELECOXIB?CAP 200MG 60.00 Each 2 30 Unit Strength: 200 Authorized by: TAMIKA ESCALANTE Active cyanocobalamin, vitamin B-12, 1,000 mcg TbER 02/27/2021 [facility] VIT B-12 TR 1,000 MCG TAB 90.00 Each 5 90 Authorized by: RAKESH LOPEZ IN [facility] Active fluticasone propionate (FLONASE) 50 mcg/actuation nasal spray 03/18/2021 FLUTICASONE PROP 50 MCG SPRAY 48.00 g 11 90 Authorized by: RAKESH LOPEZ IN [facility] 021 Active blood-glucose meter,continuous (DEXCOM G6 MAINTENANCE TRUCK DRIVER) miscIndications:Ty pe 2 diabetes mellitus with hyperglycemia, with long-term current use of insulin ([facility]) 1 Each by miscellaneous route continuously 1 Each 023 Active blood sugar diagnostic (CONTOUR NEXT TEST STRIPS) stripsIndications: Type 2 diabetes mellitus with hyperglycemia, with long-term current use of insulin ([facility]) Check blood sugar 7 times daily on insulin infusion pump and sensor 300 Each 023 Active MISCELLANEOUS MEDICAL SUPPLY MISCIndications:Im pairment of balance,History of falling by miscellaneous route daily. Dispense 1 electronic lift chair. Need lifetime. 1 Each 024 Active OMNIPOD 5 G6 PODS, GEN 5, crtgIndications:Ty pe 2 diabetes mellitus with hyperglycemia, with long-term current use of insulin ([facility]) Inject 1 Each into the skin every 3 (three) days 15 Each 024 Active methocarbamoL (ROBAXIN) 500 mg tabletIndications: Rib pain on right side TAKE 1 TABLET BY MOUTH THREE TIMES A DAY NEEDED FOR PAIN 30 Tablet 1 024 Active MISCELLANEOUS MEDICAL SUPPLY MISCIndications:Ty pe 2 diabetes mellitus with hyperglycemia, with long-term current use of insulin ([facility]),Impairme nt of balance,History of falling by miscellaneous route daily Please dispense 1 cane for lifetime use for hx of type 2 diabetes and gait instability 1 Each 1 024 Active PETROLATUM ointmentIndication s:Type 2 diabetes mellitus with hyperglycemia, with long-term current use of insulin ([facility]),Dry skin APPLY TOPICALLY TWICE A DAY 454 g 2 024 Active atropine 1 % ophthalmic solution Authorized by: STACY RODRIGUEZ 024 Active moxifloxacin (VIGAMOX) 0.5 % ophthalmic solution Authorized by: STACY RODRIGUEZ 024 Active prednisoLONE acetate (PRED-FORTE) 1 % ophthalmic suspension Authorized by: STACY RODRIGUEZ Active MISCELLANEOUS MEDICAL SUPPLY MISCIndications:Ty pe 2 diabetes mellitus with hyperglycemia, with long-term current use of insulin ([facility]),Mixed urge and stress incontinence by miscellaneous route daily Please dispense 1 pair of diabetic shoes with customized foot inserts for lifetime use, hx of diabetic feet and Type II diabetes mellitus 2 Each 1 Active MISCELLANEOUS MEDICAL SUPPLY MISCIndications:Ty pe 2 diabetes mellitus with hyperglycemia, with long-term current use of insulin ([facility]),Mixed urge and stress incontinence by miscellaneous route once daily as needed (mixed incontinence) L adult pull ups for hx of mixed incontinence, 8 per day for 30 days per month, use 99 years 240 Each 11 Active zinc oxide 40 % ointIndications:Ty pe 2 diabetes mellitus with hyperglycemia, with long-term current use of insulin ([facility]),Mixed urge and stress incontinence Apply 1 Application topically once daily as needed (apply with each diaper change) 397 g 2 Active INCRUSE ELLIPTA 62.5 mcg/actuation dsdv Inhale 1 Puff into the lungs daily. 30 Each 2 Active albuterol HFA 90 mcg/actuation inhaler Inhale 2 Puffs into the lungs every 4 (four) hours as needed for shortness of breath 18 g 2 024 Active amLODIPine (NORVASC) 5 mg tablet Take 1 Tablet by mouth once daily 90 Tablet 1 Active loratadine (CLARITIN) 10 mg tablet Take 1 Tablet by mouth once daily as needed for allergies for up to 90 days 90 Tablet 1 Active furosemide (LASIX) 20 mg tablet Take 0.5 Tablets by mouth once daily 45 Tablet 1 Active atorvastatin (LIPITOR) 40 mg tablet Take 1 Tablet by mouth nightly at bedtime 90 Tablet 1 Active ALCOHOL PREP PADS Apply topically USE 1 PAD TO CLEAN SKIN DAILY 100 Each 2 Active MISCELLANEOUS MEDICAL SUPPLY MISCIndications:Ty pe 2 diabetes mellitus without complication, without long-term current use of insulin ([facility]),Mixed urge and stress incontinence Please dispense ALOE wipes without alcohol, 8 wipes per day for lifetime use, for hx of type II diabetes and incontinence 200 Each 11 024 Active MISCELLANEOUS MEDICAL SUPPLY MISCIndications:Go ut of left foot, unspecified cause, unspecified chronicity Knee scooter placed on [facility] 1 Each 024 Active omeprazole (PRILOSEC) [address] capsule TAKE 1 CAPSULE BY MOUTH EVERY DAY BEFORE A MEAL 90 Capsule 4 024 Active indomethacin (INDOCIN) 50 mg capsule TAKE 1 CAPSULE (50 MG TOTAL) BY MOUTH 2 (TWO) TIMES A DAY WITH MEALS FOR 15 DAYS Authorized by: JOSE CAMACHO 024 Active lisinopriL 20 mg tablet Take 1 Tablet by mouth once daily 90 Tablet 1 024 Active NOVOLOG U-100 INSULIN ASPART 100 unit/mL injectionIndicatio ns:Insulin pump in place USE IN CONTINUOUS INSULIN [...] TIMES DAILY. 90 Capsule 11 025 Active MISCELLANEOUS MEDICAL SUPPLY MISCIndications:Di abetic foot infection ([facility]),Type 2 diabetes mellitus with 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, with long-term current use of insulin ([facility]),Osteoart hritis involving multiple joints on both sides of body,Gait instability by miscellaneous route daily Please dispense roller walker with a seat for lifetime use for hx of gait instability 1 Each 025 Active blood-glucose sensor (DEXCOM G6 SENSOR) deviIndications:Ty pe 2 diabetes mellitus with hyperglycemia, with long-term current use of insulin ([facility]) 1 Each by miscellaneous route every 10 (ten) days 9 Each 3 025 Active blood-glucose transmitter (DEXCOM G6 TRANSMITTER) deviIndications:Ty pe 2 diabetes mellitus with hyperglycemia, with long-term current use of insulin ([facility]) 1 Each by miscellaneous route every 3 (three) months 1 Each 3 025 Active OMNIPOD 5 G6-G7 PODS, GEN 5, crtgIndications:Ty pe 2 diabetes mellitus with hyperglycemia ([facility]) INJECT 1 EACH INTO THE SKIN EVERY 3 (THREE) DAYS Authorized by: MINA GRAVES IE H 15 Each 11 025 Active blood-glucose sensor (DEXCOM G6 SENSOR) deviIndications:Ty pe 2 diabetes mellitus with hyperglycemia, with long-term current use of insulin ([facility]) 1 Each by miscellaneous route every 10 (ten) days 9 Each 3 024 2024 Discontinued( Reorder (E-Cancel Not Sent)) blood-glucose transmitter (DEXCOM G6 TRANSMITTER) deviIndications:Ty pe 2 diabetes mellitus with hyperglycemia, with long-term current use of insulin ([facility]) 1 Each by miscellaneous route every 3 (three) months 1 Each 3 024 2024 Discontinued( Reorder (E-Cancel Not Sent)) OMNIPOD 5 G6-G7 PODS, GEN 5, crtg INJECT 1 EACH INTO THE SKIN EVERY 3 (THREE) DAYS Authorized by: MINA GRAVES IE H 024 2024 Discontinued Active Problems Problem Noted Date Diagnosed Date Mixed urge and stress incontinence 03/29/2024 Class 2 severe obesity due t o excess calories with serious comorbidity and body mass index (BMI) of 38.0 to 38.9 in adult ([facility]) 02/15/2024 History of gastric bypass 04/30/2023 Chronic back pain 01/28/2018 Obstructive sleep apnea syndrome 01/28/2018 Osteoarthritis involving mul tiple joints on both sides of body 01/28/2018 Difficulty swallowing 03/11/2015 Overview (03/11/2015): CR UGI with Air done on 02/25/2015 at [facility]- Impression: Spontaneous severe GERD. Tiny hiatal hernia. Normal Esophageal motility. 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, with long-term current use of insulin ([facility]) 11/16/2012 Overview (04/30/2023): Lab Results Component Value Date HGBA1C 9.0* 10/25/2015 HGBA1C 8.1* 01/18/2015 HGBA1C 7.9* 09/06/2014 Mala following- appt 01/02 Hyperlipidemia 11/16/2012 Overview (04/30/2023): No [...] Department Care Team Description 07/12/2024 Interim Notes [address] [phone] Yany Walker [place] 06/22/2024 3:00 PM EST Telemedicine Visit [address] [phone] Juwan العلي, CelinaD Type 2 diabetes mellitus with 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, with long-term current use of insulin ([facility]) (Primary Dx); Essential hypertension, benign; Class 2 severe obesity due to excess calories with serious comorbidity and body mass index (BMI) of 38.0 to 38.9 in adult ([facility]); Medication management 05/11/2024 3:20 PM EST Office Visit [address] [phone] Juwan العلي PharmD Controlled type 2 diabetes mellitus without complication, unspecified whether watermelon harvesting supervisor insulin use ([facility]) (Primary Dx); Essential hypertension, benign; Class 2 severe obesity due to excess calories with serious comorbidity and body mass index (BMI) of 38.0 to 38.9 in adult ([facility]); Medication management 05/11/2024 Travel 04/27/2024 9:20 AM EST Office Visit [address] [phone] Gautam, SHARON Bee Foot ulceration, left, limited to breakdown of skin ([facility]) (Primary Dx) 04/27/2024 Interim Notes [address] [address] Rosemarie Virk RN 04/27/2024 Travel from Last [...] Description 07/28/2024 2:00 PM EDT Office Visit [facility] [address] [place] [phone] Lewis Carter, BREAD SUPERVISOR-C [address] [place] [address] 08/08/2024 3:00 PM EDT Office Visit [address] [phone] Juwan العلي, PharmD [address] [place] [address] Health Maintenance Due Date Last Done Comments Dental Examination 1960 Hepatitis B Screening 1960 Imm-Hepatitis A (1 of 2 - Ri sk 2-dose series) 11/30/1979 CT Colonography 2005 Colonoscopy 2005 Flexible Sigmoidoscopy 2005 Imm-Hepatitis B (1 of 3 - Ri sk 3-dose series) 2020 [id number] () 01/16/2024 04/30/2023, 05/06/2021, 08/14/2020, Additional history [...] 2 diabetes mellitus without complication, unspecified whether watermelon harvesting supervisor insulin use ([facility]) XR FOOT LEFT Urgent 04/27/2024 1:34 PM EST Foot ulceration, left, limited to breakdown of skin ([facility]) BLOOD COUNT COMPLETE AUTOMATED Routine 04/27/2024 9:12 AM EST Foot ulceration, left, limited to breakdown of skin ([facility]) COMPREHENSIVE METABOLIC PANEL Routine 04/27/2024 9:12 AM EST Foot ulceration, left, limited to breakdown of skin ([facility]) IMAGING SCANNED DOCUMENT 04/27/2024 3:00 AM EST HEMOGLOBIN GLYCOSYLATED A1C Routine 02/15/2024 4:16 PM EDT Type 2 diabetes mellitus with hyperglycemia, with long-term current use of insulin ([facility]) EYE EXAM 01/21/2024 3:00 AM EDT HIV [...] 3:00 AM EST) 06/01/2024 3:00 AM EST [place] Emma BREAD SUPERVISOR-C SCAN REFERRAL Final Res ult * OTHER ORDERS SCANNED DOCUMENT (05/12/2024 3:00 AM EST) 05/12/2024 3:00 AM EST [place] Emma BREAD SUPERVISOR-C SCAN OTHER ORDERS Final R esult * (ABNORMAL) GLUCOSE, BLOOD BY GLUCOSE MONITORING DEVICE (CLIA WAIVED)POCT (05/11/2024 3:40 PM EST) GLUCOSE 190(A) 70 - 100 mg/dL [facility] POCT Capillary Blood Blood / Unknown 3:40 PM EST Juwan Levyliz PharmD LAB - BLOOD DRAW Final Resu lt [facility] POCT * XR FOOT LEFT (04/27/2024 1:34 PM EST) 04/27/2024 1:34 PM EST Impressions [facility] - 04/27/2024 4:27 PM EST IMPRESSION: 1.No overt plain radiographic signs seen to suggest osteomyelitis. 2.First MTP joint degenerative arthritis with hallux valgus. 3.Calcaneal spurs. Pranay Maddox MD Signed by Pranay Maddox MD Read by: Pranay Maddox MD Reviewed and Electronically Signed by: Pranay Maddox MD Narrative [facility] - 04/27/2024 4:27 PM EST [...] is calcified peripheral vascular disease. Procedure Note Default, Francie Provider - 04/27/2024 Original Report PROCEDURE: XR [...] and Electronically Signed by: Pranay Maddox MD [facility] IMG XRAY Final Result [facility] Corporate Office [address], [address] [place] [address], * BLOOD COUNT COMPLETE AUTOMATED (04/27/2024 9:12 AM EST) WHITE BLOOD CELL COUNT 7.3 3.8 - 10.8 Thousand/ uL [employer] RED BLOOD CELL COUNT 4.83 4.20 - 5.80 Million/u L [employer] HEMOGLOBIN 14.9 13.2 - 17.1 g/dL [facility] HEMATOCRIT 44.8 38.5 - 50.0 % [facility] MCV 92.8 80.0 - 100.0 fL [facility] MCH 30.8 27.0 - 33.0 pg [facility] MCHC 33.3 32.0 - 36.0 g/dL [facility] Comment: For adults, a slight decrease in the calculated MCHC value (in the range of 30 to 32 g/dL) is most likely not clinically significant; however, it should be interpreted with caution in correlation with other red cell parameters and the patient's clinical condition. RDW 12.1 11.0 - 15.0 % [facility] PLATELET COUNT 195 140 - 400 Thousand/ uL [facility] MPV 11.5 7.5 - 12.5 fL [facility] Blood Blood / Unknown 04/27/2024 9 :12 AM EST 04/27/2024 9:13 AM EST Narrative [employer] [facility] - 04/28/2024 5:59 AM EST FASTING:NO Rohit Florez PA-C LAB - BLOOD DRAW Edited Resul t - Final [employer] [address] [address], [employer] [address] [address] * (ABNORMAL) COMPREHENSIVE METABOLIC PANEL (04/27/2024 9:12 AM EST) GLUCOSE 249(H) 65 - 139 mg/dL [employer] [facility] Comment: ?Non-fasting reference interval UREA NITROGEN (BUN) 13 7 - 25 mg/dL [employer] [facility] CREATININE (blood) 0.68(L) 0.70 - 1.35 mg/dL [employer] [facility] EGFR 104 > OR = 60 mL/min/1. 73m2 [employer] [facility] BUN/CREATININE RATIO 19 6 - 22 (calc) [facility] SODIUM 136 135 - 146 mmol/L [facility] POTASSIUM 3.6 3.5 - 5.3 mmol/L [facility] CHLORIDE 99 98 - 110 mmol/L [facility] CARBON DIOXIDE 29 20 - 32 mmol/L [facility] CALCIUM 9.1 8.6 - 10.3 mg/dL [facility] PROTEIN, TOTAL 7.0 6.1 - 8.1 g/dL [facility] ALBUMIN 4.2 3.6 - 5.1 g/dL [facility] GLOBULIN 2.8 1.9 - 3.7 g/dL (calc) [facility] ALBUMIN/GLOBULI N RATIO 1.5 1.0 - 2.5 (calc) [facility] BILIRUBIN, TOTAL 0.7 0.2 - 1.2 mg/dL [facility] ALKALINE PHOSPHATASE 129 35 - 144 U/L [employer] [place] [facility] AST 11 10 - 35 U/L [employer] [place] [facility] ALT 13 9 - 46 U/L [facility] Blood Blood / Unknown 04/27/2024 9 :12 AM EST 04/27/2024 9:13 AM EST Narrative [email or web address] - 04/28/2024 5:59 AM EST FASTING:NO us Rohit Florez PA-C LAB - BLOOD DRAW Final Result [email or web address] [address] [place] [address], [facility] [address] [place] [phone] * IMAGING SCANNED DOCUMENT (04/27/2024 3:00 AM EST) 04/27/2024 3:00 AM EST us Rohit Florez PA-C SCAN IMAGING Final Result * (ABNORMAL) HEMOGLOBIN GLYCOSYLATED A1C (02/15/2024 4:16 PM EDT) HEMOGLOBIN A1C 11.6(H) <5.7 % of total Hgb [facility] Comment: For someone without known diabetes, a [...] PM EDT 02/15/2024 4:16 PM EDT Narrative [employer] [facility] - 02/16/2024 6:01 AM EDT FASTING:NO Mathieu Malone PharmD LAB - BLOOD DRAW Final Re sult Performing Organization Address [facility] Co de Phone Number [employer] [address] [address], [employer] [address] [address] * EYE EXAM (01/21/2024 3:00 AM EDT) 01/21/2024 3:00 AM EDT Lewis FRANKLIN-C OTHER Edited Re sult - Final * HEPATITIS C AB W/RFLX HCV RNA, QT, RT PCR (04/30/2023 10:31 AM EST) HEPATITIS C ANTIBODY NON-REACT CARLITO NON-REACT CARLITO [employer] [facility] Comment: HCV antibody was non-reactive. There is no laboratory evidence of HCV infection. In most cases, no further action is required. However, if recent HCV exposure is suspected, a test for HCV RNA (test code 32210) is suggested. For additional information please refer to http://education.Aventones.GiveGab/faq/LSP77t4 (This link is being provided for informational/ educational purposes only.) Blood Blood / Unknown 04/30/2023 1 0:31 AM EST 04/30/2023 10:31 AM EST us Lewis DAILEYP-C LAB - BLOOD DRAW Edited R esult - Final Performing Organization Address [facility]/ZIP Co de Phone Number [facility] [address] [address], [employer] [address] [address] * HIV 1/2 AG & AB W/RFLX (4TH GEN) (04/30/2023 10:31 AM EST) HIV AG/AB, 4TH GEN NON-REAC TIVE NON-REAC TIVE [employer] Comment: HIV-1 antigen and HIV-1/HIV-2 antibodies were [...] ?? For additional information please refer to http://education.Cursogram/faq/IAZ916 (This link is being provided for informational/ educational purposes only.) The performance of this assay has not been clinically validated in patients less than 2 years old. Blood Blood / Unknown 04/30/2023 1 0:31 AM EST 04/30/2023 10:31 AM EST Lewis DAILEYP-C LAB - BLOOD DRAW Final Re sult Performing Organization Address City/State/[facility] Co de Phone Number [employer] [address] [address], [employer] [address] [address] * RPR (MONITOR) W/REFL TITER (04/30/2023 10:31 AM EST) RPR (MONITOR) W/REFL TITER NON-REACT CARLITO NON-REACT CARLITO [facility] Blood Blood / Unknown 04/30/2023 1 0:31 AM EST 04/30/2023 10:31 AM EST Bradrenee Emma BREAD SUPERVISOR-C LAB - BLOOD DRAW Final Re sult [employer] [facility] [address] [address], [employer] [facility] [address] [place] [address] * MICROALBUMIN/CREATININE RATIO, URINE, RANDOM (04/30/2023 10:31 AM EST) CREATININE, RANDOM URINE 140 20 - 320 mg/dL [facility] MICROALBUMIN 0.4 mg/dL [employer] [facility] Comment: Reference Range Not established MICROALBUMIN/CREA TININE RATIO, RANDOM URINE 3 <30 mcg/mg creat [facility] Comment: The ADA defines abnormalities in [...] 10:31 AM EST 04/30/2023 10:31 AM EST Juan Diegojose alejandrorenee Emma BREAD SUPERVISOR-C LAB - NO BLOOD DRAW Final Result [facility] [address] [address], [employer] [facility] [address] [place] [address] * (ABNORMAL) LIPID PANEL (04/30/2023 10:31 AM EST) CHOLESTEROL, TOTAL 187 <200 mg/dL [facility] HDL CHOLESTEROL 54 > OR = 40 mg/dL [facility] TRIGLYCERIDES 133 <150 mg/dL [facility] LDL-CHOLESTEROL 108(H) 99 mg/dL (calc) [employer] Comment: Reference range: <100 Desirable range <100 mg/dL for primary prevention; ?? <70 mg/dL for patients with CHD or diabetic patients with > or = 2 CHD risk factors. LDL-C is now calculated using the Isael-Blackman calculation, which is a validated novel method providing better accuracy than the Friedewald equation in the estimation of LDL-C. Isael SS et al. ADOLPH. 2013;310(19): 3134-5326 (http://education.The RealReal.GiveGab/faq/RUE582) CHOL/HDLC RATIO 3.5 <5.0 (calc) [facility] NON-HDL CHOLESTEROL 133(H) <130 mg/dL (calc) [facility] Comment: For patients with diabetes plus 1 major ASCVD risk factor, treating to a non-HDL-C goal of <100 mg/dL (LDL-C of <70 mg/dL) is considered a therapeutic option. Blood Blood / Unknown 04/30/2023 1 0:31 AM EST 04/30/2023 10:31 AM EST Lewis FRANKLIN-Samira LAB - BLOOD DRAW Final Re sult [email or web address] [address] [address], [facility] [address] [place] [address] from Last 3 Months or Most Recently Relevant to Health Maintenance Insurance [facility] Member Subscriber Plan / Payer (Ef fective 2014-Present) Name:Jose Foster Relation to Subscriber:Self Name:Jose Foster Payer ID:[id number] Group ID:Not on file Type:Indemnity Address: [place] [address] [place] [address] Care Teams Electrical Project Engineer Relationship Specialty Start Date End Date Lewis Carter FNP-C [address] [place] [address] PCP - General Internal Medicine 04/30/23
--- OUTSIDE RECORDS SUMMARY | 2024-07-19 18:44 | XMS_ITS | Encounter Summary ---
Author Organization [employer] Address [address] [place] [address] [address] [place] [address] Care Team Providers Care Cyanide Pot Tender Name Role Phone Unavailable Primary Care Provider Unavailabl e Reason for Visit * Reason Comments Med Refill Encounter Details Date Type Department Care Team ([facility] st Contact Info) Description 06/13/2023 Refill [facility] MED [facility] PEDS [address] [place] [address] Radha Weber MD [address] [place] [address] Social History Tobacco Use Types Packs/Day Years [...]
--- OUTSIDE RECORDS SUMMARY | 2024-07-19 18:44 | XMS_ITS | Encounter Summary ---
Author Organization [employer] Address [address] [place] [address] [address] [place] [address] Care Team Providers Care Heel Nail Rasper Name Role Phone Unavailable Primary Care Provider Unavailabl e Reason for Visit * Reason Comments Med Refill Encounter Details Date Type Department Care Team (Late st Contact Info) Description 11/04/2023 Refill [facility] MEDICINE [address] [place] [address] Radha Weber MD [address] [place] [address] Vitamin deficiency; Osteoarthritis involving multiple joints on [...]
--- OUTSIDE RECORDS SUMMARY | 2024-07-19 18:44 | XMS_ITS | Encounter Summary ---
Author Organization [facility] Address [address] [place] [address] Care Team Providers Care Auditing Clerk Name Role Phone Lewis Carter URBAN GARDENING SPECIALIST-C Primary Care Provider [phone] Reason for Visit * Reason Comments Durable Medical Equipment Encounter Details Date Type Department Care Team (Late st Contact Info) Description 07/12/2024 Interim Notes [facility] Main [address] [place] [phone] Aaron [place], [place] [address] [place] [address] Social History Tobacco Use Types Packs/Day Years [...] script of alfredo hernandez with seat to [facility] at [phone]//confirmation received. documented in this encounter Plan of Treatment Upcoming Encounters Date Type Department Care Team (Late st Contact Info) Description 07/28/2024 2:00 PM EDT Office Visit [address] [phone] Lewis Carter FNP-C [address] [place] [address] 08/08/2024 3:00 PM EDT Office Visit [address] [phone] Juwan العلي, PharmD [address] [place] [address] documented as of this encounter Visit Diagnoses Not on filedocumented in this encounter Additional Health Concerns Assessment Noted Time PHQ-9 Depression Total Score: 18 023 10:09 AM PST documented as of this encounter Care Teams Auditing Clerk Relationship Specialty Start Date End Date Lewis Carter FNP-C [address] [place] [address] PCP - General Internal Medicine 04/30/23 documented as of this encounter
--- OUTSIDE RECORDS SUMMARY | 2024-07-19 18:44 | XMS_ITS | Encounter Summary ---
Author Organization [employer] Address [address] [place] [address] 7 [place] [address] Care Team Providers Care Supply Chain Design Manager Name Role Phone Unavailable Primary Care Provider Unavailabl e Reason for Visit * Reason Comments Med Refill Encounter Details Date Type Department Care Team ([facility] st Contact Info) Description 10/14/2023 Refill [facility] CHC MED & PEDS [address] [place] [address] Radha Weber MD 505 [place] [address] Vitamin deficiency Social History Tobacco Use Types [...]
--- OUTSIDE RECORDS SUMMARY | 2024-07-19 18:44 | XMS_ITS | Encounter Summary ---
Author Organization [employer] Address [address] [place] [address] 7 [place] [address] Care Team Providers Care Glove Cutter Name Role Phone Unavailable Primary Care Provider Unavailabl e Reason for Visit * Reason Comments Med Refill Encounter Details Date Type Department Care Team ([facility] st Contact Info) Description 07/14/2023 Refill [facility] CHC MED & PEDS 505 [place] [address] Radha Weber MD 505 [place] [address] Social History Tobacco Use Types Packs/Day Years [...]
--- OUTSIDE RECORDS SUMMARY | 2024-07-19 18:44 | XMS_ITS | Encounter Summary ---
Author Organization [employer] Address [address] [place] [address] 7 [place] [address] Care Team Providers Care Cancer Registry Manager Name Role Phone Unavailable Primary Care Provider Unavailabl e Reason for Visit * Reason Comments Med Refill Encounter Details Date Type Department Care Team ([facility] st Contact Info) Description 10/11/2023 Refill [facility] MED & PEDS 505 [place] [address] Radha Weber MD 505 [place] [address] Osteoarthritis involving multiple joints on both sides [...]
--- OUTSIDE RECORDS SUMMARY | 2024-07-19 18:44 | XMS_ITS | Encounter Summary ---
Author Organization [employer] Address [address] [place] [address] 7 [place] [address] Care Team Providers Care Assistant Community Manager Name Role Phone Unavailable Primary Care Provider Unavailabl e Reason for Visit * Reason Comments Med Refill Encounter Details Date Type Department Care Team ([facility] st Contact Info) Description 09/01/2023 Refill [facility] CHC MED & PEDS 505 [place] [address] Radha Weber MD [address] [place] [address] Primary osteoarthritis of other site Social History [...]
--- OUTSIDE RECORDS SUMMARY | 2024-07-19 18:44 | XMS_ITS | Encounter Summary ---
Author Organization [employer] Address [address] [place] [address] 7 [place] [address] Care Team Providers Care Bottle Blower Name Role Phone Unavailable Primary Care Provider Unavailabl e Reason for Visit * Reason Comments Med Refill Encounter Details Date Type Department Care Team (Late st Contact Info) Description 08/23/2023 Refill [facility] MEDICINE [address] [place] [address] Radha Weber MD 505 [place] [address] Social History Tobacco Use Types Packs/Day Years [...]
--- OUTSIDE RECORDS SUMMARY | 2024-07-19 18:44 | XMS_ITS | Encounter Summary ---
Author Organization [employer] Address [address] [place] [address] 7 [place] [address] Care Team Providers Care Gaming Dealer Name Role Phone Unavailable Primary Care Provider Unavailabl e Reason for Visit * Reason Comments Med Refill Encounter Details Date Type Department Care Team ([facility] st Contact Info) Description 04/04/2024 Refill [facility] CHC MED & PEDS 505 [place] [address] Radha Weber MD 505 [place] [address] Social History Tobacco Use Types Packs/Day Years [...]
--- OUTSIDE RECORDS SUMMARY | 2024-07-19 18:44 | XMS_ITS | Encounter Summary ---
Author Organization [employer] Address [address] [place] [address] 7 [place] [address] Care Team Providers Care Bath Tester Name Role Phone Unavailable Primary Care Provider Unavailabl e Reason for Visit * Reason Comments Med Refill Encounter Details Date Type Department Care Team (Late st Contact Info) Description 01/07/2024 Refill [facility] MEDICINE [address] [place] [address] Radha Weber MD 505 [place] [address] Social History Tobacco Use Types Packs/Day Years [...]
--- OUTSIDE RECORDS SUMMARY | 2024-07-19 18:44 | XMS_ITS | Encounter Summary ---
Author Organization [employer] Address [address] [place] [address] 7 [place] [address] Care Team Providers Care Manager Administration Name Role Phone Unavailable Primary Care Provider Unavailabl e Reason for Visit * Reason Comments Med Refill Encounter Details Date Type Department Care Team ([facility] st Contact Info) Description 09/26/2023 Refill [facility] CHC MED & PEDS [address] [place] [address] Radha Weber MD 505 [place] [address] Vitamin deficiency Social History Tobacco Use Types [...]
--- OUTSIDE RECORDS SUMMARY | 2024-07-19 18:44 | XMS_ITS | Encounter Summary ---
Author Organization [employer] Address [address] [place] [address] 7 [place] [address] Care Team Providers Care Machinist First Class Name Role Phone Unavailable Primary Care Provider Unavailabl e Reason for Visit * Reason Comments Med Refill Encounter Details Date Type Department Care Team (Late st Contact Info) Description 07/10/2023 Refill [facility] MEDICINE [address] [place] [address] Radha Weber MD 505 [place] [address] Social History Tobacco Use Types Packs/Day Years [...]
--- OUTSIDE RECORDS SUMMARY | 2024-07-19 18:44 | XMS_ITS | Encounter Summary ---
Author Organization [employer] Address [address] [place] [address] 7 [place] [address] Care Team Providers Care Backend Python Developer Name Role Phone Unavailable Primary Care Provider Unavailabl e Reason for Visit * Reason Comments Med Refill Encounter Details Date Type Department Care Team ([facility] st Contact Info) Description 07/30/2023 Refill [facility] MED & PEDS 505 [place] [address] Radha Weber MD 505 [place] [address] Osteoarthritis involving multiple joints on both sides [...]
== END 2024-07-19 15:29 | disposition home or self-care (01) ==
LOC: HO.LAB 15:28
PROVIDERS: PCP Registered Nurse; Visit Provider Nurse Practitioner Acute Care
DX: N17.9 Acute kidney failure, unspecified (principal)
CPT/HCPCS: 36415; 80048

== ENCOUNTER 2024-07-25 14:00 | Outpatient (AMB) | payer OTHER, SELFPAY ==
--- NOTE | 2024-07-25 14:20 | A.OFFVIS_ITS ---
Intake Visit Reasons: Follow Up 07/05/24 Intake Note: Patient states he has pain in the left leg, states it is around a 6-7. Accompanied by: Self / Same As Patient Allergies No Known Allergies [No Known Allergies*] Allergy (Verified 07/25/24 14:22) [facility] HPI Follow Up 07/05/24: Details: The patient is a 63-year-old male presenting with nonhealing left lower ex tremity ulcers complicated by peripheral vascular disease. Previously, angiography was not pursued due to renal insufficiency observed during hospitalization. Follow-up labs from July 19, 2024, show that renal function is now stable, with a GFR of 60, indicating the resolution of renal insufficiency. The patient reports improved pain levels associated with the ulcers and notes receiving tri-weekly nursing care for management. He now presents for vascular follow-up. Of note he is being scheduled for cataract surgery [facility] Medical History (Updated 07/25/24 @ 14:34 by Blas Cardoza MD) PAD (peripheral artery disease) Asthma Osteoarthritis Hyperlipidemia Type 2 diabetes, controlled, with peripheral neuropathy Sleep apnea Arthritis HTN (hypertension) Diabetes Surgical History Status post left foot surgery H/O rotator cuff surgery Gastric bypass status for obesity Family History Mother Diabetes Father Diabetes Social History Household Members: Family Housing: Apartment Do you presently have visiting nurse or other home services: No Alcohol intake: never Patient Tobacco Use Status: Never used Tobacco service: No Current occupational status: disabled Review of Systems Const All systems reviewed & are unremarkable except as noted in HPI and below Reports no additional complaints ENT Reports Normal hearing present Card Denies chest pain, Denies chest pain at rest, Denies chest pain with activity and Denies pedal edema Resp Denies cough GI Denies abdominal pain Musc Denies abnormal gait, Denies muscle cramps and Denies radiating pain into limb Skin/Breast Denies skin ulcer and Denies wounds Neuro Reports Normal hearing present and Denies abnormal gait Psych Reports no additional complaints Physical Exam Const General: cooperative, healthy appearing and comfortable Orientation/consciousness: oriented to person, oriented to place and oriented to time HEENT Head: Yes normal to inspection Neck Neck: Yes normal visual inspection Carotids: no bruits Chest Chest palpation & inspection: normal inspection of the chest Resp Effort & Inspection: normal respiratory effort and able to speak in complete sentences Auscultation: clear to auscultation bilaterally, no crackles, no rales, no rhonchi and no wheezes Cardio Other: Unable to evaluate left lower extremity pulses due to offloading boot Rate: regular rate Rhythm: regular rhythm Heart sounds: S1 normal heart sound present and S2 normal heart sound present Bruits: no carotid bruits Peripheral pulses: Peripheral pulses 2+ throughout GI Inspection: Yes normal to inspection Skin Wounds: no wounds Hair: normal Neuro General: oriented to person, oriented to place and oriented to time Cranial nerves: Yes CN's II-XII intact bilaterally and Yes Normal hearing present Cognition (Neuro): normal cognition Motor exam (neuro): 5/5 motor strength present throughout Extrem Other: venous exam: No significant superficial varicosities or spider telangiectasias, minimal edema General: No clubbing, No cyanosis and No edema Psych Appearance: grossly normal Mental Status: mental status grossly normal Speech and movement: Normal speech and movement present Results Reviewed Results Reviewed: Arterial ultrasound dated 07/06/2024 demonstrates left SFA occlusion. Assessment & Plan Assessment & Plan (1) PAD (peripheral artery disease): Comment: 01/26/2022 - angioplasty right anterior tibial artery Code(s): I73.9 - Peripheral vascular disease, unspecified Category: Medical Plan: Patient notes leg pain when walking distances. I have discussed the pathophysiology of peripheral vascular disease with the patient. I have also discussed risk factor modification. I have reviewed the patient's arterial testing which reveals left SFA disease. the patient would benefit from a left leg endovascular peripheral angiogram with possible angioplasty, stent, and/or atherectomy. This has been discussed in detail with the patient along with risks, benefits, and complications. This includes but is not limited to bleeding, infection, heart attack, need for emergent surgical repair, limb ischemia, blood vessel damage, bleeding, puncture, kidney injury, bruising, allergic reaction, and skin reaction. The patient demonstrates a clear understanding. We will schedule him after his cataract surgery. Thank you for allowing us to assist in this patient's care. Plan Patient was informed and verbally consented to the use of an ambient scribe for clinic note documentation during this visit. Patient Instructions: - Expect a call from our office to schedule your angiogram. - Continue receiving nursing care visits at home. - procedure information was given to the patient and will be scheduled after I surgery Coding Level of Care Code Est Pt Level 4 (63591) Complex EM visit Add On G2211 Diagnoses PAD (peripheral artery disease) I73.9
--- OUTSIDE RECORDS SUMMARY | 2024-07-25 17:06 | XMS_ITS | Encounter Summary ---
Author Organization [employer] Address [address] [place] [address] 7 [place] [address] Care Team Providers Care Knitting Inspector Name Role Phone Unavailable Primary Care Provider Unavailabl e Reason for Visit * Reason Comments Med Refill Encounter Details Date Type Department Care Team (Late st Contact Info) Description 07/10/2023 Refill [facility] MEDICINE [address] [place] [address] Radha Weber MD 505 [place] [address] Social History Tobacco Use Types Packs/Day Years [...]
--- OUTSIDE RECORDS SUMMARY | 2024-07-25 17:06 | XMS_ITS | Encounter Summary ---
Author Organization [facility] Address [address] [place] [address] Care Team Providers Care Scouring Machine Tender Name Role Phone Lewis CarterP- Primary Care Provider [phone] Encounter Details Date Type Department Care Team ([facility] Contact Info) Description 01/23/2015 Interim Notes [address] [place] [phone] Corina Arango NP [address] [place], [place] [phone] Social History Tobacco Use Types Packs/Day Years [...] Description 07/28/2024 2:00 PM EDT Office Visit [address] [phone] Lewis Carter FNP-C [address] [place] [address] 08/08/2024 3:00 PM EDT Office Visit [address] [phone] Juwan العلي PharmD [address] [place] [address] documented as of this encounter Visit Diagnoses Not on filedocumented in this encounter Care Teams Scouring Machine Tender Relationship Specialty Start Date End Date Lewis Carter FNP-C [address] [place] [address] PCP - General Internal Medicine 04/30/23 documented as of this encounter
--- OUTSIDE RECORDS SUMMARY | 2024-07-25 17:06 | XMS_ITS | Encounter Summary ---
Author Organization [employer] Address [address] [place] [address] 7 [place] [address] Care Team Providers Care English Composition Teacher Name Role Phone Unavailable Primary Care Provider Unavailabl e Reason for Visit * Reason Comments Med Refill Encounter Details Date Type Department Care Team (Late st Contact Info) Description 01/07/2024 Refill [facility] MEDICINE [address] [place] [address] Radha Weber MD 505 [place] [address] Social History Tobacco Use Types Packs/Day Years [...]
--- OUTSIDE RECORDS SUMMARY | 2024-07-25 17:06 | XMS_ITS | Encounter Summary ---
Author Organization [employer] Address [address] [place] [address] 7 [place] [address] Care Team Providers Care Still Operator Whiskey Name Role Phone Radha Weber MD Primary Care Provider [phone] Reason for Visit * Reason Comments Med Refill Encounter Details Date Type Department Care Team ([facility] st Contact Info) Description 06/17/2022 Refill [facility] CHC MED & PEDS [address] [place] [address] Radha Weber MD 505 [place] [address] Primary osteoarthritis of other site (Primary Dx) [...] Primary documented in this encounter Care Teams Still Operator Whiskey Relationship Specialty Start Date End Date Radha Weber MD [address] [place] [address] PCP - General Internal Medicine 02/27/21 05/19/23 documented as of this encounter
--- OUTSIDE RECORDS SUMMARY | 2024-07-25 17:06 | XMS_ITS | Encounter Summary ---
Author Organization [employer] Address [address] [place] [address] 7 [place] [address] Care Team Providers Care Tap Out Operator Name Role Phone Unavailable Primary Care Provider Unavailabl e Reason for Visit * Reason Comments Med Refill Encounter Details Date Type Department Care Team ([facility] st Contact Info) Description 06/08/2023 Refill [facility] CHC MED & PEDS [address] [place] [address] Radha Weber MD [address] [place] [address] Social History Tobacco Use Types Packs/Day Years [...]
--- OUTSIDE RECORDS SUMMARY | 2024-07-25 17:06 | XMS_ITS | Encounter Summary ---
Author Organization [employer] Address [address] [place] [address] 7 [place] [address] Care Team Providers Care Commercial Correspondent Name Role Phone Unavailable Primary Care Provider Unavailabl e Reason for Visit * Reason Comments Med Refill Encounter Details Date Type Department Care Team ([facility] [place] [facility] st Contact Info) Description 10/14/2023 Refill [facility] CHC MED & PEDS [address] [place] [address] Radha Weber MD [address] [place] [address] Vitamin deficiency Social History Tobacco Use Types [...]
--- OUTSIDE RECORDS SUMMARY | 2024-07-25 17:06 | XMS_ITS | Clinical Summary ---
Author Organization [employer] Address [address] [place] [address] 7t [place] [address] Care Team Providers Care Leather Craftsman Name Role Phone Unavailable Primary Care Provider [...] UGI with Air done on 02/25/2015 at [facility]- Impression: Spontaneous severe GERD. Tiny hiatal hernia. [...] Result Negative Negative 05/14/20 10:44 AM EST [facility] (CLIA #:[id number]) Comment: NEGATIVE TEST RESULT. A negative Cologuard [...] cancer. ??Following a negative Cologuard result, the [place] Cancer Society and U.S. Multi-Society Task Force screening guidelines recommend a Cologuard re-screening interval of 3 years. References: [place] Cancer Society Guideline for Colorectal Cancer Screening: https://www.cancer.org/cancer/rclxf-mhqoct-jmcssw/uvaowrhwf-cyhncgvnm-nrntbsb/ac s-rec ommendations.html.; Myke DK, Kiley WAITE, Devin TALAVERA, Colorectal Cancer Screening: Recommendations for Physicians and Patients from the U.S. Multi-Society Task Force on Colorectal Cancer Screening , Am J Gastroenterology 2017; 112:2987-3609. TEST DESCRIPTION: Composite algorithmic analysis of stool [...] colonoscopy. (Lindsay Gonzalez, N Engl J Med 2014;370(14):6515-5578.) Cologuard may produce a false negative or false positive result (no colorectal cancer or precancerous polyp present at colonoscopy follow up). A negative Cologuard test result does not guarantee the absence of CRC or advanced adenoma (pre-cancer). The current Cologuard screening interval is every 3 years. ([place] Cancer Society and U.S. Multi-Society Task Force). Cologuard performance data in a 10,000 patient pivotal study using colonoscopy as the reference method can be accessed at the following location: www.[employer].Loudie/results. Additional description of the Cologuard test process, warnings and precautions can be found at www.cologuard.com. Stool specimen (specimen) 05/05/2023 3:30 PM EST 05/08/2023 12:38 PM EST Radha Weber MD LAB MOLECULAR DIAGNOSTICS O RDERABLES Final Result [facility] (CLIA #:[id number]) [address] [place] [address], * (ABNORMAL) POCT A1C (02/16/2023 4:33 PM EDT) Hemoglobin A1C 8.0(A) 4.0 - 6.0 % QC Media Lot # [id number] Lot# Expiration Date Blood 02/16/2023 4:33 PM EDT Radha Weber MD POINT OF CARE TEST ENTER/ED IT ORDERABLES Final Result * ALBUMIN, RANDOM URINE W/CREATININE (12/02/2020 3:53 PM EDT) Microalbumin Urine 1.7 See Note: mg/dL [facility] Comment: Reference Range: ?? Reference [...] Final Result [facility] [address] * (ABNORMAL) LIPID PANEL, STANDARD (12/02/2020 [...] ?? Isael INMAN et al. ADOLPH. 2013;310(19): 6217-3591 ?? (http://education.[employer].Loudie/faq/SSP371) Non-HDL Cholesterol 128 <130 mg/dL (calc) [facility] Comment: For patients with diabetes plus 1 major ASCVD risk ?? factor, treating to a non-HDL-C goal of <100 mg/dL ?? (LDL-C of <70 mg/dL) is considered a therapeutic ?? option. Triglycerides 136 <150 mg/dL [facility] 12/02/2020 3:53 PM EDT Jason Zendejas MD LAB BLOOD ORDERABL ES Final Result [facility] [address] * Colonoscopy (12/31/2016) Colonoscopy Normal Normal Narrative Radha Mejia - 12/31/2016 Recommended 10 year follow up Historical Provider HEALTH MAINTENANCE Final Result from Last 3 Months or Most Recently Relevant to Health Maintenance Insurance [facility] Member Subscriber Plan / Payer (Ef fective 2020-Present) Name:Jose Foster Relation to Subscriber:Self Name:Jose Fsoter Payer ID:Not on file Type:Not on file Address: [address] [place] [address]
--- OUTSIDE RECORDS SUMMARY | 2024-07-25 17:06 | XMS_ITS | Encounter Summary ---
Author Organization [employer] Address [address] [place] [address] 7 [place] [address] Care Team Providers Care Transition Mgr Name Role Phone Unavailable Primary Care Provider Unavailabl e Reason for Visit * Reason Comments Med Refill Encounter Details Date Type Department Care Team (Late st Contact Info) Description 11/04/2023 Refill [facility] MEDICINE [address] [place] [address] Radha Weber MD [address] [place] [address] Vitamin deficiency; Osteoarthritis involving multiple joints on [...]
--- OUTSIDE RECORDS SUMMARY | 2024-07-25 17:06 | XMS_ITS | Encounter Summary ---
Author Organization [employer] Address [address] [place] [address] 7 [place] [address] Care Team Providers Care Automobile Inspector Name Role Phone Unavailable Primary Care Provider Unavailabl e Reason for Visit * Reason Comments Med Refill Encounter Details Date Type Department Care Team ([facility] st Contact Info) Description 10/11/2023 Refill [facility] MED & PEDS [address] [place] [address] Radha Weber MD [address] [place] [address] Osteoarthritis involving multiple joints on both sides [...]
--- OUTSIDE RECORDS SUMMARY | 2024-07-25 17:06 | XMS_ITS | Encounter Summary ---
Author Organization [employer] Address [address] [place] [address] 7 [place] [address] Care Team Providers Care Entertainer & Comic Name Role Phone Unavailable Primary Care Provider Unavailabl e Reason for Visit * Reason Comments Med Refill Encounter Details Date Type Department Care Team ([facility] st Contact Info) Description 06/13/2023 Refill [facility] CHC MED & PEDS [address] [place] [address] Radha Weber MD [address] [place] [address] Social History Tobacco Use Types Packs/Day Years [...]
--- OUTSIDE RECORDS SUMMARY | 2024-07-25 17:06 | XMS_ITS | Encounter Summary ---
Author Organization [employer] Address [address] [place] [address] 7 [place] [address] Care Team Providers Care Certified Professional Coder Name Role Phone Unavailable Primary Care Provider Unavailabl e Reason for Visit * Reason Comments Med Refill Encounter Details Date Type Department Care Team ([facility] st Contact Info) Description 07/30/2023 Refill [facility] MED & PEDS [address] [place] [address] Radha Weber MD [address] [place] [address] Osteoarthritis involving multiple joints on both sides [...]
--- OUTSIDE RECORDS SUMMARY | 2024-07-25 17:06 | XMS_ITS | Encounter Summary ---
Author Organization [employer] Address [address] [place] [address] 7 [place] [address] Care Team Providers Care Molding Associate Name Role Phone Unavailable Primary Care Provider Unavailabl e Reason for Visit * Reason Comments Med Refill Encounter Details Date Type Department Care Team ([facility] st Contact Info) Description 04/04/2024 Refill [facility] CHC MED & PEDS [address] [place] [address] Radha Weber MD [address] [place] [address] Social History Tobacco Use Types Packs/Day Years [...]
--- OUTSIDE RECORDS SUMMARY | 2024-07-25 17:06 | XMS_ITS | Encounter Summary ---
Author Organization [employer] Address [address] [place] [address] 7 [place] [address] Care Team Providers Care Appeals Officer Name Role Phone Radha Weber MD Primary Care Provider [phone]- [phone] Encounter Details Date Type Department Care Team ([facility] st Contact Info) Description 01/26/2023 Orders Only [facility] CHC MED & PEDS [address] [place] [address] Antoinette Shrestha LPN Social History Tobacco Use [...] on filedocumented in this encounter Care Teams Appeals Officer Relationship Specialty Start Date End Date Radha Weber MD [address] [place] [address] PCP - General Internal Medicine 02/27/21 05/19/23 documented as of this encounter
--- OUTSIDE RECORDS SUMMARY | 2024-07-25 17:06 | XMS_ITS | Encounter Summary ---
Author Organization [employer] Address [address] [place] [address] 7 [place] [address] Care Team Providers Care Business Objects Name Role Phone Unavailable Primary Care Provider Unavailabl e Reason for Visit * Reason Comments Med Refill Encounter Details Date Type Department Care Team ([facility] st Contact Info) Description 09/26/2023 Refill [facility] CHC MED & PEDS [address] [place] [address] Radha Weber MD [address] [place] [address] Vitamin deficiency Social History Tobacco Use Types [...]
--- OUTSIDE RECORDS SUMMARY | 2024-07-25 17:06 | XMS_ITS | Encounter Summary ---
Author Organization [employer] Address [address] [facility] 7 [place] [address] Care Team Providers Care Public Safety Director Name Role Phone Radha Weber MD Primary Care Provider [phone]- [phone] Encounter Details Date Type Department Care Team (Late st Contact Info) Description 03/17/2023 Abstract [facility] MEDICINE [address] [place] [address] Radha Weber MD [address] [place] [address] Social History Tobacco Use Types Packs/Day Years [...] on filedocumented in this encounter Care Teams Public Safety Director Relationship Specialty Start Date End Date Radha Weber MD [address] [place] [address] PCP - General Internal Medicine 02/27/21 05/19/23 documented as of this encounter
--- OUTSIDE RECORDS SUMMARY | 2024-07-25 17:06 | XMS_ITS | Encounter Summary ---
Author Organization [facility] Address [address] [place] [address] Care Team Providers Care Motor Electrician Name Role Phone Lewis Carter COMMUNITY PLANNING TECHNICIAN-C Primary Care Provider [phone] -[phone] Reason for Visit * Reason Comments Durable Medical Equipment Encounter Details Date Type Department Care Team (Late st Contact Info) Description 07/12/2024 Interim Notes [facility] Main [address] [place] [address] Aaron [place], [place] [address] [place] [address] Social History Tobacco Use Types Packs/Day Years [...] script of alfredo hernandez with seat to [facility] at [phone]//confirmation received. documented in this encounter Plan of Treatment Upcoming Encounters Date Type Department Care Team (Late st Contact Info) Description 07/28/2024 2:00 PM EDT Office Visit [address] [phone] Lewis Carter FNP-C [address] [place] [address] 08/08/2024 3:00 PM EDT Office Visit [address] [phone] Juwan العلي, PharmD [address] [place] [address] documented as of this encounter Visit Diagnoses Not on filedocumented in this encounter Additional Health Concerns Assessment Noted Time PHQ-9 Depression Total Score: 18 023 10:09 AM PST documented as of this encounter Care Teams Motor Electrician Relationship Specialty Start Date End Date Lewis Carter FNP-C [address] [place] [address] PCP - General Internal Medicine 04/30/23 documented as of this encounter
--- OUTSIDE RECORDS SUMMARY | 2024-07-25 17:06 | XMS_ITS | Encounter Summary ---
Author Organization [employer] Address [address] [place] [address] 7 [place] [address] Care Team Providers Care Hair Worker Name Role Phone Radha Weber MD Primary Care Provider [phone]- [phone] Encounter Details Date Type Department Care Team ([facility] st Contact Info) Description 04/23/2023 Orders Only [facility] CHC MED & PEDS [address] [place], [place] [phone] Radha Weber MD [address] [place] [address] Screening for colon cancer (Primary Dx) Social [...] Result Negative Negative 05/14/20 10:44 AM EST [facility] (CLIA #:[id number]) Comment: NEGATIVE TEST RESULT. A negative Cologuard [...] cancer. ??Following a negative Cologuard result, the [place] [employer] and U.S. Multi-Society Task Force screening guidelines recommend a Cologuard re-screening interval of 3 years. References: [place] [employer] Guideline for Colorectal Cancer Screening: https://www.cancer.org/cancer/lfpqe-ucblol-rmqway/kywrxkjpq-vnxwvmhmo-hajgawj/ac s-rec ommendations.html.; Myke BURNETT, Kiley WAITE, Devin RachelK, Colorectal Cancer Screening: Recommendations for Physicians and Patients from the U.S. Multi-Society Task Force on Colorectal Cancer Screening , Am J Gastroenterology 2017; 112:9008-3597. TEST DESCRIPTION: Composite algorithmic analysis of stool [...] Lynch et al, N Engl J Med 2014;370(14):3315-9726.) Cologuard may produce a false negative or false positive result (no colorectal cancer or precancerous polyp present at colonoscopy follow up). A negative Cologuard test result does not guarantee the absence of CRC or advanced adenoma (pre-cancer). The current Cologuard screening interval is every 3 years. ([place] [employer] and U.S. Multi-Society Task Force). Cologuard performance data in a 10,000 patient pivotal study using colonoscopy as the reference method can be accessed at the following location: www.[employer]/results. Additional description of the Cologuard test process, warnings and precautions can be found at www.[employer] Mediard.com. Stool specimen (specimen) 05/05/2023 3:30 PM EST 05/08/2023 12:38 PM EST us Radha Weber MD LAB MOLECULAR DIAGNOSTICS O RDERABLES Final Result [facility] (CLIA #:[id number]) [address] [place] [address], documented in this encounter Visit Diagnoses Diagnosis Screening for colon cancer- Primary Special screening for malignant neoplasms, colon documented in this encounter Care Teams Hair Worker Relationship Specialty Start Date End Date Radha Weber MD [address] [place] [address] PCP - General Internal Medicine 02/27/21 05/19/23 documented as of this encounter
--- OUTSIDE RECORDS SUMMARY | 2024-07-25 17:06 | XMS_ITS | Encounter Summary ---
Author Organization [facility] Address [address] [place] [address] Care Team Providers Care Copier Repair Technician Name Role Phone Lewis CarterP- Primary Care Provider [phone] -[phone] Encounter Details Date Type Department Care Team ([facility] Contact Info) Description 01/23/2015 Interim Notes [facility] [address] [place] [phone] Corina Arango NP [address] [place], [place] [id number] Social History Tobacco Use Types Packs/Day Years [...] Description 07/28/2024 2:00 PM EDT Office Visit [address] [phone] Lewis Carter FNP-C [address] [place] [address] 08/08/2024 3:00 PM EDT Office Visit [address] [phone] Juwan العلي PharmD [address] [place] [address] documented as of this encounter Visit Diagnoses Not on filedocumented in this encounter Care Teams Copier Repair Technician Relationship Specialty Start Date End Date Lewis Carter FNP-C [address] [place] [address] PCP - General Internal Medicine 04/30/23 documented as of this encounter
--- OUTSIDE RECORDS SUMMARY | 2024-07-25 17:06 | XMS_ITS | Encounter Summary ---
Author Organization [employer] Address [address] [place] [address] 7 [place] [address] Care Team Providers Care Photo Manager Name Role Phone Radha Weber MD Primary Care Provider [phone]- [phone] Reason for Visit * Reason Comments Med Refill Encounter Details Date Type Department Care Team ([facility] st Contact Info) Description 03/24/2023 Refill [facility] CHC MED & PEDS [address] [place] [address] Radha Weber MD [address] [place] [address] Social History Tobacco Use Types Packs/Day Years [...] on filedocumented in this encounter Care Teams Photo Manager Relationship Specialty Start Date End Date Radha Weber MD [address] [place] [address] PCP - General Internal Medicine 02/27/21 05/19/23 documented as of this encounter
--- OUTSIDE RECORDS SUMMARY | 2024-07-25 17:06 | XMS_ITS | Clinical Summary ---
Author Organization [facility] Address [address] [place] [address] Phone Care Team Providers Care Pigment Mixer Name Role Phone Physician, Pcp Unknown Primary [...] PM EST Office Visit Orthopedic Surgery - [address] [address] Avtar Emanuel, DPM Ulcer of [...] PM EDT Office Visit Orthopedic Surgery - [place] [address] [phone] Avtar Emanuel, DPM [address] [address] Health Maintenance Due Date Last Done Comments [...] to complete this topic Insurance [address] [place] [address] [facility] MEDICARE Member Subscriber Plan / Payer (Ef fective 2014-Present) Name:Jose Foster Relation to Subscriber:Self Name:Jose Foster Payer ID:[id number] Group ID:[id number] Type:Not on file Address: [place] [address] [place] [address] Care Teams Pigment Mixer Relationship Specialty Start Date End Date Physician, Pcp Unknown PCP - General 04/20/24
--- OUTSIDE RECORDS SUMMARY | 2024-07-25 17:06 | XMS_ITS | Clinical Summary ---
Author Organization [facility] Address [address] [place] [address] Care Team Providers Care Histologist Technologist Name Role Phone Lweis Carter GLYCERIN SUPERVISOR-C Primary Care Provider [phone] Source Comments PLEASE NOTE, if this patient [...] 81 mg by mouth once daily Active kufzpreq-lqh-kiaut us fumarate 15 mg iron tab Take [...] 5 90 Authorized by: RAKESH LOPEZ IN [facility] Active fluticasone propionate (FLONASE) 50 mcg/actuation nasal spray 03/18/2021 FLUTICASONE PROP 50 MCG SPRAY 48.00 g 11 90 Authorized by: RAKESH LOPEZ IN [facility] 021 Active blood-glucose meter,continuous (DEXCOM G6 PIPE LINE INSPECTOR) miscIndications:Ty pe 2 diabetes mellitus with hyperglycemia, with long-term current use of insulin ([facility]) 1 Each by miscellaneous route continuously 1 Each 023 Active blood sugar diagnostic (CONTOUR NEXT TEST STRIPS) stripsIndications: Type 2 diabetes mellitus with hyperglycemia, with long-term current use of insulin ([facility]) Check blood sugar 7 times daily on insulin infusion pump and sensor 300 Each 023 Active MISCELLANEOUS MEDICAL SUPPLY MISCIndications:Im pairment of balance,History of falling by miscellaneous route daily. Dispense 1 electronic lift chair. Need lifetime. 1 Each 024 Active OMNIPOD 5 G6 PODS, GEN 5, crtgIndications:Ty pe 2 diabetes mellitus with hyperglycemia, with long-term current use of insulin ([facility]) Inject 1 Each into the skin every 3 (three) days 15 Each 024 Active methocarbamoL (ROBAXIN) 500 mg tabletIndications: Rib pain on right side TAKE 1 TABLET BY MOUTH THREE TIMES A DAY NEEDED FOR PAIN 30 Tablet 1 024 Active MISCELLANEOUS MEDICAL SUPPLY MISCIndications:Ty pe 2 diabetes mellitus with hyperglycemia, with long-term current use of insulin ([facility]),Impairme nt of balance,History of falling by miscellaneous route daily Please dispense 1 cane for lifetime use for hx of type 2 diabetes and gait instability 1 Each 1 024 Active PETROLATUM ointmentIndication s:Type 2 diabetes mellitus with hyperglycemia, with long-term current use of insulin ([facility]),Dry skin APPLY TOPICALLY TWICE A DAY 454 g 2 024 Active atropine 1 % ophthalmic solution Authorized by: STACY RODRIGUEZ 024 Active moxifloxacin (VIGAMOX) 0.5 % ophthalmic solution Authorized by: STACY RODRIGUEZ 024 Active prednisoLONE acetate (PRED-FORTE) 1 % ophthalmic suspension Authorized by: STACY RODRIGUEZ Active MISCELLANEOUS MEDICAL SUPPLY MISCIndications:Ty pe 2 diabetes mellitus with hyperglycemia, with long-term current use of insulin ([facility]),Mixed urge and stress incontinence by miscellaneous route daily Please dispense 1 pair of diabetic shoes with customized foot inserts for lifetime use, hx of diabetic feet and Type II diabetes mellitus 2 Each 1 Active MISCELLANEOUS MEDICAL SUPPLY MISCIndications:Ty pe 2 diabetes mellitus with hyperglycemia, with long-term current use of insulin ([facility]),Mixed urge and stress incontinence by miscellaneous route once daily as needed (mixed incontinence) L adult pull ups for hx of mixed incontinence, 8 per day for 30 days per month, use 99 years 240 Each 11 Active zinc oxide 40 % ointIndications:Ty pe 2 diabetes mellitus with hyperglycemia, with long-term current use of insulin ([facility]),Mixed urge and stress incontinence Apply 1 Application [...] complication, without long-term current use of insulin ([facility]),Mixed urge and stress incontinence Please dispense ALOE [...] current use of insulin ([facility]),Osteoart hritis involving multiple joints on both sides of body,Gait instability by miscellaneous route daily Please dispense roller walker with a seat for lifetime use for hx of gait instability 1 Each 025 Active blood-glucose sensor (DEXCOM G6 SENSOR) deviIndications:Ty pe 2 diabetes mellitus with hyperglycemia, with long-term current use of insulin ([facility]) 1 Each by miscellaneous route every 10 (ten) days 9 Each 3 025 Active blood-glucose transmitter (DEXCOM G6 TRANSMITTER) deviIndications:Ty pe 2 diabetes mellitus with hyperglycemia, with long-term current use of insulin ([facility]) 1 Each by miscellaneous route every 3 (three) months 1 Each 3 025 Active OMNIPOD 5 G6-G7 PODS, GEN 5, crtgIndications:Ty pe 2 diabetes mellitus with hyperglycemia ([facility]) INJECT 1 EACH INTO THE SKIN EVERY 3 (THREE) DAYS Authorized by: MINA GRAVES IE H 15 Each 11 025 Active blood-glucose sensor (DEXCOM G6 SENSOR) deviIndications:Ty pe 2 diabetes mellitus with hyperglycemia, with long-term current use of insulin ([facility]) 1 Each by miscellaneous route every 10 (ten) days 9 Each 3 024 2024 Discontinued( Reorder (E-Cancel Not Sent)) blood-glucose transmitter (DEXCOM G6 TRANSMITTER) deviIndications:Ty pe 2 diabetes mellitus with hyperglycemia, with long-term current use of insulin ([facility]) 1 Each by miscellaneous route every 3 [...] (BMI) of 38.0 to 38.9 in adult ([facility]) 02/15/2024 History of gastric bypass 04/30/2023 Chronic back pain 01/28/2018 Obstructive sleep apnea syndrome 01/28/2018 Osteoarthritis involving mul tiple joints on both sides of body 01/28/2018 Difficulty swallowing 03/11/2015 Overview (03/11/2015): CR UGI with Air done on 02/25/2015 at [facility]- Impression: Spontaneous severe GERD. Tiny hiatal hernia. Normal Esophageal motility. Migraine headache 10/16/2013 Overview (12/27/2015): topamax 200 1 po bid Carpal tunnel syndrome, bilateral 02/07/2013 Episodic mood disorder (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) 11/16/2012 Overview (04/30/2023): Lab Results [...] Department Care Team Description 07/12/2024 Interim Notes [address] [address] Yany Walker [place] 06/22/2024 3:00 PM EST Telemedicine Visit [address] [address] Juwan العلي, CelinaD Type 2 diabetes mellitus with 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, with long-term current use of insulin ([facility]) (Primary Dx); Essential hypertension, benign; Class 2 severe obesity due to excess calories with serious comorbidity and body mass index (BMI) of 38.0 to 38.9 in adult ([facility]); Medication management 05/11/2024 3:20 PM EST Office Visit [address] [address] Juwan العلي PharmD Controlled type 2 diabetes mellitus without complication, unspecified whether dumper bailer operator insulin use ([facility]) (Primary Dx); Essential hypertension, benign; Class 2 severe obesity due to excess calories with serious comorbidity and body mass index (BMI) of 38.0 to 38.9 in adult ([facility]); Medication management 05/11/2024 Travel 04/27/2024 9:20 AM EST Office Visit [address] [address] Gautam, SHARON Bee Foot ulceration, left, limited to breakdown of skin ([facility]) (Primary Dx) 04/27/2024 Interim Notes [address] [address] Rosemarie Virk RN 04/27/2024 Travel from Last [...] Description 07/28/2024 2:00 PM EDT Office Visit [facility] [address] [place] [phone] Lewis Carter, GLYCERIN SUPERVISOR-C [address] [place] [address] 08/08/2024 3:00 PM EDT Office Visit [address] [address] Juwan العلي, PharmD [address] [place] [address] Health Maintenance Due Date Last Done Comments Dental Examination 1960 Hepatitis B Screening 1960 Imm-Hepatitis A (1 of 2 - Ri sk 2-dose series) 11/30/1979 CT Colonography 2005 Colonoscopy 2005 Flexible Sigmoidoscopy 2005 Imm-Hepatitis B (1 of 3 - Ri sk 3-dose series) 2020 [id number] () 01/16/2024 04/30/2023, 05/06/2021, 08/14/2020, Additional history [...] 2 diabetes mellitus without complication, unspecified whether dumper bailer operator insulin use ([facility]) XR FOOT LEFT Urgent 04/27/2024 1:34 PM EST Foot ulceration, left, limited to breakdown of skin ([facility]) BLOOD COUNT COMPLETE AUTOMATED Routine 04/27/2024 9:12 AM EST Foot ulceration, left, limited to breakdown of skin ([facility]) COMPREHENSIVE METABOLIC PANEL Routine 04/27/2024 9:12 AM EST Foot ulceration, left, limited to breakdown of skin ([facility]) IMAGING SCANNED DOCUMENT 04/27/2024 3:00 AM EST HEMOGLOBIN GLYCOSYLATED A1C Routine 02/15/2024 4:16 PM EDT Type 2 diabetes mellitus with hyperglycemia, with long-term current use of insulin ([facility]) EYE EXAM 01/21/2024 3:00 AM [...] EST) 06/01/2024 3:00 AM EST Aloonrenee Emma GLYCERIN SUPERVISOR-C SCAN REFERRAL Final Res ult * OTHER ORDERS SCANNED DOCUMENT (05/12/2024 3:00 AM EST) 05/12/2024 3:00 AM EST Aloonee Emma GLYCERIN SUPERVISOR-C SCAN OTHER ORDERS Final R esult * (ABNORMAL) GLUCOSE, BLOOD BY GLUCOSE MONITORING DEVICE (CLIA WAIVED)POCT (05/11/2024 3:40 PM EST) GLUCOSE 190(A) 70 - 100 mg/dL [facility] POCT Capillary Blood Blood / Unknown 3:40 PM EST Juwan Levyliz PharmD LAB - BLOOD DRAW Final Resu lt [facility] POCT * XR FOOT LEFT (04/27/2024 1:34 PM EST) 04/27/2024 1:34 PM EST Impressions [facility] - 04/27/2024 4:27 PM EST IMPRESSION: 1.No overt plain radiographic signs seen to suggest osteomyelitis. 2.First MTP joint degenerative arthritis with hallux valgus. 3.Calcaneal spurs. Pranay Maddxo MD Signed by Pranay Maddox MD Read by: Pranay Maddox MD Reviewed and Electronically Signed by: Pranay Maddox MD Narrative [facility] - 04/27/2024 4:27 PM EST [...] and Electronically Signed by: Pranay Maddox MD [facility] SANA-Samira IMG XRAY Final Result [facility] Corporate Office [address] [place], [address] [place] [address], * BLOOD COUNT COMPLETE AUTOMATED (04/27/2024 9:12 AM EST) WHITE BLOOD CELL COUNT 7.3 3.8 - 10.8 Thousand/ uL [facility] RED BLOOD CELL COUNT 4.83 4.20 - 5.80 Million/u L [facility] HEMOGLOBIN 14.9 13.2 - 17.1 g/dL [facility] HEMATOCRIT 44.8 38.5 - 50.0 % [facility] MCV 92.8 80.0 - 100.0 fL [facility] MCH 30.8 27.0 - 33.0 pg [facility] MCHC 33.3 32.0 - 36.0 g/dL [facility] Comment: For adults, a slight decrease in the calculated MCHC value (in the range of 30 to 32 g/dL) is most likely not clinically significant; however, it should be interpreted with caution in correlation with other red cell parameters and the patient's clinical condition. RDW 12.1 11.0 - 15.0 % [facility] PLATELET COUNT 195 140 - 400 Thousand/ uL [facility] MPV 11.5 7.5 - 12.5 fL [facility] Blood Blood / Unknown 04/27/2024 9 :12 AM EST 04/27/2024 9:13 AM EST Narrative [email or web address] [facility] - 04/28/2024 5:59 AM EST FASTING:NO Rohit Florez PA-C LAB - BLOOD DRAW Edited Resul t - Final [email or web address] [address] [address], [employer] [address] [address] * (ABNORMAL) COMPREHENSIVE METABOLIC PANEL (04/27/2024 9:12 AM EST) GLUCOSE 249(H) 65 - 139 mg/dL [employer] [facility] Comment: ?Non-fasting reference interval UREA NITROGEN (BUN) 13 7 - 25 mg/dL [employer] [facility] CREATININE (blood) 0.68(L) 0.70 - 1.35 mg/dL [employer] [facility] EGFR 104 > OR = 60 mL/min/1. 73m2 [employer] [facility] BUN/CREATININE RATIO 19 6 - 22 (calc) [facility] SODIUM 136 135 - 146 mmol/L [facility] POTASSIUM 3.6 3.5 - 5.3 mmol/L [facility] CHLORIDE 99 98 - 110 mmol/L [facility] CARBON DIOXIDE 29 20 - 32 mmol/L [facility] CALCIUM 9.1 8.6 - 10.3 mg/dL [facility] PROTEIN, TOTAL 7.0 6.1 - 8.1 g/dL [facility] ALBUMIN 4.2 3.6 - 5.1 g/dL [facility] GLOBULIN 2.8 1.9 - 3.7 g/dL (calc) [facility] ALBUMIN/GLOBULI N RATIO 1.5 1.0 - 2.5 (calc) [facility] BILIRUBIN, TOTAL 0.7 0.2 - 1.2 mg/dL [facility] ALKALINE PHOSPHATASE 129 35 - 144 U/L [facility] [place] [employer] AST 11 10 - 35 U/L [facility] [place] [employer] ALT 13 9 - 46 U/L [facility] Blood Blood / Unknown 04/27/2024 9 :12 AM EST 04/27/2024 9:13 AM EST Narrative [employer] - 04/28/2024 5:59 AM EST FASTING:NO us Rohit Florez PA-C LAB - BLOOD DRAW Final Result [employer] [address] [place] [id number], [facility] [address] [place] [phone] * IMAGING SCANNED DOCUMENT (04/27/2024 3:00 AM EST) 04/27/2024 3:00 AM EST us Rohit Florez PA-C SCAN IMAGING Final Result * (ABNORMAL) HEMOGLOBIN GLYCOSYLATED A1C (02/15/2024 4:16 PM EDT) HEMOGLOBIN A1C 11.6(H) <5.7 % of total Hgb [facility] Comment: For someone without known diabetes, a [...] PM EDT 02/15/2024 4:16 PM EDT Narrative [email or web address] [facility] - 02/16/2024 6:01 AM EDT FASTING:NO Mathieu Malone PharmD LAB - BLOOD DRAW Final Re sult Performing Organization Address [facility] Co de Phone Number [facility] [address] [address], [employer] [address] [address] * EYE EXAM (01/21/2024 3:00 AM EDT) 01/21/2024 3:00 AM EDT Lewis FRANKLIN-C OTHER Edited Re sult - Final * HEPATITIS C AB W/RFLX HCV RNA, QT, RT PCR (04/30/2023 10:31 AM EST) HEPATITIS C ANTIBODY NON-REACT CARLITO NON-REACT CARLITO [employer] [facility] Comment: HCV antibody was non-reactive. There is no laboratory evidence of HCV infection. In most cases, no further action is required. However, if recent HCV exposure is suspected, a test for HCV RNA (test code 96096) is suggested. For additional information please refer to http://education.ByHours.com.[facility]/faq/OYG82u8 (This link is being provided for informational/ educational purposes only.) Blood Blood / Unknown 04/30/2023 1 0:31 AM EST 04/30/2023 10:31 AM EST us Lewis DAILEYP-C LAB - BLOOD DRAW Edited R esult - Final Performing Organization Address [facility]/ZIP Co de Phone Number [facility] [address] [address], [employer] [address] [address] * HIV 1/2 AG & AB W/RFLX (4TH GEN) (04/30/2023 10:31 AM EST) HIV AG/AB, 4TH GEN NON-REAC TIVE NON-REAC TIVE [facility] Comment: HIV-1 antigen and HIV-1/HIV-2 [...] ?? For additional information please refer to http://education.Handpressions/faq/WPF539 (This link is being provided for informational/ educational purposes only.) The performance of this assay has not been clinically validated in patients less than 2 years old. Blood Blood / Unknown 04/30/2023 1 0:31 AM EST 04/30/2023 10:31 AM EST Lewis DAILEYP-C LAB - BLOOD DRAW Final Re sult Performing Organization Address City/State/[facility] Co de Phone Number [facility] [address] [address], [facility] [address] [address] * RPR (MONITOR) W/REFL TITER (04/30/2023 10:31 AM EST) RPR (MONITOR) W/REFL TITER NON-REACT CARLITO NON-REACT CARLITO [facility] Blood Blood / Unknown 04/30/2023 1 0:31 AM EST 04/30/2023 10:31 AM EST Bradrenee Emma GLYCERIN SUPERVISOR-C LAB - BLOOD DRAW Final Re sult [employer] [facility] [address] [address], [facility] [address] [place] [address] * MICROALBUMIN/CREATININE RATIO, URINE, RANDOM (04/30/2023 10:31 AM EST) CREATININE, RANDOM URINE 140 20 - 320 mg/dL [facility] MICROALBUMIN 0.4 mg/dL [employer] [facility] Comment: Reference Range Not established MICROALBUMIN/CREA TININE RATIO, RANDOM URINE 3 <30 mcg/mg creat [facility] Comment: The ADA defines abnormalities [...] 10:31 AM EST Juan Diegojose alejandrorenee Emma GLYCERIN SUPERVISOR-C LAB - NO BLOOD DRAW Final Result [facility] [address] [address], [facility] [address] [place] [address] * (ABNORMAL) LIPID PANEL (04/30/2023 10:31 AM EST) CHOLESTEROL, TOTAL 187 <200 mg/dL [facility] HDL CHOLESTEROL 54 > OR = 40 mg/dL [facility] TRIGLYCERIDES 133 <150 mg/dL [facility] LDL-CHOLESTEROL 108(H) 99 mg/dL (calc) [facility] Comment: Reference range: <100 Desirable range <100 mg/dL for primary prevention; ?? <70 mg/dL for patients with CHD or diabetic patients with > or = 2 CHD risk factors. LDL-C is now calculated using the Isael-Blackman calculation, which is a validated novel method providing better accuracy than the Friedewald equation in the estimation of LDL-C. Isael SS et al. ADOLPH. 2013;310(19): 0643-7344 (http://education.InMyRoom.[facility]IV [facility]/faq/LTM670) CHOL/HDLC RATIO 3.5 <5.0 (calc) [facility] NON-HDL CHOLESTEROL 133(H) <130 mg/dL (calc) [facility] Comment: For patients with diabetes plus 1 major ASCVD risk factor, treating to a non-HDL-C goal of <100 mg/dL (LDL-C of <70 mg/dL) is considered a therapeutic option. Blood Blood / Unknown 04/30/2023 1 0:31 AM EST 04/30/2023 10:31 AM EST Lewis FRANKLIN-Samira LAB - BLOOD DRAW Final Re sult [employer] [address] [address], [facility] [address] [place] [address] from Last 3 Months or Most Recently Relevant to Health Maintenance [facility] Member Subscriber Plan / Payer (Ef fective 2014-Present) Name:Jose Foster Relation to Subscriber:Self Name:Jose Foster Payer ID:[id number] Group ID:Not on file Type:Indemnity Address: [place] [address] [place] [address] Care Teams Histologist Technologist Relationship Specialty Start Date End Date Lewis Carter FNP-C [address] [place] [address] PCP - General Internal Medicine 04/30/23
--- OUTSIDE RECORDS SUMMARY | 2024-07-25 17:06 | XMS_ITS | Encounter Summary ---
Author Organization [employer] Address [address] [place] [address] 7 [place] [address] Care Team Providers Care Continuous Improvement Coach Name Role Phone Unavailable Primary Care Provider Unavailabl e Reason for Visit * Reason Comments Med Refill Encounter Details Date Type Department Care Team (Late st Contact Info) Description 08/23/[address] [facility] MEDICINE [address] [place] [address] Radha Weber MD [address] [place] [address] Social History Tobacco Use Types Packs/Day Years [...]
--- OUTSIDE RECORDS SUMMARY | 2024-07-25 17:06 | XMS_ITS | Encounter Summary ---
Author Organization [employer] Address [address] [place] [address] 7 [place] [address] Care Team Providers Care Pillar Worker Name Role Phone Unavailable Primary Care Provider Unavailabl e Reason for Visit * Reason Comments Med Refill Encounter Details Date Type Department Care Team ([facility] st Contact Info) Description 07/14/2023 Refill [facility] PEDS [address] [place] [address] Radha Weber MD [address] [place] [address] Social History Tobacco Use Types Packs/Day Years [...]
--- OUTSIDE RECORDS SUMMARY | 2024-07-25 17:06 | XMS_ITS | Encounter Summary ---
Author Organization [employer] Address [address] [place] [address] 7 [place] [address] Care Team Providers Care Flare Worker Name Role Phone Radha Weber MD Primary Care Provider +1- [phone] Reason for Visit * Reason Comments Med Refill Encounter Details Date Type Department Care Team (Late st Contact Info) Description 08/10/2022 Refill [facility] [address] [place], [place] [phone] Radha Weber MD [address] [place] [address] Social History Tobacco Use Types Packs/Day Years [...] on filedocumented in this encounter Care Teams Flare Worker Relationship Specialty Start Date End Date Radha Weber MD [address] [place] [address] PCP - General Internal Medicine 02/27/21 05/19/23 documented as of this encounter
--- OUTSIDE RECORDS SUMMARY | 2024-07-25 17:06 | XMS_ITS | Encounter Summary ---
Author Organization [facility] Address [address] [place] [address] Care Team Providers Care Cardiovascular Specialist Name Role Phone Lewis Carter AIRCRAFT CYLINDER MECHANIC-C Primary Care Provider [phone] Encounter Details Date Type Department Care Team (Late st Contact Info) Description 02/11/2024 Interim Notes [facility] [address] [place] [address] Lewis Carter FNP-C [address] [place] [address] Social History Tobacco Use Types Packs/Day Years [...] Description 07/28/2024 2:00 PM EDT Office Visit [address] [phone] Lewis Carter FNP-C [address] [place] [address] 08/08/2024 3:00 PM EDT Office Visit [address] [phone] AntilJuwan, PharmD [address] [place] [address] documented as of this encounter Visit Diagnoses Not on filedocumented in this encounter Additional Health Concerns Assessment Noted Time PHQ-9 Depression Total Score: 18 023 10:09 AM PST documented as of this encounter Care Teams Cardiovascular Specialist Relationship Specialty Start Date End Date Lewis Carter FNP-C [address] [place] [address] PCP - General Internal Medicine 04/30/23 documented as of this encounter
--- OUTSIDE RECORDS SUMMARY | 2024-07-25 17:06 | XMS_ITS | Encounter Summary ---
Author Organization [employer] Address [address] [place] [address] 7 [place] [address] Care Team Providers Care Research & Insights Executive Name Role Phone Unavailable Primary Care Provider Unavailabl e Reason for Visit * Reason Comments Med Refill Encounter Details Date Type Department Care Team ([facility] st Contact Info) Description 09/01/2023 Refill [facility] P[facility]S [address] [place] [address] Radha Weber MD [address] [place] [address] Primary osteoarthritis of other site Social History [...]
== END 2024-07-25 14:44 | disposition home or self-care (01) ==
LOC: HO.HVS 14:01
PROVIDERS: PCP Registered Nurse; Visit Provider Surgery Vascular Surgery
DX: I73.9 Peripheral vascular disease, unspecified (principal)
CPT/HCPCS: 99214; G2211

== ENCOUNTER → 2024-07-25 14:00 | Outpatient (BNVA) | payer OTHER, SELFPAY | PROVIDERS: PCP Registered Nurse; Visit Provider Surgery Vascular Surgery | DX: I73.9 Peripheral vascular disease, unspecified (principal) | CPT/HCPCS: 99212 ==

== ENCOUNTER 2024-09-20 06:10 | Day surgery (SDC) | payer OTHER, SELFPAY ==
--- OUTSIDE RECORDS SUMMARY | 2024-09-12 17:08 | XMS_ITS | Encounter Summary ---
Author Organization [employer] Address [address] [place] [address] [address] [place] [address] Care Team Providers Care Bicycle Designer Name Role Phone Radha Weber MD Primary Care Provider [phone]- [phone] Reason for Visit * Reason Comments Med Refill Encounter Details Date Type Department Care Team (Late st Contact Info) Description 08/10/2022 Refill [facility] [address] [place], [place] [phone] Radha Weber MD [address] [place] [address] Social History Tobacco Use Types Packs/Day Years [...] on filedocumented in this encounter Care Teams Bicycle Designer Relationship Specialty Start Date End Date Radha Weber MD [address] [place] [address] PCP - General Internal Medicine 02/27/21 05/19/23 documented as of this encounter
--- OUTSIDE RECORDS SUMMARY | 2024-09-12 17:08 | XMS_ITS | Encounter Summary ---
Author Organization [employer] Address [address] [place] [address] [address] [place] [address] Care Team Providers Care Process Stripper Name Role Phone Radha Weber MD Primary Care Provider [phone] Encounter Details Date Type Department Care Team ([facility] st Contact Info) Description 01/26/2023 Orders Only [facility] [address] [place] [address] Antoinette Shrestha LPN Social History Tobacco Use [...] on filedocumented in this encounter Care Teams Process Stripper Relationship Specialty Start Date End Date Radha Weber MD [address] [place] [address] PCP - General Internal Medicine 02/27/21 05/19/23 documented as of this encounter
--- OUTSIDE RECORDS SUMMARY | 2024-09-12 17:08 | XMS_ITS | Clinical Summary ---
Author Organization [facility] Address [address] [place] [address] Care Team Providers Care Diamond Assorter Name Role Phone Lewis Carter LEAVE MANAGER-C Primary Care Provider [phone] Source Comments PLEASE NOTE, if this patient [...] mg by mouth once daily 020 Active pddkotmy-rsy-uqinw us fumarate 15 mg iron tab Take 1 Tablet by mouth once daily Per [place] 021 Active lancets (MICROLET LANCET)Indications :Insulin dependent type [...] Each 5 90 Authorized by: RAKESH LOPEZ [facility] Active fluticasone propionate (FLONASE) 50 mcg/actuation nasal spray 03/18/2021 FLUTICASONE PROP 50 MCG SPRAY 48.00 g 11 90 Authorized by: RAKESH LOPEZ IN [facility] Active blood-glucose meter,continuous (DEXCOM G6 DISTRIBUTION CENTER ASSOCIATE) miscIndications:Ty pe 2 diabetes mellitus with hyperglycemia, with long-term current use of insulin ([facility]) 1 Each by miscellaneous route continuously 1 Each 2 023 Active MISCELLANEOUS MEDICAL SUPPLY MISCIndications:Im pairment of balance,History of falling by miscellaneous route daily. Dispense 1 electronic lift chair. Need lifetime. 1 Each Active methocarbamoL (ROBAXIN) 500 mg tabletIndications: Rib pain on right side TAKE 1 TABLET BY MOUTH THREE TIMES A DAY NEEDED FOR PAIN 30 Tablet 1 024 Active MISCELLANEOUS MEDICAL SUPPLY MISCIndications:Ty pe 2 diabetes mellitus with hyperglycemia, with long-term current use of insulin ([facility]),Impairme nt of balance,History of falling by miscellaneous route daily Please dispense 1 cane for lifetime use for hx of type 2 diabetes and gait instability 1 Each 024 Active PETROLATUM ointmentIndication s:Type 2 diabetes mellitus with hyperglycemia, with long-term current use of insulin (HCC-CMS),Dry skin APPLY TOPICALLY TWICE A DAY 454 g 2 024 Active atropine 1 % ophthalmic solution Authorized by: STACY RODRIGUEZ 024 Active moxifloxacin (VIGAMOX) 0.5 % ophthalmic solution Authorized by: STACY RODRIGUEZ 024 Active prednisoLONE acetate (PRED-FORTE) 1 % ophthalmic suspension Authorized by: STACY RODRIGUEZ 024 Active MISCELLANEOUS MEDICAL SUPPLY MISCIndications:Ty pe 2 diabetes mellitus with hyperglycemia, with long-term current use of insulin ([facility]),Mixed urge and stress incontinence by miscellaneous route daily Please dispense 1 pair of diabetic shoes with customized foot inserts for lifetime use, hx of diabetic feet and Type II diabetes mellitus 2 Each 1 024 Active MISCELLANEOUS MEDICAL SUPPLY MISCIndications:Ty [...] hyperglycemia, with long-term current use of insulin ([facility]),Mixed urge and stress incontinence Apply 1 Application topically once daily as needed (apply with each diaper change) 397 g 2 Active INCRUSE ELLIPTA 62.5 mcg/actuation dsdv Inhale 1 Puff into the lungs daily. 30 Each 2 024 Active albuterol HFA 90 mcg/actuation inhaler Inhale 2 Puffs into the lungs every 4 (four) hours as needed for shortness of breath 18 g 2 024 Active loratadine (CLARITIN) 10 mg tablet Take 1 Tablet by mouth once daily as needed for allergies for up to 90 days 90 Tablet 1 024 Active ALCOHOL PREP PADS Apply topically USE 1 PAD TO CLEAN SKIN DAILY 100 Each 2 Active MISCELLANEOUS MEDICAL SUPPLY MISCIndications:Ty pe 2 diabetes mellitus without complication, without long-term current use of insulin ([facility]),Mixed urge and stress incontinence Please dispense ALOE [...] DAY BEFORE A MEAL 90 Capsule 4 Active indomethacin (INDOCIN) 50 mg capsule TAKE [...] FURTHER REFILLS 50 mL 3 025 Active ketorolac (ACULAR) 0.5 % ophthalmic solution See Admin Instructions PLEASE SEE ATTACHED FOR DETAILED DIRECTIONS Authorized by: MEL SCHROEDER 025 Active gabapentin (NEURONTIN) 400 mg capsule TAKE 1 CAPSULE BY MOUTH 3 TIMES DAILY. 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,Gait instability by miscellaneous route daily Please dispense roller walker with a seat for lifetime use for hx of gait instability 1 Each 025 Active blood-glucose transmitter (DEXCOM G6 TRANSMITTER) deviIndications:Ty pe 2 diabetes mellitus with hyperglycemia, with long-term current use of insulin ([facility]) 1 Each by miscellaneous route every 3 (three) months 1 Each 3 025 Active OMNIPOD 5 G6-G7 PODS, GEN 5, crtgIndications:Ty pe 2 diabetes mellitus with hyperglycemia ([facility]) INJECT 1 EACH INTO THE SKIN EVERY 3 (THREE) DAYS Authorized by: MINA GRAVES IE H 15 Each 11 025 Active blood-glucose sensor (DEXCOM G6 SENSOR) deviIndications:Ty pe 2 diabetes mellitus with hyperglycemia, with long-term current use of insulin ([facility]) Inject 1 Each as directed every 10 (ten) days 9 Each 1 025 Active potassium chloride (KLOR-CON) 20 mEq packetIndications: Hypokalemia Take 20 mEq by mouth once daily 7 Each 025 Active acetaminophen (TYLENOL 8 HOUR) 650 mg CR tablet TAKE 1 TABLET BY MOUTH EVERY 8 HOURS NEEDED FOR PAIN 90 Tablet 1 025 Active blood sugar diagnostic (CONTOUR NEXT TEST STRIPS) stripsIndications: Type 2 diabetes mellitus with hyperglycemia, with long-term current use of insulin ([facility]) CHECK BLOOD SUGAR 7 TIMES DAILY ON INSULIN INFUSION PUMP AND SENSOR 300 Each 10 025 Active MISCELLANEOUS MEDICAL SUPPLY MISCIndications:Ty pe 2 diabetes mellitus with hyperglycemia, with long-term current use of insulin ([facility]) by miscellaneous route daily Please dispense 1 pair of diabetic shoes with customized foot inserts for lifetime use, hx of diabetic feet and Type II diabetes mellitus 2 Each 1 Active amLODIPine (NORVASC) 5 mg tablet TAKE 1 TABLET BY MOUTH EVERY DAY 90 Tablet 1 Active atorvastatin (LIPITOR) 40 mg tablet TAKE 1 TABLET BY MOUTH EVERYDAY AT BEDTIME 90 Tablet 1 Active furosemide (LASIX) 20 mg tablet TAKE 1/2 TABLET BY MOUTH ONCE DAILY 45 Tablet 1 025 Active blood sugar diagnostic (CONTOUR NEXT TEST STRIPS) stripsIndications: Type 2 diabetes mellitus with hyperglycemia, with long-term current use of insulin ([facility]) Check blood sugar 7 times daily on insulin infusion pump and sensor 300 Each 023 2024 Discontinued amLODIPine (NORVASC) 5 mg tablet Take 1 Tablet by mouth once daily 90 Tablet 1 024 2024 Discontinued furosemide (LASIX) 20 mg tablet Take 0.5 Tablets by mouth once daily 45 Tablet 1 024 2024 Discontinued atorvastatin (LIPITOR) 40 mg tablet Take 1 Tablet by mouth nightly at bedtime 90 Tablet 1 024 2024 Discontinued Active Problems Problem Noted Date Diagnosed Date Mixed urge and stress incontinence 03/29/2024 Class 3 severe obesity due t o excess calories with serious comorbidity and body mass index (BMI) of 40.0 to 44.9 in adult ([facility]) 02/15/2024 History of gastric bypass 04/30/2023 [...] tunnel syndrome, bilateral 02/07/2013 Episodic mood disorder ([facility]) 01/08/2013 Anxiety 01/08/2013 Type 2 diabetes mellitus wit h 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, with long-term current use of insulin ([facility]) 11/16/2012 Overview (04/30/2023): Lab Results Component [...] < or = to 130/80 mmHg Asthma ([facility]) 11/11/2012 Overview (04/30/2023): Pro air and spiriva- former smoker Gastroesophageal reflux disease 11/11/2012 Overview (04/30/2023): ugi 02/25/15 see difficulty swallowing below No on PPI H/O carpal tunnel repair 11/11/2012 S/P rotator cuff repair 11/11/2012 Resolved Problems Problem Noted Date Diagnosed Date Resolved Date Rhinitis, chronic 10/16/2013 04/30/2023 Encounters Date Type Department Care Team Description 09/12/2024 Interim Notes [address] [phone] Yany Walker [place] 08/29/2024 Interim Notes [address] [phone] Yany Walker MA 08/08/2024 3:00 PM EDT Office Visit [address] [phone] Juwan العلي, PharmD Type 2 diabetes mellitus with 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, with long-term current use of insulin ([facility]) (Primary Dx); Essential hypertension, benign; Class 3 severe obesity due to excess calories with serious comorbidity and body mass index (BMI) of 40.0 to 44.9 in adult ([facility]); Medication management 07/28/2024 2:00 PM EDT Office Visit [address] [phone] Lewis Carter FNP-C Preoperative clearance (Primary Dx); Type 2 diabetes mellitus with hyperglycemia, with long-term current use of insulin ([facility]); Cellulitis of left lower extremity; Hypokalemia 07/28/2024 Interim Notes [address] [phone] Chloé Leiva [place] 07/12/2024 Interim Notes [address] [phone] Yany Walker MA 06/22/2024 3:00 PM EST Telemedicine Visit [address] [phone] Juwan العلي, PharmD Type 2 diabetes mellitus with 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, with long-term current use of insulin ([facility]) (Primary Dx); Essential hypertension, benign; Class 2 severe obesity due to excess calories with serious comorbidity and body mass index (BMI) of 38.0 to 38.9 in adult ([facility]); Medication management from Last 3 Months Immunizations Immunization Administration Dates Next Due Flu, Multi Dose [...] Sign Reading Time Taken Comments Blood Pressure 124/80 08/08/2024 3:06 PM EDT Pulse 78 08/08/2024 3:06 PM EDT Temperature 37.1 ??C (98.7 ??F) 08/08/2024 3:06 PM ED T Respiratory Rate 16 08/08/2024 3:06 PM EDT Oxygen Saturation 99% 08/08/2024 3:06 PM EDT Inhaled Oxygen Concentration - - Weight 111.9 kg (246 lb 12.8 oz) 08/08/2024 3:06 PM EDT Height 167.6 cm (5' 6 ) 08/08/2024 3:06 PM EDT Body Mass Index 39.83 08/08/2024 3:06 PM EDT Plan of Treatment Health Maintenance Due Date Last Done Comments Anxiety Screening 1960 Dental Examination 1960 Hepatitis B Screening 1960 Imm-Hepatitis A (1 of 2 - Ri sk 2-dose series) 11/30/1979 CT Colonography 2005 Colonoscopy 2005 Flexible Sigmoidoscopy 2005 Imm-Hepatitis B (1 of 3 - Ri sk 3-dose series) 2020 Dte-[id number]-72 () 01/16/2024 04/30/2023, 05/06/2021, 08/14/2020, Additional history exists Diabetes Foot Exam 04/30/2024 04/30/2023, 04/30/2023 HIV Screening 04/30/2024 04/30/2023 Lipid Screening 04/30/2024 04/30/2023, 01/15, 12/02/2020, Additional history exists Medicare Annual Wellness Visit 04/30/2024 04/30/2023 Syphilis Screening 04/30/2024 04/30/2023 FIT/gFOBT 05/05/2024 05/05/2023, 05/05/2023 Diabetes HbA1c 10/28/2024 07/28/2024, 10/0 05/2023, 09/28/2023, Additional history exists Retinopathy Screening 01/20/2025 01/21/2024 , 12/08/2023, 12/08/2023 Tobacco Screening 02/14/2025 02/15/2024, 04/30/2023 Serum Creatinine 07/28/2025 07/28/2024, 04/2024, 04/30/2023, Additional history exists Urine Albumin Creatinine Rat io Screening 07/28/2025 07/28/2024, 04/30/2023, 01/29/2021, Additional history exists Colorectal Cancer Screening 05/05/2026 Fecal DNA 05/05/2026 05/05/2023, 05/05/2023 Imm-DTaP/Tdap/Td (2 - Td or Tdap) 03/01/2027 017 Imm-Zoster, Recombinant Completed 06/22/2019, 02/21 Hepatitis C Screening Completed 04/30/2023 Imm-Pneumococcal Completed 04/30/2023, , 02/20/2016 Imm-Influenza Completed 02/15/2024, 01/15, 03/12/2020, Additional history exists Alcohol and Drug Screen Completed 06/22/19, 04/30/2023, 07/23/2020 Depression Annual Screen Completed 07/28/2024 Procedures Procedure Name Priority Date/Time Associated Diagnosis Comments OTHER ORDERS SCANNED DOCUMENT 08/30/2024 3:00 AM EDT OTHER ORDERS SCANNED DOCUMENT 08/15/2024 3:00 AM EDT HEALTH HISTORY SCANNED DOCUMENT 08/09/2024 3:00 AM EDT GLUCOSE, BLOOD BY GLUCOSE MONITORING DEVICE (CLIA WAIVED)POCT Routine 08/08/2024 3:20 PM EDT Type 2 diabetes mellitus with 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, with long-term current use of insulin ([facility]) OTHER ORDERS SCANNED DOCUMENT 08/01/2024 3:00 AM EDT MICROALBUMIN/CREATIN INE RATIO, URINE, RANDOM Routine 07/28/2024 2:47 PM EDT Type 2 diabetes mellitus with 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, with long-term current use of insulin ([facility]) HEMOGLOBIN GLYCOSYLATED A1C Routine 07/28/2024 2:47 PM EDT Type 2 diabetes mellitus with 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, with long-term current use of insulin ([facility]) COMPREHENSIVE METABOLIC PANEL Routine 07/28/2024 2:45 PM EDT Cellulitis of left lower extremity BLOOD COUNT COMPLETE AUTO&AUTO DIFRNTL WBC Routine 07/28/2024 2:45 PM EDT Cellulitis of left lower extremity EYE EXAM 01/21/2024 3:00 AM EDT HIV [...] Recently Relevant to Health Maintenance Results * OTHER ORDERS SCANNED DOCUMENT (08/30/2024 3:00 AM EDT) Only the most recent of3 resultswithin the time period is included. 08/30/2024 3:00 AM EDT us Lewis Carter LEAVE MANAGER-C SCAN OTHER ORDERS Final R esult * HEALTH HISTORY SCANNED DOCUMENT (08/09/2024 3:00 AM EDT) 08/09/2024 3:00 AM EDT us Chma Provider Default SCAN OTHER ORDERS Final Re sult * (ABNORMAL) GLUCOSE, BLOOD BY GLUCOSE MONITORING DEVICE (CLIA WAIVED)POCT (08/08/2024 3:20 PM EDT) [facility] GLUCOSE 157(A) 70 - 100 mg/dL [facility] POCT Capillary Blood Blood / Unknown 3:20 PM EDT Juwan العلي PharmD LAB - BLOOD DRAW Final Resu lt Performing Organization Address City/[facility]/ZIP Co de Phone Number [facility] POCT * MICROALBUMIN/CREATININE RATIO, URINE, RANDOM (07/28/2024 2:47 PM EDT) [facility] CREATININE, RANDOM URINE 58 20 - 320 mg/dL [facility] MICROALBUMIN 0.9 mg/dL [facility] Comment: Reference Range Not established MICROALBUMIN/CREA TININE RATIO, RANDOM URINE 16 <30 mg/g creat [facility] Comment: The ADA defines abnormalities in albumin excretion as follows: Albuminuria Category ?Result (mg/g creatinine) Normal to Mildly increased ?? <30 Moderately increased ? 30-299 Severely increased ? > OR = 300 The ADA recommends that at least two of three specimens collected within a 3-6 month period be abnormal before considering a patient to be within a diagnostic category. Urine Urine specimen / Unknown 07/28/2024 2:47 PM EDT 07/28/2024 2:48 PM EDT Narrative [facility] - 07/29/2024 4:34 PM EDT FASTING:NO Mathieu Malone PharmD LAB - NO BLOOD DRAW Final Result Performing Organization Address [facility]/ZIP Co de Phone Number [facility] [address] [address], [facility] [address] [address] * (ABNORMAL) HEMOGLOBIN GLYCOSYLATED A1C (07/28/2024 2:47 PM EDT) [facility] HEMOGLOBIN A1C 8.6(H) <5.7 % of total Hgb [facility] Comment: For someone without known diabetes, a [...] for children. ?? Blood Blood / Unknown 07/28/2024 2 :47 PM EDT 07/28/2024 2:48 PM EDT Narrative [facility] - 07/29/2024 4:34 PM EDT FASTING:NO Mathieu Malone PharmD LAB - BLOOD DRAW Mihir R erna - Final [facility] [address] [address], [facility] [address] [place] [phone] * (ABNORMAL) BLOOD COUNT COMPLETE AUTO&AUTO DIFRNTL WBC (07/28/2024 2:45 PM EDT) [facility] WHITE BLOOD CELL COUNT 6.3 3.8 - 10.8 Thousand/ uL [facility] RED BLOOD CELL COUNT 3.83(L) 4.20 - 5.80 Million/u L [facility] HEMOGLOBIN 11.6(L) 13.2 - 17.1 g/dL [facility] HEMATOCRIT 34.9(L) 38.5 - 50.0 % [facility] MCV 91.1 80.0 - 100.0 fL [facility] MCH 30.3 27.0 - 33.0 pg [facility] MCHC 33.2 32.0 - 36.0 g/dL [facility] Comment: For adults, a slight decrease in the calculated MCHC value (in the range of 30 to 32 g/dL) is most likely not clinically significant; however, it should be interpreted with caution in correlation with other red cell parameters and the patient's clinical condition. RDW 12.9 11.0 - 15.0 % [facility] PLATELET COUNT 229 140 - 400 Thousand/ uL [facility] MPV 10.5 7.5 - 12.5 fL [facility] ABSOLUTE NEUTROPHILS 3,793 1,500 - 7,800 cells/uL [facility] ABSOLUTE LYMPHOCYTES 1,953 850 - 3,900 cells/uL [facility] ABSOLUTE MONOCYTES 384 200 - 950 cells/uL [facility] ABSOLUTE EOSINOPHILS 151 15 - 500 cells/uL [facility] ABSOLUTE BASOPHILS 19 0 - 200 cells/uL [facility] NEUTROPHILS PCT 60.2 % [employer] LYMPHOCYTES 31.0 % [facility] MONOCYTES 6.1 % [facility] [employer] EOSINOPHILS 2.4 % [facility] [employer] BASOPHILS 0.3 % [employer] [place] [place] Blood Blood / Unknown 07/28/2024 2 :45 PM EDT 07/28/2024 2:46 PM EDT Narrative [facility] - 07/29/2024 9:46 AM EDT FASTING:NO Lewis Carter LEAVE MANAGER-C LAB - BLOOD DRAW Edited R esult - Final [facility] [address] [place] [address], [facility] [address] [place] [phone] * (ABNORMAL) COMPREHENSIVE METABOLIC PANEL (07/28/2024 2:45 PM EDT) GLUCOSE 104 65 - 139 mg/dL [facility] Comment: ?Non-fasting reference interval UREA NITROGEN (BUN) 14 7 - 25 mg/dL [facility] CREATININE (blood) 0.90 0.70 - 1.35 mg/dL [facility] EGFR 96 > OR = 60 mL/min/1. 73m2 [facility] BUN/CREATININE RATIO SEE NOTE: [facility] Comment: ?? Not Reported: BUN and Creatinine are within ?? reference range. ? SODIUM 140 135 - 146 mmol/L [facility] POTASSIUM 3.2(L) 3.5 - 5.3 mmol/L [facility] CHLORIDE 101 98 - 110 mmol/L [facility] CARBON DIOXIDE 31 20 - 32 mmol/L [facility] CALCIUM 8.8 8.6 - 10.3 mg/dL [facility] PROTEIN, TOTAL 7.9 6.1 - 8.1 g/dL [facility] ALBUMIN 3.9 3.6 - 5.1 g/dL [facility] GLOBULIN 4.0(H) 1.9 - 3.7 g/dL (calc) [facility] ALBUMIN/GLOBULI N RATIO 1.0 1.0 - 2.5 (calc) [facility] BILIRUBIN, TOTAL 0.5 0.2 - 1.2 mg/dL [facility] ALKALINE PHOSPHATASE 95 35 - 144 U/L [facility] AST 13 10 - 35 U/L [facility] ALT 14 9 - 46 U/L [facility] Blood Blood / Unknown 07/28/2024 2 :45 PM EDT 07/28/2024 2:46 PM EDT Narrative [facility] - 07/29/2024 9:46 AM EDT FASTING:NO Lewis DAILEYP-C LAB - BLOOD DRAW Final Re sult [facility] [address] [address], [facility] [address] [address] * EYE EXAM (01/21/2024 3:00 AM EDT) 01/21/2024 3:00 AM EDT Brad Emma DAILEYP-C OTHER Edited Re sult - Final * HEPATITIS C AB W/RFLX HCV RNA, QT, RT PCR (04/30/2023 10:31 AM EST) HEPATITIS C ANTIBODY NON-REACT CARLITO NON-REACT CARLITO [facility] Comment: HCV antibody was non-reactive. There is no laboratory evidence of HCV infection. In most cases, no further action is required. However, if recent HCV exposure is suspected, a test for HCV RNA (test code 14425) is suggested. For additional information please refer to http://Evi.[employer]/faq/JVZ95u9 (This link is being provided for informational/ educational purposes only.) Blood Blood / Unknown 04/30/2023 1 0:31 AM EST 04/30/2023 10:31 AM EST Lewis Carter LEAVE MANAGER-C LAB - BLOOD DRAW Edited R esult - Final Performing Organization Address City/State/[facility] Co de Phone Number [facility] [address] [address], [facility] [address] [address] * HIV 1/2 AG & AB W/RFLX (4TH GEN) (04/30/2023 10:31 AM EST) Pathologist [facility] HIV AG/AB, 4TH GEN NON-REAC TIVE NON-REAC TIVE [employer] [facility] Comment: HIV-1 antigen and HIV-1/HIV-2 antibodies [...] ?? For additional information please refer to http://Evi.[employer]/faq/TTI037 (This link is being provided for informational/ educational purposes only.) The performance of this assay has not been clinically validated in patients less than 2 years old. Blood Blood / Unknown 04/30/2023 1 0:31 AM EST 04/30/2023 10:31 AM EST Lewis Carter LEAVE MANAGER-C LAB - BLOOD DRAW Final Re sult Performing Organization Address City/State/[facility] Co de Phone Number [facility] [address] [address], [facility] [address] [address] * RPR (MONITOR) W/REFL TITER (04/30/2023 10:31 AM EST) RPR (MONITOR) W/REFL TITER NON-REACT CARLITO NON-REACT CARLITO [facility] Blood Blood / Unknown 04/30/2023 1 0:31 AM EST 04/30/2023 10:31 AM EST Juan Diegojose alejandrorenee Cutlerri LEAVE MANAGER-C LAB - BLOOD DRAW Final Bharti agarwal Performing Organization Address [facility] de Phone Number [facility] [address] [place] [address], [facility] [address] [address] * (ABNORMAL) LIPID PANEL (04/30/2023 10:31 AM EST) CHOLESTEROL, TOTAL 187 <200 mg/dL [facility] HDL CHOLESTEROL 54 > OR = 40 mg/dL [facility] TRIGLYCERIDES 133 <150 mg/dL [facility] LDL-CHOLESTEROL 108(H) 99 mg/dL (calc) [facility] Comment: Reference range: <100 Desirable range <100 mg/dL for primary prevention; ?? <70 mg/dL for patients with CHD or diabetic patients with > or = 2 CHD risk factors. LDL-C is now calculated using the Sebas calculation, which is a validated novel method providing better accuracy than the Friedewald equation in the estimation of LDL-C. Isael INMAN et al. ADOLPH. 2013;310(19): 5981-2771 (http://education.[employer]/faq/VGN550) CHOL/HDLC RATIO 3.5 <5.0 (calc) [facility] NON-HDL CHOLESTEROL 133(H) <130 mg/dL (calc) [facility] Comment: For patients with diabetes plus 1 major ASCVD risk factor, treating to a non-HDL-C goal of <100 mg/dL (LDL-C of <70 mg/dL) is considered a therapeutic option. Blood Blood / Unknown 04/30/2023 1 0:31 AM EST 04/30/2023 10:31 AM EST Lewis Emma DAILEYP-Samira LAB - BLOOD DRAW Final Re sult [facility] [address] [address], [facility] [address] [place] [address] from Last 3 Months or Most Recently Relevant to Health Maintenance Insurance [facility] Member Subscriber Plan / Payer (Ef fective 2014-Present) Name:Jose Foster Relation to Subscriber:Self Name:Jose Foster Payer ID:[id number] Group ID:Not on file Type:Indemnity Address: [place] [address] [place] [address] Care Teams Diamond Assorter Relationship Specialty Start Date End Date Lewis Carter FNP-C [address] [place] [address] PCP - General Internal Medicine 04/30/23
--- OUTSIDE RECORDS SUMMARY | 2024-09-12 17:08 | XMS_ITS | Encounter Summary ---
Author Organization [facility] Address [address] [place] [address] Care Team Providers Care Experimental Mechanic Outboard Motors Name Role Phone Lewis CarterP-C Primary Care Provider +1 -[phone] Encounter Details Date Type Department Care Team ([facility] st Contact Info) Description 02/11/2024 Interim Notes Caring [facility] Main [address] [place] [address] Lewis Carter FNP-C [address] [place] [address] Social History Tobacco Use Types Packs/Day Years [...] documented as of this encounter Care Teams Experimental Mechanic Outboard Motors Relationship Specialty Start Date End Date Lewis Carter FNP-C [address] [place] [address] PCP - General Internal Medicine 04/30/23 documented as of this encounter
--- OUTSIDE RECORDS SUMMARY | 2024-09-12 17:08 | XMS_ITS | Encounter Summary ---
Author Organization [employer] Address [address] [place] [address] 7 [place] [address] Care Team Providers Care Articulation Officer Name Role Phone Radha Weber MD Primary Care Provider [phone]- [phone] Reason for Visit * Reason Comments Med Refill Encounter Details Date Type Department Care Team ([facility] st Contact Info) Description 06/17/2022 Refill [facility] [address] [place] [address] Radha Weber MD 505 [place] [address] Primary osteoarthritis of other site (Primary Dx) [...] Primary documented in this encounter Care Teams Articulation Officer Relationship Specialty Start Date End Date Radha Weber MD [address] [place] [address] PCP - General Internal Medicine 02/27/21 05/19/23 documented as of this encounter
--- OUTSIDE RECORDS SUMMARY | 2024-09-12 17:08 | XMS_ITS | Clinical Summary ---
Author Organization [facility] Address [address] [place] [address] Phone Care Team Providers Care Generation Technologist Name Role Phone Physician, Pcp Unknown Primary [...] Encounters Date Type Department Care Team Description 08/01/2024 2:30 PM EDT Office Visit Orthopedic Surgery - [address] [address] Avtar Emanuel, DPIsrrael Ulcer of toe of left foot, with fat layer exposed ([facility] V24, [facility] V28) (Primary Dx); Follow-up exam; Dermatophytosis of nail; Pain in toe of right foot; Pain in toe of left foot; Type II diabetes mellitus with peripheral circulatory disorder ([facility] V24, [facility] V28); Diabetic mononeuropathy simplex ([facility] V24, [facility] V28) from Last 3 Months Social History Tobacco [...] - - Weight 112 kg (248 lb) 08/01/2024 2:30 PM EDT Height 167.6 cm (5' 5.98 ) 08/01/2024 2:30 PM ED T Body Mass Index 40.05 08/01/2024 2:30 PM EDT Plan of Treatment Upcoming Encounters Date Type Department Care Team (Late st Contact Info) Description 11/01/2024 3:00 PM EDT Office Visit Orthopedic Surgery - [place] [address] [phone] Avtar Emanuel, DPM [address] [address] Health Maintenance Due Date Last Done Comments Diabetes: Annual Foot Exam 1970 Diabetes: Annual Retina Eye Exam 1970 RSV Immunization Adult Patients (1 - Risk 60-74 years 1-dose series) 2020 HIV Screening 04/26/2022 Medicare Annual Wellness Visit 04/26/2022 Social Influencers of Health Screening 04/26/2022 COVID-19 Vaccine ( season) 2024 04/30/2023, 05/06/2021, 08/14/2020, Additional history exists Diabetes: Blood Sugar Control Test (HGBA1C) 01/28/2025 07/28/2024, 02/15/2024, 02/16/2023 Depression Screening 07/28/2025 07/28/2024 Diabetes: Annual Urine Albumin-Creatinine Ratio (uACR) 07/28/2025 07/28/2024, 04/30/2023, 01/29/2021, Additional history exists Diabetes: Annual GFR (Glomerular Filtration Rate) 07/28/2025 07/28/2024, 04/27/2024 Hypertension/CHF/CAD Annual BMP Blood Test 07/28/2025 07/28/2024, 04/27/2024 Colorectal Cancer Screening: FIT-DNA (Cologuard) 05/05/2026 [...] age to complete this topic Meningococcal B Vaccine Aged Out No l onger eligible based on patient's age to complete this topic RSV Immunization Patients Under 20 months Aged Out No longer eligible based on patient's age to complete this topic Varicella Vaccines Aged Out No longer eligible based on patient's age to complete this topic Procedures Procedure Name Priority Date/Time Associated Diagnosis Comments XR FOOT 3+ VIEWS LEFT Routine 08/01/2024 2:55 PM EDT Follow-up exam from Last 3 Months Results * XR Foot 3+ Views Left (08/01/2024 2:55 PM EDT) Anatomical Region Laterality Modality Lower Extremities, Foot Left Computed Radiography Narrative 08/01/2024 6:18 PM EDT Left foot 3 views No acute erosions noted previous hardware from [place] bunionectomy noted with recurrence of bunion deformity us Avtar Emanuel DPM IMG XR PROCEDURES Final R esult from Last 3 Months Insurance [employer] MEDICARE Member Subscriber Plan / Payer (Ef fective 2014-Present) Name:Jose Foster Relation to Subscriber:Self Name:Jose Foster Payer ID:[id number] Group ID:[id number] Type:Not on file Address: [facility] [address] [place] [address] Care Teams Generation Technologist Relationship Specialty Start Date End Date Physician, Pcp Unknown PCP - General 04/20/24
--- OUTSIDE RECORDS SUMMARY | 2024-09-12 17:08 | XMS_ITS | Encounter Summary ---
Author Organization [facility] Address [address] [place] [address] Care Team Providers Care Fusing Machine Operator Name Role Phone Lewis CarterP-Samira Primary Care Provider [phone] [phone] Encounter Details Date Type Department Care Team ([facility] st Contact Info) Description 01/23/2015 Interim Notes [facility] [address] [place] [phone] Corina Arango NP [address] [place] [address] Social History Tobacco Use Types Packs/Day Years [...] on filedocumented in this encounter Care Teams Fusing Machine Operator Relationship Specialty Start Date End Date Lewis Carter FNP-C [address] [place] [address] PCP - General Internal Medicine 04/30/23 documented as of this encounter
--- OUTSIDE RECORDS SUMMARY | 2024-09-12 17:08 | XMS_ITS | Encounter Summary ---
Author Organization [facility] Address [address] [place] [address] Care Team Providers Care Computer Software Engineer Name Role Phone Lewis CarterP-Samira Primary Care Provider [phone] [phone] Encounter Details Date Type Department Care Team ([facility] st Contact Info) Description 01/23/2015 Interim Notes [facility] [address] [place] [phone] Corina Arango NP [address] [place] [address] Social History Tobacco Use Types Packs/Day Years [...] on filedocumented in this encounter Care Teams Computer Software Engineer Relationship Specialty Start Date End Date Lewis Carter FNP-C [address] [place] [address] PCP - General Internal Medicine 04/30/23 documented as of this encounter
--- OUTSIDE RECORDS SUMMARY | 2024-09-12 17:10 | XMS_ITS | Encounter Summary ---
Author Organization [employer] Address [address] [place] [address] 7 [place] [address] Care Team Providers Care Appointment Specialist Name Role Phone Radha Weber MD Primary Care Provider [phone]- [phone] Reason for Visit * Reason Comments Med Refill Encounter Details Date Type Department Care Team ([facility] st Contact Info) Description 03/24/2023 Refill [facility] [address] [place] [address] Radha Weber MD [address] [place] [address] Social History Tobacco Use Types Packs/Day Years [...] on filedocumented in this encounter Care Teams Appointment Specialist Relationship Specialty Start Date End Date Radha Weber MD [address] [place] [address] PCP - General Internal Medicine 02/27/21 05/19/23 documented as of this encounter
--- OUTSIDE RECORDS SUMMARY | 2024-09-12 17:10 | XMS_ITS | Encounter Summary ---
Author Organization [employer] Address [address] 7 [place] [address] Care Team Providers Care Card Player Name Role Phone Radha Weber MD Primary Care Provider +1- [phone] Encounter Details Date Type Department Care Team (Late st Contact Info) Description 03/17/2023 Abstract [facility] MEDICINE [address] [place] [address] Radha Weber MD [address] [place] [address] Social History Tobacco Use Types Packs/Day Years [...] on filedocumented in this encounter Care Teams Card Player Relationship Specialty Start Date End Date Radha Weber MD [address] [place] [address] PCP - General Internal Medicine 02/27/21 05/19/23 documented as of this encounter
--- OUTSIDE RECORDS SUMMARY | 2024-09-12 17:10 | XMS_ITS | Clinical Summary ---
Author Organization [employer] Address [address] [place] [address] 7t [place] [address] Care Team Providers Care Endoscopy Nurse Name Role Phone Unavailable Primary Care Provider [...] Screening 12/02/2021 12/02/2020 Lipid Panel 12/02/2021 12/02/2020 COVID-19 Vaccine ( season) 2024 04/30/2023, 05/06/2021, 08/14/2020, Additional history exists Tobacco Screening 02/17/2024 02/16/2023 Diabetes: Hemoglobin A1C 05/17/2024 024, 09/28/2023, 04/30/2023, Additional history exists FIT DNA/Cologuard 05/05/2026 05/05/2023 Colonoscopy 12/31/2026 12/31/2016 [...] Result Negative Negative 05/14/20 10:44 AM EST [facility] (CLIA #:[id number]) Comment: NEGATIVE TEST RESULT. A negative Cologuard [...] with both Cologuard and colonoscopy. (Lindsay Tenorio. ronel al, N Engl J Med 2014;370(14):1286- 1297) The normal value (reference range) for this assay is negative. COLOGUARD RE-SCREENING RECOMMENDATION: Periodic colorectal cancer screening is an important part of preventive healthcare for asymptomatic individuals at average risk for colorectal cancer. ??Following a negative Cologuard result, the [place] Cancer Society and U.S. Multi-Society Task Force screening guidelines recommend a Cologuard re-screening interval of 3 years. References: [place] [employer] Society Guideline for Colorectal Cancer Screening: https://www.cancer.org/cancer/eaqql-yfnohm-uezger/lyeerdwqz-ryrjynrtf-dfvfmhf/ac s-rec ommendations.html.; Myke DK, Kiley WAITE, Devin RachelK, Colorectal Cancer Screening: Recommendations for Physicians and Patients from the U.S. Multi-Society Task Force on Colorectal Cancer Screening , Am J Gastroenterology 2017; 112:4771-4622. TEST DESCRIPTION: Composite algorithmic analysis of stool [...] with both Cologuard and colonoscopy. (Lindsay Tenorio. ronel al, N Engl J Med 2014;370(14):6971-3305.) Cologuard may produce a false negative or false positive result (no colorectal cancer or precancerous polyp present at colonoscopy follow up). A negative Cologuard test result does not guarantee the absence of CRC or advanced adenoma (pre-cancer). The current Cologuard screening interval is every 3 years. ([place] Cancer Society and U.S. Multi-Society Task Force). Cologuard performance data in a 10,000 patient pivotal study using colonoscopy as the reference method can be accessed at the following location: www.FoundationDB/results. Additional description of the Cologuard test process, warnings and precautions can be found at www.cologuard.[employer]. Stool specimen (specimen) 05/05/2023 3:30 PM EST 05/08/2023 12:38 PM EST Radha Weber MD LAB MOLECULAR DIAGNOSTICS O RDERABLES Final Result [employer] (CLIA #:[id number]) [address] [place] [address], * (ABNORMAL) POCT A1C (02/16/2023 4:33 PM EDT) Hemoglobin A1C 8.0(A) 4.0 - 6.0 % QC Media Lot # [id number] Lot# Expiration Date Blood 02/16/2023 4:33 PM EDT us Radha Weber MD POINT OF CARE TEST ENTER/ED IT ORDERABLES Final Result * ALBUMIN, RANDOM URINE W/CREATININE (12/02/2020 3:53 PM EDT) Microalbumin Urine 1.7 See Note: mg/dL [facility] Comment: Reference Range: ?? Reference [...] MD LAB URINE ORDERABL ES Final Result [facility] [address] * (ABNORMAL) LIPID PANEL, STANDARD (12/02/2020 [...] ?? Isael INMAN et al. ADOLPH. 2013;310(19): 4831-9178 ?? (http://education.[employer]/faq/UVN393) Non-HDL Cholesterol 128 <130 mg/dL (calc) [facility] Comment: For patients with diabetes plus 1 major ASCVD risk ?? factor, treating to a non-HDL-C goal of <100 mg/dL ?? (LDL-C of <70 mg/dL) is considered a therapeutic ?? option. Triglycerides 136 <150 mg/dL [facility] 12/02/2020 3:53 PM EDT Jason Zendejas MD LAB BLOOD ORDERABL ES Final Result [facility] [address] * Colonoscopy (12/31/2016) Colonoscopy Normal Normal Narrative Radha Mejia - 12/31/2016 Recommended 10 year follow up Historical Provider HEALTH MAINTENANCE Final Result from Last 3 Months or Most Recently Relevant to Health Maintenance Insurance [facility] < [address] [place] [id number]
--- OUTSIDE RECORDS SUMMARY | 2024-09-12 17:11 | XMS_ITS | Encounter Summary ---
Author Organization [employer] Address [address] [place] [address] 7 [place] [address] Care Team Providers Care Provider Engagement Executive Name Role Phone Unavailable Primary Care Provider Unavailabl e Reason for Visit * Reason Comments Med Refill Encounter Details Date Type Department Care Team ([facility] st Contact Info) Description 06/13/2023 Refill [facility] CHC MED & PEDS [address] [place] [address] Radha Weber MD [address] [place] [address] Social History Tobacco Use Types Packs/Day Years [...]
--- OUTSIDE RECORDS SUMMARY | 2024-09-12 17:11 | XMS_ITS | Encounter Summary ---
Author Organization [employer] Address [address] [place] [address] 7 [place] [address] Care Team Providers Care [facility] Name Role Phone Unavailable Primary Care Provider Unavailabl e Reason for Visit * Reason Comments Med Refill Encounter Details Date Type Department Care Team ([facility] st Contact Info) Description 07/30/2023 Refill [facility] MED & PEDS [address] [place] [address] Radha Weber MD [address] [place] [address] Osteoarthritis involving multiple joints on both sides [...]
--- OUTSIDE RECORDS SUMMARY | 2024-09-12 17:11 | XMS_ITS | Encounter Summary ---
Author Organization [employer] Address [address] [place] [address] 7 [place] [address] Care Team Providers Care Regulator Pin Inserter Name Role Phone Radha Weber MD Primary Care Provider [phone]- [phone] Encounter Details Date Type Department Care Team ([facility] st Contact Info) Description 04/23/2023 Orders Only [facility] CHC MED & PEDS [address] [place], [place] [phone] Radha Weber MD [address] [place] [address] Screening for colon cancer (Primary Dx) Social [...] Result Negative Negative 05/14/20 10:44 AM EST [employer] (CLIA #:[id number]) Comment: NEGATIVE TEST RESULT. A negative Cologuard [...] cancer. ??Following a negative Cologuard result, the [place] Cancer Society and U.S. Multi-Society Task Force screening guidelines recommend a Cologuard re-screening interval of 3 years. References: [place] Cancer Society Guideline for Colorectal Cancer Screening: https://www.cancer.org/cancer/okuje-mgjxgb-ugxtya/djkyjkgdz-hxaeatvvz-qnuorql/ac s-rec ommendations.html.; Myke BURNETT, Kiley WAITE, Devin RachelK, Colorectal Cancer Screening: Recommendations for Physicians and Patients from the U.S. Multi-Society Task Force on Colorectal Cancer Screening , Am J Gastroenterology 2017; 112:1786-2337. TEST DESCRIPTION: Composite algorithmic analysis of stool [...] Lynch et al, N Engl J Med 2014;370(14):7064-9065.) Cologuard may produce a false negative or false positive result (no colorectal cancer or precancerous polyp present at colonoscopy follow up). A negative Cologuard test result does not guarantee the absence of CRC or advanced adenoma (pre-cancer). The current Cologuard screening interval is every 3 years. ([place] Cancer Society and U.S. Multi-Society Task Force). Cologuard performance data in a 10,000 patient pivotal study using colonoscopy as the reference method can be accessed at the following location: www.[employer]ystems/results. Additional description of the Cologuard test process, warnings and precautions can be found at www.[employer] Fingerprintingrd.com. Stool specimen (specimen) 05/05/2023 3:30 PM EST 05/08/2023 12:38 PM EST us Radha Weber MD LAB MOLECULAR DIAGNOSTICS O RDERABLES Final Result [facility] (CLIA #:[id number]) [address] [place] [address], documented in this encounter Visit Diagnoses Diagnosis Screening for colon cancer- Primary Special screening for malignant neoplasms, colon documented in this encounter Care Teams Regulator Pin Inserter Relationship Specialty Start Date End Date Radha Weber MD [address] [place] [address] PCP - General Internal Medicine 02/27/21 05/19/23 documented as of this encounter
--- OUTSIDE RECORDS SUMMARY | 2024-09-12 17:11 | XMS_ITS | Encounter Summary ---
Author Organization [employer] Address [address] [place] [address] 7 [place] [address] Care Team Providers Care Computer Aided Design Operator Name Role Phone Unavailable Primary Care Provider Unavailabl e Reason for Visit * Reason Comments Med Refill Encounter Details Date Type Department Care Team ([facility] st Contact Info) Description 06/08/2023 Refill [facility] CHC MED & PEDS [address] [place] [address] Radha Weber MD [address] [place] [address] Social History Tobacco Use Types Packs/Day Years [...]
--- OUTSIDE RECORDS SUMMARY | 2024-09-12 17:12 | XMS_ITS | Encounter Summary ---
Author Organization [employer] Address [address] [place] [address] 7 [place] [address] Care Team Providers Care Conveyor Worker Name Role Phone Unavailable Primary Care Provider Unavailabl e Reason for Visit * Reason Comments Med Refill Encounter Details Date Type Department Care Team ([facility] st Contact Info) Description 09/01/2023 Refill [facility] CHC MED & PEDS [address] [place] [address] Radha Weber MD [address] [place] [address] Primary osteoarthritis of other site Social History [...]
--- OUTSIDE RECORDS SUMMARY | 2024-09-12 17:12 | XMS_ITS | Encounter Summary ---
Author Organization [employer] Address [address] [place] [address] 7 [place] [address] Care Team Providers Care Carpet Journeyman Name Role Phone Unavailable Primary Care Provider Unavailabl e Reason for Visit * Reason Comments Med Refill Encounter Details Date Type Department Care Team ([facility] st Contact Info) Description 10/11/2023 Refill [facility] MED & PEDS [address] [place] [address] Radha Weber MD [address] [place] [address] Osteoarthritis involving multiple joints on both sides [...]
--- OUTSIDE RECORDS SUMMARY | 2024-09-12 17:12 | XMS_ITS | Encounter Summary ---
Author Organization [employer] Address [address] [place] [address] 7 [place] [address] Care Team Providers Care Special Systems Technician Name Role Phone Unavailable Primary Care Provider Unavailabl e Reason for Visit * Reason Comments Med Refill Encounter Details Date Type Department Care Team ([facility] st Contact Info) Description 09/26/2023 Refill [facility] CHC MED & PEDS [address] [place] [address] Radha Weber MD [address] [place] [address] Vitamin deficiency Social History Tobacco Use Types [...]
--- OUTSIDE RECORDS SUMMARY | 2024-09-12 17:12 | XMS_ITS | Encounter Summary ---
Author Organization [employer] Address [address] [place] [address] 7 [place] [address] Care Team Providers Care Boxing Instructor Name Role Phone Unavailable Primary Care Provider Unavailabl e Reason for Visit * Reason Comments Med Refill Encounter Details Date Type Department Care Team (Late st Contact Info) Description 08/23/2023 Refill [facility] MEDICINE [address] [place] [address] Radha Weber MD [address] [place] [address] Social History Tobacco Use Types Packs/Day Years [...]
--- OUTSIDE RECORDS SUMMARY | 2024-09-12 17:13 | XMS_ITS | Encounter Summary ---
Author Organization [employer] Address [address] [place] [address] 7 [place] [address] Care Team Providers Care Stitcher Set Up Operator Automatic Name Role Phone Unavailable Primary Care Provider Unavailabl e Reason for Visit * Reason Comments Med Refill Encounter Details Date Type Department Care Team (Late st Contact Info) Description 11/04/2023 Refill [facility] MEDICINE [address] [place] [address] Radha Weber MD [address] [place] [address] Vitamin deficiency; Osteoarthritis involving multiple joints on [...]
--- OUTSIDE RECORDS SUMMARY | 2024-09-12 17:13 | XMS_ITS | Encounter Summary ---
Author Organization [employer] Address [address] [place] [address] 7 [place] [address] Care Team Providers Care Statistical Programmer Name Role Phone Unavailable Primary Care Provider Unavailabl e Reason for Visit * Reason Comments Med Refill Encounter Details Date Type Department Care Team ([facility] st Contact Info) Description 10/14/2023 Refill [facility] CHC MED & PEDS [address] [place] [address] Radha Weber MD [address] [place] [address] Vitamin deficiency Social History Tobacco Use Types [...]
--- OUTSIDE RECORDS SUMMARY | 2024-09-12 17:14 | XMS_ITS | Encounter Summary ---
Author Organization [employer] Address [address] [place] [address] 7 [place] [address] Care Team Providers Care Bond Underwriter Name Role Phone Unavailable Primary Care Provider Unavailabl e Reason for Visit * Reason Comments Med Refill Encounter Details Date Type Department Care Team (Late st Contact Info) Description 07/10/2023 Refill [facility] MEDICINE [address] [place] [address] Radha Weber MD [address] [place] [address] Social History Tobacco Use Types Packs/Day Years [...]
--- OUTSIDE RECORDS SUMMARY | 2024-09-12 17:14 | XMS_ITS | Encounter Summary ---
Author Organization [employer] Address [address] [place] [address] 7 [place] [address] Care Team Providers Care Research Subject Name Role Phone Unavailable Primary Care Provider Unavailabl e Reason for Visit * Reason Comments Med Refill Encounter Details Date Type Department Care Team ([facility] st Contact Info) Description 07/14/2023 Refill [facility] CHC MED & PEDS [address] [place] [address] Radha Weber MD [address] [place] [address] Social History Tobacco Use Types Packs/Day Years [...]
--- OUTSIDE RECORDS SUMMARY | 2024-09-12 17:14 | XMS_ITS | Encounter Summary ---
Author Organization [employer] Address [address] [place] [address] 7 [place] [address] Care Team Providers Care Wallpaper Installer Name Role Phone Unavailable Primary Care Provider Unavailabl e Reason for Visit * Reason Comments Med Refill Encounter Details Date Type Department Care Team ([facility] st Contact Info) Description 04/04/2024 Refill [facility] CHC MED & PEDS [address] [place] [address] Radha Weber MD [address] [place] [address] Social History Tobacco Use Types Packs/Day Years [...]
--- OUTSIDE RECORDS SUMMARY | 2024-09-12 17:14 | XMS_ITS | Encounter Summary ---
Author Organization [employer] Address [address] [place] [address] 7 [place] [address] Care Team Providers Care Manager Internet Name Role Phone Unavailable Primary Care Provider Unavailabl e Reason for Visit * Reason Comments Med Refill Encounter Details Date Type Department Care Team (Late st Contact Info) Description 01/07/2024 Refill [facility] MEDICINE [address] [place] [address] Radha Weber MD [address] [place] [address] Social History Tobacco Use Types Packs/Day Years [...]
--- OUTSIDE RECORDS SUMMARY | 2024-09-12 17:15 | XMS_ITS | Encounter Summary ---
Author Organization [facility] Address [address] [place] [address] Care Team Providers Care Radio Broadcaster Name Role Phone Lewis Carter SANDING LINE OPERATOR-C Primary Care Provider [phone] [phone] Reason for Visit * Reason Comments Correspondence Encounter Details Date Type Department Care Team ([facility] st Contact Info) Description 09/12/2024 Interim Notes [facility] [address] [place] [phone] Aaron [place], [place] [address] [place] [address] Social History Tobacco Use Types Packs/Day Years [...] Progress Notes * Yany Walker MA - 09/12/2024 2:20 PM EDT 2 most recent progress notes faxed it over to [facility] at [id number]//confirmation received documented in this encounter Plan of Treatment Not on file documented as of this encounter Visit Diagnoses Not on filedocumented in this encounter Additional Health Concerns Assessment Noted Time PHQ-9 Depression Total Score: 0 07/29/19 25 2:17 PM PDT documented as of this encounter Care Teams Radio Broadcaster Relationship Specialty Start Date End Date Lewis Carter FNP-C [address] [place] [address] PCP - General Internal Medicine 04/30/23 documented as of this encounter
[2024-09-20] VITALS (18 sets, daily range): BP systolic 112–145; BP diastolic 47–68; PULSE 51–61; RESP 11–18; TEMP 36.3–36.4; O2SAT 95–98; BMI 40.7
[2024-09-20 06:32] LABS: Basophils Percent Auto 0.4 % (0-2); Eosinophils Absolute Auto 0.3 X10*3/uL (0.0-0.4); Eosinophils Percent Auto 3.9 % (0-4); Hematocrit 34.6 % (42.0-52.0); Hemoglobin 12.3 g/dl (14.0-18.0); Imm Gran Abs Auto 0.01 X10*3/uL (0.00-0.03); Imm Gran Pct Auto 0.1 % (0.0-0.4); Lymphocytes Percent Auto 42.6 % (20-40); MANUAL DIFF FLAG NO; Mean Corpuscular HGB Conc 35.5 g/dl (31.0-36.0); Mean Corpuscular Hemoglobin 31.1 pg (27.0-33.0); Mean Corpuscular Volume 87.4 fL (80.0-98.0); Monocytes Absolute Auto 0.5 X10*3/uL (0.1-1.2); Neutrophils Absolute Auto 3.2 x10*3/uL (2.0-8.3); Platelet Count 201 X10*3/uL (160-400); Red Blood Count 3.96 X10*6/uL (4.60-5.80); Red Cell Distribution Width 12.8 % (11.0-16.0)
[2024-09-20 06:43] LABS: Blood Urea Nitrogen 20 mg/dL (9-16); Creatinine Clr Calc Pharmacy 110.9; Estimated Glomerular Filt Rate > 60
[2024-09-20] MEDS: 0.9 % Sodium Chloride 1,000 ML 100 ML IVCONT (06:44)
[2024-09-20] MEDS: Midazolam HCl 2 MG/2 ML VIAL 0.5 MG IVPUSH (08:01)
[2024-09-20] MEDS: fentaNYL citrate/PF 100 MCG/2 ML VIAL 25 MCG IVPUSH (08:01)
[2024-09-20] MEDS: Heparin Sodium,Porcine 10,000 UNIT/10 ML VIAL 8000 UNIT IVPUSH (08:19)
[2024-09-20] MEDS: Heparin Sodium,Porcine 10,000 UNIT/10 ML VIAL 2000 UNIT IVPUSH (08:29)
--- NOTE | 2024-09-20 09:03 | W.PM.OPN ---
Operative Note Operative Note Date of Service: 09/20/24 Narrative: Angiogram report from [facility] Preoperative diagnosis: Atherosclerosis of Bilateral lower extremity with nonhealing ulcer Postoperative diagnosis: Same Procedure: 1. Ultrasound-guided right common femoral access 2. Aortogram with bilateral lower extremity runoff Surgeon:Blas Cardoza M.D., FACS, RPVI Immigration Case Worker:None Anesthesia: Local with moderate conscious sedation. Total intraservice moderate sedation time was 39 minutes. I monitored the patient's level of consciousness and physiologic status continuously throughout the procedure. Specimens:none Drains:none Estimated blood loss: Less than 10 ml Radiation Dose: 452.7 mGy Implant: none Indications: 63-year-old diabetic gentleman with nonhealing bilateral lower extremity ulcers now presents for endovascular intervention The patient has signed the informed consent after reviewing risks, complications, benefits, and alternatives previously discussed with the patient. The patient was given the opportunity to ask any additional questions or voice any concerns. All questions were answered to the patient's satisfaction. Procedure in detail: Patient was brought to the angiography suite prior to which a time-out was called for patient identification and site verification. Bilateral groins were prepped and draped in the standard surgical fashion. Under ultrasound guidance right common femoral was punctured with micro puncture needle and wire. Subsequently a precision 5 Congolese sheath was then placed. Bentson wire was advanced to the level of the aorta. 5 Congolese Flush catheter was brought up and parked at the level of the renal arteries. Aortogram was then undertaken. Catheter was brought down to the level of the iliac bifurcation. Iliacs and runoff was performed through the flush catheter that was parked at the bifurcation and a power injection was performed to visualize bilateral runoff vessels. Subsequently the catheter was then brought in up and over to the left side SFA. at this time 47971 units of systemic heparin was administered. Up and over 6 Congolese sheath was then placed. We did focal imaging at the distal SFA Hunters canal popliteal and runoff vessels. No intervention was indicated. We brought the catheter wire sheath back to the ipsilateral side. A short 6 Congolese sheath was then placed. The right lower extremity runoff was undertaken through the short 6 Congolese sheath. Once this was accomplished no intervention was indicated. A CELT 6 Congolese closure device was then placed. Adequate hemostasis was achieved. Patient was returned to recovery with stable vitals. Interpretation of films: 1. Ultrasound demonstrates appropriate femoral access site. Vessel was patent with minimal stenosis. Needle entry was visualized. Image of ultrasound was saved. 2. Aortogram demonstrates appropriate caliber aorta. Minimal disease. Appropriate take-off of the renals. 3. Iliac images demonstrate No significant disease but significant tortuosity 4. left Leg Common femoral artery: no significant disease Profundus Femoris: No significant disease Superficial femoral artery: mild to moderate disease at Hunters canal but no flow-limiting stenosis Popliteal artery (p1,p2,p3): mild stenosis at the P2 segment of the popliteal with multiple collaterals. Anterior tibial artery: Occludes just after takeoff. Reconstitutes via collaterals at the distal 3rd Peroneal artery: occluded with collaterals only Posterior tibial artery: occluded with collaterals only Dorsalis pedis/plantar arch: incomplete 5. right Leg Common femoral artery: no significant disease Profundus Femoris: No significant disease Superficial femoral artery: no significant disease Popliteal artery (p1,p2,p3): no significant disease Anterior tibial artery: dominant runoff to the foot Peroneal artery: occluded with collaterals only Posterior tibial artery: occluded with collaterals only Dorsalis pedis/plantar arch: incomplete Conclusion: 1. no intervention indicated 2. Anticoagulation status: no change This note is constructed using voice recognition software. While every effort has been made to ensure accuracy, document management analyst errors may have been included. Thank you for allowing me to participate in the care of your patient. Yours sincerely, Blas Cardoza MD, FACS, R.P.V.I.
[2024-09-21 08:18] LABS: ACT 197 Celite s (79-173)
[2024-09-21 08:18] LABS: ACT 211 Celite s (79-173)
== END 2024-09-20 11:05 | disposition home or self-care (01) ==
PROVIDERS: PCP Registered Nurse; Visit Provider Surgery Vascular Surgery
DX: E11.51 Type 2 diabetes mellitus with diabetic peripheral angiopathy without gangrene (principal); I70.203 Unspecified atherosclerosis of native arteries of extremities, bilateral legs; E11.42 Type 2 diabetes mellitus with diabetic polyneuropathy; I10 Essential (primary) hypertension; E78.5 Hyperlipidemia, unspecified; Z98.84 Bariatric surgery status
CPT/HCPCS: 36247; 36415; 75630; 76937; 82565; 84520; 85025; 85347; 99152; 99153; C1760; C1769; C1887; C1894; J1644; J2250; J3010; Q9967

== ENCOUNTER → 2024-09-20 06:10 | Outpatient (BNV) | payer OTHER, SELFPAY | PROVIDERS: PCP Registered Nurse; Visit Provider Surgery Vascular Surgery | DX: I70.249 Atherosclerosis of native arteries of left leg with ulceration of unspecified site (principal); I70.239 Atherosclerosis of native arteries of right leg with ulceration of unspecified site | CPT/HCPCS: 36247; 75625; 75716; 76937; 99152 ==

== ENCOUNTER 2024-10-10 14:17 | Outpatient (AMB) | payer OTHER, SELFPAY ==
--- OUTSIDE RECORDS SUMMARY | 2024-10-10 14:25 | XMS_ITS | Encounter Summary ---
Author Organization [facility] Address [address] [place] [address] Care Team Providers Care Terrazzo Worker Apprentice Name Role Phone Lewis CarterP-Samira Primary Care Provider [phone] Encounter Details Date Type Department Care Team ([facility] st Contact Info) Description 01/23/2015 Interim Notes [facility] [address] [place] [phone] Corina Arango NP [address] [place] [address] Social History Tobacco Use Types Packs/Day Years [...] on filedocumented in this encounter Care Teams Terrazzo Worker Apprentice Relationship Specialty Start Date End Date Lewis Carter FNP-C [address] [place] [address] PCP - General Internal Medicine 04/30/23 documented as of this encounter
[2024-10-10 14:31] VITALS: BMI 40.0
--- NOTE | 2024-10-10 14:31 | MHC.OFFVIS ---
Vital Signs 10/10/24 14:31 Height 5 ft 6 in Weight 248 lb BMI 40.0 Intake Visit Reasons: Follow up angio Intake Note: follow up bilateral angio 09/20/24 w/ non-healing wound on the Left foot. Has VNA 3x per week.Pt states per nurses the wound is getting smaller. Entry Level Web Developer Required: No Accompanied by: Self / Same As Patient Allergies No Known Allergies [No Known Allergies*] Allergy (Verified 10/10/24 14:33) HPI HPI Follow up angio: Details: Very pleasant 63-year-old gentleman for follow-up status post diagnostic angiogram. [facility]aling [facility] foot ulcer. Appears to be doing fairly well. He now presents for routine postprocedure follow-up. Of note he has a nonhealing ulcer on the plantar aspect of his left foot. [facility] Medical History PAD (peripheral artery disease) Asthma Osteoarthritis Hyperlipidemia Type 2 diabetes, controlled, with peripheral neuropathy Sleep apnea Arthritis HTN (hypertension) Diabetes Surgical History Status post left foot surgery H/O rotator cuff surgery Gastric bypass status for obesity Family History Mother Diabetes Father Diabetes Social History Household Members: Family Housing: Apartment Are you a primary careers counsellor to a significant other at home: No Do you presently have visiting nurse or other home services: No Alcohol intake: never Patient Tobacco Use Status: Never used Tobacco service: No Current occupational status: disabled Review of Systems Const All systems reviewed & are unremarkable except as noted in HPI and below Reports no additional complaints ENT Reports Normal hearing present Card Denies chest pain, Denies chest pain at rest, Denies chest pain with activity and Denies pedal edema Resp Denies cough GI Denies abdominal pain Musc Denies abnormal gait, Denies muscle cramps and Denies radiating pain into limb Skin/Breast Denies skin ulcer and Denies wounds Neuro Reports Normal hearing present and Denies abnormal gait Psych Reports no additional complaints Physical Exam Vital Signs: BMI result Body Mass Index 40.0 Const General: cooperative, healthy appearing and comfortable Orientation/consciousness: oriented to person, oriented to place and oriented to time HEENT Head: Yes normal to inspection Neck Neck: Yes normal visual inspection Carotids: no bruits Chest Chest palpation & inspection: normal inspection of the chest Resp Effort & Inspection: normal respiratory effort and able to speak in complete sentences Auscultation: clear to auscultation bilaterally, no crackles, no rales, no rhonchi and no wheezes Cardio Other: Bilateral DP signals Rate: regular rate Rhythm: regular rhythm Heart sounds: S1 normal heart sound present and S2 normal heart sound present Bruits: no carotid bruits GI Inspection: Yes normal to inspection Skin Other: Left foot opening ulcer 1 x 0.5 x 0.2 cm plantar aspect with surrounding callus. Wounds: no wounds Hair: normal Neuro General: oriented to person, oriented to place and oriented to time Cranial nerves: Yes CN's II-XII intact bilaterally and Yes Normal hearing present Cognition (Neuro): normal cognition Motor exam (neuro): 5/5 motor strength present throughout Extrem Other: venous exam: No significant superficial varicosities or spider telangiectasias, minimal edema General: No clubbing, No cyanosis and No edema Psych Appearance: grossly normal Mental Status: mental status grossly normal Speech and movement: Normal speech and movement present Office Procedures Vascular Office Procedure Details Details: Wound debridement note: Preoperative diagnosis: Nonhealing left plantar aspect of the foot Postoperative diagnosis: Same Procedure: Excisional debridement into muscle Anesthesia: None Estimated blood loss: Minimal Pre-procedure measurement and appearance: Dry callus with hardening over open wound measuring 1 x 0.5 x 0.2 cm Postprocedure measurement and appearance: Clean wound with good granulation base measuring 1.1 x 0.6 x 0.3 cm Procedure in detail: Excisional debridement of the left plantar aspect of the foot at the base of the 1st and 2nd digit. was carried out.. Necrotic devitalized and nonviable tissue was removed. We debrided into muscle using 15 blade curette and pickups. Wound was thoroughly irrigated. At the conclusion wound appeared clean with good granulation base. Clean and sterile dressing was applied. Patient tolerated the procedure well. Instructions were given to the patient. Follow-up was suggested. This note is constructed using voice recognition software. While every effort has been made to ensure accuracy, custom leather products maker errors may have been included. Thank you for allowing me to participate in the care of your patient. Yours sincerely, Blas Cardoza MD, FACS, R.P.V.I. [id number] Debridement, muscle and or fascia (lst 20 sq cm or less) All charges added?: Procedure code (CPT) selection complete Assessment & Plan Assessment & Plan (1) PAD (peripheral artery disease): Comment: 01/26/2022 - angioplasty right anterior tibial artery 09/20/2024 - diagnostic angiogram Code(s): I73.9 - Peripheral vascular disease, unspecified Category: Medical Plan: In short patient has nonhealing left foot ulcer. I do think he has adequate arterial supply to heal the wound. I did review the pathophysiology of peripheral vascular disease with the patient. In addition we did discuss routine conservative measures including a healthy diet and the importance of exercise and ambulation. We did discuss risk factor modification. The patient will continue to to follow-up with surveillance follow-up in approximately 3 months. Thank you for allowing us to participate in this patient's care. If there are any questions or concerns please do not hesitate to contact us. Orders: Orders US arterial duplex LE BI 3 Months I73.9 - Peripheral vascular disease, unspecified Coding Level of Care Code Est Pt Level 4 (68219) Diagnoses PAD (peripheral artery disease) I73.9
== END 2024-10-10 15:09 | disposition home or self-care (01) ==
LOC: HO.HVS 14:17
PROVIDERS: PCP Registered Nurse; Visit Provider Surgery Vascular Surgery
DX: I73.9 Peripheral vascular disease, unspecified (principal)
CPT/HCPCS: 99214

== ENCOUNTER → 2024-10-10 14:17 | Outpatient (BNVA) | payer OTHER, SELFPAY | PROVIDERS: PCP Registered Nurse; Visit Provider Surgery Vascular Surgery | DX: I73.9 Peripheral vascular disease, unspecified (principal) | CPT/HCPCS: 99212 ==

== ENCOUNTER 2025-02-27 15:12 | Outpatient (REF) | payer OTHER, SELFPAY ==
--- NOTE | ~2025-02-27 | US_ITS ---
EXAMINATION: Noninvasive assessment of the bilateral lower extremities with ARTERIAL DUPLEX, ANKLE BRACHIAL INDICES (ABIs), and PULSE VOLUME RECORDINGS (PVRs). CLINICAL INFORMATION: I 73.9. Peripheral vascular disease, unspecified. Status post angioplasty, right CHERYL. TECHNIQUE: Duplex Doppler techniques with waveform analysis and measurement of velocities in the bilateral common femoral, profunda femoris, superficial femoral, popliteal and tibial arteries were performed. Additionally, ankle pulse volume recordings, ankle pressure measurements and ankle brachial indices were obtained of the lower extremity arterial system bilaterally. The study was performed only at rest. COMPARISON: July 06, 2024. FINDINGS: DIRECT DUPLEX DOPPLER FINDINGS: RIGHT LEG: Common femoral artery: 107 cm/s, phasicity: Triphasic. Profunda femoris artery: 53 cm/s, phasicity: Triphasic. Spectral broadening. Superficial femoral artery (proximal): 76 cm/s, phasicity: Triphasic. Superficial femoral artery (mid): 73 cm/s, phasicity: Triphasic. Superficial femoral artery (distal): 114 cm/s, phasicity: Triphasic. Popliteal artery: 105 cm/s, phasicity: Triphasic. Posterior tibial artery: 51 cm/s, phasicity: Biphasic. Spectral broadening. Peroneal artery: 17 cm/s, phasicity: Biphasic. Spectral broadening. Anterior tibial artery: 96 cm/s, phasicity: Triphasic. Spectral broadening. Dorsalis pedis artery: 114 cm/s, phasicity:Triphasic. Spectral broadening. LEFT LEG: Common femoral artery: 99 cm/s, phasicity: Triphasic. Profunda femoris artery: 64 cm/s, phasicity: Triphasic. Superficial femoral artery (proximal): 73 cm/s, phasicity: Triphasic. Superficial femoral artery (mid): 72 cm/s, phasicity: Triphasic. Superficial femoral artery (distal): 60 cm/s, phasicity: Triphasic. Popliteal artery: 83 cm/s, phasicity: Triphasic. Spectral broadening. Posterior tibial artery: No color Doppler flow. Peroneal artery: 22 cm/s, phasicity: Monophasic. Spectral broadening. Anterior tibial artery: 68 cm/s, phasicity: Monophasic. Spectral broadening. Dorsalis pedis artery: 85 cm/s, phasicity: Monophasic. Spectral broadening. Previously reported popliteal cyst is not documented. BRACHIAL PRESSURES: Right: 123 Left: 126 ANKLE PRESSURES: Right: PT not available., DP more than 200. Left: PT 73, DP more than 200 ANKLE-BRACHIAL INDEX: Right: 1.59. Left: 1.59. ANKLE PVR WAVEFORMS: Right: Abnormal Left: Abnormal US/US arterial duplex BI w/ JOSE IMPRESSION: Right leg: Moderate inflow disease, posterior tibialis artery. Left leg: Occluded posterior tibialis artery. Severe inflow disease, prominent left peroneal artery to the dorsalis pedis artery. JOSE Reference: - >1.4 = calcified vessels - 0.9 - 1.4 = normal - no significant arterial disease - 0.7 - 0.89 = mild peripheral arterial disease - 0.51 - 0.69 = moderate peripheral arterial disease - 0.50 = severe peripheral arterial disease - < .30 = critical arterial disease Electronically signed by: Darvin May MD 02/28/2025 08:04 AM EDT
--- OUTSIDE RECORDS SUMMARY | 2025-02-27 18:05 | XMS_ITS | Encounter Summary ---
Author Organization [facility] Address [address] [place] [address] Care Team Providers Care Tanning Drum Operator Name Role Phone Radha Weber MD Primary Care Provider [phone] Encounter Details Date Type Department Care Team (Late st Contact Info) Description 03/17/2023 Abstract [facility] [address] [place] [address] Radha Weber MD [address] [place] [address] Social History Tobacco Use Types Packs/Day Years [...] on filedocumented in this encounter Care Teams Tanning Drum Operator Relationship Specialty Start Date End Date Radha Weber MD [address] [place] [id number] PCP - General Internal Medicine 02/27/21 05/19/23 documented as of this encounter
--- OUTSIDE RECORDS SUMMARY | 2025-02-27 18:06 | XMS_ITS | Clinical Summary ---
Author Organization [address] [facility] Address [address] [place] [address] Phone Care Team Providers Care Customer Advocate Name Role Phone Physician, Pcp Unknown Primary [...] Encounters Date Type Department Care Team Description 02/09/2025 3:00 PM EDT Office Visit Orthopedic Surgery - [address] [phone] Avtar Emanuel, DPM Arthritis of left ankle (Primary Dx); Dermatophytosis of nail; Type II diabetes mellitus with peripheral circulatory disorder ([facility] V24, [facility] V28); Pain in toe of right foot; Pain in toe of left foot; Diabetic mononeuropathy simplex ([facility] V24, [facility] V28) from Last 3 Months Social [...] Care Team (Late st Contact Info) Description 05/14/2025 2:15 PM EST Office Visit Orthopedic Surgery - [place] [id number] [phone] Avtar Emanuel, DPM [address] [phone] Health Maintenance Due Date Last Done Comments Diabetes: Annual Foot Exam 1970 Diabetes: Annual Retina Eye Exam 1970 RSV Immunization Adult Patients (1 - Risk 60-74 years 1-dose series) 2020 HIV Screening 04/26/2022 Medicare Annual Wellness Visit 04/26/2022 Social Influencers of Health Screening 04/26/2022 Depression Screening 05/17/2024 Hepatitis B Vaccines (2 of 3 - Hep B Twinrix 3-dose series) 03/01/2025 02/01/2025 Diabetes: Blood Sugar Control Test (HGBA1C) 05/26/2025 11/23/2024, 07/28/2024, 02/15/2024, Additional history exists Diabetes: Annual GFR (Glomerular Filtration Rate) 07/28/2025 07/28/2024, 04/27/2024 Hypertension/CHF/CAD Annual BMP Blood Test 07/28/2025 07/28/2024, 04/27/2024 Diabetes: Annual Urine Albumin-Creatinine Ratio (uACR) 07/29/2025 07/29/2024, 04/30/2023, 01/29/2021, Additional history exists Colorectal Cancer Screening: FIT-DNA (Cologuard) 05/05/2026 05/05/2023 DTaP,Tdap,and Td Vaccines (2 - Td or Tdap) 03/01/2027 03/01/2017 Cholesterol Screening (Lipid Panel) 04/30/2028 04/30/2023, 04/30/2023, 01/29/2021, Additional history exists Zoster Vaccines Completed 06/22/2019, 02/21/2019 Hepatitis C Screening Completed 04/30/2023 Pneumococcal Vaccine: 50+ Years Completed 04/30/2023, 09/01/2018, 02/20/2016 COVID-19 Vaccine Completed 02/01/2025, , 05/06/2021, Additional history exists Hepatitis A Vaccines Aged Out 02/01/2025 No long er eligible based on patient's age to complete this topic Influenza Vaccine Completed 02/01/2025, , 01/28/2023, Additional history exists HIB Vaccines Aged Out [...] patient's age to complete this topic Insurance [facility] [place] MEDICARE Member Subscriber Plan / Payer (Ef fective 2014-Present) Name:JOSE LIN Relation to Subscriber:Self Name:Jose Lin Payer ID:[id number] Group ID:[id number] Type:Not on file Address: [place] [address] [address] [place] [address] Care Teams Customer Advocate Relationship Specialty Start Date End Date Physician, Pcp Unknown PCP - General 04/20/24
--- OUTSIDE RECORDS SUMMARY | 2025-02-27 18:06 | XMS_ITS | Encounter Summary ---
Author Organization [facility] [facility] Address [address] [place] [address] [address] [place] [address] Care Team Providers Care Chicken Fancier Name Role Phone Unavailable Primary Care Provider Unavailabl e Reason for Visit * Reason Comments Med Refill Encounter Details Date Type Department Care Team ([facility] st Contact Info) Description 10/11/[address] [facility] [address] [place] [address] Radha Weber MD [address] [place] [address] Osteoarthritis involving multiple joints on both sides [...]
--- OUTSIDE RECORDS SUMMARY | 2025-02-27 18:06 | XMS_ITS | Clinical Summary ---
Author Organization [facility] Address [address] [place] [address] Phone Care Team Providers Care Media Services Coordinator Name Role Phone Yelena Escobedo MD Primary Care Provider [phone]- [phone] Allergies No known active allergies Social History Tobacco Use Types Packs/Day Years Used Date Smoking Tobacco: Never Alcohol Use Standard Drinks/Week Comments Not Currently 0 (1 standard drink = 0.6 oz pur e alcohol) Education Answer Date Recorded Are you interested in more education? Not on carey e 09/11/2022 Are you concerned about learning? Not on file 09/11/2022 No 09/11/2022 No 09/11/2022 Digital Access Answer Date Recorded No 10/10/2022 No 10/10/2022 No 10/10/2022 Reliable internet access at home? Not on file 10/10/2022 Device with a working camera? Not on file Sex and Gender Information Value Date Recorded Sex Assigned at Male 09/23/2019 1:32 AM EDT Legal Sex Male 8:34 AM EST Gender Identity Male 09/23/2019 1:32 AM EDT Sexual Orientation Not on file Last Filed Vital Signs Vital Sign Reading Time Taken Comments Blood Pressure 94/82 09/23/2019 3:30 AM EDT Pulse 64 09/23/2019 3:30 AM EDT Temperature 36.7 C (98.1 F) 09/23/2019 1:24 AM EDT Respiratory Rate 13 09/23/2019 3:30 AM EDT Oxygen Saturation 97% 09/23/2019 3:00 AM EDT Inhaled Oxygen Concentration - - Weight 116.6 kg (257 lb) 09/23/2019 1:24 AM EDT Height 167.6 cm (5' 6 ) 09/23/2019 1:24 AM EDT Body Mass Index 41.48 09/23/2019 1:24 AM EDT Plan of Treatment Health Maintenance Due Date Last Done Comments Adult Td,Tdap Booster 1960 LIPID PANEL 1960 DEPRESSION SCREENING 1972 HEPATITIS C SCREENING 1978 HIV ONE-TIME SCREENING (18-6 5 YEARS) 1978 SMOKING STATUS SCREENING (On ce After 26 Yrs) 1986 COLOGUARD 2005 COLONOSCOPY 2005 COLORECTAL CANCER SCREENING 2005 FIT TEST 2005 FOBT 2005 SIGMOIDOSCOPY 2005 VIRTUAL COLONOSCOPY 2005 PNEUMOCOCCAL VACCINES (50+ years) (2 of 2 - PCV) 09/02/2019 09/01/2018 INFLUENZA VACCINE (#1) 2024 , 02/17/2019, 09/01/2018 COVID-19 VACCINE (3 - 2024-2 6 season) 2025 08/14/2020, 07/17/2020 RSV VACCINE (1 - 1-dose 75+ series) 11/30/2035 ZOSTER VACCINES Completed 06/22/2019, 02/21/2019 HEPATITIS A VACCINES Aged Out No long er eligible based on patient's age to complete this topic HIB VACCINES Aged Out No longer eligi ble based on patient's age to complete this topic MENINGOCOCCAL VACCINES (ACWY) Aged Out No longer eligible based on patient's age to complete this topic MENINGOCOCCAL VACCINES (B) Aged Out N o longer eligible based on patient's age to complete this topic Medical Devices Not on file [place] [place] [address] [facility] ONE CARE MEDICARE REPLACEMENT MEDICARE REPLACEMENT [facility] MEDICARE REPLACEMENT CARE MEDICARE REPLACEMENT CARE MEDICARE REPLACEMENT [facility] MEDICARE REPLACEMENT [facility] CARE MEDICARE REPLACEMENT [facility] ONE CARE MEDICARE REPLACEMENT [facility] CARE MEDICARE REPLACEMENT Care Teams Media Services Coordinator Relationship Specialty Start Date End Date Yelena Escobedo MD [address] [place] [id number] PCP - General Internal Medicine 04/26/19 Additional Source Comments The information contained in this document represents components of the legal health record. It is not the complete legal health record.[facility]
--- OUTSIDE RECORDS SUMMARY | 2025-02-27 18:06 | XMS_ITS | Encounter Summary ---
Author Organization [employer] Address [address] [facility] 7t [place] [address] Care Team Providers Care Hvac Controls Technician Name Role Phone Radha Weber MD Primary Care Provider +1- [phone] Encounter Details Date Type Department Care Team ([facility] st Contact Info) Description 04/23/2023 Orders Only [facility] CHC MED & PEDS 505 [place], [place] [id number] Radha Weber MD 505 [place] [address] Screening for colon cancer (Primary Dx) Social [...] Name Priority Date/Time Associated Diagnosis Comments LAB COLOGUARD COLON CANCER SCREEN Routine 05/05/2023 3:30 PM EST Screening for colon cancer documented in this encounter Results * Cologuard?? colon cancer screening (05/05/2023 3:30 PM EST) Cologuard Result Negative Negative 05/14/20 10:44 AM EST [employer] (CLIA #:[id number]) Comment: NEGATIVE TEST RESULT. A negative Cologuard result indicates a low likelihood that a colorectal cancer (CRC) or advanced adenoma (adenomatous polyps with more advanced pre-malignant features) is present. The chance that a person with a negative Cologuard test has a colorectal cancer is less than 1 in 1500 (negative predictive value >99.9%) or has an advanced adenoma is less than 5.3% (negative predictive value 94.7%). These data are based on a prospective cross-sectional study of 10,000 individuals at average risk for colorectal cancer who were screened with both Cologuard and colonoscopy. (Lindsay Spence al, N Engl J Med 2014;370(14):9564-3886) The normal value (reference range) for this assay is negative. COLOGUARD RE-SCREENING RECOMMENDATION: Periodic colorectal cancer screening is an important part of preventive healthcare for asymptomatic individuals at average risk for colorectal cancer. Following a negative Cologuard result, the [place] Cancer Society and U.S. Multi-Society Task Force screening guidelines recommend a Cologuard re-screening interval of 3 years. References: [place] [employer] Guideline for Colorectal Cancer Screening: https://www.cancer.org/cancer/igmvz-oetncw-umjavj/ecjpxrnql-pdvgjdvix-lixmpuo/ac s-rec ommendations.html.; Myke BURNETT, Kiley WAITE, Devin RachelK, Colorectal Cancer Screening: Recommendations for Physicians and Patients from the U.S. Multi-Society Task Force on Colorectal Cancer Screening , Am J Gastroenterology 2017; 112:6953-0245. TEST DESCRIPTION: Composite algorithmic analysis of stool DNA-biomarkers with hemoglobin immunoassay. Quantitative values of individual biomarkers are not [...] Lynch et al, N Engl J Med 2014;370(14):4321-4812.) Cologuard may produce a false negative or false positive result (no colorectal cancer or precancerous polyp present at colonoscopy follow up). A negative Cologuard test result does not guarantee the absence of CRC or advanced adenoma (pre-cancer). The current Cologuard screening interval is every 3 years. ([place] Cancer Society and U.S. Multi-Society Task Force). Cologuard performance data in a 10,000 patient pivotal study using colonoscopy as the reference method can be accessed at the following location: www.MetaCDN/results. Additional description of the Cologuard test process, warnings and precautions can be found at www.GrockitogTastebudsrd.[employer]. Stool specimen (specimen) 05/05/2023 3:30 PM EST 05/08/2023 12:38 PM EST us Radha Weber MD LAB MOLECULAR DIAGNOSTICS O RDERABLES Final Result [employer] (CLIA #:[id number]) [address] [place] [address], documented in this encounter Visit Diagnoses Diagnosis Screening for colon cancer- Primary Special screening for malignant neoplasms, colon documented in this encounter Care Teams Hvac Controls Technician Relationship Specialty Start Date End Date Radha Weber MD [address] [place] [address] PCP - General Internal Medicine 02/27/21 05/19/23 documented as of this encounter
--- OUTSIDE RECORDS SUMMARY | 2025-02-27 18:06 | XMS_ITS | Encounter Summary ---
Author Organization [employer] Address [address] [place] [address] 7t [place] [address] Care Team Providers Care Anatomic Pathology Assistant Name Role Phone Unavailable Primary Care Provider Unavailabl e Reason for Visit * Reason Comments Med Refill Encounter Details Date Type Department Care Team ([facility] st Contact Info) Description 09/01/2023 Refill [facility] CHC MED & PEDS 505 [place] [address] Radha Weber MD 505 [place] [address] Primary osteoarthritis of other site Social History [...]
--- OUTSIDE RECORDS SUMMARY | 2025-02-27 18:06 | XMS_ITS | Encounter Summary ---
Author Organization [employer] Address [address] [place] [address] 7t [place] [address] Care Team Providers Care Diesel Engine Tester Name Role Phone Unavailable Primary Care Provider Unavailabl e Reason for Visit * Reason Comments Med Refill Encounter Details Date Type Department Care Team ([facility] st Contact Info) Description 07/30/2023 Refill [facility] MED & PEDS 505 [place] [address] Radha Weber MD 505 [place] [address] Osteoarthritis involving multiple joints on both sides [...]
--- OUTSIDE RECORDS SUMMARY | 2025-02-27 18:06 | XMS_ITS | Encounter Summary ---
Author Organization [employer] Address [address] [facility] 7t [place] [address] Care Team Providers Care Family Medicine Physician Assistant Name Role Phone Unavailable Primary Care Provider Unavailabl e Reason for Visit * Reason Comments Med Refill Encounter Details Date Type Department Care Team (Late st Contact Info) Description 11/04/2023 Refill [facility] MEDICINE [address] [place] [address] Radha Weber MD 505 [place] [address] Vitamin deficiency; Osteoarthritis involving multiple joints on [...]
--- OUTSIDE RECORDS SUMMARY | 2025-02-27 18:06 | XMS_ITS | Encounter Summary ---
Author Organization [employer] Address [address] [place] [address] 7t [place] [address] Care Team Providers Care Pellet Machine Operator Name Role Phone Unavailable Primary Care Provider Unavailabl e Reason for Visit * Reason Comments Med Refill Encounter Details Date Type Department Care Team ([facility] st Contact Info) Description 07/14/2023 Refill [facility] CHC MED & PEDS 505 [place] [address] Radha Weber MD 505 [place] [address] Social History Tobacco Use Types Packs/Day Years [...]
--- OUTSIDE RECORDS SUMMARY | 2025-02-27 18:06 | XMS_ITS | Encounter Summary ---
Author Organization [employer] Address [address] [place] [address] 7 [place] [address] Care Team Providers Care Plant Propagator Name Role Phone Radha Weber MD Primary Care Provider +1- [phone] Reason for Visit * Reason Comments Med Refill Encounter Details Date Type Department Care Team ([facility] st Contact Info) Description 06/17/2022 Refill [facility] CHC MED & PEDS 505 [place] [address] Radha Weber MD 505 [place] [address] Primary osteoarthritis of other site (Primary Dx) [...] Primary documented in this encounter Care Teams Plant Propagator Relationship Specialty Start Date End Date Radha Weber MD 505 [place] [address] PCP - General Internal Medicine 02/27/21 05/19/23 documented as of this encounter
--- OUTSIDE RECORDS SUMMARY | 2025-02-27 18:06 | XMS_ITS | Encounter Summary ---
Author Organization [employer] Address [address] [place] [address] 7t [place] [address] Care Team Providers Care Tool Crib Supervisor Name Role Phone Unavailable Primary Care Provider Unavailabl e Reason for Visit * Reason Comments Med Refill Encounter Details Date Type Department Care Team (Late st Contact Info) Description 08/23/2023 Refill [facility] MEDICINE 230 [place] [address] Radha Weber MD 505 [place] [address] Social History Tobacco Use Types Packs/Day Years [...]
--- OUTSIDE RECORDS SUMMARY | 2025-02-27 18:06 | XMS_ITS | Encounter Summary ---
Author Organization [employer] Address [address] [place] [address] 7 [place] [address] Care Team Providers Care Stove Carriage Operator Name Role Phone Radha Weber MD Primary Care Provider +1- [phone] Encounter Details Date Type Department Care Team ([facility] st Contact Info) Description 01/26/2023 Orders Only [facility] CHC MED & PEDS 505 [place] [address] Antoinette Shrestha LPN Social History Tobacco Use [...] on filedocumented in this encounter Care Teams Stove Carriage Operator Relationship Specialty Start Date End Date Radha Weber MD 505 [place] [address] PCP - General Internal Medicine 02/27/21 05/19/23 documented as of this encounter
--- OUTSIDE RECORDS SUMMARY | 2025-02-27 18:06 | XMS_ITS | Encounter Summary ---
Author Organization [employer] Address [address] [place] [address] 7t [place] [address] Care Team Providers Care Associate Professor Of Biblical Studies Name Role Phone Unavailable Primary Care Provider Unavailabl e Reason for Visit * Reason Comments Med Refill Encounter Details Date Type Department Care Team ([facility] st Contact Info) Description 06/08/2023 Refill [facility] CHC MED & PEDS 505 [place] [address] Radha Weber MD [address] [place] [address] Social History Tobacco Use Types Packs/Day Years [...]
--- OUTSIDE RECORDS SUMMARY | 2025-02-27 18:06 | XMS_ITS | Clinical Summary ---
Author Organization [employer] Address [address] [facility] 7t [place] [address] Care Team Providers Care Black Studies Professor Name Role Phone Unavailable Primary Care Provider [...] UGI with Air done on 02/25/2015 at [facility]- Impression: Spontaneous severe GERD. Tiny hiatal [...] Pro air and spiriva- former smoker Immunizations Immunization Administration Dates Next Due Influenza injectable quadrivalent [...] 58 05/20/2023 9:54 AM EST Temperature 36.3 C (97.3 F) 05/20/2023 9:54 AM EST Respiratory Rate 19 05/20/2023 9:54 AM EST [...] Colonography 1960 Depression Screening 1960 FIT 1960 SDOH Screening 1960 Sigmoidoscopy 1960 Disability Screening 1960 Diabetes: Foot Exam 1970 Eye Exam 1970 Alcohol/Substance Use Screening 1972 Hepatitis C Screening 1978 RSV Patients and Patients Aged 60 years or older (1 - Risk 60-74 years 1-dose series) 2020 Diabetes: Urine Protein Screening 12/02/2021 12/02/2020 Lipid Panel 12/02/2021 12/02/2020 Diabetes: Hemoglobin A1C 05/19/2023 023, 11/16/2022, 12/02/2020 Tobacco Screening 02/17/2024 02/16/2023 FOBT 05/05/2024 05/05/2023 COVID-19 Vaccine ( season) 2025 04/30/2023, 05/06/2021, 08/14/2020, Additional history exists Influenza Vaccine (#1) 2025 , 01/28/2023, 02/13/2022, Additional history exists FIT DNA/Cologuard 05/05/2026 05/05/2023 Colonoscopy 12/31/2026 12/31/2016 Colorectal Cancer Screening 12/31/2026 DTaP/Tdap/Td Vaccines (2 - Td or Tdap) 03/01/2027 03/01/2017 Zoster Vaccines Completed 06/22/2019, 02/21/2019 HIV Screening Completed 04/30/2023, 04/30/2023 Pneumococcal Vaccine: 50+ Years Completed 04/30/2023, 09/01/2018, 02/20/2016 HIB Vaccines Aged Out No longer eligi [...] Result Negative Negative 05/14/20 10:44 AM EST [facility] (CLIA #:[id number]) Comment: NEGATIVE TEST RESULT. A negative Cologuard [...] colonoscopy. (Lindsay Gonzalez, N Engl J Med 2014;370(14):6628-0266) The normal value (reference range) for this assay is negative. COLOGUARD RE-SCREENING RECOMMENDATION: Periodic colorectal cancer screening is an important part of preventive healthcare for asymptomatic individuals at average risk for colorectal cancer. Following a negative Cologuard result, the [place] Cancer Society and U.S. Multi-Society Task Force screening guidelines recommend a Cologuard re-screening interval of 3 years. References: [place] Cancer Society Guideline for Colorectal Cancer Screening: https://www.cancer.org/cancer/hfvdr-bqfuih-rqvxjs/fkjztucfd-lgipvbwjy-ngnxrcq/ac s-rec ommendations.html.; Myke DK, Kiley WAITE, Devin RachelK, Colorectal Cancer Screening: Recommendations for Physicians and Patients from the U.S. Multi-Society Task Force on Colorectal Cancer Screening , Am J Gastroenterology 2017; 112:3807-6743. TEST DESCRIPTION: Composite algorithmic analysis of stool [...] (Lindsay Spence al, N Engl J Med 2014;370(14):5587-9997.) Cologuard may produce a false negative or false positive result (no colorectal cancer or precancerous polyp present at colonoscopy follow up). A negative Cologuard test result does not guarantee the absence of CRC or advanced adenoma (pre-cancer). The current Cologuard screening interval is every 3 years. ([place] Cancer Society and U.S. Multi-Society Task Force). Cologuard performance data in a 10,000 patient pivotal study using colonoscopy as the reference method can be accessed at the following location: www.coUrbanize.[employer]/results. Additional description of the Cologuard test process, warnings and precautions can be found at www.Flatoraoguard.[employer]. Stool specimen (specimen) 05/05/2023 3:30 PM EST 05/08/2023 12:38 PM EST Radha Weber MD LAB MOLECULAR DIAGNOSTICS O RDERABLES Final Result [facility] (CLIA #:[id number]) [address] [place] [address], * (ABNORMAL) POCT A1C (02/16/2023 4:33 PM EDT) Hemoglobin A1C 8.0(A) 4.0 - 6.0 % QC Media Lot # [id number] Lot# Expiration Date Blood 02/16/2023 4:33 PM EDT Radha Weber MD POINT OF CARE TEST ENTER/ED IT ORDERABLES Final Result * ALBUMIN, RANDOM URINE W/CREATININE (12/02/2020 3:53 PM EDT) Microalbumin Urine 1.7 See Note: mg/dL [facility] Comment: Reference Range: Reference Range Not established Microalb/Creat Ratio 11 <30 mcg/mg creat [facility] Comment: The ADA defines abnormalities in albumin excretion as follows: Category Result (mcg/mg creatinine) Normal <30 Microalbuminuria 30-299 Clinical albuminuria > OR = 300 The ADA recommends that at least two of three specimens collected within a 3-6 month period be abnormal before considering a patient to be within a diagnostic category. Creatinine, Urine 157 20 - 320 mg/dL [facility] 12/02/2020 3:53 PM EDT Jason Zendejas MD LAB URINE ORDERABL ES Final Result Performing Organization Address [facility] de Phone Number [facility] [address] [place] [address], * (ABNORMAL) LIPID PANEL, STANDARD (12/02/2020 3:53 PM EDT) Chol/HDLC Ratio 3.7 <5.0 (calc) [facility] Cholesterol, Total 176 <200 mg/dL [facility] HDL Cholesterol 48 > OR = 40 mg/dL [facility] LDL Cholesterol 105(H) mg/dL (calc) [facility] Comment: Reference range: <100 Desirable range <100 mg/dL for primary prevention; <70 mg/dL for patients with CHD or diabetic patients with > or = 2 CHD risk factors. LDL-C is now calculated using the Isael-Blackman calculation, which is a validated novel method providing better accuracy than the Friedewald equation in the estimation of LDL-C. Isael INMAN et al. ADOLPH. 2013;310(19): 4140-8167 (http://education.SureBooks.Image Engine Design/faq/ZLP787) Non-HDL Cholesterol 128 <130 mg/dL (calc) [facility] Comment: For patients with diabetes plus 1 major ASCVD risk factor, treating to a non-HDL-C goal of <100 mg/dL (LDL-C of <70 mg/dL) is considered a therapeutic option. Triglycerides 136 <150 mg/dL [facility] 12/02/2020 3:53 PM EDT Jason Zendejas MD LAB BLOOD ORDERABL ES Final Result Performing Organization Address [facility]/ZIP Co de Phone Number [facility] [address] [place] [id number], * Colonoscopy (12/31/2016) Colonoscopy Normal Normal Narrative Radha Mejia - 12/31/2016 Recommended 10 year follow up Historical Provider MD HEALTH MAINTENANCE Final Result from Last 3 Months or Most Recently Relevant to Health Maintenance [facility] < 65
--- OUTSIDE RECORDS SUMMARY | 2025-02-27 18:06 | XMS_ITS | Encounter Summary ---
Author Organization [employer] Address [address] [place] [address] 7t [place] [address] Care Team Providers Care Flexo Operator Name Role Phone Unavailable Primary Care Provider Unavailabl e Reason for Visit * Reason Comments Med Refill Encounter Details Date Type Department Care Team (Late st Contact Info) Description 01/07/2024 Refill [facility] MEDICINE [address] [place] [address] Radha Weber MD 505 [place] [address] Social History Tobacco Use Types Packs/Day Years [...]
--- OUTSIDE RECORDS SUMMARY | 2025-02-27 18:06 | XMS_ITS | Encounter Summary ---
Author Organization [employer] Address [address] [place] [address] 7 [place] [address] Care Team Providers Care Trauma Program Manager Name Role Phone Unavailable Primary Care Provider Unavailabl e Reason for Visit * Reason Comments Med Refill Encounter Details Date Type Department Care Team ([facility] st Contact Info) Description 10/14/2023 Refill [facility] CHC MED & PEDS 505 [place] [address] Radha Weber MD 505 [place] [address] Vitamin deficiency Social History Tobacco Use Types [...]
--- OUTSIDE RECORDS SUMMARY | 2025-02-27 18:06 | XMS_ITS | Encounter Summary ---
Author Organization [employer] Address [address] [place] [address] 7t [place] [address] Care Team Providers Care Manufacturing Test Engineer Name Role Phone Unavailable Primary Care Provider Unavailabl e Reason for Visit * Reason Comments Med Refill Encounter Details Date Type Department Care Team ([facility] st Contact Info) Description 04/04/2024 Refill [facility] CHC MED & PEDS 505 [place] [address] Radha Weber MD 505 [place] [address] Social History Tobacco Use Types Packs/Day Years [...]
--- OUTSIDE RECORDS SUMMARY | 2025-02-27 18:06 | XMS_ITS | Encounter Summary ---
Author Organization [employer] Address [address] [place] [address] 7 [place] [address] Care Team Providers Care Instructor Hairspring Name Role Phone Radha Weber MD Primary Care Provider +1- [phone] Reason for Visit * Reason Comments Med Refill Encounter Details Date Type Department Care Team (Late st Contact Info) Description 08/10/2022 Refill [facility] MEDICINE [address] [place], [place] [phone] Radha Weber MD 505 [place] [address] Social History Tobacco Use Types Packs/Day Years [...] on filedocumented in this encounter Care Teams Instructor Hairspring Relationship Specialty Start Date End Date Radha Weber MD [address] [place] [address] PCP - General Internal Medicine 02/27/21 05/19/23 documented as of this encounter
--- OUTSIDE RECORDS SUMMARY | 2025-02-27 18:06 | XMS_ITS | Encounter Summary ---
Author Organization [employer] Address [address] [place] [address] 7t [place] [address] Care Team Providers Care General Scrap Worker Name Role Phone Unavailable Primary Care Provider Unavailabl e Reason for Visit * Reason Comments Med Refill Encounter Details Date Type Department Care Team ([facility] st Contact Info) Description 06/13/2023 Refill [facility] CHC MED & PEDS [address] [place] [address] Radha Weber MD 505 [place] [address] Social History Tobacco Use Types Packs/Day Years [...]
--- OUTSIDE RECORDS SUMMARY | 2025-02-27 18:06 | XMS_ITS | Encounter Summary ---
Author Organization [employer] Address [address] [place] [address] 7 [place] [address] Care Team Providers Care International Student Counselor Name Role Phone Unavailable Primary Care Provider Unavailabl e Reason for Visit * Reason Comments Med Refill Encounter Details Date Type Department Care Team ([facility] st Contact Info) Description 09/26/2023 Refill [facility] CHC MED & PEDS 505 [place] [address] Radha Weber MD 505 [place] [address] Vitamin deficiency Social History Tobacco Use Types [...]
--- OUTSIDE RECORDS SUMMARY | 2025-02-27 18:06 | XMS_ITS | Encounter Summary ---
Author Organization [employer] Address [address] [place] [address] 7 [place] [address] Care Team Providers Care Roll Forger Name Role Phone Radha Weber MD Primary Care Provider +1- [phone] Reason for Visit * Reason Comments Med Refill Encounter Details Date Type Department Care Team ([facility] st Contact Info) Description 03/24/2023 Refill [facility] CH[facility] MED & PEDS 505 [place] [address] Radha Weber MD 505 [place] [address] Social History Tobacco Use Types Packs/Day Years [...] on filedocumented in this encounter Care Teams Roll Forger Relationship Specialty Start Date End Date Radha Weber MD [address] [place] [address] PCP - General Internal Medicine 02/27/21 05/19/23 documented as of this encounter
--- OUTSIDE RECORDS SUMMARY | 2025-02-27 18:06 | XMS_ITS | Encounter Summary ---
Author Organization [employer] Address [address] [place] [address] 7t [place] [address] Care Team Providers Care Fire Engine Pump Operator Name Role Phone Unavailable Primary Care Provider Unavailabl e Reason for Visit * Reason Comments Med Refill Encounter Details Date Type Department Care Team (Late st Contact Info) Description 07/10/2023 Refill [facility] MEDICINE [address] [place] [address] Radha Weber MD 505 [place] [address] Social History Tobacco Use Types Packs/Day Years [...]
== END 2025-02-27 15:13 | disposition home or self-care (01) ==
LOC: HO.US 15:12
PROVIDERS: PCP Registered Nurse; Visit Provider Surgery Vascular Surgery
DX: I73.9 Peripheral vascular disease, unspecified (principal)
CPT/HCPCS: 93922; 93925

== ENCOUNTER → 2025-02-27 15:19 | Outpatient (BNV) | payer OTHER, SELFPAY | PROVIDERS: PCP Registered Nurse; Visit Provider Radiology Diagnostic Radiology | DX: I70.291 Other atherosclerosis of native arteries of extremities, right leg (principal) | CPT/HCPCS: 93922; 93925 ==

== ENCOUNTER 2025-04-03 15:00 | Outpatient (AMB) | payer OTHER, SELFPAY ==
--- NOTE | 2025-04-03 15:21 | A.OFFVIS_ITS ---
Intake Visit Reasons: Follow up [facility] 02/27/25 Intake Note: Patient presents for arterial US follow up. No complaints. Accompanied by: Mother Allergies No Known Allergies (No Known Allergies*) Allergy (Verified 04/03/25 15:21) HPI HPI Follow up [facility] 02/27/25: Details: The patient is a 64-year-old male presenting for an arterial follow-up. He was initially referred from a wound care center for a left foot ulcer. A diagnostic angiogram was performed in September of 2024, which demonstrated adequate flow. The patient reports the wound on his left foot has now completely healed, and he has been discharged from the wound care center. He notes some residual minor pain in the area but is now able to wear his shoes again. He now presents for follow-up evaluation with noninvasive testing dated 02/27/2025. [facility] Medical History PAD (peripheral artery disease) Asthma Osteoarthritis Hyperlipidemia Type 2 diabetes, controlled, with peripheral neuropathy Sleep apnea Arthritis HTN (hypertension) Diabetes Surgical History Status post left foot surgery H/O rotator cuff surgery Gastric bypass status for obesity Family History Mother Diabetes Father Diabetes Social History Household Members: Family Housing: Apartment Are you a primary care attendant to a significant other at home: No Do you presently have visiting nurse or other home services: No Alcohol intake: never Patient Tobacco Use Status: Never used Tobacco service: No Current occupational status: disabled Review of Systems Const All systems reviewed & are unremarkable except as noted in HPI and below Reports no additional complaints ENT Reports Normal hearing present Card Denies chest pain, Denies chest pain at rest, Denies chest pain with activity and Denies pedal edema Resp Denies cough GI Denies abdominal pain Musc Denies abnormal gait, Denies muscle cramps and Denies radiating pain into limb Skin/Breast Denies skin ulcer and Denies wounds Neuro Reports Normal hearing present and Denies abnormal gait Psych Reports no additional complaints Physical Exam Const General: cooperative, healthy appearing and comfortable Orientation/consciousness: oriented to person, oriented to place and oriented to time HEENT Head: Yes normal to inspection Neck Neck: Yes normal visual inspection Carotids: no bruits Chest Chest palpation & inspection: normal inspection of the chest Resp Effort & Inspection: normal respiratory effort and able to speak in complete sentences Auscultation: clear to auscultation bilaterally, no crackles, no rales, no rhonchi and no wheezes Cardio Other: Bilateral DP signals Rate: regular rate Rhythm: regular rhythm Heart sounds: S1 normal heart sound present and S2 normal heart sound present Bruits: no carotid bruits Peripheral pulses: Peripheral pulses 2+ throughout GI Inspection: Yes normal to inspection Skin Wounds: no wounds Hair: normal Neuro General: oriented to person, oriented to place and oriented to time Cranial nerves: Yes CN's II-XII intact bilaterally and Yes Normal hearing present Cognition (Neuro): normal cognition Motor exam (neuro): 5/5 motor strength present throughout Extrem Other: venous exam: No significant superficial varicosities or spider telangiectasias, minimal edema General: No clubbing, No cyanosis and No edema Psych Appearance: grossly normal Mental Status: mental status grossly normal Speech and movement: Normal speech and movement present Assessment & Plan Assessment & Plan (1) PAD (peripheral artery disease): Comment: 01/26/2022 - angioplasty right anterior tibial artery 09/20/2024 - diagnostic angiogram Code(s): I73.9 - Peripheral vascular disease, unspecified Category: Medical Plan: In short patient has stable claudication and his wounds have gone on to heal I did review the pathophysiology of peripheral vascular disease with the patient. In addition we did discuss routine conservative measures including a healthy diet and the importance of exercise and ambulation. We did discuss risk factor modification. The patient will continue to to follow-up with surveillance follow-up in approximately 1 year. Thank you for allowing us to participate in this patient's care. If there are any questions or concerns please do not hesitate to contact us. Orders: Orders US arterial duplex LE BI 1 Year I73.9 - Peripheral vascular disease, unspecified Coding Level of Care Code Est Pt Level 4 (36779) Diagnoses PAD (peripheral artery disease) I73.9
--- OUTSIDE RECORDS SUMMARY | 2025-04-04 13:00 | XMS_ITS | Clinical Summary ---
Author Organization [address] [facility] Address [address] [place] [address] Phone Care Team Providers Care Feeder Tender Name Role Phone Physician, Pcp Unknown Primary [...] PM EDT Office Visit Orthopedic Surgery - [address] [phone] Avtar Emanuel, DPM Arthritis of left ankle (Primary Dx); Dermatophytosis of nail; Type II diabetes mellitus with peripheral circulatory disorder ([facility] V24, [facility] V28); Pain in toe of right foot; Pain in toe of left foot; Diabetic mononeuropathy simplex ([facility] V24, [facility] V28) from Last 3 Months Social [...] PM EST Office Visit Orthopedic Surgery - [place] [address] [phone] Avtar Emanuel, DPM [address] [phone] Health Maintenance Due Date Last Done Comments Diabetes: Annual Foot Exam 1970 Diabetes: Annual Retina Eye Exam 1970 RSV Immunization Adult Patients (1 - Risk 50-74 years 1-dose series) 2010 HIV Screening 04/26/2022 Medicare Annual Wellness Visit [...] patient's age to complete this topic Insurance [facility] MEDICARE Member Subscriber Plan / Payer (Ef fective 2014-Present) Name:JOSE LIN Relation to Subscriber:Self Name:Jose Lin Payer ID:[id number] Group ID:[id number] Type:Not on file Address: [facility] [address] [address] Care Teams Feeder Tender Relationship Specialty Start Date End Date Physician, Pcp Unknown PCP - General 04/20/24
--- OUTSIDE RECORDS SUMMARY | 2025-04-04 13:01 | XMS_ITS | Clinical Summary ---
Author Organization [facility] Address [address] [facility] [address] [place] [phone] Phone Care Team Providers Care Guide Rail Cleaner Name Role Phone Yelena Escobedo MD Primary Care Provider +1- [phone] Allergies No known active allergies Social History [...] patient's age to complete this topic IPV VACCINES Aged Out No longer eligi ble based on patient's age to complete this topic MENINGOCOCCAL VACCINES (ACWY) Aged Out No longer eligible based on patient's age to complete this topic MENINGOCOCCAL VACCINES (B) Aged Out N o longer eligible based on patient's age to complete this topic Medical Devices Not on file Insurance [id number] [place] [id number] [facility] ONE CARE MEDICARE REPLACEMENT [facility] CARE MEDICARE REPLACEMENT [facility] MEDICARE REPLACEMENT [facility] CARE MEDICARE REPLACEMENT [facility] CARE MEDICARE REPLACEMENT [facility] CARE MEDICARE [facility]PLACEMENT [facility] CARE MEDICARE REPLACEMENT [facility] ONE CARE MEDICARE REPLACEMENT [facility] CARE MEDICARE REPLACEMENT Care Teams Guide Rail Cleaner Relationship Specialty Start Date End Date Yelena Escobedo MD [address] [place] [id number] PCP - General Internal Medicine 04/26/19 Additional Source Comments The information contained in this document represents components of the legal health record. It is not the complete legal health record.[facility]
== END 2025-04-03 15:46 | disposition home or self-care (01) ==
LOC: HO.HVS 15:01
PROVIDERS: PCP Registered Nurse; Visit Provider Surgery Vascular Surgery
DX: I73.9 Peripheral vascular disease, unspecified (principal)
CPT/HCPCS: 99214

== ENCOUNTER → 2025-04-03 15:00 | Outpatient (BNVA) | payer OTHER, SELFPAY | PROVIDERS: PCP Registered Nurse; Visit Provider Surgery Vascular Surgery | DX: Z71.2 Person consulting for explanation of examination or test findings (principal); I73.9 Peripheral vascular disease, unspecified | CPT/HCPCS: 99212 ==

== ENCOUNTER 2025-05-02 16:05 | Emergency (ER) | payer OTHER, SELFPAY ==
--- NOTE | ~2025-05-02 | XR_ITS ---
EXAMINATION: XR TIBIA AND FIBULA, LEFT CLINICAL INFORMATION: Distal anterior wound. Rule out osteomyelitis. COMPARISON: None TECHNIQUE: AP and lateral views of the left tibia and fibula were obtained. FINDINGS: Bone alignment is normal. No fracture, dislocation or x-ray evidence of osteomyelitis.. There is mild arthritis at the knee joint. There is nonspecific soft tissue calcification. No abnormal air collection or radiopaque soft tissue foreign body seen. XR/XR tibia fibula LT 2V IMPRESSION: No x-ray evidence of osteomyelitis. Electronically signed by: Monique Mtz MD 05/02/2025 04:54 PM EST
[2025-05-02 16:11] VITALS: BP 137/75; PULSE 74; RESP 16; TEMP 36.3; O2SAT 96; BMI 39.9
--- NOTE | 2025-05-02 16:19 | ED.GENADULT ---
HPI - General Adult General Chief complaint: Wound/Laceration Stated complaint: left leg wound Time Seen by Provider: 05/02/25 19:08 History of Present Illness ED Provider: reji HPI narrative: 64 M diabetic here for leg L evaluation. Says he struck the left west against something few days ago or maybe a week and a half ago he notices a scab there feels like potentially it is warm and wanted to check for infection because he is diabetic. He has had no drainage no systemic symptoms no leg swelling Related Data Home Medications ?Medication ?Instructions ?Recorded ?Confirmed acetaminophen 650 mg 1 tab PO Q8H PRN Pain (Scale Score 12/17/21 07/06/24 tablet,extended release 1-3) albuterol sulfate 90 mcg/actuation 2 puff inhalation Q4H PRN sob 12/17/21 07/06/24 aerosol inhaler (Ventolin HFA) amlodipine 5 mg tablet 1 tab PO DAILY 12/17/21 07/06/24 aspirin 81 mg tablet,delayed 1 tab PO DAILY 12/17/21 07/06/24 release atorvastatin 40 mg tablet 40 mg PO BEDTIME 12/17/21 07/06/24 calcium 500 mg (as 1 tab PO Q48H 12/17/21 07/06/24 carbonate)-vitamin D3 10 mcg (400 unit) tablet (Calcium 500 With D) celecoxib 200 mg capsule 1 cap PO BID 12/17/21 07/06/24 cholecalciferol (vitamin D3) 25 1 tab PO DAILY 12/17/21 07/06/24 mcg (1,000 unit) capsule (Vitamin D3) cyanocobalamin (vitamin B-12) 1 tab PO DAILY 12/17/21 07/06/24 1,000 mcg tablet,extended release docusate sodium 100 mg capsule 1 cap PO BID PRN constipation 12/17/21 07/06/24 fluticasone propionate 50 1 spray intranasal DAILY PRN 12/17/21 07/06/24 mcg/actuation nasal allergies spray,suspension insulin aspart U-100 100 unit/mL See Rx Instructions .Route .COMPLEX 12/17/21 07/06/24 subcutaneous solution (Novolog U-100 Insulin aspart) loratadine 10 mg tablet 1 tab PO DAILY PRN allergies 12/17/21 07/06/24 uqlwihasyebq-yfhbhilv-kgbj 1 tab PO DAILY 12/17/21 07/06/24 fumarate 7.5 mg-folic acid 400 mcg tablet omeprazole 20 mg capsule,delayed 1 cap PO DAILY@0630 12/17/21 07/06/24 release subcutaneous insulin pump 12/17/21 12/17/21 umeclidinium 62.5 mcg/actuation 1 puff inhalation DAILY 12/17/21 07/06/24 blister powder for inhalation (Incruse Ellipta) gabapentin 400 mg capsule 400 mg PO TID 07/06/24 07/06/24 tirzepatide 7.5 mg/0.5 mL 7.5 mg subcut QWEEK 04/03/25 subcutaneous pen injector (Moungeorgiaro) Previous Rx's ?Medication ?Instructions ?Recorded levofloxacin 500 mg tablet 500 mg PO DAILY #3 tabs 07/11/24 Allergies Allergy/AdvReac Type Severity Reaction Status Date / Time No Known Allergies (No Known Allergy Verified 05/02/25 16:11 Allergies*) [facility] Past Medical History Medical History PAD (peripheral artery disease) Asthma Osteoarthritis Hyperlipidemia Type 2 diabetes, controlled, with peripheral neuropathy Sleep apnea Arthritis HTN (hypertension) Diabetes Surgical History Status post left foot surgery H/O rotator cuff surgery Gastric bypass status for obesity Family History Family History Mother Diabetes Father Diabetes Social History Social History Household Members: Family Housing: Apartment Are you a primary home care associate to a significant other at home: No Do you presently have visiting nurse or other home services: No Alcohol intake: never Patient Tobacco Use Status: Never used Tobacco Advance Directives: No Advance Directives Information Provided: Yes service: No Current occupational status: disabled Physical Exam ED Exam Exam: General awake alert oriented looks well Left leg there is a healing proximally 1.5 cm scabbing overlying the left west there was no surrounding erythema or drainage. Vital Signs: Vital Signs - 24 hr 05/02/25 16:11 05/02/25 20:08 Temperature 97.4 F 97.4 F Pulse Rate 74 74 Respiratory Rate 16 16 Blood Pressure 137/75 137/75 Pulse Oximetry 96 96 Oxygen Delivery Method Room Air Room Air BMI result Body Mass Index 39.9 Course Course Course Narrative: This is a rapid medical exam performed by Jose Banks NP: Additional HPI, ROS, PE not included below will be deferred to primary provider. Patient is a 64-year-old male with history of HTN, dm, PID, osteomyelitis of right foot presenting to the emergency department with wound to right distal lower leg for the past few days. States he is concerned as he is diabetic and had osteomyelitis in the past. Plan: Labs, x-ray Medical Decision Making Medical Decision Making MDM Narrative: Medical Decision Makin-year-old male with left leg injury. Looks like a scab that is well healing there was no signs of infection. X-ray done without osteomyelitis or bony abnormality Preliminary Favored Differential Diagnosis: Scab and less likely to be superficial skin infection among additional considered etiologies Testing Interpreted Independently: ?See below for details Radiology or Lab testing Results Reviewed: ?See below for details Consults: ?See below for details Independent Historians/External Chart Reviews: ?See below for details Social Determinants of Health Impacting MDM/Planning: ?See below for details Lab Data 05/02/25 16:36 05/02/25 16:36 Labs: Lab Results 05/02/25 Range/Units 16:36 WBC 8.6 (4.8-10.8) X10*3/uL RBC 4.47 L (4.60-5.80) X10*6/uL Hgb 14.0 (14.0-18.0) g/dl Hct 40.2 L (42.0-52.0) % MCV 89.9 (80.0-98.0) fL MCH 31.3 (27.0-33.0) pg MCHC 34.8 (31.0-36.0) g/dl RDW 12.7 (11.0-16.0) % Plt Count 245 (160-400) X10*3/uL MPV 10.5 (9.4-12.4) fL Immature Gran % (Auto) 0.2 (0.0-0.4) % Neut % (Auto) 71.4 (45-73) % Lymph % (Auto) 21.9 (20-40) % Todd % (Auto) 5.7 (2-11) % Eos % (Auto) 0.6 (0-4) % Baso % (Auto) 0.2 (0-2) % Lymph # (Auto) 1.9 (1.2-4.9) X10*3/uL Todd # (Auto) 0.5 (0.1-1.2) X10*3/uL Eos # (Auto) 0.1 (0.0-0.4) X10*3/uL Baso # (Auto) 0.0 (0.0-0.2) X10*3/uL Abs Immat Gran (auto) 0.02 (0.00-0.03) X10*3/uL Absolute Neuts (auto) 6.1 (2.0-8.3) x10*3/uL Absolute Nucleated RBC 0.000 (0.0-0.012) X10*3/uL Nucleated RBC % (auto) 0.0 (0.0-0.2) /100WBC ESR 23 H (1-20) MM/HR Sodium 142 (135-145) mmol/L Potassium 3.6 (3.3-5.1) mmol/L Chloride 107 (96-108) mmol/L Carbon Dioxide 27 (22-29) mmol/L Anion Gap 12 (12-20) BUN 15 (9-16) mg/dL Creatinine 0.87 (0.5-1.4) mg/dL Estim Creat Clear Calc 100.8 Estimated GFR > 60 Random Glucose 180 H (60-115) mg/dL Calcium 9.4 D (8.4-10.2) mg/dL Total Bilirubin 0.5 (0.0-1.0) mg/dL AST 20 (5-37) U/L ALT 21 (0-40) U/L Alkaline Phosphatase 132 H (39-117) U/L C-Reactive Protein 0.46 (< or = 0.50) mg/dL Total Protein 7.6 (6.5-8.0) g/dL Albumin 4.5 (3.5-5.0) g/dL Discharge Plan Discharge Clinical Impression: Scab Patient Disposition: Home, Self-Care Instructions: Hematoma (ED) Additional Instructions: Labs and x-ray not suggestive of any acute abnormality. Your scab looks like it is healing well without signs of infection. Prescriptions: No Action celecoxib 200 mg capsule 1 cap PO BID atorvastatin 40 mg Tablet 40 mg PO BEDTIME cyanocobalamin (vitamin B-12) 1,000 mcg tablet extended release 1 tab PO DAILY amlodipine 5 mg tablet 1 tab PO DAILY aspirin 81 mg tablet,delayed release (DR/EC) 1 tab PO DAILY acetaminophen 650 mg tablet extended release 1 tab PO Q8H PRN (Reason: Pain (Scale Score 1-3)) insulin aspart U-100 [Novolog U-100 Insulin aspart] 100 unit/mL solution See Rx Instructions .ROUTE .COMPLEX Rx Instructions: use with insulin pump- The Omnipod 5 insulin pump and [employer] G6 continuous glucose monitor, up to 60 units daily docusate sodium 100 mg capsule 1 cap PO BID PRN (Reason: constipation) omeprazole 20 mg capsule,delayed release(DR/EC) 1 cap PO DAILY@0630 albuterol sulfate [Ventolin HFA] 90 mcg/actuation HFA aerosol inhaler 2 puff inhalation Q4H PRN (Reason: sob) fluticasone propionate 50 mcg/actuation spray,suspension 1 spray intranasal DAILY PRN (Reason: allergies) loratadine 10 mg tablet 1 tab PO DAILY PRN (Reason: allergies) cholecalciferol (vitamin D3) [Vitamin D3] 25 mcg (1,000 unit) capsule 1 tab PO DAILY calcium carbonate-vitamin D3 [Calcium 500 With D] 500 mg-10 mcg (400 unit) tablet 1 tab PO Q48H Incruse Ellipta 62.5 mcg/actuation blister with device 1 puff inhalation DAILY khddxfxd-fji-zfee fum-folic ac 7.5 mg iron-400 mcg tablet 1 tab PO DAILY (DME) subcutaneous insulin pump Rx Instructions: novolog insulin used with pump- Minimed 630G Guardian Start gabapentin 400 mg capsule 400 mg PO TID levofloxacin 500 mg tablet 500 mg PO DAILY Qty: 3 0RF Mounjaro 7.5 mg/0.5 mL pen injector 7.5 mg subcut QWEEK Interventions: ED Discharge Assessment Last Done: 05/02/25 20:08 Discharge Date/Time: 05/02/25 20:08 Print Language: Sinhala
[2025-05-02 16:43] LABS: MANUAL DIFF FLAG NO
[2025-05-02 16:54] LABS: Hematocrit 40.2 % (42.0-52.0); Hemoglobin 14.0 g/dl (14.0-18.0); Imm Gran Abs Auto 0.02 X10*3/uL (0.00-0.03); Imm Gran Pct Auto 0.2 % (0.0-0.4); Lymphocytes Absolute Auto 1.9 X10*3/uL (1.2-4.9); Mean Corpuscular HGB Conc 34.8 g/dl (31.0-36.0); Mean Corpuscular Hemoglobin 31.3 pg (27.0-33.0); Mean Corpuscular Volume 89.9 fL (80.0-98.0); NRBC Abs Auto 0.000 X10*3/uL (0.0-0.012); NRBC Pct Auto 0.0 /100WBC (0.0-0.2); Platelet Count 245 X10*3/uL (160-400); Red Blood Count 4.47 X10*6/uL (4.60-5.80); White Blood Count 8.6 X10*3/uL (4.8-10.8)
[2025-05-02 17:03] LABS: Alanine Aminotransferase 21 U/L (0-40); Albumin Level 4.5 g/dL (3.5-5.0); Alkaline Phosphatase 132 U/L (39-117); Anion Gap 12 (12-20); Aspartate Amino Transferase 20 U/L (5-37); Blood Urea Nitrogen 15 mg/dL (9-16); Calcium 9.4 mg/dL (8.4-10.2); Carbon Dioxide 27 mmol/L (22-29); Chloride 107 mmol/L (96-108); Creatinine Clr Calc Pharmacy 100.8; Estimated Glomerular Filt Rate > 60; Potassium 3.6 mmol/L (3.3-5.1); Sodium 142 mmol/L (135-145); Total Protein 7.6 g/dL (6.5-8.0)
[2025-05-02 20:08] VITALS: BP 137/75; PULSE 74; RESP 16; TEMP 36.3; O2SAT 96
--- OUTSIDE RECORDS SUMMARY | 2025-05-02 21:03 | XMS_ITS | Encounter Summary ---
Author Organization [employer] Address [address] [place] [address] [address] [place] [address] Care Team Providers Care Card Player Name Role Phone Unavailable Primary Care Provider Unavailabl e Reason for Visit * Reason Comments Med Refill Encounter Details Date Type Department Care Team ([facility] st Contact Info) Description 06/08/2023 Refill [facility]EDS [address] [place] [address] Radha Weber MD [address] [place] [address] Social History Tobacco Use Types Packs/Day Years [...]
--- OUTSIDE RECORDS SUMMARY | 2025-05-02 21:03 | XMS_ITS | Encounter Summary ---
Author Organization [employer] Address [address] [place] [address] [address] [place] [address] Care Team Providers Care Salad Chef Name Role Phone Unavailable Primary Care Provider Unavailabl e Reason for Visit * Reason Comments Med Refill Encounter Details Date Type Department Care Team ([facility] st Contact Info) Description 10/11/2023 Refill [facility] MED & PEDS [address] [place] [address] Radha Weber MD [address] [place] [address] Osteoarthritis involving multiple joints on both sides [...]
--- OUTSIDE RECORDS SUMMARY | 2025-05-02 21:03 | XMS_ITS | Encounter Summary ---
Author Organization [employer] Address [address] [place] [address] [address] [place] [address] Care Team Providers Care Industrial Spray Painter Name Role Phone Unavailable Primary Care Provider Unavailabl e Reason for Visit * Reason Comments Med Refill Encounter Details Date Type Department Care Team (Late st Contact Info) Description 07/10/2023 Refill [facility] MEDICINE [address] [place] [address] Radha Weber MD [address] [place] [address] Social History Tobacco Use Types Packs/Day Years [...]
--- OUTSIDE RECORDS SUMMARY | 2025-05-02 21:03 | XMS_ITS | Encounter Summary ---
Author Organization [employer] Address [address] [place] [address] [address] [place] [address] Care Team Providers Care Set And Exhibit Designer Name Role Phone Unavailable Primary Care Provider Unavailabl e Reason for Visit * Reason Comments Med Refill Encounter Details Date Type Department Care Team (Late st Contact Info) Description 08/23/2023 Refill [facility] MEDICINE [address] [place] [address] Radha Weber MD [address] [place] [address] Social History Tobacco Use Types Packs/Day Years [...]
--- OUTSIDE RECORDS SUMMARY | 2025-05-02 21:03 | XMS_ITS | Encounter Summary ---
Author Organization [employer] Address [address] [place] [address] [address] [place] [address] Care Team Providers Care Policy Analyst Name Role Phone Radha Weber MD Primary Care Provider [phone]- [phone] Reason for Visit * Reason Comments Med Refill Encounter Details Date Type Department Care Team ([facility] st Contact Info) Description 03/24/2023 Refill [facility] [address] [place] [address] Radha Weber MD [address] [place] [address] Social History Tobacco Use Types Packs/Day Years [...] on filedocumented in this encounter Care Teams Policy Analyst Relationship Specialty Start Date End Date Radha Weber MD [address] [place] [address] PCP - General Internal Medicine 02/27/21 05/19/23 documented as of this encounter
--- OUTSIDE RECORDS SUMMARY | 2025-05-02 21:03 | XMS_ITS | Encounter Summary ---
Author Organization [employer] Address [address] [place] [address] [address] [place] [address] Care Team Providers Care Sales Market Leader Name Role Phone Unavailable Primary Care Provider Unavailabl e Reason for Visit * Reason Comments Med Refill Encounter Details Date Type Department Care Team ([facility] st Contact Info) Description 10/14/2023 Refill [facility] MED & PEDS [address] [place] [address] Radha Weber MD [address] [place] [address] Vitamin deficiency Social History Tobacco Use Types [...]
--- OUTSIDE RECORDS SUMMARY | 2025-05-02 21:03 | XMS_ITS | Encounter Summary ---
Author Organization [employer] Address [address] [place] [address] [address] [place] [address] Care Team Providers Care Fluorescent Lamp Replacer Name Role Phone Unavailable Primary Care Provider Unavailabl e Reason for Visit * Reason Comments Med Refill Encounter Details Date Type Department Care Team ([facility] st Contact Info) Description 07/30/2023 Refill [facility] MED & PEDS [address] [place] [address] Radha Weber MD [address] [place] [address] Osteoarthritis involving multiple joints on both sides [...]
--- OUTSIDE RECORDS SUMMARY | 2025-05-02 21:03 | XMS_ITS | Encounter Summary ---
Author Organization [employer] Address [address] [place] [address] 7t [place] [address] Care Team Providers Care Tufting Machine Operator Name Role Phone Unavailable Primary Care Provider Unavailabl e Reason for Visit * Reason Comments Med Refill Encounter Details Date Type Department Care Team (Late st Contact Info) Description 01/07/2024 Refill [facility] MEDICINE 230 [place] [address] Radha Weber MD 505 [place] [address] Social History Tobacco Use Types Packs/Day Years [...]
--- OUTSIDE RECORDS SUMMARY | 2025-05-02 21:03 | XMS_ITS | Encounter Summary ---
Author Organization [employer] Address [address] [facility] 7t [place] [address] Care Team Providers Care Lawyer Probate Name Role Phone Radha Weber MD Primary Care Provider +1 [phone] Encounter Details Date Type Department Care Team (Late st Contact Info) Description 03/17/[address] [facility] MEDICINE [address] [place] [address] Radha Weber MD 505 [place] [address] Social History Tobacco Use Types Packs/Day Years [...] on filedocumented in this encounter Care Teams Lawyer Probate Relationship Specialty Start Date End Date Radha Weber MD [address] [place] [address] PCP - General Internal Medicine 02/27/21 05/19/23 documented as of this encounter
--- OUTSIDE RECORDS SUMMARY | 2025-05-02 21:03 | XMS_ITS | Encounter Summary ---
Author Organization [employer] Address [address] [place] [address] 7t [place] [address] Care Team Providers Care Extractions Technologist Name Role Phone Unavailable Primary Care Provider Unavailabl e Reason for Visit * Reason Comments Med Refill Encounter Details Date Type Department Care Team ([facility] st Contact Info) Description 09/26/2023 Refill [facility] CHC MED & PEDS 505 [place] [address] Radha Weber MD 505 [place] [address] Vitamin deficiency Social History Tobacco Use Types [...]
--- OUTSIDE RECORDS SUMMARY | 2025-05-02 21:03 | XMS_ITS | Encounter Summary ---
Author Organization [employer] Address [address] [facility] 7t [place] [address] Care Team Providers Care Butcher Apprentice Name Role Phone Unavailable Primary Care Provider Unavailabl e Reason for Visit * Reason Comments Med Refill Encounter Details Date Type Department Care Team (Late st Contact Info) Description 11/04/2023 Refill [facility] MEDICINE 230 [place] [address] Radha Weber MD 505 [place] [address] Vitamin deficiency; Osteoarthritis involving multiple joints on [...]
--- OUTSIDE RECORDS SUMMARY | 2025-05-02 21:03 | XMS_ITS | Clinical Summary ---
Author Organization [facility] Address [address] [facility] [address] [place] [address] Phone Care Team Providers Care Digital Archivist Name Role Phone Yelena Escobedo MD Primary Care Provider +1- [phone] Allergies No known active allergies Social History [...] Medical Devices Not on file Insurance [place] [address] [facility] ONE CARE MEDICARE REPLACEMENT MEDICARE REPLACEMENT [facility] MEDICARE REPLACEMENT CARE MEDICARE REPLACEMENT CARE MEDICARE REPLACEMENT [facility] MEDICARE REPLACEMENT [facility] CARE MEDICARE REPLACEMENT [facility] ONE CARE MEDICARE REPLACEMENT [facility] CARE MEDICARE REPLACEMENT Care Teams Digital Archivist Relationship Specialty Start Date End Date Yelena Escobedo MD [address] [place] [id number] PCP - General Internal Medicine 04/26/19 Additional Source Comments The information contained in this document represents components of the legal health record. It is not the complete legal health record.[facility]
--- OUTSIDE RECORDS SUMMARY | 2025-05-02 21:03 | XMS_ITS | Encounter Summary ---
Author Organization [employer] Address [address] [place] [address] 7 [place] [address] Care Team Providers Care Railcar Carpenter Name Role Phone Radha Weber MD Primary Care Provider [phone]- [phone] Reason for Visit * Reason Comments Med Refill Encounter Details Date Type Department Care Team ([facility] st Contact Info) Description 06/17/2022 Refill [facility] CHC MED & PEDS 505 [place] [address] Radha Weber MD 505 [place] [address] Primary osteoarthritis of other site (Primary Dx) [...] Primary documented in this encounter Care Teams Railcar Carpenter Relationship Specialty Start Date End Date Radha Weber MD 505 [place] [address] PCP - General Internal Medicine 02/27/21 05/19/23 documented as of this encounter
--- OUTSIDE RECORDS SUMMARY | 2025-05-02 21:03 | XMS_ITS | Encounter Summary ---
Author Organization [employer] Address [address] [place] [address] 7t [place] [address] Care Team Providers Care Tool And Equipment Rental Clerk Name Role Phone Unavailable Primary Care Provider Unavailabl e Reason for Visit * Reason Comments Med Refill Encounter Details Date Type Department Care Team ([facility] st Contact Info) Description 06/13/2023 Refill [facility] CHC MED & PEDS 505 [place] [address] Radha Weber MD 505 [place] [address] Social History Tobacco Use Types Packs/Day Years [...]
--- OUTSIDE RECORDS SUMMARY | 2025-05-02 21:03 | XMS_ITS | Encounter Summary ---
Author Organization [employer] Address [address] [facility] 7t [place] [address] Care Team Providers Care Environmental Systems Coordinator Name Role Phone Radha Weber MD Primary Care Provider [phone]- [phone] Encounter Details Date Type Department Care Team ([facility] st Contact Info) Description 04/23/2023 Orders Only [facility] CHC MED & PEDS 505 [place], [place] [phone] Radha Weber MD 505 [place] [address] Screening for colon cancer (Primary Dx) Social [...] Result Negative Negative 05/14/20 10:44 AM EST [facility] (CLIA #:[id number]) Comment: NEGATIVE TEST RESULT. A negative Cologuard [...] (Lindsay Spence al, N Engl J Med 2014;370(14):0748-0985) The normal value (reference range) for this assay is negative. COLOGUARD RE-SCREENING RECOMMENDATION: Periodic colorectal cancer screening is an important part of preventive healthcare for asymptomatic individuals at average risk for colorectal cancer. Following a negative Cologuard result, the [place] Cancer Society and U.S. Multi-Society Task Force screening guidelines recommend a Cologuard re-screening interval of 3 years. References: [place] [employer] Guideline for Colorectal Cancer Screening: https://www.cancer.org/cancer/vheho-wpdlgc-viifug/kvkqrejuq-dodwvglhb-ueznlgm/ac s-rec ommendations.html.; Myke BURNETT, Kiley WAITE, Devin RachelK, Colorectal Cancer Screening: Recommendations for Physicians and Patients from the U.S. Multi-Society Task Force on Colorectal Cancer Screening , Am J Gastroenterology 2017; 112:5037-9486. TEST DESCRIPTION: Composite algorithmic analysis of stool [...] Lynch et al, N Engl J Med 2014;370(14):4236-9407.) Cologuard may produce a false negative or false positive result (no colorectal cancer or precancerous polyp present at colonoscopy follow up). A negative Cologuard test result does not guarantee the absence of CRC or advanced adenoma (pre-cancer). The current Cologuard screening interval is every 3 years. ([place] Cancer Society and U.S. Multi-Society Task Force). Cologuard performance data in a 10,000 patient pivotal study using colonoscopy as the reference method can be accessed at the following location: www.[employer]/results. Additional description of the Cologuard test process, warnings and precautions can be found at www.[employer]l.comogHCIrd.CertiRx. Stool specimen (specimen) 05/05/2023 3:30 PM EST 05/08/2023 12:38 PM EST us Radha Weber MD LAB MOLECULAR DIAGNOSTICS O RDERABLES Final Result [facility] (CLIA #:[id number]) [address] [place] [address], documented in this encounter Visit Diagnoses Diagnosis Screening for colon cancer- Primary Special screening for malignant neoplasms, colon documented in this encounter Care Teams Environmental Systems Coordinator Relationship Specialty Start Date End Date Radha Weber MD [address] [place] [address] PCP - General Internal Medicine 02/27/21 05/19/23 documented as of this encounter
--- OUTSIDE RECORDS SUMMARY | 2025-05-02 21:03 | XMS_ITS | Clinical Summary ---
Author Organization [employer] Address [address] [facility] 7t [place] [address] Care Team Providers Care Architectural Intern Name Role Phone Unavailable Primary Care Provider [...] 60 years or older (1 - Risk 50-74 years 1-dose series) 2010 Diabetes: Urine Protein Screening 12/02/2021 12/02/2020 Lipid Panel 12/02/2021 12/02/2020 Tobacco Screening 02/17/2024 02/16/2023 FOBT 05/05/2024 05/05/2023 Diabetes: Hemoglobin A1C 05/17/2024 024, 09/28/2023, 04/30/2023, Additional history exists COVID-19 Vaccine ( season) 2025 04/30/2023, 05/06/2021, [...] Result Negative Negative 05/14/20 10:44 AM EST [facility] (CLIA #:[id number]) Comment: NEGATIVE TEST RESULT. A negative Cologuard [...] (Lindsay Spence al, N Engl J Med 2014;370(14):5174-9559) The normal value (reference range) for this assay is negative. COLOGUARD RE-SCREENING RECOMMENDATION: Periodic colorectal cancer screening is an important part of preventive healthcare for asymptomatic individuals at average risk for colorectal cancer. Following a negative Cologuard result, the [place] Cancer Society and U.S. Multi-Society Task Force screening guidelines recommend a Cologuard re-screening interval of 3 years. References: [place] [employer] Guideline for Colorectal Cancer Screening: https://www.cancer.org/cancer/xsdkw-zgyxbw-xetvao/hwufomhfc-zvoiwpjcf-wqtyrnn/ac s-rec ommendations.html.; Myke DK, Kiley WAITE, Devin RachelK, Colorectal Cancer Screening: Recommendations for Physicians and Patients from the U.S. Multi-Society Task Force on Colorectal Cancer Screening , Am J Gastroenterology 2017; 112:8099-2152. TEST DESCRIPTION: Composite algorithmic analysis of stool [...] (Lindsay Spence al, N Engl J Med 2014;370(14):9550-1473.) Cologuard may produce a false negative or false positive result (no colorectal cancer or precancerous polyp present at colonoscopy follow up). A negative Cologuard test result does not guarantee the absence of CRC or advanced adenoma (pre-cancer). The current Cologuard screening interval is every 3 years. ([place] Cancer Society and U.S. Multi-Society Task Force). Cologuard performance data in a 10,000 patient pivotal study using colonoscopy as the reference method can be accessed at the following location: www.[employer].Screenmailer/results. Additional description of the Cologuard test process, warnings and precautions can be found at www.Tripeeseoguard.Screenmailer. Stool specimen (specimen) 05/05/2023 3:30 PM EST 05/08/2023 12:38 PM EST Radha Weber MD LAB MOLECULAR DIAGNOSTICS O RDERABLES Final Result [facility] (CLIA #:[id number]) [address] [place] [address], * (ABNORMAL) POCT A1C (02/16/2023 4:33 PM EDT) Hemoglobin A1C 8.0(A) 4.0 - 6.0 % QC Media Lot # [id number] Lot# Expiration Date Blood 02/16/2023 4:33 PM EDT Radha Weber MD POINT OF CARE TEST ENTER/ED IT ORDERABLES Final Result * ALBUMIN, RANDOM URINE W/CREATININE (12/02/2020 3:53 PM EDT) Microalbumin Urine 1.7 See Note: mg/dL [facility] Comment: Reference Range: Reference Range [...] ORDERABL ES Final Result Performing Organization Address [facility] de Phone Number [facility] [address] * (ABNORMAL) LIPID PANEL, STANDARD (12/02/2020 [...] LDL-C. Isael INMAN et al. ADOLPH. 2013;310(19): 8578-2613 (http://education.[place] Therapist.com/faq/GJB671) Non-HDL Cholesterol 128 <130 mg/dL (calc) [facility] Comment: For patients with diabetes plus 1 major ASCVD risk factor, treating to a non-HDL-C goal of <100 mg/dL (LDL-C of <70 mg/dL) is considered a therapeutic option. Triglycerides 136 <150 mg/dL [facility] 12/02/2020 3:53 PM EDT Jason Zendejas MD LAB BLOOD ORDERABL ES Final Result Performing Organization Address [facility] Co de Phone Number [facility] [address] [place] [address], * Colonoscopy (12/31/2016) Colonoscopy Normal Normal Narrative Radha Mejia - 12/31/2016 Recommended 10 year follow up us Historical Provider HEALTH MAINTENANCE Final Result from Last 3 Months or Most Recently Relevant to Health Maintenance [facility] < 65
--- OUTSIDE RECORDS SUMMARY | 2025-05-02 21:03 | XMS_ITS | Encounter Summary ---
Author Organization [employer] Address [address] [place] [address] 7t [place] [address] Care Team Providers Care Maternal Fetal Physician Name Role Phone Unavailable Primary Care Provider Unavailabl e Reason for Visit * Reason Comments Med Refill Encounter Details Date Type Department Care Team ([facility] st Contact Info) Description 07/14/2023 Refill [facility] CHC MED & PEDS 505 [place] [address] Radha Weber MD 505 [place] [address] Social History Tobacco Use Types Packs/Day Years [...]
--- OUTSIDE RECORDS SUMMARY | 2025-05-02 21:03 | XMS_ITS | Encounter Summary ---
Author Organization [employer] Address [address] [place] [address] 7t [place] [address] Care Team Providers Care Jewel Sorter Name Role Phone Unavailable Primary Care Provider Unavailabl e Reason for Visit * Reason Comments Med Refill Encounter Details Date Type Department Care Team ([facility] st Contact Info) Description 04/04/2024 Refill [facility] CHC MED & PEDS 505 [place] [address] Radha Weber MD 505 [place] [address] Social History Tobacco Use Types Packs/Day Years [...]
--- OUTSIDE RECORDS SUMMARY | 2025-05-02 21:03 | XMS_ITS | Encounter Summary ---
Author Organization [employer] Address [address] [place] [address] 7t [place] [address] Care Team Providers Care Book Jacket Cover Machine Operator Name Role Phone Unavailable Primary Care Provider Unavailabl e Reason for Visit * Reason Comments Med Refill Encounter Details Date Type Department Care Team ([facility] st Contact Info) Description 09/01/2023 Refill [facility] CHC MED & PEDS 505 [place] [address] Radha Weber MD 505 [place] [address] Primary osteoarthritis of other site Social History [...]
--- OUTSIDE RECORDS SUMMARY | 2025-05-02 21:03 | XMS_ITS | Clinical Summary ---
Author Organization [address] [facility] Address [address] [place] [address] Phone Care Team Providers Care Fixed Capital Clerk Name Role Phone Physician, Pcp Unknown Primary [...] PM EDT Office Visit Orthopedic Surgery - [address] [address] Avtar Emanuel, DPM Arthritis of left ankle (Primary Dx); Dermatophytosis of nail; Type II diabetes mellitus with peripheral circulatory disorder ([facility] V24, [facility] V28); Pain in toe of right foot; Pain in toe of left foot; Diabetic mononeuropathy simplex ([facility] V24, [facility] V28) from Last 3 Months Social [...] on file Sexual Orientation Not on file Last Filed [...] PM EST Office Visit Orthopedic Surgery - [place] [address] [phone] Avtar Emanuel, DPM [address] [phone] Health Maintenance Due Date Last Done Comments [...] ID:[id number] Group ID:[id number] Type:Not on file Address: [place] [address] [place] [address] Care Teams Fixed Capital Clerk Relationship Specialty Start Date End Date Physician, Pcp Unknown PCP - General 04/20/24
--- OUTSIDE RECORDS SUMMARY | 2025-05-02 21:03 | XMS_ITS | Encounter Summary ---
Author Organization [employer] Address [address] [place] [address] 7 [place] [address] Care Team Providers Care Thread Winder Name Role Phone Radha Weber MD Primary Care Provider +1- [phone] Reason for Visit * Reason Comments Med Refill Encounter Details Date Type Department Care Team (Late st Contact Info) Description 08/10/2022 Refill [facility] MEDICINE [address] [place], [place] [phone] Radha Weber MD 505 [place] [address] Social History Tobacco Use Types Packs/Day Years [...] on filedocumented in this encounter Care Teams Thread Winder Relationship Specialty Start Date End Date Radha Weber MD [address] [place] [address] PCP - General Internal Medicine 02/27/21 05/19/23 documented as of this encounter
--- OUTSIDE RECORDS SUMMARY | 2025-05-02 21:04 | XMS_ITS | Encounter Summary ---
Author Organization [employer] Address [address] [place] [address] 7t [place] [address] Care Team Providers Care Account Service Associate Name Role Phone Radha Weber MD Primary Care Provider +1- [phone] Encounter Details Date Type Department Care Team ([facility] st Contact Info) Description 01/26/2023 Orders Only [facility] CHC MED & PEDS [address] [place] [address] Antoinette Shrestha LPN Social History Tobacco Use [...] on filedocumented in this encounter Care Teams Account Service Associate Relationship Specialty Start Date End Date Radha Weber MD [address] [place] [address] PCP - General Internal Medicine 02/27/21 05/19/23 documented as of this encounter
== END 2025-05-02 20:08 | disposition home or self-care (01) ==
PROVIDERS: Registered Nurse Emergency; Emergency Provider Emergency Medicine
DX: R23.4 Changes in skin texture (principal); E11.9 Type 2 diabetes mellitus without complications; E78.5 Hyperlipidemia, unspecified; I10 Essential (primary) hypertension; J45.909 Unspecified asthma, uncomplicated; Z79.51 Long term (current) use of inhaled steroids; Z79.82 Long term (current) use of aspirin; Z79.4 Long term (current) use of insulin; Z79.85 Long-term (current) use of injectable non-insulin antidiabetic drugs
CPT/HCPCS: 36415; 73590; 80053; 85025; 85652; 86140; 99282; 99283

== ENCOUNTER → 2025-05-02 16:30 | Outpatient (BNV) | payer OTHER, SELFPAY | PROVIDERS: Visit Provider Radiology Diagnostic Radiology | DX: S81.802A Unspecified open wound, left lower leg, initial encounter (principal) | CPT/HCPCS: 73590 ==